=== PATIENT | female | born 1975 | race Caucasian/White ===

== ENCOUNTER → 2016-10-04 | Outpatient (CLI) | payer OTHER ==
[~2016-10-04] MED LIST: ASPI-875 PO; ATOR40TA70 PO; ATOR80TA76 PO; ATR20T PO; CITA10TA PO; CITA40TA19 PO; CLOP75TA PO; HYDR12.56 PO; ISOS30TA3 PO; LISI20TA PO; METO-270 PO; METO50TA2 PO; NTR.4SL SL; OMEP-10 PO; PANT40TA3 PO; PRAS10TA6 PO; PRAV40TA PO; REGADENOSON 0.4 MG/5 ML SYR (LEXISCAN) IV ONE; SERT100T PO; VARE1TAB17 PO
--- OUTSIDE RECORDS SUMMARY | 2016-10-04 11:33 | XMS REPORT | Continuity of Care Document ---
Author Author Formerly [facility] Address Unknown Phone Unavailable Allergies Active Description Code Type Severity Reaction Onset Reported/Identified Relationship to Patient Clinical Status Yes No Known Drug Allergies [id number] Drug Allergy Unknown N/ A 03/13/2013 Medications Problems Date Dx Coded Attending Type Code Diagnosis Diagnosed By 03/20/2008 V23.9 HIGH-RISK CARE UNSPEC 03/20/2008 V72.42 TEST POSITIVE RESULT 03/20/2008 VERONA THOMASON APRN V23.9 HIGH-RISK CARE UNSPEC 03/20/2008 VERONA THOMASON APRN V72.42 TEST POSITIVE RESULT 03/20/2008 V23.9 HIGH-RISK CARE UNSPEC 03/20/2008 V72.42 TEST POSITIVE RESULT 03/20/2008 V23.9 HIGH-RISK CARE UNSPEC 03/20/2008 V72.42 TEST POSITIVE RESULT 03/20/2008 REGGIE LANDEROS DO K V23.9 HIGH-RISK CARE UNSPEC 03/20/2008 GISEL LANDEROS DOA K V72.42 TEST POSITIVE RESULT 03/20/2008 GISEL LANDEROS DOA K V23.9 HIGH-RISK CARE UNSPEC 03/20/2008 GISEL LANDEROS DOA K V72.42 TEST POSITIVE RESULT 03/20/2008 GISEL LANDEROS DOA K V23.9 HIGH-RISK CARE UNSPEC 03/20/2008 GISEL LANDEROS DOA K V72.42 TEST POSITIVE RESULT 03/20/2008 FRANK CUADRA MD V23.9 HIGH-RISK CARE UNSPEC 03/20/2008 FRANK CUADRA MD V72.42 TEST POSITIVE RESULT 03/20/2008 VERONA THOMASON APRN V23.9 HIGH-RISK CARE UNSPEC 03/20/2008 VERONA THOMASON APRN V72.42 TEST POSITIVE RESULT 03/20/2008 REGGIE LANDEROS DO V23.9 HIGH-RISK CARE UNSPEC 03/20/2008 LANDEROS DO, REGGIE K V72.42 TEST POSITIVE RESULT 03/20/2008 LANDEROS DO, REGGIE K V23.9 HIGH-RISK CARE UNSPEC 03/20/2008 LANDEROS DO, REGGIE K V72.42 TEST POSITIVE RESULT 03/20/2008 ILYA ALCALA APRN L V23.9 HIGH-RISK CARE UNSPEC 03/20/2008 FREDRICK SUPERVISOR SAFETY DEPOSITJUANPABLO DoddCY L V72.42 TEST POSITIVE RESULT 03/20/2008 LANDEROS DO, REGGIE K V23.9 HIGH-RISK CARE UNSPEC 03/20/2008 LANDEROS DO, REGGIE K V72.42 TEST POSITIVE RESULT 03/20/2008 LANDEROS DO, REGGIE K V23.9 HIGH-RISK CARE UNSPEC 03/20/2008 LANDEROS DO, REGGIE K V72.42 TEST POSITIVE RESULT 03/20/2008 LANDEROS DO, REGGIE K V23.9 HIGH-RISK CARE UNSPEC 03/20/2008 LANDEROS DO, REGGIE K V72.42 TEST POSITIVE RESULT 03/20/2008 ELVA MC APRN E V23.9 HIGH-RISK CARE UNSPEC 03/20/2008 ARACELI MC APRNE E V72.42 TEST POSITIVE RESULT 04/01/2008 632 , MISSED 04/01/2008 V72.41 TEST NEGATIVE RESULT 04/01/2008 VERONA THOMASON APRN 632 , MISSED 04/01/2008 VERONA THOMASON APRN V72.41 TEST NEGATIVE RESULT 04/01/2008 632 , MISSED 04/01/2008 V72.41 TEST NEGATIVE RESULT 04/01/2008 632 , MISSED 04/01/2008 V72.41 TEST NEGATIVE RESULT 04/01/2008 LANDEROS DO, REGGIE K 632 , MISSED 04/01/2008 LANDEROS DO, REGGIE K V72.41 TEST NEGATIVE RESULT 04/01/2008 LANDEROS DO, REGGIE K 632 , MISSED 04/01/2008 LANDEROS DO, REGGIE K V72.41 TEST NEGATIVE RESULT 04/01/2008 LANDEROS DO, REGGIE K 632 , MISSED 04/01/2008 LANDEROS DO, REGGIE K V72.41 TEST NEGATIVE RESULT 04/01/2008 FRANK CUADRA MD N 632 , MISSED 04/01/2008 FRANK CUADRA MD V72.41 TEST NEGATIVE RESULT 04/01/2008 VERONA THOMASON APRN R 632 , MISSED 04/01/2008 VERONA THOMASON APRN V72.41 TEST NEGATIVE RESULT 04/01/2008 LANDEROS DO, REGGIE K 632 , MISSED 04/01/2008 LANDEROS DO, REGGIE K V72.41 TEST NEGATIVE RESULT 04/01/2008 LANDEROS DO, REGGIE K 632 , MISSED 04/01/2008 LANDEROS DO, REGGIE K V72.41 TEST NEGATIVE RESULT 04/01/2008 FREDRICK SUPERVISOR SAFETY DEPOSIT, ILYA L 632 , MISSED 04/01/2008 FREDRICK SUPERVISOR SAFETY DEPOSIT, ILYA L V72.41 TEST NEGATIVE RESULT 04/01/2008 LANDEROS DO, REGGIE K 632 , MISSED 04/01/2008 LANDEROS DO, REGGIE K V72.41 TEST NEGATIVE RESULT 04/01/2008 LANDEROS DO, REGGIE K 632 , MISSED 04/01/2008 LANDEROS DO, REGGIE K V72.41 TEST NEGATIVE RESULT 04/01/2008 LANDEROS DO, REGGIE K 632 , MISSED 04/01/2008 LANDEROS DO, REGGIE K V72.41 TEST NEGATIVE RESULT 04/01/2008 CANDIDALGISEL PIPER APRNSIE E 632 , MISSED 04/01/2008 CANDIDAGISEL BORJA APRNSIE E V72.41 TEST NEGATIVE RESULT 04/04/2008 V25.40 CONTRACEPTIVE SURVEILLANCE UNSPECIFIED 04/04/2008 V72.31 PIANO MAKER EXAM, ROUTINE 04/04/2008 VERONA THOMASON APRN V25.40 CONTRACEPTIVE SURVEILLANCE UNSPECIFIED 04/04/2008 VERONA THOMASON APRN V72.31 PIANO MAKER EXAM, ROUTINE 04/04/2008 V25.40 CONTRACEPTIVE SURVEILLANCE UNSPECIFIED 04/04/2008 V72.31 PIANO MAKER EXAM, ROUTINE 04/04/2008 V25.40 CONTRACEPTIVE SURVEILLANCE UNSPECIFIED 04/04/2008 V72.31 PIANO MAKER EXAM, ROUTINE 04/04/2008 LANDEROS DO REGGIE K V25.40 CONTRACEPTIVE SURVEILLANCE UNSPECIFIED 04/04/2008 LANDEROS DO REGGIE K V72.31 PIANO MAKER EXAM, ROUTINE 04/04/2008 LANDEROS DO REGGIE K V25.40 CONTRACEPTIVE SURVEILLANCE UNSPECIFIED 04/04/2008 LANDEROS DO REGGIE K V72.31 PIANO MAKER EXAM, ROUTINE 04/04/2008 LANDEROS DO REGGIE K V25.40 CONTRACEPTIVE SURVEILLANCE UNSPECIFIED 04/04/2008 LANDEROS DO REGGIE K V72.31 PIANO MAKER EXAM, ROUTINE 04/04/2008 FRANK CUADRA MD V25.40 CONTRACEPTIVE SURVEILLANCE UNSPECIFIED 04/04/2008 FRANK CUADRA MD V72.31 PIANO MAKER EXAM, ROUTINE 04/04/2008 VERONA THOMASON APRN V25.40 CONTRACEPTIVE SURVEILLANCE UNSPECIFIED 04/04/2008 VERONA THOMASON APRN V72.31 PIANO MAKER EXAM, ROUTINE 04/04/2008 LANDEROS DO REGGIE K V25.40 CONTRACEPTIVE SURVEILLANCE UNSPECIFIED 04/04/2008 LANDEROS DO REGGIE K V72.31 PIANO MAKER EXAM, ROUTINE 04/04/2008 LANDEROS DO REGGIE K V25.40 CONTRACEPTIVE SURVEILLANCE UNSPECIFIED 04/04/2008 LANDEROS DO REGGIE K V72.31 PIANO MAKER EXAM, ROUTINE 04/04/2008 FREDRICK SUPERVISOR SAFETY DEPOSITILYA Dodd L V25.40 CONTRACEPTIVE SURVEILLANCE UNSPECIFIED 04/04/2008 FREDRICK SUPERVISOR SAFETY DEPOSITILYA L V72.31 PIANO MAKER EXAM, ROUTINE 04/04/2008 LANDEROS DO REGGIE K V25.40 CONTRACEPTIVE SURVEILLANCE UNSPECIFIED 04/04/2008 LANDEROS DO REGGIE K V72.31 PIANO MAKER EXAM, ROUTINE 04/04/2008 LANDEROS DO REGGIE K V25.40 CONTRACEPTIVE SURVEILLANCE UNSPECIFIED 04/04/2008 LANDEROS DO REGGIE K V72.31 PIANO MAKER EXAM, ROUTINE 04/04/2008 LANDEROS DO REGGIE K V25.40 CONTRACEPTIVE SURVEILLANCE UNSPECIFIED 04/04/2008 LANDEROS DO REGGIE K V72.31 PIANO MAKER EXAM, ROUTINE 04/04/2008 ELVA MC APRN E V25.40 CONTRACEPTIVE SURVEILLANCE UNSPECIFIED 04/04/2008 CANDIDALELVA PIPER APRN E V72.31 PIANO MAKER EXAM, ROUTINE 06/26/2008 112.1 CANDIDIASIS VAGINAL 06/26/2008 616.10 VAGINITIS 06/26/2008 VERONA THOMASON APRN 112.1 CANDIDIASIS VAGINAL 06/26/2008 VERONA THOMASON APRN 616.10 VAGINITIS 06/26/2008 112.1 CANDIDIASIS VAGINAL 06/26/2008 616.10 VAGINITIS 06/26/2008 112.1 CANDIDIASIS VAGINAL 06/26/2008 616.10 VAGINITIS 06/26/2008 LANDEROS DO, REGGIE K 112.1 CANDIDIASIS VAGINAL 06/26/2008 LANDEROS DO, REGGIE K 616.10 VAGINITIS 06/26/2008 LANDEROS DO, REGGIE K 112.1 CANDIDIASIS VAGINAL 06/26/2008 LANDEROS DO, REGGIE K 616.10 VAGINITIS 06/26/2008 LANDEROS DO, REGGIE K 112.1 CANDIDIASIS VAGINAL 06/26/2008 LANDEROS DO, REGGIE K 616.10 VAGINITIS 06/26/2008 KHALIF KHALIL, FRANK N 112.1 CANDIDIASIS VAGINAL 06/26/2008 KHALIF KHALIL, FRANK Dodd 616.10 VAGINITIS 06/26/2008 VERONA THOMASON APRN 112.1 CANDIDIASIS VAGINAL 06/26/2008 VERONA THOMASON APRN 616.10 VAGINITIS 06/26/2008 LANDEROS DO, REGGIE K 112.1 CANDIDIASIS VAGINAL 06/26/2008 LANDEROS DO, REGGIE K 616.10 VAGINITIS 06/26/2008 LANDEROS DO, REGGIE K 112.1 CANDIDIASIS VAGINAL 06/26/2008 LANDEROS DO, REGGIE K 616.10 VAGINITIS 06/26/2008 FREDRICK REAL, ILYA L 112.1 CANDIDIASIS VAGINAL 06/26/2008 FREDRICK ADDIE ILYA L 616.10 VAGINITIS 06/26/2008 LANDEROS DO, REGGIE K 112.1 CANDIDIASIS VAGINAL 06/26/2008 LANDEROS DO, REGGIE K 616.10 VAGINITIS 06/26/2008 LANDEROS DO, REGGIE K 112.1 CANDIDIASIS VAGINAL 06/26/2008 LANDEROS DO, REGGIE K 616.10 VAGINITIS 06/26/2008 LANDEROS DO, REGGIE K 112.1 CANDIDIASIS VAGINAL 06/26/2008 LANDEROS DO, REGGIE K 616.10 VAGINITIS 06/26/2008 ELVA MC APRN E 112.1 CANDIDIASIS VAGINAL 06/26/2008 ELVA MC APRN E 616.10 VAGINITIS 09/09/2008 382.00 OTITIS MEDIA ACUTE WITHOUT SPONTANEOUS RUPTURE EARDRUM 09/09/2008 388.70 earache 09/09/2008 THOMASON SUPERVISOR SAFETY DEPOSIT, VERONA R 382.00 OTITIS MEDIA ACUTE WITHOUT SPONTANEOUS RUPTURE EARDRUM 09/09/2008 VERONA THOMASON APRN 388.70 earache 09/09/2008 382.00 OTITIS MEDIA ACUTE WITHOUT SPONTANEOUS RUPTURE EARDRUM 09/09/2008 388.70 earache 09/09/2008 382.00 OTITIS MEDIA ACUTE WITHOUT SPONTANEOUS RUPTURE EARDRUM 09/09/2008 388.70 earache 09/09/2008 LANDEROS DO, REGGIE K 382.00 OTITIS MEDIA ACUTE WITHOUT SPONTANEOUS RUPTURE EARDRUM 09/09/2008 LANDEROS DO, REGGIE K 388.70 earache 09/09/2008 LANDEROS DO, REGGIE K 382.00 OTITIS MEDIA ACUTE WITHOUT SPONTANEOUS RUPTURE EARDRUM 09/09/2008 LANDEROS DO, REGGIE K 388.70 earache 09/09/2008 LANDEROS DO, REGGIE K 382.00 OTITIS MEDIA ACUTE WITHOUT SPONTANEOUS RUPTURE EARDRUM 09/09/2008 LANDEROS DO, REGGIE K 388.70 earache 09/09/2008 FRANK CUADRA MD 382.00 OTITIS MEDIA ACUTE WITHOUT SPONTANEOUS RUPTURE EARDRUM 09/09/2008 FRANK CUADRA MD 388.70 earache 09/09/2008 VERONA THOMASON APRN R 382.00 OTITIS MEDIA ACUTE WITHOUT SPONTANEOUS RUPTURE EARDRUM 09/09/2008 VERONA THOMASON APRN 388.70 earache 09/09/2008 LANDEROS DO, REGGIE K 382.00 OTITIS MEDIA ACUTE WITHOUT SPONTANEOUS RUPTURE EARDRUM 09/09/2008 LANDEROS DO, REGGIE K 388.70 earache 09/09/2008 LANDEROS DO, REGGIE K 382.00 OTITIS MEDIA ACUTE WITHOUT SPONTANEOUS RUPTURE EARDRUM 09/09/2008 LANDEROS DO, REGGIE K 388.70 earache 09/09/2008 FREDRICK SUPERVISOR SAFETY DEPOSIT, ILYA L 382.00 OTITIS MEDIA ACUTE WITHOUT SPONTANEOUS RUPTURE EARDRUM 09/09/2008 FREDRICK SUPERVISOR SAFETY DEPOSIT, ILYA L 388.70 earache 09/09/2008 LANDEROS DO, REGGIE K 382.00 OTITIS MEDIA ACUTE WITHOUT SPONTANEOUS RUPTURE EARDRUM 09/09/2008 LANDEROS DO, REGGIE K 388.70 earache 09/09/2008 LANDEROS DO, REGGIE K 382.00 OTITIS MEDIA ACUTE WITHOUT SPONTANEOUS RUPTURE EARDRUM 09/09/2008 LANDEROS DO, REGGIE K 388.70 EARACHE 09/09/2008 LANDEROS DO, RGEGIE K 382.00 OTITIS MEDIA ACUTE WITHOUT SPONTANEOUS RUPTURE EARDRUM 09/09/2008 LANDEROS , REGGIE K 388.70 EARACHE 09/09/2008 [facility] ELVA REAL E 382.00 OTITIS MEDIA ACUTE WITHOUT SPONTANEOUS RUPTURE EARDRUM 09/09/2008 CANDIDAELVA PIPER APRN E 388.70 EARACHE 09/23/2008 780.60 FEVER, UNSPECIFIED 09/23/2008 V74.1 SCREENING EXAMINATION FOR PULMONARY TUBERCULOSIS 09/23/2008 VERONA THOMASON APRN 780.60 FEVER, UNSPECIFIED 09/23/2008 VERONA THOMASON APRN V74.1 SCREENING EXAMINATION FOR PULMONARY TUBERCULOSIS 09/23/2008 780.60 FEVER, UNSPECIFIED 09/23/2008 V74.1 SCREENING EXAMINATION FOR PULMONARY TUBERCULOSIS 09/23/2008 780.60 FEVER, UNSPECIFIED 09/23/2008 V74.1 SCREENING EXAMINATION FOR PULMONARY TUBERCULOSIS 09/23/2008 LANDEROS DO, REGGIE K 780.60 FEVER, UNSPECIFIED 09/23/2008 LANDEROS DO REGGIE K V74.1 SCREENING EXAMINATION FOR PULMONARY TUBERCULOSIS 09/23/2008 LANDEROS DO, REGGIE K 780.60 FEVER, UNSPECIFIED 09/23/2008 LANDEROS DO, REGGIE K V74.1 SCREENING EXAMINATION FOR PULMONARY TUBERCULOSIS 09/23/2008 LANDEROS DO, REGGIE K 780.60 FEVER, UNSPECIFIED 09/23/2008 LANDEROS DO, REGGIE K V74.1 SCREENING EXAMINATION FOR PULMONARY TUBERCULOSIS 09/23/2008 FRANK CUADRA MD 780.60 FEVER, UNSPECIFIED 09/23/2008 FRANK CUADRA MD V74.1 SCREENING EXAMINATION FOR PULMONARY TUBERCULOSIS 09/23/2008 THOMASONVERONA SANCHEZ APRN 780.60 FEVER, UNSPECIFIED 09/23/2008 VERONA THOMASON APRN V74.1 SCREENING EXAMINATION FOR PULMONARY TUBERCULOSIS 09/23/2008 LANDEROS DO, REGGIE K 780.60 FEVER, UNSPECIFIED 09/23/2008 LANDEROS DO, REGGIE K V74.1 SCREENING EXAMINATION FOR PULMONARY TUBERCULOSIS 09/23/2008 LANDEROS DO, REGGIE K 780.60 FEVER, UNSPECIFIED 09/23/2008 LANDEROS DO, REGGIE K V74.1 SCREENING EXAMINATION FOR PULMONARY TUBERCULOSIS 09/23/2008 ILYA ALCALA APRN L 780.60 FEVER, UNSPECIFIED 09/23/2008 ILYA ALCALA APRN L V74.1 SCREENING EXAMINATION FOR PULMONARY TUBERCULOSIS 09/23/2008 LANDEROS DO, REGGIE K 780.60 FEVER, UNSPECIFIED 09/23/2008 LANDEROS DO, REGGIE K V74.1 SCREENING EXAMINATION FOR PULMONARY TUBERCULOSIS 09/23/2008 LANDEROS DO, REGGIE K 780.60 FEVER, UNSPECIFIED 09/23/2008 LANDEROS DO, REGGIE K V74.1 SCREENING EXAMINATION FOR PULMONARY TUBERCULOSIS 09/23/2008 LANDEROS DO, REGGIE K 780.60 FEVER, UNSPECIFIED 09/23/2008 LANDEROS DO, REGGIE K V74.1 SCREENING EXAMINATION FOR PULMONARY TUBERCULOSIS 09/23/2008 CANDIDAELVA PIPER APRN 780.60 FEVER, UNSPECIFIED 09/23/2008 CANDIDAELVA PIPER APRN V74.1 SCREENING EXAMINATION FOR PULMONARY TUBERCULOSIS 10/06/2008 780.79 MALAISE AND FATIGUE 10/06/2008 VERONA THOMASON APRN 780.79 MALAISE AND FATIGUE 10/06/2008 780.79 MALAISE AND FATIGUE 10/06/2008 780.79 MALAISE AND FATIGUE 10/06/2008 LANDEROS DO REGGIE K 780.79 MALAISE AND FATIGUE 10/06/2008 LANDEROS DO, REGGIE K 780.79 MALAISE AND FATIGUE 10/06/2008 LANDEROS DO, REGGIE K 780.79 MALAISE AND FATIGUE 10/06/2008 FRANK CUADRA MD 780.79 MALAISE AND FATIGUE 10/06/2008 VERONA THOMASON APRN 780.79 MALAISE AND FATIGUE 10/06/2008 LANDEROS DO, REGGIE K 780.79 MALAISE AND FATIGUE 10/06/2008 LANDEROS DO REGGIE K 780.79 MALAISE AND FATIGUE 10/06/2008 ILYA ALCALA APRN 780.79 MALAISE AND FATIGUE 10/06/2008 LANDEROS DO, REGGIE K 780.79 MALAISE AND FATIGUE 10/06/2008 LANDEROS DO REGGIE K 780.79 MALAISE AND FATIGUE 10/06/2008 LANDEROS DO, REGGIE K 780.79 MALAISE AND FATIGUE 10/06/2008 ELVA MC APRN 780.79 MALAISE AND FATIGUE 01/26/2009 466.0 BRONCHITIS, ACUTE 01/26/2009 786.2 COUGH 01/26/2009 VERONA THOMASON APRN 466.0 BRONCHITIS, ACUTE 01/26/2009 VERONA THOMASON APRN 786.2 COUGH 01/26/2009 466.0 BRONCHITIS, ACUTE 01/26/2009 786.2 COUGH 01/26/2009 466.0 BRONCHITIS, ACUTE 01/26/2009 786.2 COUGH 01/26/2009 LANDEROS DO, REGGIE K 466.0 BRONCHITIS, ACUTE 01/26/2009 LANDEROS DO, REGGIE K 786.2 COUGH 01/26/2009 LANDEROS DO, REGGIE K 466.0 BRONCHITIS, ACUTE 01/26/2009 LANDEROS DO, REGGIE K 786.2 COUGH 01/26/2009 LANDEROS DO, REGGIE K 466.0 BRONCHITIS, ACUTE 01/26/2009 LANDEROS DO, REGGIE K 786.2 COUGH 01/26/2009 KHALIF KHALIL, FRANK N 466.0 BRONCHITIS, ACUTE 01/26/2009 FRANK CUADRA MD 786.2 COUGH 01/26/2009 VERONA THOMASON APRN 466.0 BRONCHITIS, ACUTE 01/26/2009 VERONA THOMASON APRN 786.2 COUGH 01/26/2009 LANDEROS DO, REGGIE K 466.0 BRONCHITIS, ACUTE 01/26/2009 LANDEROS DO, REGGIE K 786.2 COUGH 01/26/2009 LANDEROS DO, REGGIE K 466.0 BRONCHITIS, ACUTE 01/26/2009 LANDEROS DO, REGGIE K 786.2 COUGH 01/26/2009 FREDRICK SUPERVISOR SAFETY DEPOSIT, ILYA L 466.0 BRONCHITIS, ACUTE 01/26/2009 FREDRICK SUPERVISOR SAFETY DEPOSIT, ILYA L 786.2 COUGH 01/26/2009 LANDEROS DO, REGGIE K 466.0 BRONCHITIS, ACUTE 01/26/2009 LANDEROS DO, REGGIE K 786.2 COUGH 01/26/2009 LANDEROS DO, REGGIE K 466.0 BRONCHITIS, ACUTE 01/26/2009 LANDEROS DO, REGGIE K 786.2 COUGH 01/26/2009 LANDEROS DO, REGGIE K 466.0 BRONCHITIS, ACUTE 01/26/2009 LANDEROS DO, REGGIE K 786.2 COUGH 01/26/2009 GISEL MC APRNSIE E 466.0 BRONCHITIS, ACUTE 01/26/2009 ALEXANDRO REAL ELVA E 786.2 COUGH 08/10/2009 381.81 DYSFUNCTION OF EUSTACHIAN TUBE 08/10/2009 VERONA THOMASON APRN 381.81 DYSFUNCTION OF EUSTACHIAN TUBE 08/10/2009 381.81 DYSFUNCTION OF EUSTACHIAN TUBE 08/10/2009 381.81 DYSFUNCTION OF EUSTACHIAN TUBE 08/10/2009 LANDEROS DO, REGGIE K 381.81 DYSFUNCTION OF EUSTACHIAN TUBE 08/10/2009 LANDEROS DO, REGGIE K 381.81 DYSFUNCTION OF EUSTACHIAN TUBE 08/10/2009 LANDEROS DO, REGGIE K 381.81 DYSFUNCTION OF EUSTACHIAN TUBE 08/10/2009 FRANK CUADRA MD 381.81 DYSFUNCTION OF EUSTACHIAN TUBE 08/10/2009 VERONA THOMASON APRN 381.81 DYSFUNCTION OF EUSTACHIAN TUBE 08/10/2009 LANDEROS DO, REGGIE K 381.81 DYSFUNCTION OF EUSTACHIAN TUBE 08/10/2009 LANDEROS DO, REGGIE K 381.81 DYSFUNCTION OF EUSTACHIAN TUBE 08/10/2009 ILYA ALCALA APRN 381.81 DYSFUNCTION OF EUSTACHIAN TUBE 08/10/2009 LANDEROS DO, REGGIE K 381.81 DYSFUNCTION OF EUSTACHIAN TUBE 08/10/2009 LANDEROS DO, REGGIE K 381.81 DYSFUNCTION OF EUSTACHIAN TUBE 08/10/2009 LANDEROS DO, REGGIE K 381.81 DYSFUNCTION OF EUSTACHIAN TUBE 08/10/2009 ELVA MC APRN 381.81 DYSFUNCTION OF EUSTACHIAN TUBE 09/01/2009 698.9 itching (pruritus) 09/01/2009 VERONA THOMASON APRN 698.9 itching (pruritus) 09/01/2009 698.9 itching (pruritus) 09/01/2009 698.9 itching (pruritus) 09/01/2009 LANDEROS DO, REGGIE K 698.9 itching (pruritus) 09/01/2009 LANDEROS DO, REGGIE K 698.9 itching (pruritus) 09/01/2009 LANDEROS DO, REGGIE K 698.9 itching (pruritus) 09/01/2009 FRANK CUADRA MD 698.9 itching (pruritus) 09/01/2009 VERONA THOMASON APRN 698.9 itching (pruritus) 09/01/2009 LANDEROS DO, REGGIE K 698.9 itching (pruritus) 09/01/2009 LANDEROS DO, REGGIE K 698.9 itching (pruritus) 09/01/2009 ILYA ALCALA APRN 698.9 itching (pruritus) 09/01/2009 LANDEROS DO REGGIE K 698.9 itching (pruritus) 09/01/2009 LANDEROS DO, REGGIE K 698.9 ITCHING (PRURITUS) 09/01/2009 LANDEROS DO, REGIGE K 698.9 ITCHING (PRURITUS) 09/01/2009 ELVA MC APRN 698.9 ITCHING (PRURITUS) 11/03/2009 782.1 ECHO VIRUS RASH 11/03/2009 VERONA THOMASON APRN 782.1 ECHO VIRUS RASH 11/03/2009 782.1 ECHO VIRUS RASH 11/03/2009 782.1 ECHO VIRUS RASH 11/03/2009 LANDEROS DOGISELA K 782.1 ECHO VIRUS RASH 11/03/2009 LANDEROS DO, REGGIE K 782.1 ECHO VIRUS RASH 11/03/2009 LANDEROS DO, REGGIE K 782.1 ECHO VIRUS RASH 11/03/2009 KHALIF KHALIL, FRANK Dodd 782.1 ECHO VIRUS RASH 11/03/2009 VERONA THOMASON APRN 782.1 ECHO VIRUS RASH 11/03/2009 LANDEROS DO, REGGIE K 782.1 ECHO VIRUS RASH 11/03/2009 LANDEROS DO, REGGIE K 782.1 ECHO VIRUS RASH 11/03/2009 ILYA ALCALA APRN 782.1 ECHO VIRUS RASH 11/03/2009 LANDEROS DO, REGGIE K 782.1 ECHO VIRUS RASH 11/03/2009 LANDEROS DO REGGIE K 782.1 ECHO VIRUS RASH 11/03/2009 LANDEROS DO REGGIE K 782.1 ECHO VIRUS RASH 11/03/2009 ELVA MC APRN 782.1 ECHO VIRUS RASH 05/17/2010 625.8 OTHER SPECIFIED SYMPTOMS ASSOCIATED WITH FEMALE GENITAL ORGANS 05/17/2010 VERONA THOMASON APRN 625.8 OTHER SPECIFIED SYMPTOMS ASSOCIATED WITH FEMALE GENITAL ORGANS 05/17/2010 625.8 OTHER SPECIFIED SYMPTOMS ASSOCIATED WITH FEMALE GENITAL ORGANS 05/17/2010 625.8 OTHER SPECIFIED SYMPTOMS ASSOCIATED WITH FEMALE GENITAL ORGANS 05/17/2010 REGGIE LANDEROS DO K 625.8 OTHER SPECIFIED SYMPTOMS ASSOCIATED WITH FEMALE GENITAL ORGANS 05/17/2010 REGGIE LANDEROS DO K 625.8 OTHER SPECIFIED SYMPTOMS ASSOCIATED WITH FEMALE GENITAL ORGANS 05/17/2010 LANDEROS DO, REGGIE K 625.8 OTHER SPECIFIED SYMPTOMS ASSOCIATED WITH FEMALE GENITAL ORGANS 05/17/2010 FRANK CUADRA MD 625.8 OTHER SPECIFIED SYMPTOMS ASSOCIATED WITH FEMALE GENITAL ORGANS 05/17/2010 VERONA THOMASON APRN 625.8 OTHER SPECIFIED SYMPTOMS ASSOCIATED WITH FEMALE GENITAL ORGANS 05/17/2010 LANDEROS DO, REGGIE K 625.8 OTHER SPECIFIED SYMPTOMS ASSOCIATED WITH FEMALE GENITAL ORGANS 05/17/2010 LANDEROS DO, REGGIE K 625.8 OTHER SPECIFIED SYMPTOMS ASSOCIATED WITH FEMALE GENITAL ORGANS 05/17/2010 ILYA ALCALA APRN 625.8 OTHER SPECIFIED SYMPTOMS ASSOCIATED WITH FEMALE GENITAL ORGANS 05/17/2010 LANDERSO DO, REGGIE K 625.8 OTHER SPECIFIED SYMPTOMS ASSOCIATED WITH FEMALE GENITAL ORGANS 05/17/2010 LANDEROS DO, REGGIE K 625.8 OTHER SPECIFIED SYMPTOMS ASSOCIATED WITH FEMALE GENITAL ORGANS 05/17/2010 LANDEROS DO, REGGIE K 625.8 OTHER SPECIFIED SYMPTOMS ASSOCIATED WITH FEMALE GENITAL ORGANS 05/17/2010 ELVA MC APRN 625.8 OTHER SPECIFIED SYMPTOMS ASSOCIATED WITH FEMALE GENITAL ORGANS 11/29/2010 786.07 WHEEZING 11/29/2010 VERONA THOMASON APRN 786.07 WHEEZING 11/29/2010 786.07 WHEEZING 11/29/2010 786.07 WHEEZING 11/29/2010 LANDEROS DO, REGGIE K 786.07 WHEEZING 11/29/2010 LANDEROS DO, REGGIE K 786.07 WHEEZING 11/29/2010 LANDEROS DO, REGGIE K 786.07 WHEEZING 11/29/2010 FRANK CUADRA MD 786.07 WHEEZING 11/29/2010 VERONA THOMASON APRN 786.07 WHEEZING 11/29/2010 LANDEROS DO, REGGIE K 786.07 WHEEZING 11/29/2010 LANDEROS DO, REGGIE K 786.07 WHEEZING 11/29/2010 ILYA ALCALA APRN 786.07 WHEEZING 11/29/2010 LANDEROS DO, REGGIE K 786.07 WHEEZING 11/29/2010 LANDEROS DO, REGGIE K 786.07 WHEEZING 11/29/2010 LANDEROS DO, REGGIE K 786.07 WHEEZING 11/29/2010 ELVA MC APRN 786.07 WHEEZING 10/28/2011 728.71 PLANTAR FASCIAL FIBROMATOSIS 10/28/2011 729.5 foot pain (soft tissue) 10/28/2011 VERONA THOMASON APRN 728.71 PLANTAR FASCIAL FIBROMATOSIS 10/28/2011 VERONA THOMASON APRN 729.5 foot pain (soft tissue) 10/28/2011 728.71 PLANTAR FASCIAL FIBROMATOSIS 10/28/2011 729.5 foot pain (soft tissue) 10/28/2011 728.71 PLANTAR FASCIAL FIBROMATOSIS 10/28/2011 729.5 foot pain (soft tissue) 10/28/2011 LANDEROS GISEL HUTSONA K 728.71 PLANTAR FASCIAL FIBROMATOSIS 10/28/2011 LANDEROS DO REGGIE K 729.5 foot pain (soft tissue) 10/28/2011 LANDEROS DO REGGIE K 728.71 PLANTAR FASCIAL FIBROMATOSIS 10/28/2011 LANDEROS DO REGGIE K 729.5 foot pain (soft tissue) 10/28/2011 LANDEROS DO REGGIE K 728.71 PLANTAR FASCIAL FIBROMATOSIS 10/28/2011 LANDEROS DO REGGIE K 729.5 foot pain (soft tissue) 10/28/2011 FRANK CUADRA MD 728.71 PLANTAR FASCIAL FIBROMATOSIS 10/28/2011 FRANK CUADRA MD 729.5 foot pain (soft tissue) 10/28/2011 VERONA THOMASON APRN 728.71 PLANTAR FASCIAL FIBROMATOSIS 10/28/2011 VERONA THOMASON APRN 729.5 foot pain (soft tissue) 10/28/2011 GISEL LANDEROS DOA K 728.71 PLANTAR FASCIAL FIBROMATOSIS 10/28/2011 GISEL LANDEROS DOA K 729.5 foot pain (soft tissue) 10/28/2011 GISEL LANDEROS DOA K 728.71 PLANTAR FASCIAL FIBROMATOSIS 10/28/2011 LANDEROS DO REGGIE K 729.5 foot pain (soft tissue) 10/28/2011 ILYA ALCALA APRN 728.71 PLANTAR FASCIAL FIBROMATOSIS 10/28/2011 ILYA ALCALA APRN 729.5 foot pain (soft tissue) 10/28/2011 LANDEROS DO REGGIE K 728.71 PLANTAR FASCIAL FIBROMATOSIS 10/28/2011 LANDEROS DO REGGIE K 729.5 foot pain (soft tissue) 10/28/2011 LANDEROS DO REGGIE K 728.71 PLANTAR FASCIAL FIBROMATOSIS 10/28/2011 LANDEROS DO, REGGIE K 729.5 FOOT PAIN (SOFT TISSUE) 10/28/2011 LANDEROS DO, REGGIE K 728.71 PLANTAR FASCIAL FIBROMATOSIS 10/28/2011 LANDEROS DO, REGGIE K 729.5 FOOT PAIN (SOFT TISSUE) 10/28/2011 ELVA MC APRN E 728.71 PLANTAR FASCIAL FIBROMATOSIS 10/28/2011 ELVA MC APRN E 729.5 FOOT PAIN (SOFT TISSUE) 12/13/2011 787.91 diarrhea 12/13/2011 796.2 Blood Pressure Isolated Elevated 12/13/2011 VERONA THOMASON APRN R 787.91 diarrhea 12/13/2011 VERONA THOMASON APRN 796.2 Blood Pressure Isolated Elevated 12/13/2011 787.91 diarrhea 12/13/2011 796.2 Blood Pressure Isolated Elevated 12/13/2011 787.91 diarrhea 12/13/2011 796.2 Blood Pressure Isolated Elevated 12/13/2011 LANDEROS DO, REGGIE K 787.91 diarrhea 12/13/2011 LANDEROS DO, REGGIE K 796.2 Blood Pressure Isolated Elevated 12/13/2011 LANDEROS DO, REGGIE K 787.91 diarrhea 12/13/2011 LANDEROS DO, REGGIE K 796.2 Blood Pressure Isolated Elevated 12/13/2011 LANDEROS DO, REGGIE K 787.91 diarrhea 12/13/2011 LANDEROS DO, REGGIE K 796.2 Blood Pressure Isolated Elevated 12/13/2011 FRANK CUADRA MD N 787.91 diarrhea 12/13/2011 FRANK CUADRA MD N 796.2 Blood Pressure Isolated Elevated 12/13/2011 VERONA THOMASON APRN R 787.91 diarrhea 12/13/2011 VERONA THOMASON APRN R 796.2 Blood Pressure Isolated Elevated 12/13/2011 LANDEROS DO, REGGIE K 787.91 diarrhea 12/13/2011 LANDEROS DO, REGGIE K 796.2 Blood Pressure Isolated Elevated 12/13/2011 LANDEROS DO, REGGIE K 787.91 diarrhea 12/13/2011 LANDEROS DO, REGGIE K 796.2 Blood Pressure Isolated Elevated 12/13/2011 ILYA ALCALA APRN 787.91 diarrhea 12/13/2011 ILYA ALCALA APRN 796.2 Blood Pressure Isolated Elevated 12/13/2011 LANDEROS DO, REGGIE K 787.91 diarrhea 12/13/2011 LANDEROS DO, REGGIE K 796.2 Blood Pressure Isolated Elevated 12/13/2011 LANDEROS DO, REGGIE K 787.91 DIARRHEA 12/13/2011 LANDEROS DO, REGGIE K 796.2 BLOOD PRESSURE ISOLATED ELEVATED 12/13/2011 LANDEROS DO, REGGIE K 787.91 DIARRHEA 12/13/2011 LANDEROS DO, REGGIE K 796.2 BLOOD PRESSURE ISOLATED ELEVATED 12/13/2011 ELVA MC APRN 787.91 DIARRHEA 12/13/2011 ELVA MC APRN 796.2 BLOOD PRESSURE ISOLATED ELEVATED 01/13/2012 729.4 PLANTAR FASCIITIS 01/13/2012 VERONA THOMASON APRN 729.4 PLANTAR FASCIITIS 01/13/2012 729.4 PLANTAR FASCIITIS 01/13/2012 729.4 PLANTAR FASCIITIS 01/13/2012 LANDEROS DO, REGGIE K 729.4 PLANTAR FASCIITIS 01/13/2012 LANDEROS DO, REGGIE K 729.4 PLANTAR FASCIITIS 01/13/2012 LANDEROS DO, REGGIE K 729.4 PLANTAR FASCIITIS 01/13/2012 KHALIF KHALIL, FRANK Dodd 729.4 PLANTAR FASCIITIS 01/13/2012 VERONA THOMASON APRN 729.4 PLANTAR FASCIITIS 01/13/2012 LANDEROS DO, REGGIE K 729.4 PLANTAR FASCIITIS 01/13/2012 LANDEROS DO, REGGIE K 729.4 PLANTAR FASCIITIS 01/13/2012 ILYA ALCALA APRN 729.4 PLANTAR FASCIITIS 01/13/2012 LANDEROS DO, REGGIE K 729.4 PLANTAR FASCIITIS 01/13/2012 LANDEROS DO, REGGIE K 729.4 PLANTAR FASCIITIS 01/13/2012 LANDEROS DO, REGGIE K 729.4 PLANTAR FASCIITIS 01/13/2012 ELVA MC APRN 729.4 PLANTAR FASCIITIS 02/02/2012 625.6 STRESS INCONTINENCE FEMALE 02/02/2012 V76.10 BREAST CANCER SCREENING 02/02/2012 VERONA THOMASON APRN 625.6 STRESS INCONTINENCE FEMALE 02/02/2012 VERONA THOMASON APRN V76.10 BREAST CANCER SCREENING 02/02/2012 625.6 STRESS INCONTINENCE FEMALE 02/02/2012 V76.10 BREAST CANCER SCREENING 02/02/2012 625.6 STRESS INCONTINENCE FEMALE 02/02/2012 V76.10 BREAST CANCER SCREENING 02/02/2012 LANDEROS DO, REGGIE K 625.6 STRESS INCONTINENCE FEMALE 02/02/2012 LANDEROS DO, REGGIE K V76.10 BREAST CANCER SCREENING 02/02/2012 LANDEROS DO, REGGIE K 625.6 STRESS INCONTINENCE FEMALE 02/02/2012 LANDEROS DO, REGGIE K V76.10 BREAST CANCER SCREENING 02/02/2012 LANDEROS DO, REGGIE K 625.6 STRESS INCONTINENCE FEMALE 02/02/2012 LANDEROS DO, REGGIE K V76.10 BREAST CANCER SCREENING 02/02/2012 FRANK CUADRA MD 625.6 STRESS INCONTINENCE FEMALE 02/02/2012 FRANK CUADRA MD V76.10 BREAST CANCER SCREENING 02/02/2012 VERONA THOMASON APRN 625.6 STRESS INCONTINENCE FEMALE 02/02/2012 VERONA THOMASON APRN V76.10 BREAST CANCER SCREENING 02/02/2012 LANDEROS DO, REGGIE K 625.6 STRESS INCONTINENCE FEMALE 02/02/2012 LANDEROS DO, REGGIE K V76.10 BREAST CANCER SCREENING 02/02/2012 LANDEROS DO, REGGIE K 625.6 STRESS INCONTINENCE FEMALE 02/02/2012 LANDEROS DO, REGGIE K V76.10 BREAST CANCER SCREENING 02/02/2012 ILYA ALCALA APRN 625.6 STRESS INCONTINENCE FEMALE 02/02/2012 ILYA ALCALA APRN V76.10 BREAST CANCER SCREENING 02/02/2012 LANDEROS DO, REGGIE K 625.6 STRESS INCONTINENCE FEMALE 02/02/2012 LANDEROS DO, REGGIE K V76.10 BREAST CANCER SCREENING 02/02/2012 LANDEROS DO, REGGIE K 625.6 STRESS INCONTINENCE FEMALE 02/02/2012 LANDEROS DO, REGGIE K V76.10 BREAST CANCER SCREENING 02/02/2012 LANDEROS DO, REGGIE K 625.6 STRESS INCONTINENCE FEMALE 02/02/2012 LANDEROS DO, REGGIE K V76.10 BREAST CANCER SCREENING 02/02/2012 ELVA MC APRN 625.6 STRESS INCONTINENCE FEMALE 02/02/2012 ELVA MC APRN V76.10 BREAST CANCER SCREENING 04/30/2012 465.9 UPPER RESPIRATORY INFECTION 04/30/2012 VERONA THOMASON APRN 465.9 UPPER RESPIRATORY INFECTION 04/30/2012 465.9 UPPER RESPIRATORY INFECTION 04/30/2012 465.9 UPPER RESPIRATORY INFECTION 04/30/2012 LANDEROS DO, REGGIE K 465.9 UPPER RESPIRATORY INFECTION 04/30/2012 LANDEROS DO, REGGIE K 465.9 UPPER RESPIRATORY INFECTION 04/30/2012 LANDEROS DO, REGGIE K 465.9 UPPER RESPIRATORY INFECTION 04/30/2012 FRANK CUADRA MD 465.9 UPPER RESPIRATORY INFECTION 04/30/2012 VERONA THOMASON APRN 465.9 UPPER RESPIRATORY INFECTION 04/30/2012 LANDEROS DO, REGGIE K 465.9 UPPER RESPIRATORY INFECTION 04/30/2012 LANDEROS DO, REGGIE K 465.9 UPPER RESPIRATORY INFECTION 04/30/2012 ILYA ALCALA APRN 465.9 UPPER RESPIRATORY INFECTION 04/30/2012 LANDEROS DO, REGGIE K 465.9 UPPER RESPIRATORY INFECTION 04/30/2012 LANDEROS DO, REGGIE K 465.9 UPPER RESPIRATORY INFECTION 04/30/2012 LANDEROS DO, REGGIE K 465.9 UPPER RESPIRATORY INFECTION 04/30/2012 ELVA MC APRN 465.9 UPPER RESPIRATORY INFECTION 05/29/2012 V05.3 HEP B (ADULT) DX 05/29/2012 VERONA THOMASON APRN V05.3 HEP B (ADULT) DX 05/29/2012 V05.3 HEP B (ADULT) DX 05/29/2012 V05.3 HEP B (ADULT) DX 05/29/2012 LANDEROS DO, REGGIE K V05.3 HEP B (ADULT) DX 05/29/2012 LANDEROS DO, REGGIE K V05.3 HEP B (ADULT) DX 05/29/2012 LANDEROS DO, REGGIE K V05.3 HEP B (ADULT) DX 05/29/2012 FRANK CUADRA MD V05.3 HEP B (ADULT) DX 05/29/2012 VERONA THOMASON APRN V05.3 HEP B (ADULT) DX 05/29/2012 LANDEROS DO, REGGIE K V05.3 HEP B (ADULT) DX 05/29/2012 LANDEROS DO, REGGIE K V05.3 HEP B (ADULT) DX 05/29/2012 ILYA ALCALA APRN V05.3 HEP B (ADULT) DX 05/29/2012 LANDEROS DO, REGGIE K V05.3 HEP B (ADULT) DX 05/29/2012 LANDEROS DO, REGGIE K V05.3 HEP B (ADULT) DX 05/29/2012 LANDEROS DO, REGGIE K V05.3 HEP B (ADULT) DX 05/29/2012 ELVA MC APRN V05.3 HEP B (ADULT) DX 02/06/2013 414.9 CHRONIC ISCHEMIC HEART DISEASE UNSPECIFIED 02/06/2013 V67.9 UNSPECIFIED FOLLOW-UP EXAMINATION 02/06/2013 414.9 CHRONIC ISCHEMIC HEART DISEASE UNSPECIFIED 02/06/2013 V67.9 UNSPECIFIED FOLLOW-UP EXAMINATION 02/06/2013 LANDEROS DO, REGGIE K 414.9 CHRONIC ISCHEMIC HEART DISEASE UNSPECIFIED 02/06/2013 LANDEROS DO, REGGIE K V67.9 UNSPECIFIED FOLLOW-UP EXAMINATION 02/06/2013 LANDEROS DO, REGGIE K 414.9 CHRONIC ISCHEMIC HEART DISEASE UNSPECIFIED 02/06/2013 LANDEROS DO, REGGIE K V67.9 UNSPECIFIED FOLLOW-UP EXAMINATION 02/06/2013 LANDEROS DO, REGGIE K 414.9 CHRONIC ISCHEMIC HEART DISEASE UNSPECIFIED 02/06/2013 LANDEROS DO, REGGIE K V67.9 UNSPECIFIED FOLLOW-UP EXAMINATION 02/06/2013 FRANK CUADRA MD 414.9 CHRONIC ISCHEMIC HEART DISEASE UNSPECIFIED 02/06/2013 FRANK CUADRA MD V67.9 UNSPECIFIED FOLLOW-UP EXAMINATION 02/06/2013 VERONA THOMASON APRN 414.9 CHRONIC ISCHEMIC HEART DISEASE UNSPECIFIED 02/06/2013 VERONA THOMASON APRN V67.9 UNSPECIFIED FOLLOW-UP EXAMINATION 02/06/2013 LANDEROS DO, REGGIE K 414.9 CHRONIC ISCHEMIC HEART DISEASE UNSPECIFIED 02/06/2013 LANDEROS DO, REGGIE K V67.9 UNSPECIFIED FOLLOW-UP EXAMINATION 02/06/2013 LANDEROS DO, REGGIE K 414.9 CHRONIC ISCHEMIC HEART DISEASE UNSPECIFIED 02/06/2013 LANDEROS DO, REGGIE K V67.9 UNSPECIFIED FOLLOW-UP EXAMINATION 02/06/2013 ILYA ALCALA APRN 414.9 CHRONIC ISCHEMIC HEART DISEASE UNSPECIFIED 02/06/2013 ILYA ALCALA APRN V67.9 UNSPECIFIED FOLLOW-UP EXAMINATION 02/06/2013 LANDEROS DO, REGGIE K 414.9 CHRONIC ISCHEMIC HEART DISEASE UNSPECIFIED 02/06/2013 LANDEROS DO, REGGIE K V67.9 UNSPECIFIED FOLLOW-UP EXAMINATION 02/06/2013 LANDEROS DO, REGGIE K 414.9 CHRONIC ISCHEMIC HEART DISEASE UNSPECIFIED 02/06/2013 LANDEROS DO, REGGIE K V67.9 UNSPECIFIED FOLLOW-UP EXAMINATION 02/06/2013 LANDEROS DO, REGGIE K 414.9 CHRONIC ISCHEMIC HEART DISEASE UNSPECIFIED 02/06/2013 LANEDROS DO, REGGIE K V67.9 UNSPECIFIED FOLLOW-UP EXAMINATION 02/06/2013 GISEL MC APRNSIE E 414.9 CHRONIC ISCHEMIC HEART DISEASE UNSPECIFIED 02/06/2013 ALEXANDRO REAL, ELVA E V67.9 UNSPECIFIED FOLLOW-UP EXAMINATION 03/13/2013 414.00 CAD 03/13/2013 425.4 CARDIOMYOPHATHY 03/13/2013 786.50 CHEST PAIN 03/13/2013 414.00 CAD 03/13/2013 425.4 CARDIOMYOPHATHY 03/13/2013 786.50 CHEST PAIN 03/13/2013 LANDEROS DO, REGGIE K 414.00 CAD 03/13/2013 LANDEROS DO, REGGIE K 425.4 CARDIOMYOPHATHY 03/13/2013 LANDEROS DO, REGGIE K 786.50 CHEST PAIN 03/13/2013 LANDEROS DO, REGGIE K 414.00 CAD 03/13/2013 LANDEROS DO, REGGIE K 425.4 CARDIOMYOPHATHY 03/13/2013 LANDEROS DO, REGGIE K 786.50 CHEST PAIN 03/13/2013 LANDEROS DO, REGGIE K 414.00 CAD 03/13/2013 LANDEROS DO, REGGIE K 425.4 CARDIOMYOPHATHY 03/13/2013 LANDEROS DO, REGGIE K 786.50 CHEST PAIN 03/13/2013 FRANK CUADRA MD 414.00 CAD 03/13/2013 FRANK CUADRA MD 425.4 CARDIOMYOPHATHY 03/13/2013 FRANK CUADRA MD 786.50 CHEST PAIN 03/13/2013 VERONA THOMASON APRN 414.00 CAD 03/13/2013 VERONA THOMASON APRN 425.4 CARDIOMYOPHATHY 03/13/2013 PADDY REAL, VERONA Hawkins 786.50 CHEST PAIN 03/13/2013 LANDEROS DO, REGGIE K 414.00 CAD 03/13/2013 LANDEROS DO, REGGIE K 425.4 CARDIOMYOPHATHY 03/13/2013 LANDEROS DO, REGGIE K 786.50 CHEST PAIN 03/13/2013 LANDEROS DO, REGGIE K 414.00 CAD 03/13/2013 LANDEROS DO, REGGIE K 425.4 CARDIOMYOPHATHY 03/13/2013 LANDEROS DO, REGGIE K 786.50 CHEST PAIN 03/13/2013 FREDRICK SUPERVISOR SAFETY DEPOSIT, ILYA L 414.00 CAD 03/13/2013 FREDRICK SUPERVISOR SAFETY DEPOSIT, ILYA L 425.4 CARDIOMYOPHATHY 03/13/2013 FREDRICK SUPERVISOR SAFETY DEPOSIT, ILYA L 786.50 CHEST PAIN 03/13/2013 LANDEROS DO, REGGIE K 414.00 CAD 03/13/2013 LANDEROS DO, REGGIE K 425.4 CARDIOMYOPHATHY 03/13/2013 LANDEROS DO, REGGIE K 786.50 CHEST PAIN 03/13/2013 LANDEROS DO, REGGIE K 414.00 CAD 03/13/2013 LANDEROS DO, REGGIE K 425.4 CARDIOMYOPHATHY 03/13/2013 LANDEROS DO, REGGIE K 786.50 CHEST PAIN 03/13/2013 LANDEROS DO, REGGIE K 414.00 CAD 03/13/2013 LANDEROS DO, REGGIE K 425.4 CARDIOMYOPHATHY 03/13/2013 LANDEROS DO, REGGIE K 786.50 CHEST PAIN 03/13/2013 ALEXANDRO SUPERVISOR SAFETY DEPOSITGISEL DoddSIE E 414.00 CAD 03/13/2013 ALEXANDRO REAL ELVA E 425.4 CARDIOMYOPHATHY 03/13/2013 HELLVERONIQUE REAL ELVA E 786.50 CHEST PAIN 03/14/2013 JOSUE KHALIL, TORREY Servin Ot 272.4 HYPERLIPIDEMIA NEC/NOS 03/14/2013 JOSUE KHALIL, TORREY Servin Ot 305.1 TOBACCO USE DISORDER 03/14/2013 TORREY SALAS MD Ot 311 DEPRESSIVE DISORDER NEC 03/14/2013 TORREY SALAS MD Ot 411.1 INTERMED CORONARY SYND 03/14/2013 TORREY SALAS MD Ot 412 OLD MYOCARDIAL INFARCT 03/14/2013 TORREY SALAS MD Ot 414.01 CORONARY ATHEROSCLEROSIS OF [place] CORON 03/14/2013 TORREY SALAS MD Ot 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 03/14/2013 TORREY SALAS MD Ot 414.8 CHR ISCHEMIC HRT DIS NEC 03/14/2013 TORREY SALAS MD Ot 530.81 ESOPHAGEAL REFLUX 03/14/2013 TORREY SALAS MD Ot V17.49 FAMILY HISTORY OF OTHER CARDIOVASCULAR D 03/14/2013 TORREY SALAS MD Ot V45.82 PERCUTANEOUS TRANSLUM CORON ANGIOPLASTY 03/14/2013 TORREY SALAS MD Ot V58.63 LONG-TERM(CURRENT)USE OF ANTIPLATELET/ AN 03/14/2013 TORREY SALAS MD Ot V58.66 LONG-TERM (CURRENT) USE OF ASPIRIN 03/14/2013 TORREY SALAS MD Ot V58.69 OTH MED,LT,CURRENT USE 03/21/2013 305.1 NONDEPENDENT TOBACCO USE DISORDER 03/21/2013 V58.69 LONG-TERM (CURRENT) USE OF OTHER MEDICATIONS 03/21/2013 305.1 NONDEPENDENT TOBACCO USE DISORDER 03/21/2013 V58.69 LONG-TERM (CURRENT) USE OF OTHER MEDICATIONS 03/21/2013 REGGIE LANDEROS DO 305.1 NONDEPENDENT TOBACCO USE DISORDER 03/21/2013 REGGIE LANDEROS DO V58.69 LONG-TERM (CURRENT) USE OF OTHER MEDICATIONS 03/21/2013 REGGIE LANDEROS DO 305.1 NONDEPENDENT TOBACCO USE DISORDER 03/21/2013 REGGIE LANDEROS DO V58.69 LONG-TERM (CURRENT) USE OF OTHER MEDICATIONS 03/21/2013 REGGIE LANDEROS DO 305.1 NONDEPENDENT TOBACCO USE DISORDER 03/21/2013 REGGIE LANDEROS DO V58.69 LONG-TERM (CURRENT) USE OF OTHER MEDICATIONS 03/21/2013 FRANK CUADRA MD 305.1 NONDEPENDENT TOBACCO USE DISORDER 03/21/2013 FRANK CUADRA MD V58.69 LONG-TERM (CURRENT) USE OF OTHER MEDICATIONS 03/21/2013 VERONA THOMASON APRN 305.1 NONDEPENDENT TOBACCO USE DISORDER 03/21/2013 VERONA THOMASON APRN V58.69 LONG-TERM (CURRENT) USE OF OTHER MEDICATIONS 03/21/2013 REGGIE LANDEROS DO 305.1 NONDEPENDENT TOBACCO USE DISORDER 03/21/2013 REGGIE LANDEROS DO K V58.69 LONG-TERM (CURRENT) USE OF OTHER MEDICATIONS 03/21/2013 REGGIE LANDEROS DO 305.1 NONDEPENDENT TOBACCO USE DISORDER 03/21/2013 LANDEROS DO, REGGIE K V58.69 LONG-TERM (CURRENT) USE OF OTHER MEDICATIONS 03/21/2013 FREDRICK SUPERVISOR SAFETY DEPOSIT, ILYA L 305.1 NONDEPENDENT TOBACCO USE DISORDER 03/21/2013 FREDRICK SUPERVISOR SAFETY DEPOSIT, ILYA L V58.69 LONG-TERM (CURRENT) USE OF OTHER MEDICATIONS 03/21/2013 LANDEROS DO, REGGIE K 305.1 NONDEPENDENT TOBACCO USE DISORDER 03/21/2013 LANDEROS DO, REGGIE K V58.69 LONG-TERM (CURRENT) USE OF OTHER MEDICATIONS 03/21/2013 LANDEROS DO, REGGIE K 305.1 NONDEPENDENT TOBACCO USE DISORDER 03/21/2013 LANDEROS DO, REGGIE K V58.69 LONG-TERM (CURRENT) USE OF OTHER MEDICATIONS 03/21/2013 LANDEROS DO, REGGIE K 305.1 NONDEPENDENT TOBACCO USE DISORDER 03/21/2013 LANDEROS DO, REGGIE K V58.69 LONG-TERM (CURRENT) USE OF OTHER MEDICATIONS 03/21/2013 GISEL MC APRNSIE E 305.1 NONDEPENDENT TOBACCO USE DISORDER 03/21/2013 GISEL MC APRNSIE E V58.69 LONG-TERM (CURRENT) USE OF OTHER MEDICATIONS 04/03/2013 272.4 HYPERLIPIDEMIA 04/03/2013 LANDEROS DO, REGGIE K 272.4 HYPERLIPIDEMIA 04/03/2013 LANDEROS DO, REGGIE K 272.4 HYPERLIPIDEMIA 04/03/2013 LANDEROS DO, REGGIE K 272.4 HYPERLIPIDEMIA 04/03/2013 KHALIF KHALIL, FRANK Dodd 272.4 HYPERLIPIDEMIA 04/03/2013 VERONA THOMASON APRN 272.4 HYPERLIPIDEMIA 04/03/2013 LANDEROS DO, REGGIE K 272.4 HYPERLIPIDEMIA 04/03/2013 LANDEROS DO, REGGIE K 272.4 HYPERLIPIDEMIA 04/03/2013 FREDRICK REAL ILYA L 272.4 HYPERLIPIDEMIA 04/03/2013 LANDEROS DO, REGGIE K 272.4 HYPERLIPIDEMIA 04/03/2013 LANDEROS DO, REGGIE K 272.4 HYPERLIPIDEMIA 04/03/2013 LANDEROS DO, REGGIE K 272.4 HYPERLIPIDEMIA 04/03/2013 GISEL MC APRNSIE E 272.4 HYPERLIPIDEMIA 05/03/2013 AUGUSTA KHALIL FACC, MATT VELAZQUEZ CCDS Ot 272.4 HYPERLIPIDEMIA NEC/NOS 05/03/2013 AUGUSTA KHALIL FACC, MATT VELAZQUEZ CCDS Ot 305.1 TOBACCO USE DISORDER 05/03/2013 AUGUSTA KHALIL FACC, MATT FACP CCDS Ot 311 DEPRESSIVE DISORDER NEC 05/03/2013 AUGUSTA KHALIL FACC, MATT FACP CCDS Ot 414.01 CORONARY ATHEROSCLEROSIS OF [place] CORON 05/03/2013 MATT DERAS MD, FACC FACP CCDS Ot 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 05/03/2013 MATT DERAS MD, FACC FACP CCDS Ot 414.8 CHR ISCHEMIC HRT DIS NEC 05/03/2013 AUGUSTA KHALIL FACC ALI FACP CCDS Ot 530.81 ESOPHAGEAL REFLUX 05/03/2013 AUGUSTA KHALIL FACC, MATT FACP CCDS Ot 786.59 CHEST PAIN NEC 05/03/2013 AUGUSTA KHALIL FACC, MATT FACP CCDS Ot V45.82 PERCUTANEOUS TRANSLUM CORON ANGIOPLASTY 05/03/2013 MATT DERAS MD, FACC FACP CCDS Ot V58.63 LONG-TERM(CURRENT)USE OF ANTIPLATELET/AN 05/03/2013 MATT DERAS MD, FACC FACP CCDS Ot V58.66 LONG-TERM (CURRENT) USE OF ASPIRIN 05/03/2013 MATT DERAS MD, [facility] V58.69 OTH MED,LT,CURRENT USE 07/29/2013 CAPO ANGEL MD Ot 272.4 HYPERLIPIDEMIA NEC/NOS 07/29/2013 CAPO ANGEL MD Ot 278.00 OBESITY, NOS 07/29/2013 CAPO ANGEL MD Ot 305.1 TOBACCO USE DISORDER 07/29/2013 CAPO ANGEL MD Ot 401.9 HYPERTENSION NOS 07/29/2013 CAPO ANGEL MD Ot 410.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,SUBENDO INFARCT,IN 07/29/2013 CAPO ANGEL MD Ot 412 OLD MYOCARDIAL INFARCT 07/29/2013 CAPO ANGEL MD Ot 414.01 CORONARY ATHEROSCLEROSIS OF [place] CORON 07/29/2013 CAPO ANGEL MD Ot 414.8 CHR ISCHEMIC HRT DIS NEC 07/29/2013 CAPO ANGEL MD Ot 428.0 CONGESTIVE HEART FAILURE NOS 07/29/2013 CAPO ANGEL MD Ot 530.81 ESOPHAGEAL REFLUX 07/29/2013 CAPO ANGEL MD Ot V45.82 PERCUTANEOUS TRANSLUM CORON ANGIOPLASTY 07/29/2013 CAPO ANGEL MD Ot V58.63 LONG-TERM(CURRENT)USE OF ANTIPLATELET/AN 07/29/2013 JEANNE KHALIL, CAPO Vazquez Ot V58.69 OTH MED,LT,CURRENT USE 07/29/2013 CAPO ANGEL MD Ot V85.37 BODY MASS INDEX 37.0-37.9, ADULT 08/21/2013 LANDEROS DO, REGGIE K 401.9 UNSPECIFIED ESSENTIAL HYPERTENSION 08/21/2013 KHALIF KHALIL, FRANK Dodd 401.9 UNSPECIFIED ESSENTIAL HYPERTENSION 08/21/2013 VERONA THOMASON APRN 401.9 UNSPECIFIED ESSENTIAL HYPERTENSION 08/21/2013 LANDEROS DO, REGGIE K 401.9 UNSPECIFIED ESSENTIAL HYPERTENSION 08/21/2013 LNADEROS DO, REGGIE K 401.9 UNSPECIFIED ESSENTIAL HYPERTENSION 08/21/2013 ILYA ALCALA APRN L 401.9 UNSPECIFIED ESSENTIAL HYPERTENSION 08/21/2013 LANDEROS DO, REGGIE K 401.9 UNSPECIFIED ESSENTIAL HYPERTENSION 08/21/2013 LANDEROS DO, REGGIE K 401.9 UNSPECIFIED ESSENTIAL HYPERTENSION 08/21/2013 LANDEROS DO, REGGIE K 401.9 UNSPECIFIED ESSENTIAL HYPERTENSION 08/21/2013 ELVA MC APRN E 401.9 UNSPECIFIED ESSENTIAL HYPERTENSION 04/08/2014 JUANPABLO ALCALA APRNCY L 461.9 SINUSITIS ACUTE 04/08/2014 LANDEROS DO, REGGIE K 461.9 SINUSITIS ACUTE 04/08/2014 LANDEROS DO, REGGIE K 461.9 SINUSITIS ACUTE 04/08/2014 LANDEROS DO, REGGIE K 461.9 SINUSITIS ACUTE 04/08/2014 ARACELI MC APRNE E 461.9 SINUSITIS ACUTE 08/11/2014 LANDEROS DO, REGGIE K 008.8 INTESTINAL INFECTION DUE TO OTHER ORGANISM NOT ELSEWHERE CLASSIFIED 08/11/2014 LANDEROS DO, REGGIE K 796.2 ELEVATED BLOOD PRESSURE READING WITHOUT DIAGNOSIS OF HYPERTENSION 08/11/2014 ELVA MC APRN E 008.8 INTESTINAL INFECTION DUE TO OTHER ORGANISM NOT ELSEWHERE CLASSIFIED 08/11/2014 ELVA MC APRN E 796.2 ELEVATED BLOOD PRESSURE READING WITHOUT DIAGNOSIS OF HYPERTENSION 06/09/2015 AUGUSTA KHALIL FACDamian, MATT CHAUP CCDS Ot 397.0 06/09/2015 AUGUSTA KHALIL FACDamian, MATT CHAUP CCDS Ot 414.01 06/09/2015 AUGUSTA KHALIL FACDamian, MATT FACP CCDS Ot 414.4 06/09/2015 AUGUSTA KHALIL FACC, ALI FACP CCDS Ot 424.0 06/09/2015 AUGUSTA KHALIL FACC, ALI FACP CCDS Ot 429.3 06/09/2015 AUGUSTA KHALIL FACC, ALI FACP CCDS Ot 786.59 06/09/2015 AUGUSTA KHALIL FACC, ALI FACP CCDS Ot V45.82 06/09/2015 ELVA MC SUPERVISOR SAFETY DEPOSIT Ot 729.5 06/09/2015 ELVA MC SUPERVISOR SAFETY DEPOSIT Ot 729.81 06/09/2015 ELVA MC SUPERVISOR SAFETY DEPOSIT Ot V45.81 06/09/2015 AUGUSTA KHALIL FACC, MATT FACP CCDS Ot E66.9 OBESITY, UNSPECIFIED 06/09/2015 AUGUSTA KHALIL FACC, ALI FACP CCDS Ot E78.5 HYPERLIPIDEMIA, UNSPECIFIED 06/09/2015 AUGUSTA KHALIL FACC, ALI FACP CCDS Ot I25.119 ATHSCL HEART DISEASE OF [place] COR ART W 06/09/2015 AUGUSTA KHALIL FACC, MATT FACP CCDS Ot K21.9 GASTRO-ESOPHAGEAL REFLUX DISEASE WITHOUT 06/09/2015 AUGUSTA KHALIL FACC, ALI FACP CCDS Ot R07.89 OTHER CHEST PAIN 06/09/2015 AUGUSTA KHALIL FACC, ALI FACP CCDS Ot Z68.36 BODY MASS INDEX (BMI) 36.0-36.9 , ADULT 06/09/2015 AUGUSTA KHALIL FACC, ALI FACP CCDS Ot Z79.899 OTHER GEAR CHANGER (CURRENT) DRUG THERAPY 06/09/2015 AUGUSTA KHALIL FACC, ALI FACP CCDS Ot Z87.891 PERSONAL HISTORY OF NICOTINE DEPENDENCE 06/09/2015 AUGUSTA KHALIL FACC, ALI FACP CCDS Ot Z95.1 PRESENCE OF AORTOCORONARY BYPASS GRAFT 06/09/2015 AUGUSTA KHALIL FACC, ALI FACP CCDS Ot Z98.61 CORONARY ANGIOPLASTY STATUS 07/01/2015 DEBBIE SANDOVAL SPECIAL ED ASSISTANT Ot E78.5 07/01/2015 DEBBIE SANDOVAL SPECIAL ED ASSISTANT Ot I25.10 07/01/2015 DEBBIE SANDOVAL SPECIAL ED ASSISTANT Ot I42.9 07/01/2015 DEBBIE SANDOVAL SPECIAL ED ASSISTANT Ot R10.30 09/30/2015 DEBBIE SANDOVAL SPECIAL ED ASSISTANT Ot E78.5 09/30/2015 BAIDEBBIE GONZALEZ SPECIAL ED ASSISTANT Ot I25.10 09/30/2015 BAIDEBBIE GONZALEZ SPECIAL ED ASSISTANT Ot I42.9 09/30/2015 BAIDEBBIE GONZALEZ SPECIAL ED ASSISTANT Ot R10.30 10/09/2015 DEBBIE SANDOVAL SPECIAL ED ASSISTANT Ot E78.5 10/09/2015 DEBBIE SANDOVAL SPECIAL ED ASSISTANT Ot I25.10 10/09/2015 BAIDEBBIE GONZALEZ SPECIAL ED ASSISTANT Ot I42.9 10/09/2015 BAIDEBBIE GONZALEZ SPECIAL ED ASSISTANT Ot R10.30 09/29/2016 AUGUSTA KHALIL FACC, ALI FACP CCDS Ot 397.0 TRICUSPID VALVE DISEASE 09/29/2016 AUGUSTA KHALIL FACC, ALI FACP CCDS Ot 414.01 CORONARY ATHEROSCLEROSIS OF [place] CORON 09/29/2016 AUGUSTA KHALIL FACC, ALI FACP CCDS Ot 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 09/29/2016 AUGUSTA KHALIL FACC, ALI FACP CCDS Ot 424.0 MITRAL VALVE DISORDER 09/29/2016 AUGUSTA KHALIL FACC, ALI FACP CCDS Ot 429.3 CARDIOMEGALY 09/29/2016 AUGUSTA KHALIL FACC, ALI FACP CCDS Ot 786.59 CHEST PAIN NEC 09/29/2016 AUGUSTA KHALIL FACC, ALI FACP CCDS Ot V45.82 PERCUTANEOUS TRANSLUM CORON ANGIOPLASTY 09/29/2016 ELVA MC SUPERVISOR SAFETY DEPOSIT Ot 729.5 PAIN IN LIMB 09/29/2016 ELVA MC SUPERVISOR SAFETY DEPOSIT Ot 729.81 SWELLING OF LIMB 09/29/2016 ELVA MC SUPERVISOR SAFETY DEPOSIT Ot V45.81 AORTOCORONARY BYPASS 09/29/2016 DEBBIE SANDOVAL SPECIAL ED ASSISTANT Ot E78.5 HYPERLIPIDEMIA, UNSPECIFIED 09/29/2016 DEBBIE SANDOVAL SPECIAL ED ASSISTANT Ot I25.10 ATHSCL HEART DISEASE OF [place] CORONARY 09/29/2016 DEBBIE SANDOVAL SPECIAL ED ASSISTANT Ot I42.9 CARDIOMYOPATHY, UNSPECIFIED 09/29/2016 DEBBIE SANDOVAL SPECIAL ED ASSISTANT Ot R10.30 LOWER ABDOMINAL PAIN, UNSPECIFIED Procedures Code Description [place] [address] TB TEST INTRADERMAL 08/31/2012 53936 HEART CATH 2012 38234 EKG, TRACING (IN-HOUSE) 03/24/2013 77217 ROUTINE VENIPUNCTURE 04/18/2013 34004 CMP 04/18/2013 10873 LIPID PANEL 04/18 75079 T4 FREE 2012 57612 TSH 04/18/2013 46054 CBC 04/18/2013 65256 NUCLEAR STRESS TESTING 05/09/2013 27306 ECHO 2D 2012 03590 ROUTINE VENIPUNCTURE 06/10/2013 75744 CMP 06/10/2013 10363 LIPID PANEL 06/10 97543 VENOUS DOPPLER UNILATERAL/LIMITED 08/21/2013 67597 ROUTINE VENIPUNCTURE 09/09/2013 58246 CMP 09/09/2013 58884 LIPID PANEL 09/09 40050 MAGNESIUM 2013 42530 TSH 09/09/2013 83668 CBC W/MANUAL DIF (order) 09/09/2013 15589 ROUTINE VENIPUNCTURE 11/13/2013 51215 HEMOGLOBIN (IN-HOUSE) 11/13/2013 15286 CMP 11/13/2013 66595 LIPID PANEL 11/13 96794 ROUTINE VENIPUNCTURE 02/26/2014 [id number] GFR CALC (RESULT ONLY) 02/26/2014 25076 CMP 02/26/2014 89180 LIPID PANEL 02/26 59655 ROUTINE VENIPUNCTURE 07/04/2014 62889 TSH 07/04/2014 9676456 GFR CALC (RESULT ONLY) 07/04/2014 60275 CMP 07/04/2014 21800 LIPID PANEL 07/04 06464 ROUTINE VENIPUNCTURE 08/11/2014 06028 EKG, TRACING (IN-HOUSE) 08/11/2014 58889 TROPONIN, QUANT 08/11/2014 03669 ROUTINE VENIPUNCTURE 10/20/2014 [id number] GFR CALC (RESULT ONLY) 10/20/2014 02072 CMP 10/20/2014 72546 LIPID PANEL 10/20 Results Encounters ACCT No. Visit Date/Time Discharge Status Pt. Type Provider Facility Loc./Unit Complaint [id number] 10/20/2014 08:13:00 10/20/2014 23: 59:59 CLS Outpatient ELVA MC APRN [id number] 08/11/2014 10:34:00 08/11/2014 23: 59:59 CLS Outpatient REGGIE LANDEROS DO [id number] 08/01/2014 08:20:00 08/01/2014 23: 59:59 CLS Outpatient TIGRE DOREGGIE [id number] 07/04/2014 08:48:00 07/04/2014 23: 59:59 CLS Outpatient TIGRE DOREGGIE [id number] 04/08/2014 09:28:00 04/08/2014 23: 59:59 CLS Outpatient ILYA ALCALA APRN [id number] 02/26/2014 09:56:00 02/26/2014 23: 59:59 CLS Outpatient TIGRE DOREGGIE Lavell [id number] 11/13/2013 08:11:00 11/13/2013 23: 59:59 CLS Outpatient TIGRE DOREGGIE Lavell [id number] 09/09/2013 08:28:00 09/09/2013 23: 59:59 CLS Outpatient VERONA THOMASON APRN [id number] 08/26/2013 13:39:00 08/26/2013 23: 59:59 CLS Outpatient FRANK CUADRA MD [id number] 08/21/2013 08:09:00 08/21/2013 23: 59:59 CLS Outpatient TIGRE DOREGGIE [id number] 06/10/2013 08:08:00 06/10/2013 23: 59:59 CLS Outpatient TIGRE DOREGGIE Lavell [id number] 04/18/2013 08:06:00 04/18/2013 23: 59:59 CLS Outpatient TIGRE DOREGGIE Lavell [id number] 08/31/2012 15:35:00 08/31/2012 23: 59:59 CLS Outpatient [id number] 05/29/2012 15:02:00 05/29/2012 23:59 :59 CLS Outpatient VERONA THOMASON APRN [id number] 04/17/2013 11:32:00 Document Registration [id number] 03/21/2013 11:29:00 Document Registration
[2016-10-04] MEDS: CATHETER FLUSH 10 ML SYR IV PRN ×3 (12:01→13:15)
[2016-10-04 13:12] VITALS: BP 191/92
--- NOTE | 2016-10-05 10:12 | STRESS TEST ---
PROCEDURE PHYSICIAN: MATT DEL TORO DATE OF PROCEDURE: 10/04/2016 RESTING AND POST REGADENOSON TECHNETIUM 99M TETROFOSMIN SPECT CT IMAGING: ORDERING PHYSICIAN: Sabrina Javed APRN OTHER PHYSICIAN: Ana Correa APRN OTHER PHYSICIAN: Dr. Del Toro. CLINICAL DIAGNOSES: 1. Chest pain. 2. Coronary artery disease. Baseline images were carried out after injection of 10.78 mCi of technetium 99m tetrofosmin. This was followed by 0.4 mg of regadenoson and 29.2 mCi of technetium 99m tetrofosmin for stress imaging. The electrocardiogram showed sinus rhythm at baseline. Isolated premature ventricular contractions were seen during the study. The electrocardiogram did not change significantly with regadenoson infusion. The patient did not report any significant symptoms and tolerated the procedure well. Review of images at rest and following stress shows a predominantly transient septal perfusion defect. Gated images show septal hypokinesis. Left ventricular ejection fraction is calculated to be 36%. Left ventricular end-diastolic volume is 124 mL. TID is absent (1.16). CONCLUSIONS: 1. This study is indicative of a moderate amount of septal ischemia. 2. Septal hypokinesis. 3. Impaired left ventricular ejection fraction that is calculated to be 36%. 4. Moderate cardiomegaly. Job ID: [id number] Dictated Date: 10/04/2016 16:20:13 Video Tape Transferrer Date: 10/05/2016 10:04:24 / viridiana
== END ==
LOC: CARD 11:26
PROVIDERS: ATTEND Nurse Practitioner Family
DX: I25.10 Atherosclerotic heart disease of native coronary artery without angina pectoris (principal); E78.4 Other hyperlipidemia; R06.09 Other forms of dyspnea; R07.89 Other chest pain
CPT/HCPCS: 78452; 93017

== ENCOUNTER 2016-10-11 07:12 | Day surgery (SDC) | payer OTHER ==
[~2016-10-11] VITALS: Ht 172.7 cm; Wt 114.3 kg
[2016-10-11] VITALS (10 sets, daily range): BP systolic 140–212; BP diastolic 72–95
[~2016-10-11 07:12] MED LIST changes: -ATOR80TA76 PO; -ISOS30TA3 PO; -METO-270 PO; -PANT40TA3 PO; -REGADENOSON 0.4 MG/5 ML SYR (LEXISCAN) IV ONE
[2016-10-11] MEDS ORDERED: HEParin (CATH LAB) 2,000 ML IV ONE (07:15)
[2016-10-11] MEDS ORDERED: NS IV 1000 ML 1,000 ML ONE (07:15)
[2016-10-11] MEDS ORDERED: LIDOCAINE 1% INJ 20 ML (XYLOCAINE) VIAL ONE (07:15)
[2016-10-11] MEDS ORDERED: NS IV 1000 ML 1,000 ML IV SCH ×2 (07:18→09:23)
--- OUTSIDE RECORDS SUMMARY | 2016-10-11 07:18 | XMS REPORT | Continuity of Care Document ---
Author Author Formerly [facility] Address Unknown Phone Unavailable Allergies Active Description Code Type Severity Reaction Onset Reported/Identified Relationship to Patient Clinical Status Yes No Known Drug Allergies [id number] Drug Allergy Unknown N/ A 03/13/2013 Medications [...] L V23.9 HIGH-RISK CARE UNSPEC 03/20/2008 FREDRICK RETAIL EXPERIENCE SPECIALISTJUANPABLO DoddCY L V72.42 TEST POSITIVE RESULT 03/20/2008 [...] K V72.41 TEST NEGATIVE RESULT 04/01/2008 FREDRICK RETAIL EXPERIENCE SPECIALIST, ILYA L 632 , MISSED 04/01/2008 FREDRICK RETAIL EXPERIENCE SPECIALIST, ILYA L V72.41 TEST NEGATIVE RESULT 04/01/2008 [...] 04/04/2008 V25.40 CONTRACEPTIVE SURVEILLANCE UNSPECIFIED 04/04/2008 V72.31 RISK COMPLIANCE ANALYST EXAM, ROUTINE 04/04/2008 VERONA THOMASON APRN V25.40 CONTRACEPTIVE SURVEILLANCE UNSPECIFIED 04/04/2008 VERONA THOMASON APRN V72.31 RISK COMPLIANCE ANALYST EXAM, ROUTINE 04/04/2008 V25.40 CONTRACEPTIVE SURVEILLANCE UNSPECIFIED 04/04/2008 V72.31 RISK COMPLIANCE ANALYST EXAM, ROUTINE 04/04/2008 V25.40 CONTRACEPTIVE SURVEILLANCE UNSPECIFIED 04/04/2008 V72.31 RISK COMPLIANCE ANALYST EXAM, ROUTINE 04/04/2008 LANDEROS DO REGGIE K V25.40 CONTRACEPTIVE SURVEILLANCE UNSPECIFIED 04/04/2008 LANDEROS DO REGGIE K V72.31 RISK COMPLIANCE ANALYST EXAM, ROUTINE 04/04/2008 LANDEROS DO REGGIE K V25.40 CONTRACEPTIVE SURVEILLANCE UNSPECIFIED 04/04/2008 LANDEROS DO REGGIE K V72.31 RISK COMPLIANCE ANALYST EXAM, ROUTINE 04/04/2008 LANDEROS DO REGGIE K V25.40 CONTRACEPTIVE SURVEILLANCE UNSPECIFIED 04/04/2008 LANDEROS DO REGGIE K V72.31 RISK COMPLIANCE ANALYST EXAM, ROUTINE 04/04/2008 FRANK CUADRA MD V25.40 CONTRACEPTIVE SURVEILLANCE UNSPECIFIED 04/04/2008 FRANK CUADRA MD V72.31 RISK COMPLIANCE ANALYST EXAM, ROUTINE 04/04/2008 VERONA THOMASON APRN V25.40 CONTRACEPTIVE SURVEILLANCE UNSPECIFIED 04/04/2008 VERONA THOMASON APRN V72.31 RISK COMPLIANCE ANALYST EXAM, ROUTINE 04/04/2008 LANDEROS DO REGGIE K V25.40 CONTRACEPTIVE SURVEILLANCE UNSPECIFIED 04/04/2008 LANDEROS DO REGGIE K V72.31 RISK COMPLIANCE ANALYST EXAM, ROUTINE 04/04/2008 LANDEROS DO REGGIE K V25.40 CONTRACEPTIVE SURVEILLANCE UNSPECIFIED 04/04/2008 LANDEROS DO REGGIE K V72.31 RISK COMPLIANCE ANALYST EXAM, ROUTINE 04/04/2008 FREDRICK RETAIL EXPERIENCE SPECIALISTILYA Dodd L V25.40 CONTRACEPTIVE SURVEILLANCE UNSPECIFIED 04/04/2008 FREDRICK RETAIL EXPERIENCE SPECIALISTILYA L V72.31 RISK COMPLIANCE ANALYST EXAM, ROUTINE 04/04/2008 LANDEROS DO REGGIE K V25.40 CONTRACEPTIVE SURVEILLANCE UNSPECIFIED 04/04/2008 LANDEROS DO REGGIE K V72.31 RISK COMPLIANCE ANALYST EXAM, ROUTINE 04/04/2008 LANDEROS DO REGGIE K V25.40 CONTRACEPTIVE SURVEILLANCE UNSPECIFIED 04/04/2008 LANDEROS DO REGGIE K V72.31 RISK COMPLIANCE ANALYST EXAM, ROUTINE 04/04/2008 LANDEROS DO REGGIE K V25.40 CONTRACEPTIVE SURVEILLANCE UNSPECIFIED 04/04/2008 LANDEROS DO REGGIE K V72.31 RISK COMPLIANCE ANALYST EXAM, ROUTINE 04/04/2008 ELVA MC APRN E V25.40 CONTRACEPTIVE SURVEILLANCE UNSPECIFIED 04/04/2008 CANDIDALELVA PIPER APRN E V72.31 RISK COMPLIANCE ANALYST EXAM, ROUTINE 06/26/2008 112.1 CANDIDIASIS VAGINAL 06/26/2008 [...] RUPTURE EARDRUM 09/09/2008 388.70 earache 09/09/2008 THOMASON RETAIL EXPERIENCE SPECIALIST, VERONA R 382.00 OTITIS MEDIA ACUTE WITHOUT [...] DO, REGGIE K 388.70 earache 09/09/2008 FREDRICK RETAIL EXPERIENCE SPECIALIST, ILYA L 382.00 OTITIS MEDIA ACUTE WITHOUT SPONTANEOUS RUPTURE EARDRUM 09/09/2008 FREDRICK RETAIL EXPERIENCE SPECIALIST, ILYA L 388.70 earache 09/09/2008 LANDEROS DO, REGGIE K 382.00 OTITIS MEDIA ACUTE WITHOUT SPONTANEOUS RUPTURE EARDRUM 09/09/2008 LANDEROS DO, REGGIE K 388.70 earache 09/09/2008 LANDEROS DO, REGGIE K 382.00 OTITIS MEDIA ACUTE WITHOUT SPONTANEOUS RUPTURE EARDRUM 09/09/2008 LANDEROS DO, REGGIE K 388.70 EARACHE 09/09/2008 LANDEROS DO, REGGIE K 382.00 OTITIS MEDIA ACUTE WITHOUT SPONTANEOUS RUPTURE EARDRUM 09/09/2008 LANDEROS , REGGIE K 388.70 EARACHE 09/09/2008 [facility] ELVA REAL E 382.00 OTITIS MEDIA ACUTE WITHOUT SPONTANEOUS RUPTURE EARDRUM 09/09/2008 CANDIDAELVA PIPER APRN E 388.70 EARACHE 09/23/2008 780.60 FEVER, UNSPECIFIED 09/23/2008 V74.1 SCREENING EXAMINATION FOR PULMONARY TUBERCULOSIS 09/23/2008 VERONA THOMASON APRN 780.60 FEVER, UNSPECIFIED 09/23/2008 EVRONA THOMASON APRN V74.1 SCREENING EXAMINATION FOR PULMONARY [...] DO, REGGIE K 786.2 COUGH 01/26/2009 FREDRICK RETAIL EXPERIENCE SPECIALIST, ILYA L 466.0 BRONCHITIS, ACUTE 01/26/2009 FREDRICK RETAIL EXPERIENCE SPECIALIST, ILYA L 786.2 COUGH 01/26/2009 LANDEROS DO, [...] K 698.9 ITCHING (PRURITUS) 09/01/2009 LANDEROS DO, REGGIE K 698.9 ITCHING (PRURITUS) 09/01/2009 ELVA MC [...] APRN 728.71 PLANTAR FASCIAL FIBROMATOSIS 10/28/2011 VERONA THOMAOSN APRN 729.5 foot pain (soft tissue) 10/28/2011 [...] REGGIE K 414.00 CAD 03/13/2013 LANDEROS DO, REGGEI K 425.4 CARDIOMYOPHATHY 03/13/2013 LANDEROS DO, REGGIE K 786.50 CHEST PAIN 03/13/2013 LANDEROS DO, REGGIE K 414.00 CAD 03/13/2013 LANDEROS DO, REGGIE K 425.4 CARDIOMYOPHATHY 03/13/2013 LANDEROS DO, REGGIE K 786.50 CHEST PAIN 03/13/2013 LANDEROS DO, REGGIE K 414.00 CAD 03/13/2013 LANDEROS DO, RGEGIE K 425.4 CARDIOMYOPHATHY 03/13/2013 LANDEROS DO, REGGIE [...] LANDEROS DO, REGGIE K 414.00 CAD 03/13/2013 ALNDEROS DO, REGGIE K 425.4 CARDIOMYOPHATHY 03/13/2013 LANDEROS DO, REGGIE K 786.50 CHEST PAIN 03/13/2013 FREDRICK RETAIL EXPERIENCE SPECIALIST, ILYA L 414.00 CAD 03/13/2013 FREDRICK RETAIL EXPERIENCE SPECIALIST, ILYA L 425.4 CARDIOMYOPHATHY 03/13/2013 FREDRICK RETAIL EXPERIENCE SPECIALIST, ILYA L 786.50 CHEST PAIN 03/13/2013 LANDEROS [...] REGGIE K 786.50 CHEST PAIN 03/13/2013 ALEXANDRO RETAIL EXPERIENCE SPECIALISTGISEL DoddSIE E 414.00 CAD 03/13/2013 ALEXANDRO REAL [...] SALAS MD Ot 414.01 CORONARY ATHEROSCLEROSIS OF [place] CORON 03/14/2013 TORREY SALAS MD Ot 414.2 [...] (CURRENT) USE OF OTHER MEDICATIONS 03/21/2013 FREDRICK RETAIL EXPERIENCE SPECIALIST, ILYA L 305.1 NONDEPENDENT TOBACCO USE DISORDER 03/21/2013 FREDRICK RETAIL EXPERIENCE SPECIALIST, ILYA L V58.69 LONG-TERM (CURRENT) USE OF [...] FACP CCDS Ot 414.01 CORONARY ATHEROSCLEROSIS OF [place] CORON 05/03/2013 MATT DERAS MD, FACC FACP CCDS Ot 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 05/03/2013 MATT DERAS MD, FACC FACP CCDS Ot 414.8 CHR ISCHEMIC HRT DIS NEC 05/03/2013 AUGUSTA KHALIL FACC ALI FACP CCDS Ot 530.81 ESOPHAGEAL REFLUX 05/03/2013 AUGUSTA KHALIL FACC, MATT FACP CCDS Ot 786.59 CHEST PAIN NEC 05/03/2013 UAGUSTA KHALIL FACC, MATT FACP CCDS Ot V45.82 PERCUTANEOUS TRANSLUM CORON ANGIOPLASTY 05/03/2013 MATT DERAS MD, FACC FACP CCDS Ot V58.63 LONG-TERM(CURRENT)USE OF ANTIPLATELET/AN 05/03/2013 MATT DERAS MD, FACC FACP CCDS Ot V58.66 LONG-TERM (CURRENT) USE OF ASPIRIN 05/03/2013 MATT DERAS MD, FACC [facility] CCDS Ot V58.69 OTH MED,LT,CURRENT USE [...] ANGEL MD Ot 414.01 CORONARY ATHEROSCLEROSIS OF [place] CORON 07/29/2013 CAPO ANGEL MD Ot 414.8 [...] FACP CCDS Ot V45.82 06/09/2015 ELVA MC RETAIL EXPERIENCE SPECIALIST Ot 729.5 06/09/2015 ELVA MC RETAIL EXPERIENCE SPECIALIST Ot 729.81 06/09/2015 ELVA MC RETAIL EXPERIENCE SPECIALIST Ot V45.81 06/09/2015 AUGUSTA KHALIL FACC, MATT FACP CCDS Ot E66.9 OBESITY, UNSPECIFIED 06/09/2015 AUGUSTA KHALIL FACC, ALI FACP CCDS Ot E78.5 HYPERLIPIDEMIA, UNSPECIFIED 06/09/2015 AUGUSTA KHALIL FACC, ALI FACP CCDS Ot I25.119 ATHSCL HEART DISEASE OF [place] COR ART W 06/09/2015 AUGUSTA KHALIL FACC, MATT FACP CCDS Ot K21.9 GASTRO-ESOPHAGEAL REFLUX DISEASE WITHOUT 06/09/2015 AUGUSTA KHALIL FACC, ALI FACP CCDS Ot R07.89 OTHER CHEST PAIN 06/09/2015 AUGUSTA KHALIL FACC, ALI FACP CCDS Ot Z68.36 BODY MASS INDEX (BMI) 36.0-36.9 , ADULT 06/09/2015 AUGUSTA KHALIL FACC, ALI FACP CCDS Ot Z79.899 OTHER EDUCATION CONSULTANT (CURRENT) DRUG THERAPY 06/09/2015 AUGUSTA KHALIL FACC, ALI FACP CCDS Ot Z87.891 PERSONAL HISTORY OF NICOTINE DEPENDENCE 06/09/2015 AUGUSTA KHALIL FACC, ALI FACP CCDS Ot Z95.1 PRESENCE OF AORTOCORONARY BYPASS GRAFT 06/09/2015 AUGUSTA KHALIL FACC, ALI FACP CCDS Ot Z98.61 CORONARY ANGIOPLASTY STATUS 07/01/2015 DEBBIE SANDOVAL AUTOMOTIVE COLLISION ESTIMATOR Ot E78.5 07/01/2015 DEBBIE SANDOVAL AUTOMOTIVE COLLISION ESTIMATOR Ot I25.10 07/01/2015 DEBBIE SANDOVAL AUTOMOTIVE COLLISION ESTIMATOR Ot I42.9 07/01/2015 DEBBIE SANDOVAL AUTOMOTIVE COLLISION ESTIMATOR Ot R10.30 09/30/2015 DEBBIE SANDOVAL AUTOMOTIVE COLLISION ESTIMATOR Ot E78.5 09/30/2015 BAILISA, DEBBIE L AUTOMOTIVE COLLISION ESTIMATOR Ot I25.10 09/30/2015 BAIDEBBIE GONZALEZ L AUTOMOTIVE COLLISION ESTIMATOR Ot I42.9 09/30/2015 BAIDEBBIE GONZALEZ L AUTOMOTIVE COLLISION ESTIMATOR Ot R10.30 10/09/2015 BAIDEBBIE GONZALEZ L AUTOMOTIVE COLLISION ESTIMATOR Ot E78.5 10/09/2015 BAIDEBBIE GONZALEZ L AUTOMOTIVE COLLISION ESTIMATOR Ot I25.10 10/09/2015 BAIDEBBIE GONZALEZ L AUTOMOTIVE COLLISION ESTIMATOR Ot I42.9 10/09/2015 BAIDEBBIE GONZALEZ L AUTOMOTIVE COLLISION ESTIMATOR Ot R10.30 09/29/2016 AUGUSTA KHALIL FACC, ALI FACP CCDS Ot 397.0 TRICUSPID VALVE DISEASE 09/29/2016 AUGUSTA KHALIL FACC, ALI FACP CCDS Ot 414.01 CORONARY ATHEROSCLEROSIS OF [place] CORON 09/29/2016 AUGUSTA KHALIL FACC, ALI FACP [...] PERCUTANEOUS TRANSLUM CORON ANGIOPLASTY 09/29/2016 ELVA MC RETAIL EXPERIENCE SPECIALIST Ot 729.5 PAIN IN LIMB 09/29/2016 ELVA MC RETAIL EXPERIENCE SPECIALIST Ot 729.81 SWELLING OF LIMB 09/29/2016 ELVA MC RETAIL EXPERIENCE SPECIALIST Ot V45.81 AORTOCORONARY BYPASS 09/29/2016 DEBBIE SANDOVAL AUTOMOTIVE COLLISION ESTIMATOR Ot E78.5 HYPERLIPIDEMIA, UNSPECIFIED 09/29/2016 DEBBIE SANDOVAL L AUTOMOTIVE COLLISION ESTIMATOR Ot I25.10 ATHSCL HEART DISEASE OF [place] CORONARY 09/29/2016 DEBBIE SANDOVAL L AUTOMOTIVE COLLISION ESTIMATOR Ot I42.9 CARDIOMYOPATHY, UNSPECIFIED 09/29/2016 DEBBIE SANDOVAL L AUTOMOTIVE COLLISION ESTIMATOR Ot R10.30 LOWER ABDOMINAL PAIN, UNSPECIFIED 10/04/2016 AUGUSTA KHALIL FACC, ALI FACP CCDS Ot 397.0 TRICUSPID VALVE DISEASE 10/04/2016 AUGUSTA KHALIL FACC, MATT FACP CCDS Ot 414.01 CORONARY ATHEROSCLEROSIS OF [place] CORON 10/04/2016 AUGUSTA KHALIL FACC, ALI FACP CCDS Ot 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 10/04/2016 AUGUSTA KHALIL FACC, ALI FACP CCDS Ot 424.0 MITRAL VALVE DISORDER 10/04/2016 AUGUSTA KHALIL FACC, ALI FACP CCDS Ot 429.3 CARDIOMEGALY 10/04/2016 AUGUSTA KHALIL FACC, ALI FACP CCDS Ot 786.59 CHEST PAIN NEC 10/04/2016 AUGUSTA KHALIL FACC, ALI FACP CCDS Ot V45.82 PERCUTANEOUS TRANSLUM CORON ANGIOPLASTY 10/04/2016 ELVA MC RETAIL EXPERIENCE SPECIALIST Ot 729.5 PAIN IN LIMB 10/04/2016 ELVA MC RETAIL EXPERIENCE SPECIALIST Ot 729.81 SWELLING OF LIMB 10/04/2016 ELVA MC RETAIL EXPERIENCE SPECIALIST Ot V45.81 AORTOCORONARY BYPASS 10/04/2016 DEBBIE SANDOVAL AUTOMOTIVE COLLISION ESTIMATOR Ot E78.5 HYPERLIPIDEMIA, UNSPECIFIED 10/04/2016 DEBBIE SANDOVAL AUTOMOTIVE COLLISION ESTIMATOR Ot I25.10 ATHSCL HEART DISEASE OF [place] CORONARY 10/04/2016 DEBBIE SANDOVAL AUTOMOTIVE COLLISION ESTIMATOR Ot I42.9 CARDIOMYOPATHY, UNSPECIFIED 10/04/2016 DEBBIE SANDOVAL AUTOMOTIVE COLLISION ESTIMATOR Ot R10.30 LOWER ABDOMINAL PAIN, UNSPECIFIED 10/04/2016 AUGUSTA KHALIL FACC, MATT FACP CCDS Ot 397.0 TRICUSPID VALVE DISEASE 10/04/2016 AUGUSTA KHALIL FACC, MATT FACP CCDS Ot 414.01 CORONARY ATHEROSCLEROSIS OF [place] CORON 10/04/2016 AUGUSTA KHALIL FACC, ALI FACP CCDS Ot 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 10/04/2016 AUGUSTA KHALIL FACC, ALI FACP CCDS Ot 424.0 MITRAL VALVE DISORDER 10/04/2016 AUGUSTA KHALIL FACC, ALI FACP CCDS Ot 429.3 CARDIOMEGALY 10/04/2016 AUGUSTA KHALIL FACC, ALI FACP CCDS Ot 786.59 CHEST PAIN NEC 10/04/2016 AUGUSTA KHALIL FACC, ALI FACP CCDS Ot V45.82 PERCUTANEOUS TRANSLUM CORON ANGIOPLASTY 10/04/2016 ELVA MC RETAIL EXPERIENCE SPECIALIST Ot 729.5 PAIN IN LIMB 10/04/2016 ELVA MC RETAIL EXPERIENCE SPECIALIST Ot 729.81 SWELLING OF LIMB 10/04/2016 ELVA MC RETAIL EXPERIENCE SPECIALIST Ot V45.81 AORTOCORONARY BYPASS 10/04/2016 LORRIELISA, DEBBIE L AUTOMOTIVE COLLISION ESTIMATOR Ot E78.5 HYPERLIPIDEMIA, UNSPECIFIED 10/04/2016 BAIMA, DEBBIE L AUTOMOTIVE COLLISION ESTIMATOR Ot I25.10 ATHSCL HEART DISEASE OF [place] CORONARY 10/04/2016 BAIMA DEBBIE L AUTOMOTIVE COLLISION ESTIMATOR Ot I42.9 CARDIOMYOPATHY, UNSPECIFIED 10/04/2016 BAIMA, DEBBIE L AUTOMOTIVE COLLISION ESTIMATOR Ot R10.30 LOWER ABDOMINAL PAIN, UNSPECIFIED 10/11/2016 AUGUSTA KHALIL FACC, ALI FACP CCDS Ot 397.0 TRICUSPID VALVE DISEASE 10/11/2016 AUGUSTA KHALIL FACC, ALI FACP CCDS Ot 414.01 CORONARY ATHEROSCLEROSIS OF [place] CORON 10/11/2016 AUGUSTA KHALIL FACC, ALI FACP CCDS Ot 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 10/11/2016 AUGUSTA CHAUC, ALI FACP CCDS Ot 424.0 MITRAL VALVE DISORDER 10/11/2016 AUGUSTA KHALIL FACC, ALI FACP CCDS Ot 429.3 CARDIOMEGALY 10/11/2016 AUGUSTA KHALIL FACC, ALI FACP CCDS Ot 786.59 CHEST PAIN NEC 10/11/2016 AUGUSTA KHALIL FACC, ALI FACP CCDS Ot V45.82 PERCUTANEOUS TRANSLUM CORON ANGIOPLASTY 10/11/2016 ELVA MC RETAIL EXPERIENCE SPECIALIST Ot 729.5 PAIN IN LIMB 10/11/2016 ELVA MC RETAIL EXPERIENCE SPECIALIST Ot 729.81 SWELLING OF LIMB 10/11/2016 ELVA MC RETAIL EXPERIENCE SPECIALIST Ot V45.81 AORTOCORONARY BYPASS 10/11/2016 DEBBIE SANDOVAL L AUTOMOTIVE COLLISION ESTIMATOR Ot E78.5 HYPERLIPIDEMIA, UNSPECIFIED 10/11/2016 LORRIEMA DEBBIE L AUTOMOTIVE COLLISION ESTIMATOR Ot I25.10 ATHSCL HEART DISEASE OF [place] CORONARY 10/11/2016 LORRIELISA DEBBIE L AUTOMOTIVE COLLISION ESTIMATOR Ot I42.9 CARDIOMYOPATHY, UNSPECIFIED 10/11/2016 BAIMA, DEBBIE L AUTOMOTIVE COLLISION ESTIMATOR Ot R10.30 LOWER ABDOMINAL PAIN, UNSPECIFIED 10/11/2016 BAIMA, DEBBIE L AUTOMOTIVE COLLISION ESTIMATOR Ot E78.4 OTHER HYPERLIPIDEMIA 10/11/2016 DEBBIE SANDOVAL KAYCE Ot I25.10 ATHSCL HEART DISEASE OF [place] CORONARY 10/11/2016 DEBBIE SANDOVAL KAYCE Ot R06.09 OTHER FORMS OF DYSPNEA 10/11/2016 DEBBIE SANDOVALP Ot R07.89 OTHER CHEST PAIN Procedures Code Description [place] [address] TB TEST INTRADERMAL 08/31/2012 41846 HEART CATH 2012 27734 EKG, TRACING (IN-HOUSE) 03/24/2013 95233 ROUTINE VENIPUNCTURE 04/18/2013 68272 CMP 04/18/2013 17801 LIPID PANEL 04/18 24741 T4 FREE 2012 41953 TSH 04/18/2013 47102 CBC 04/18/2013 61542 NUCLEAR STRESS TESTING 05/09/2013 68415 ECHO 2D 2012 10471 ROUTINE VENIPUNCTURE 06/10/2013 85841 CMP 06/10/2013 32903 LIPID PANEL 06/10 41441 VENOUS DOPPLER UNILATERAL/LIMITED 08/21/2013 71073 ROUTINE VENIPUNCTURE 09/09/2013 07510 CMP 09/09/2013 08660 LIPID PANEL 09/09 28151 MAGNESIUM 2013 70300 TSH 09/09/2013 59875 CBC W/MANUAL DIF (order) 09/09/2013 29999 ROUTINE VENIPUNCTURE 11/13/2013 45722 HEMOGLOBIN (IN-HOUSE) 11/13/2013 20276 CMP 11/13/2013 20647 LIPID PANEL 11/13 10159 ROUTINE VENIPUNCTURE 02/26/2014 4730730 GFR CALC (RESULT ONLY) 02/26/2014 83538 CMP 02/26/2014 31409 LIPID PANEL 02/26 90981 ROUTINE VENIPUNCTURE 07/04/2014 16657 TSH 07/04/2014 8556775 GFR CALC (RESULT ONLY) 07/04/2014 09918 CMP 07/04/2014 53163 LIPID PANEL 07/04 00699 ROUTINE VENIPUNCTURE 08/11/2014 70855 EKG, TRACING (IN-HOUSE) 08/11/2014 48454 TROPONIN, QUANT 08/11/2014 40605 ROUTINE VENIPUNCTURE 10/20/2014 [id number] GFR CALC (RESULT ONLY) 10/20/2014 15992 CMP 10/20/2014 97265 LIPID PANEL 10/20 Results Encounters ACCT No. Visit Date/Time Discharge Status Pt. Type Provider Facility Loc./Unit Complaint [id number] 10/20/2014 08:13:00 10/20/2014 23: 59:59 CLS Outpatient ELVA MC APRN [id number] 08/11/2014 10:34:00 08/11/2014 23: 59:59 CLS Outpatient TIGRE HUTSONREGGIE [id number] 08/01/2014 08:20:00 08/01/2014 23: 59:59 CLS Outpatient TIGRE HUTSONREGGIE [id number] 07/04/2014 08:48:00 07/04/2014 23: 59:59 CLS Outpatient TIGRE HUTSONREGGIE [id number] 04/08/2014 09:28:00 04/08/2014 23: 59:59 CLS Outpatient FREDRICK ADDIEILYA Natanael [id number] 02/26/2014 09:56:00 02/26/2014 23: 59:59 CLS Outpatient TIGRE REGGIE HUTSON [id number] 11/13/2013 08:11:00 11/13/2013 23: 59:59 CLS Outpatient TIGRE DO REGGIE K [id number] 09/09/2013 08:28:00 09/09/2013 23: 59:59 CLS Outpatient VERONA THOMASON APRN [id number] 08/26/2013 13:39:00 08/26/2013 23: 59:59 CLS Outpatient FRANK CUADRA MD [id number] 08/21/2013 08:09:00 08/21/2013 23: 59:59 CLS Outpatient REGGIE LANDEROS DO [id number] 06/10/2013 08:08:00 06/10/2013 23: 59:59 CLS Outpatient LANDEROS DOREGGIE [id number] 04/18/2013 08:06:00 04/18/2013 23: 59:59 CLS Outpatient REGGIE LANDEROS DO [id number] 08/31/2012 15:35:00 08/31/2012 23: 59:59 CLS Outpatient [id number] 05/29/2012 15:02:00 05/29/2012 23:59 :59 CLS Outpatient VERONA THOMASON APRN [id number] 04/17/2013 11:32:00 Document Registration [id number] 03/21/2013 11:29:00 Document Registration
--- OUTSIDE RECORDS SUMMARY | 2016-10-11 07:21 | XMS REPORT | Continuity of Care Document ---
Author Author [facility] Address Unknown Phone Unavailable Allergies Active Description Code Type Severity Reaction Onset Reported/Identified Relationship to Patient Clinical Status Yes No Known Drug Allergies [id number] Drug Allergy Unknown N/ A 03/13/2013 Medications [...] L V23.9 HIGH-RISK CARE UNSPEC 03/20/2008 FREDRICK STATOR PLATE WASHERJUANPABLO DoddCY L V72.42 TEST POSITIVE RESULT 03/20/2008 [...] K V72.41 TEST NEGATIVE RESULT 04/01/2008 FREDRICK STATOR PLATE WASHER, ILYA L 632 , MISSED 04/01/2008 FREDRICK STATOR PLATE WASHER, ILYA L V72.41 TEST NEGATIVE RESULT 04/01/2008 [...] 04/04/2008 V25.40 CONTRACEPTIVE SURVEILLANCE UNSPECIFIED 04/04/2008 V72.31 BENDING ROLL OPERATOR EXAM, ROUTINE 04/04/2008 VERONA THOMASON APRN V25.40 CONTRACEPTIVE SURVEILLANCE UNSPECIFIED 04/04/2008 VERONA THOMASON APRN V72.31 BENDING ROLL OPERATOR EXAM, ROUTINE 04/04/2008 V25.40 CONTRACEPTIVE SURVEILLANCE UNSPECIFIED 04/04/2008 V72.31 BENDING ROLL OPERATOR EXAM, ROUTINE 04/04/2008 V25.40 CONTRACEPTIVE SURVEILLANCE UNSPECIFIED 04/04/2008 V72.31 BENDING ROLL OPERATOR EXAM, ROUTINE 04/04/2008 LANDEROS DO REGGIE K V25.40 CONTRACEPTIVE SURVEILLANCE UNSPECIFIED 04/04/2008 LANDEROS DO REGGIE K V72.31 BENDING ROLL OPERATOR EXAM, ROUTINE 04/04/2008 LANDEROS DO REGGIE K V25.40 CONTRACEPTIVE SURVEILLANCE UNSPECIFIED 04/04/2008 LANDEROS DO REGGIE K V72.31 BENDING ROLL OPERATOR EXAM, ROUTINE 04/04/2008 LANDEROS DO REGGIE K V25.40 CONTRACEPTIVE SURVEILLANCE UNSPECIFIED 04/04/2008 LANDEROS DO REGGIE K V72.31 BENDING ROLL OPERATOR EXAM, ROUTINE 04/04/2008 FRANK CUADRA MD V25.40 CONTRACEPTIVE SURVEILLANCE UNSPECIFIED 04/04/2008 FRANK CUADRA MD V72.31 BENDING ROLL OPERATOR EXAM, ROUTINE 04/04/2008 VERONA THOMASON APRN V25.40 CONTRACEPTIVE SURVEILLANCE UNSPECIFIED 04/04/2008 VERONA THOMASON APRN V72.31 BENDING ROLL OPERATOR EXAM, ROUTINE 04/04/2008 LANDEROS DO REGGIE K V25.40 CONTRACEPTIVE SURVEILLANCE UNSPECIFIED 04/04/2008 LANDEROS DO REGGIE K V72.31 BENDING ROLL OPERATOR EXAM, ROUTINE 04/04/2008 LANDEROS DO REGGIE K V25.40 CONTRACEPTIVE SURVEILLANCE UNSPECIFIED 04/04/2008 LANDEROS DO REGGIE K V72.31 BENDING ROLL OPERATOR EXAM, ROUTINE 04/04/2008 FREDRICK STATOR PLATE WASHERILYA Dodd L V25.40 CONTRACEPTIVE SURVEILLANCE UNSPECIFIED 04/04/2008 FREDRICK STATOR PLATE WASHERILYA L V72.31 BENDING ROLL OPERATOR EXAM, ROUTINE 04/04/2008 LANDEROS DO REGGIE K V25.40 CONTRACEPTIVE SURVEILLANCE UNSPECIFIED 04/04/2008 LANDEROS DO REGGIE K V72.31 BENDING ROLL OPERATOR EXAM, ROUTINE 04/04/2008 LANDEROS DO REGGIE K V25.40 CONTRACEPTIVE SURVEILLANCE UNSPECIFIED 04/04/2008 LANDEROS DO REGGIE K V72.31 BENDING ROLL OPERATOR EXAM, ROUTINE 04/04/2008 LANDEROS DO REGGIE K V25.40 CONTRACEPTIVE SURVEILLANCE UNSPECIFIED 04/04/2008 LANDEROS DO REGGIE K V72.31 BENDING ROLL OPERATOR EXAM, ROUTINE 04/04/2008 ELVA MC APRN E V25.40 CONTRACEPTIVE SURVEILLANCE UNSPECIFIED 04/04/2008 CANDIDALELVA PIPER APRN E V72.31 BENDING ROLL OPERATOR EXAM, ROUTINE 06/26/2008 112.1 CANDIDIASIS VAGINAL 06/26/2008 [...] RUPTURE EARDRUM 09/09/2008 388.70 earache 09/09/2008 THOMASON STATOR PLATE WASHER, VERONA R 382.00 OTITIS MEDIA ACUTE WITHOUT [...] DO, REGGIE K 388.70 earache 09/09/2008 FREDRICK STATOR PLATE WASHER, ILYA L 382.00 OTITIS MEDIA ACUTE WITHOUT SPONTANEOUS RUPTURE EARDRUM 09/09/2008 FREDRICK STATOR PLATE WASHER, ILYA L 388.70 earache 09/09/2008 LANDEROS DO, [...] LANDEROS , REGGIE K 388.70 EARACHE 09/09/2008 [facility] ELVA REAL E 382.00 OTITIS MEDIA ACUTE [...] REGGIE K 780.79 MALAISE AND FATIGUE 10/06/2008 ILAY ALCALA APRN 780.79 MALAISE AND FATIGUE 10/06/2008 [...] DO, REGGIE K 786.2 COUGH 01/26/2009 FREDRICK STATOR PLATE WASHER, ILYA L 466.0 BRONCHITIS, ACUTE 01/26/2009 FREDRICK STATOR PLATE WASHER, ILYA L 786.2 COUGH 01/26/2009 LANDEROS DO, [...] REGGIE K 698.9 ITCHING (PRURITUS) 09/01/2009 ELVA CM APRN 698.9 ITCHING (PRURITUS) 11/03/2009 782.1 ECHO [...] THOMASON APRN 728.71 PLANTAR FASCIAL FIBROMATOSIS 10/28/2011 VEORNA THOMASON APRN 729.5 foot pain (soft tissue) [...] REGGIE K 786.50 CHEST PAIN 03/13/2013 FREDRICK STATOR PLATE WASHER, ILYA L 414.00 CAD 03/13/2013 FREDRICK STATOR PLATE WASHER, ILYA L 425.4 CARDIOMYOPHATHY 03/13/2013 FREDRICK STATOR PLATE WASHER, ILYA L 786.50 CHEST PAIN 03/13/2013 LANDEROS [...] DO, REGGIE K 786.50 CHEST PAIN 03/13/2013 ALEAXNDRO STATOR PLATE WASHERGISEL DoddSIE E 414.00 CAD 03/13/2013 ALEXANDRO REAL [...] SALAS MD Ot 414.01 CORONARY ATHEROSCLEROSIS OF [place] CORON 03/14/2013 TORREY SALAS MD Ot 414.2 [...] (CURRENT) USE OF OTHER MEDICATIONS 03/21/2013 FREDRICK STATOR PLATE WASHER, ILYA L 305.1 NONDEPENDENT TOBACCO USE DISORDER 03/21/2013 FREDRICK STATOR PLATE WASHER, ILYA L V58.69 LONG-TERM (CURRENT) USE OF OTHER MEDICATIONS 03/21/2013 LANDEROS DO, REGGIE K 305.1 NONDEPENDENT TOBACCO USE DISORDER 03/21/2013 LANDEROS DO, REGGIE K V58.69 LONG-TERM (CURRENT) USE OF OTHER MEDICATIONS 03/21/2013 LANDEROS DO, REGGIE K 305.1 NONDEPENDENT TOBACCO USE DISORDER 03/21/2013 LANDEROS DO, REGGEI K V58.69 LONG-TERM (CURRENT) USE OF OTHER [...] FACP CCDS Ot 414.01 CORONARY ATHEROSCLEROSIS OF [place] CORON 05/03/2013 MATT DERAS MD, FACC FACP [...] OF ASPIRIN 05/03/2013 M[facility] DERAS MD, FACC [facility] Ot V58.69 OTH MED,LT,CURRENT USE 07/29/2013 [...] ANGEL MD Ot 414.01 CORONARY ATHEROSCLEROSIS OF [place] CORON 07/29/2013 CAPO ANGEL MD Ot 414.8 [...] FACP CCDS Ot V45.82 06/09/2015 ELVA MC STATOR PLATE WASHER Ot 729.5 06/09/2015 ELVA MC STATOR PLATE WASHER Ot 729.81 06/09/2015 ELVA MC STATOR PLATE WASHER Ot V45.81 06/09/2015 AUGUSTA KHALIL FACC, MATT FACP CCDS Ot E66.9 OBESITY, UNSPECIFIED 06/09/2015 AUGUSTA KHALIL FACC, ALI FACP CCDS Ot E78.5 HYPERLIPIDEMIA, UNSPECIFIED 06/09/2015 AUGUSTA KHALIL FACC, ALI FACP CCDS Ot I25.119 ATHSCL HEART DISEASE OF [place] COR ART W 06/09/2015 AUGUSTA KHALIL FACC, MATT FACP CCDS Ot K21.9 GASTRO-ESOPHAGEAL REFLUX DISEASE WITHOUT 06/09/2015 AUGUSTA KHALIL FACC, ALI FACP CCDS Ot R07.89 OTHER CHEST PAIN 06/09/2015 AUGUSTA KHALIL FACC, ALI FACP CCDS Ot Z68.36 BODY MASS INDEX (BMI) 36.0-36.9 , ADULT 06/09/2015 AUGUSTA KHALIL FACC, ALI FACP CCDS Ot Z79.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 THERAPY 06/09/2015 AUGUSTA KHALIL FACC, ALI FACP CCDS Ot Z87.891 PERSONAL HISTORY OF NICOTINE DEPENDENCE 06/09/2015 AUGUSTA KHALIL FACC, ALI FACP CCDS Ot Z95.1 PRESENCE OF AORTOCORONARY BYPASS GRAFT 06/09/2015 AUGUSTA KHALIL FACC, ALI FACP CCDS Ot Z98.61 CORONARY ANGIOPLASTY STATUS 07/01/2015 DEBBIE SANDOVAL LIGHT ADJUSTER Ot E78.5 07/01/2015 DEBBIE SANDOAVL LIGHT ADJUSTER Ot I25.10 07/01/2015 DEBBIE SANDOVAL LIGHT ADJUSTER Ot I42.9 07/01/2015 DEBBIE SANDOVAL LIGHT ADJUSTER Ot R10.30 09/30/2015 DEBBIE SANDOVAL LIGHT ADJUSTER Ot E78.5 09/30/2015 BAILISA, DEBBIE L LIGHT ADJUSTER Ot I25.10 09/30/2015 BAIDEBBIE GONZALEZ L LIGHT ADJUSTER Ot I42.9 09/30/2015 BAIDEBBIE GONZALEZ L LIGHT ADJUSTER Ot R10.30 10/09/2015 BAIDEBBIE GONZALEZ L LIGHT ADJUSTER Ot E78.5 10/09/2015 BAIDEBBIE GONZALEZ L LIGHT ADJUSTER Ot I25.10 10/09/2015 BAIDEBBIE GONZALEZ L LIGHT ADJUSTER Ot I42.9 10/09/2015 BAIDEBBIE GONZALEZ L LIGHT ADJUSTER Ot R10.30 09/29/2016 AUGUSTA KHALIL FACC, ALI FACP CCDS Ot 397.0 TRICUSPID VALVE DISEASE 09/29/2016 AUGUSTA KHALIL FACC, ALI FACP CCDS Ot 414.01 CORONARY ATHEROSCLEROSIS OF [place] CORON 09/29/2016 AUGUSTA KHALIL FACC, ALI FACP [...] PERCUTANEOUS TRANSLUM CORON ANGIOPLASTY 09/29/2016 ELVA MC STATOR PLATE WASHER Ot 729.5 PAIN IN LIMB 09/29/2016 ELVA MC STATOR PLATE WASHER Ot 729.81 SWELLING OF LIMB 09/29/2016 ELVA MC STATOR PLATE WASHER Ot V45.81 AORTOCORONARY BYPASS 09/29/2016 DEBBIE SANDOVAL LIGHT ADJUSTER Ot E78.5 HYPERLIPIDEMIA, UNSPECIFIED 09/29/2016 DEBBIE SANDOVAL L LIGHT ADJUSTER Ot I25.10 ATHSCL HEART DISEASE OF [place] CORONARY 09/29/2016 DEBBIE SANDOVAL L LIGHT ADJUSTER Ot I42.9 CARDIOMYOPATHY, UNSPECIFIED 09/29/2016 DEBBIE SANDOVAL L LIGHT ADJUSTER Ot R10.30 LOWER ABDOMINAL PAIN, UNSPECIFIED 10/04/2016 AUGUSTA KHALIL FACC, ALI FACP CCDS Ot 397.0 TRICUSPID VALVE DISEASE 10/04/2016 AUGUSTA KHALIL FACC, MATT FACP CCDS Ot 414.01 CORONARY ATHEROSCLEROSIS OF [place] CORON 10/04/2016 AUGUSTA KHALIL FACC, ALI FACP [...] PERCUTANEOUS TRANSLUM CORON ANGIOPLASTY 10/04/2016 ELVA MC STATOR PLATE WASHER Ot 729.5 PAIN IN LIMB 10/04/2016 ELVA MC STATOR PLATE WASHER Ot 729.81 SWELLING OF LIMB 10/04/2016 ELVA MC STATOR PLATE WASHER Ot V45.81 AORTOCORONARY BYPASS 10/04/2016 DEBBIE SANDOVAL LIGHT ADJUSTER Ot E78.5 HYPERLIPIDEMIA, UNSPECIFIED 10/04/2016 DEBBIE SANDOVAL LIGHT ADJUSTER Ot I25.10 ATHSCL HEART DISEASE OF [place] CORONARY 10/04/2016 DEBBIE SANDOVAL LIGHT ADJUSTER Ot I42.9 CARDIOMYOPATHY, UNSPECIFIED 10/04/2016 DEBBIE SANDOVAL LIGHT ADJUSTER Ot R10.30 LOWER ABDOMINAL PAIN, UNSPECIFIED 10/04/2016 AUGUSTA KHALIL FACC, MATT FACP CCDS Ot 397.0 TRICUSPID VALVE DISEASE 10/04/2016 AUGUSTA KHALIL FACC, MATT FACP CCDS Ot 414.01 CORONARY ATHEROSCLEROSIS OF [place] CORON 10/04/2016 AUGUSTA KHALIL FACC, ALI FACP [...] PERCUTANEOUS TRANSLUM CORON ANGIOPLASTY 10/04/2016 ELVA MC STATOR PLATE WASHER Ot 729.5 PAIN IN LIMB 10/04/2016 ELVA MC STATOR PLATE WASHER Ot 729.81 SWELLING OF LIMB 10/04/2016 ELVA MC STATOR PLATE WASHER Ot V45.81 AORTOCORONARY BYPASS 10/04/2016 LORRIELISA, DEBBIE L LIGHT ADJUSTER Ot E78.5 HYPERLIPIDEMIA, UNSPECIFIED 10/04/2016 BAIMA, DEBBIE L LIGHT ADJUSTER Ot I25.10 ATHSCL HEART DISEASE OF [place] CORONARY 10/04/2016 BAIMA DEBBIE L LIGHT ADJUSTER Ot I42.9 CARDIOMYOPATHY, UNSPECIFIED 10/04/2016 BAIMA, DEBBIE L LIGHT ADJUSTER Ot R10.30 LOWER ABDOMINAL PAIN, UNSPECIFIED 10/11/2016 AUGUSTA KHALIL FACC, ALI FACP CCDS Ot 397.0 TRICUSPID VALVE DISEASE 10/11/2016 AUGUSTA KHALIL FACC, ALI FACP CCDS Ot 414.01 CORONARY ATHEROSCLEROSIS OF [place] CORON 10/11/2016 AUGUSTA KHALIL FACC, ALI FACP [...] PERCUTANEOUS TRANSLUM CORON ANGIOPLASTY 10/11/2016 ELVA MC STATOR PLATE WASHER Ot 729.5 PAIN IN LIMB 10/11/2016 ELVA MC STATOR PLATE WASHER Ot 729.81 SWELLING OF LIMB 10/11/2016 ELVA MC STATOR PLATE WASHER Ot V45.81 AORTOCORONARY BYPASS 10/11/2016 DEBBIE SANDOVAL L LIGHT ADJUSTER Ot E78.5 HYPERLIPIDEMIA, UNSPECIFIED 10/11/2016 LORRIEMA DEBBIE L LIGHT ADJUSTER Ot I25.10 ATHSCL HEART DISEASE OF [place] CORONARY 10/11/2016 LORRIELISA DEBBIE L LIGHT ADJUSTER Ot I42.9 CARDIOMYOPATHY, UNSPECIFIED 10/11/2016 BAIMA, DEBBIE L LIGHT ADJUSTER Ot R10.30 LOWER ABDOMINAL PAIN, UNSPECIFIED 10/11/2016 BAIMA, DEBBIE L LIGHT ADJUSTER Ot E78.4 OTHER HYPERLIPIDEMIA 10/11/2016 DEBBIE SANDOVAL KAYCE Ot I25.10 ATHSCL HEART DISEASE OF [place] CORONARY 10/11/2016 DEBBIE SANDOVAL KAYCE Ot R06.09 OTHER FORMS OF DYSPNEA 10/11/2016 DEBBIE SANDOVALP Ot R07.89 OTHER CHEST PAIN Procedures Code [place] [address] TB TEST INTRADERMAL 08/31/2012 24995 HEART CATH 2012 45411 EKG, TRACING (IN-HOUSE) 03/24/2013 98549 ROUTINE VENIPUNCTURE 04/18/2013 82771 CMP 04/18/2013 74531 LIPID PANEL 04/18 23387 T4 FREE 2012 42745 TSH 04/18/2013 10669 CBC 04/18/2013 00342 NUCLEAR STRESS TESTING 05/09/2013 32256 ECHO 2D 2012 97678 ROUTINE VENIPUNCTURE 06/10/2013 09267 CMP 06/10/2013 12294 LIPID PANEL 06/10 94520 VENOUS DOPPLER UNILATERAL/LIMITED 08/21/2013 40335 ROUTINE VENIPUNCTURE 09/09/2013 95032 CMP 09/09/2013 59710 LIPID PANEL 09/09 10927 MAGNESIUM 2013 45807 TSH 09/09/2013 63179 CBC W/MANUAL DIF (order) 09/09/2013 33269 ROUTINE VENIPUNCTURE 11/13/2013 90021 HEMOGLOBIN (IN-HOUSE) 11/13/2013 88185 CMP 11/13/2013 46456 LIPID PANEL 11/13 64230 ROUTINE VENIPUNCTURE 02/26/2014 5999254 GFR CALC (RESULT ONLY) 02/26/2014 25956 CMP 02/26/2014 68355 LIPID PANEL 02/26 60579 ROUTINE VENIPUNCTURE 07/04/2014 53955 TSH 07/04/2014 4107874 GFR CALC (RESULT ONLY) 07/04/2014 23859 CMP 07/04/2014 98174 LIPID PANEL 07/04 12645 ROUTINE VENIPUNCTURE 08/11/2014 36603 EKG, TRACING (IN-HOUSE) 08/11/2014 35901 TROPONIN, QUANT 08/11/2014 09982 ROUTINE VENIPUNCTURE 10/20/2014 2281625 GFR CALC (RESULT ONLY) 10/20/2014 32954 CMP 10/20/2014 71919 LIPID PANEL 10/20 Results Encounters ACCT No. Visit Date/Time Discharge Status Pt. Type Provider Facility Loc./Unit Complaint [id number] 10/20/2014 08:13:00 10/20/2014 23: 59:59 CLS Outpatient ELVA MC APRN [id number] 08/11/2014 10:34:00 08/11/2014 23: 59:59 CLS Outpatient TIGRE HUTSONREGGIE [id number] 08/01/2014 08:20:00 08/01/2014 23: 59:59 CLS Outpatient TIGRE HUTSONREGGIE [id number] 07/04/2014 08:48:00 07/04/2014 23: 59:59 CLS Outpatient TIGRE HUTSONREGGIE [id number] 04/08/2014 09:28:00 04/08/2014 23: 59:59 CLS Outpatient FREDRICK ADDIEILYA Natanael [id number] 02/26/2014 09:56:00 02/26/2014 23: 59:59 CLS Outpatient TIGRE REGGIE HUTSON [id number] 11/13/2013 08:11:00 11/13/2013 23: 59:59 CLS Outpatient TIGRE DO REGGIE K [id number] 09/09/2013 08:28:00 09/09/2013 23: 59:59 CLS Outpatient VERONA THOMASON APRN [id number] 08/26/2013 13:39:00 08/26/2013 23: 59:59 CLS Outpatient FRANK CUADRA MD [id number] 08/21/2013 08:09:00 08/21/2013 23: 59:59 CLS Outpatient REGGIE LANDEROS DO [id number] 06/10/2013 08:08:00 06/10/2013 23: 59:59 CLS Outpatient LANDEROS DOREGGIE [id number] 04/18/2013 08:06:00 04/18/2013 23: 59:59 CLS Outpatient REGGIE LANDEROS DO [id number] 08/31/2012 15:35:00 08/31/2012 23: 59:59 CLS Outpatient [id number] 05/29/2012 15:02:00 05/29/2012 23:59 :59 CLS Outpatient VERONA THOMASON APRN [id number] 04/17/2013 11:32:00 Document Registration [id number] 03/21/2013 11:29:00 Document Registration
[2016-10-11 07:49] LABS: MEAN PLATELET VOLUME 10.7 FL (7.4-10.4); RED BLOOD COUNT 4.72 10^6/uL (4.35-5.85); RED CELL DISTRIBUTION WIDTH 14.5 % (10.0-14.5); WHITE BLOOD COUNT 8.9 10^3/uL (4.3-11.0)
[2016-10-11 07:58] LABS: PROTHROMBIN TIME PATIENT 13.3 SEC (12.2-14.7)
[2016-10-11 08:11] LABS: ALANINE AMINOTRANSFERASE 16 U/L (0-55); ANION GAP 10 MMOL/L (5-14); ASPARTATE AMINO TRANSFERASE 14 U/L (5-34); BILIRUBIN,TOTAL 0.4 MG/DL (0.1-1.0); BLOOD UREA NITROGEN 14 MG/DL (7-18); BUN/CREATININE RATIO 18; CALCIUM 8.9 MG/DL (8.5-10.1); CARBON DIOXIDE 22 MMOL/L (21-32); CHLORIDE 107 MMOL/L (98-107); CHOLESTEROL 210 MG/DL (< 200); CREATININE SERUM 0.78 MG/DL (0.60-1.30); DIRECT LDL 152 MG/DL (1-129); GFR ESTIMATED > 60; GLUCOSE 105 MG/DL (70-105); POTASSIUM 4.2 MMOL/L (3.6-5.0); SODIUM 139 MMOL/L (135-145); TOTAL PROTEIN 7.4 G/DL (6.4-8.2); TRIGLYCERIDES 185 MG/DL (<150); VLDL CHOLESTEROL 37 MG/DL (5-40)
[2016-10-11] MEDS ORDERED: MIDAZOLAM 5 MG/5 ML (VERSED) VIAL ONE (08:29)
[2016-10-11] MEDS ORDERED: fentaNYL INJECTION 100 MCG/2 ML AMP ONE (08:29)
[2016-10-11] MEDS ORDERED: diphenhydrAMINE 50 MG/ML INJ (BENADRYL) ONE (08:30)
[2016-10-11] MEDS ORDERED: METO-270 PO (08:33)
[2016-10-11] MEDS ORDERED: ATOR80TA76 PO (08:33)
[2016-10-11] MEDS ORDERED: ISOS30TA3 PO (08:33)
[2016-10-11] MEDS ORDERED: PANT40TA3 PO (08:33)
--- NOTE | 2016-10-11 09:26 | Discharge Inst-Post CATH ---
Discharge Inst-CATH Post Cardiac Cath D/C Inst Follow Up/Plan Follow up with Dr Del Toro in one to two weeks CARDIAC CATH DISCHARGE INSTRUCTIONS *Hold Metformin for 48 hours post heart cath. ACTIVITY * Go Home directly and rest. * Limit activity of the leg (or wrist if it was used) for 7 days including aerobics, swimming, jogging, bicycling, etc. * Restrict stair-climbing for 7 days if possible, if not, climb up with your non -cath leg, then bring together on the same step. * Avoid lifting, pushing, pulling or excessive movement of the affected extremity for 7 days. * Customary sexual activity may be resumed after 2 days-use caution not to use a position that strains or causes pain to the affected extremity. * No driving for 24 hours. * NO SMOKING. * Avoid straining for bowel movements for 7 days. * Gentle walking on level ground is allowed. * Returning to work will depend on the type of procedure and the results. Your doctor will discuss this with you. CALL YOUR DOCTOR FOR ANY OF THE FOLLOWING: *If bleeding from the puncture site occurs- Apply gentle pressure to site with clean cloth and call your doctor or EMS. * If a knot or lump forms under the skin, increases in size, or causes pain. * If bruising appears to be worsening or moving further down your leg instead of disappearing. * Temperature above 101 F. CARE OF YOUR GROIN INCISION; * Bruising or purple discoloration of the skin near the puncture site is common. * You may shower only, no bathtub bathing for 5 days. Be careful to avoid slipping as your leg may feel stiff. * If a closure device was used on your femoral artery, please see the attached guide regarding care of the device and your leg. * REMOVE the dressing from your groin the next day after your procedure in the shower. CARE OF YOUR WRIST INCISION; * Bruising or purple discoloration of the skin near the puncture site is common. * You may shower. * DO NOT submerge wrist. * Remove dressing in 24 hours. MATT DEL TORO MD [facility] CCDS Oct 11, 2016 09:26
--- NOTE | 2016-10-11 09:27 | Discharge Inst-Cardiology ---
Discharge Inst-Cardiac Discharge Medications Continued Medications: Aspirin ([place] Aspirin) 81 Mg Tablet.dr 81 MG PO DAILY TAB Atorvastatin Calcium (Atorvastatin Calcium) 80 Mg Tablet 80 MG PO HS TAB Clopidogrel Bisulfate (Plavix 75 Mg) 75 Mg Tablet 75 MG PO DAILY TAB Isosorbide Mononitrate (Isosorbide Mononitrate ER) 30 Mg Tab.er.24h 30 MG PO DAILY TAB Metoprolol Succinate (Metoprolol Succinate) 25 Mg Tab.er.24h 25 MG PO BID TAB Nitroglycerin (Nitrostat) 0.4 Mg Subl 0.4 MG SL UD PRN CHEST PAIN TAB Pantoprazole Sodium (Pantoprazole Sodium) 40 Mg Tablet.dr 40 MG PO DAILY TAB Sertraline HCl (Zoloft) 100 Mg Tablet 100 MG PO DAILY TAB Orders-Post D/C & Referrals Pneu Vac Indicated: Yes MATT DERAS MD FACP FACC CCDS Oct 11, 2016 09:27
--- NOTE | 2016-10-11 09:28 | Cardiac Procedure Note-CS/ASA ---
Pre-Procedure Note Pre-Op Procedure Note H&P Reviewed The H&P was reviewed, patient examined and no changes noted. Date H&P Reviewed: Oct 11, 2016 Time H&P Reviewed: 08:50 Conscious Sedation Pre-Proced Time Reviewed: 08:50 ASA Class: 3 Airway Mallampati Classification: ([place] appropriate class) I. II. III, IV Lungs Heart ASA score ASA 1: a normal healthy patient ASA 2: a patient with a mild systemic disease (mid diabetes, controlled hypertension, obesity ASA 3: a patient with a severe systemic disease that limits activity (angina , COPD, prior Myocardial infarction) ASA 4: a patient with an incapacitating disease that is a constant threat to life (CHF, renal failure) ASA 5: a moribund patient not expected to survive 24 hrs. (ruptured aneurysm) ASA 6: a declared brain patient whose organs are being harvested. For emergent operations, add the letter E after the classification Grade 3 Sedation Plan: Analgesia, Amnesia, Plan communicated to team members, Discussed options with patient/fam, Discussed risks with patient/fam Note The patient is an appropriate candidate to undergo the planned procedure, sedation, and anesthesia. The patient immediately re-assessed prior to indication. MATT DERAS MD FACP FAC CCDS Oct 11, 2016 09:27
[2016-10-11] MEDS ORDERED: PATIENT MAY USE OWN MEDS, ALL PO SCH (09:30)
--- NOTE | 2016-10-11 15:22 | CARDIAC CATHETERIZATION ---
PROCEDURE PHYSICIAN: MATT DERAS DATE OF PROCEDURE: 10/11/2016 Kellie Ireland is a 41-year-old lady who is known to have coronary artery disease and has had coronary artery bypass surgery and subsequent balloon angioplasty of marginal an obtuse marginal branch. She has been experiencing chest discomfort and a myocardial study was indicative of anterolateral ischemia. Cardiac catheterization was carried out after having obtained informed consent. PROCEDURE: She was brought to the cardiac catheterization laboratory in a fasting state. The right groin was prepared and draped in usual sterile fashion. 1% Lidocaine was used for local anesthesia. Modified Seldinger technique was used to advance a 5-Macanese sheath in the right femoral artery. Angiography of the right femoral artery was carried through the sheath. A 5-Macanese JL4 catheter was used for left coronary angiography. A 5-Macanese JR4 catheter used for angiography of the right coronary artery off the saphenous vein graft and of the left internal mammary artery graft. We used a 5-Macanese pigtail catheter to carry out left heart catheterization, left ventricular angiography. The pigtail catheter was pulled back to the aortic root and the aortic root angiography was performed. The catheter was removed. [facility] She tolerated the procedure well. HEMODYNAMICS: Left ventricular end diastolic pressure following coronary angiography and following left ventricular angiography was 21 mmHg. There was no significant pressure gradient on pullback across the aortic valve. Ascending aortic pressure was 181/89 with a mean 125 mmHg. LEFT VENTRICULAR ANGIOGRAPHY: Left ventricular angiography was carried out in the right anterior oblique projection. Global left ventricular systolic function was well preserved. Left ventricular ejection fraction is approximately 55%. There does not appear to be distinct regional wall motion abnormality. There does not appear to be significant mitral regurgitation. CORONARY ANGIOGRAPHY: The left main coronary artery does not exhibit significant obstructive disease. Left anterior descending artery appears occluded after a diagonal branch. The first diagonal branch does have a patent stent in its midportion. The left circumflex artery has 50% proximal stenosis. The right coronary artery is occluded at its ostium. SAPHENOUS VEIN GRAFT ANGIOGRAPHY: Aortocoronary saphenous vein graft to a subbranch of the first obtuse marginal branch of the left circumflex artery is widely patent and does not exhibit significant disease. There is good distal runoff. An aortocoronary saphenous vein graft to the distal right coronary artery is widely patent and does not exhibit significant disease. The distal right coronary artery, however, has diffuse disease and is generally of a very small caliber. LEFT INTERNAL MAMMARY ANGIOGRAPHY: Left internal mammary artery graft to the distal left anterior descending artery is widely patent and does not exhibit significant disease. AORTIC ROOT ANGIOGRAPHY: Aortic root angiography did not indicate any significant thoracic aortic aneurysm or dissection, to the extent visualized. Neck arteries, to the extent visualized, do not exhibit significant disease. There is no significant aortic regurgitation. CONCLUSION: 1. Coronary artery disease as detailed above. This primarily consists of mid vessel occlusion of the left anterior descending and ostial occlusion of a right coronary and moderate proximal disease of the left circumflex. 2. Widely patent aortocoronary graft to the first obtuse marginal and to the distal right coronary. The distal right coronary artery is of a very small caliber and appears to have moderate to severe diffuse disease. 3. Widely patent left internal mammary artery graft to distal left anterior descending artery. 4. Patent stent within the first diagonal branch of the left anterior descending artery. 5. Patent site of balloon angioplasty in an obtuse marginal branch of the left circumflex artery, distal to the graft (carried out in 2015) without evidence of any significant restenosis. 6. Elevated left ventricular end-diastolic pressure. 7. Well preserved global left ventricular systolic function with an ejection fraction of approximately 55%. 8. No significant mitral regurgitation. DISCUSSION AND RECOMMENDATIONS: Based on the results of this study, it appears appropriate to continue a conservative approach. Risk factor modification has been reviewed with her. Current regimen is being continued. Close outpatient follow-up is advised to further titration of medications. Job ID: [id number] Dictated Date: 10/11/2016 09:38:52 Maintenance Specialist Date: 10/11/2016 15:09:19 / erin BAKER
== END 2016-10-11 13:15 | disposition home or self-care (01) ==
LOC: CATH 07:12 → SURG 10:00 → CATH 13:15
PROVIDERS: ATTEND Internal Medicine Cardiovascular Disease
DX: R07.89 Other chest pain (principal); I25.10 Atherosclerotic heart disease of native coronary artery without angina pectoris; I25.82 Chronic total occlusion of coronary artery; E66.9 Obesity, unspecified; E78.5 Hyperlipidemia, unspecified; K21.9 Gastro-esophageal reflux disease without esophagitis; Z68.38 Body mass index [BMI] 38.0-38.9, adult; Z87.891 Personal history of nicotine dependence; Z79.899 Other long term (current) drug therapy; Z95.5 Presence of coronary angioplasty implant and graft; Z95.1 Presence of aortocoronary bypass graft
CPT/HCPCS: 36415; 80053; 80061; 85027; 85610; 85730; 87081; 93005; 93459; 93567

== ENCOUNTER → 2017-08-09 | Outpatient (CLI) | payer SELFPAY ==
[~2017-08-09] MED LIST changes: +ATOR80TA76 PO; +ISOS30TA3 PO; +METO-387 PO; +METO50TA15 PO; -METO50TA2 PO; +PANT40TA3 PO
--- NOTE | 2017-08-09 11:07 | Diagnostic Imaging Report ---
INDICATION: Microscopic hematuria. COMPARISON: None FINDINGS: Right kidney measures 12.9 cm in length and the left kidney measures 11.3 cm in length. No renal mass or obstructive change is seen. No discrete stones are demonstrated. There is no perinephric fluid. Bladder is not well valuated as it is not distended. IMPRESSION: Unremarkable bilateral renal sonogram. Bladder is not well seen. Dictated by: Dictated on workstation # [id number]
== END ==
LOC: RAD 10:24
PROVIDERS: ATTEND Nurse Practitioner Family
DX: R31.29 Other microscopic hematuria (principal)
CPT/HCPCS: 76770

== ENCOUNTER → 2017-08-14 | Outpatient (CLI) | payer SELFPAY ==
--- NOTE | 2017-08-14 11:37 | Diagnostic Imaging Report ---
PROCEDURE: CT abdomen and pelvis without contrast. TECHNIQUE: Multiple contiguous axial images were obtained through the abdomen and pelvis without the use of intravenous contrast. INDICATION: Left flank pain and microscopic hematuria. COMPARISON: Comparison made with prior examination from 06/19/2015. FINDINGS: There is cardiomegaly. The lung bases are clear. The liver is normal in size without focal lesions. The gallbladder is surgically absent. There is no biliary ductal dilatation. Spleen is normal. The pancreas and adrenal glands are unremarkable. Both kidneys are normal in appearance. There is no evidence of obstructive uropathy. The bladder is unremarkable. There is minimal atherosclerotic calcification of the aorta which is nonaneurysmal. The bowel gas pattern is nonspecific. The appendix is normal. There is no free air. There is no ascites. There are no focal inflammatory changes. There are cysts in the adnexa bilaterally. There is no other pelvic mass, adenopathy, or free fluid. There are mild degenerative changes in the spine. IMPRESSION: No evidence of nephrolithiasis or obstructive uropathy. Bilateral adnexal cysts. These could be better evaluated with pelvic ultrasound if clinically warranted. Otherwise, unremarkable noncontrast CT abdomen and pelvis in a patient who is status post cholecystectomy. Dictated by: Dictated on workstation # [id number]
== END ==
LOC: RAD 10:57
PROVIDERS: ATTEND Nurse Practitioner Family
DX: R31.29 Other microscopic hematuria (principal); M54.9 Dorsalgia, unspecified
CPT/HCPCS: 74176

== ENCOUNTER → 2017-08-23 | Outpatient (CLI) | payer SELFPAY ==
[~2017-08-23] MED LIST changes: -SERT100T PO; +SERT20OR PO
--- NOTE | 2017-08-23 15:29 | Diagnostic Imaging Report ---
INDICATION: Bilateral adnexal cysts noted on CT study. The patient also complains of left pelvic pain. TECHNIQUE: Transabdominal and transvaginal pelvic sonography was performed. COMPARISON: CT study from 08/14/2017. FINDINGS: The uterus measures 7.9 x 4.5 x 4.4 cm. The endometrium is 9 mm in thickness. No uterine mass is identified. The right ovary measures 4.1 cm x 3.1 cm x 2.7 cm. There is a 3.1 cm simple cyst involving the right ovary. There is blood flow to the right ovary. The left ovary was not visualized and was obscured by bowel loops in the left adnexa. No free fluid is seen. IMPRESSION: There is a 3 cm simple cyst on the right ovary. No other significant abnormality is detected. Dictated by: Dictated on workstation # [id number]
== END ==
LOC: RAD 14:44
PROVIDERS: ATTEND Nurse Practitioner Family
DX: N83.201 Unspecified ovarian cyst, right side (principal)
CPT/HCPCS: 76830; 76856

== ENCOUNTER → 2018-05-28 | Outpatient (CLI) | payer SELFPAY ==
[~2018-05-28] MED LIST changes: +SERT100T PO; -SERT20OR PO
== END ==
LOC: CARD 11:56
PROVIDERS: ATTEND Internal Medicine Cardiovascular Disease
DX: R00.2 Palpitations (principal); R06.02 Shortness of breath; R42 Dizziness and giddiness; I25.10 Atherosclerotic heart disease of native coronary artery without angina pectoris; E78.5 Hyperlipidemia, unspecified; E66.9 Obesity, unspecified; Z68.38 Body mass index [BMI] 38.0-38.9, adult
CPT/HCPCS: 93225; 93226

== ENCOUNTER 2018-06-08 20:11 | Observation (INO) | payer OTHER ==
[~2018-06-08] VITALS: Ht 175.3 cm; Wt 115.7 kg
--- OUTSIDE RECORDS SUMMARY | 2018-06-08 20:17 | XMS REPORT ---
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 Active 193861572150964 Problem Other hyperlipidemia E78.4 Active 00358853 Problem History of coronary artery stent placement Z95.5 Active 558336334 Problem GERD without esophagitis K21.9 Active 527861679 Problem Adnexal cyst N94.9 Active 88418522835046 Problem Acute pain of left shoulder M25.512 Active 16805399 Problem Gastroesophageal reflux disease without esophagitis K21.9 Active 242605067 Problem History of coronary artery bypass graft x 3 Z95.1 Active 607628089 Problem Menorrhagia with irregular cycle N92.1 Active 177382381 Problem Hyperlipidemia, unspecified E78.5 Active 04097196 ALLERGIES No Information ENCOUNTERS Encounter Location Date Diagnosis [place] [id number] [place] [address] [id number] May, [place] [id number] [place] [address] [id number] May, Essential hypertension I10 [place] [id number] [place] [address] [id number] Jan, [place] [id number] [place] [address] [id number] December, Blood in stool K92.1 ; Dizziness R42 ; 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 ; Hyperlipidemia, unspecified E78.5 ; Essential hypertension I10 ; Irritability and anger R45.4 ; Gastroesophageal reflux disease without esophagitis K21.9 and Cough R05 [place] [id number] [place] [address] [id number] Oct, [address] [id number] Aug, Simple ovarian cyst N83.209 and Adnexal cyst N94.[address] [id number] Aug, Adnexal cyst N94.[address] [id number] Aug, Microscopic hematuria R31.29 and CVA tenderness M54.[address] [id number] Aug, Microscopic hematuria R31.29 and CVA tenderness M54.[address] [id number] Jul, Pain in left shoulder M25.[address] [id number] Jun, Pain in left shoulder M25.512 and Other chronic pain G89.[address] [id number] Jun, [facility] [id number] [place] [address] [id number] 3224 14 Jun, 2017 Acute pain of left shoulder M25.512 ; Essential hypertension I10 ; 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 ; GERD without esophagitis K21.9 and Irritability and anger R45.4 [place] [id number] [place] [address] [id number] May, Essential hypertension I10 ; 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 ; GERD without esophagitis K21.9 ; Irritability and anger R45.4 ; Acute pain of left shoulder M25.512 and Menorrhagia with irregular cycle N92.1 [place] [id number] [place] [address] [id number] 18 Oct, 2017 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 [facility] [id number] [place] [address] [id number] 12 Jan, 2017 [facility] [address] [address] Jan, Acute mid back pain M54.9 [place] [id number] [place] [address] [id number] Jan, Acute mid back pain M54.9 and Muscle spasm M62.[address] [id number] December, Essential hypertension I10 ; 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 ; Other hyperlipidemia E78.4 ; GERD without esophagitis K21.9 ; Irritability and anger R45.4 and History of coronary artery bypass graft x [address] [id number] Nov, [address] [id number] Aug, Hyperlipidemia, unspecified E78.5 [place] [id number] [place] [address] [id number] Aug, 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 and History of bloody stools Z87.19 [place] [id number] [place] [address] [id number] Aug, History of bloody stools Z87.[address] [id number] Aug, History of bloody stools Z87.19 ; Mid back pain M54.9 and Gastroesophageal reflux disease without esophagitis K21.[address] [id number] Jun, Viral gastroenteritis A08.4 ; Bilious vomiting with nausea R11.14 and Elevated glucose R73.09 [facility] [id number] [place] [address]- [address]99 Jun, Dental caries K02.9 [facility] [id number] [id number] May, Irritability and anger R45.4 [facility] [address] [id number] May, Essential hypertension I10 ; Screening for thyroid disorder Z13.29 ; GERD without esophagitis K21.9 ; Elevated fasting glucose R73.01 ; Irritability and anger R45.4 ; Encounter for immunization Z23 ; History of coronary artery stent placement Z95.5 ; History of coronary artery bypass graft x 3 Z95.1 and Mixed hyperlipidemia E78.2 [facility] [id number] [place] [address] [id number] May, [address] [id number] [id number] Apr, Tooth pain K08.8 ; Gastroesophageal reflux disease without esophagitis K21.9 ; 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 and Coronary artery disease involving hopi heart without angina pectoris, unspecified vessel or lesion type I25.10 [facility] [address] [id number] Apr, Dental caries K02.9 [place] [id number] [place] [address] [id number] Apr, 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 ; Other hyperlipidemia E78.4 and Arteriosclerosis of both carotid arteries I65.23 [facility] [address] [id number] 0566 Feb, Dental examination Z01.[address] [place] [address] [id number] December, 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 and Essential (primary) hypertension I10 [facility] [address] [id number] 3554 December, Dental examination Z01.[address] [place] [address] [id number] 29 Apr, 2016 Pain in tooth K08.8 [facility] [id number], [place] [id number] Oct, [facility] [id number] [place] [address] [id number] Oct, [facility] [id number] [place] [address] [id number] Oct, Carpal tunnel syndrome, right upper limb G56.01 and Carpal tunnel syndrome , left upper limb G56.02 [facility] [id number] [place] [address] [id number] Sep, [facility] [id number] [place] [address] [id number] Sep, [facility] [id number] [place] [address] [id number] Jul, [address] [id number][place] [id number] Jun, [place] [id number] [place] [address] [id number] Jun, [facility] [id number] [place] [address] [id number] Jun, Retroperitoneal bleed R58 [place] [id number] [place] [address] [id number] Apr, Other and unspecified hyperlipidemia 272.4 ; Coronary atherosclerosis of unspecified type of vessel, hopi or graft 414.00 and Unspecified chronic ischemic 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 [place] [address] [id number] Apr, Depression [address] [id number] [place] [address] [id number] Mar, [place] [id number] [place] [address] [id number] Mar, Routine gynecological examination V72.31 and Pap test, as part of routine gynecological examination V76.2 [facility] [id number] [place] [address] [id number] Mar, [place] [id number] [place] [address] [id number] Mar, [facility] [address] [id number][place] [id number] Mar, Follow up V67.9 [facility] [address] [id number] [address] Mar, Wrist pain, right 719.43 [facility] [id number][place] [id number] Feb, [facility] [id number] [place] [address] [id number] Feb, Wrist pain, right 719.43 [facility] [id number] [place] [address] [id number] Feb, Depression 311 and Coronary atherosclerosis of unspecified type of vessel , hopi or graft 414.00 [facility] [id number], [place] [id number] December, [facility] [address]00565100[place], [place] [address] Nov, [facility] [address]00565100[place], [place] [address] Nov, [facility] [address]00565100[place], [place] [address] Oct, [facility] [id number][place] [id number] Oct, [facility] [address]00565100[place], [place] [address] Aug, [facility] [id number], [place] [id number] Aug, [facility] [address]00565100[place], [place] [address] Aug, [facility] [address]00565100[place], [place] [address] Jul, [facility] [address] [id number], [place] [id number] Jul, [facility] [address]00565100[place], [place] [address] Jun, [facility] [address] [id number] [place] [id number] Jun, [facility] [address] [id number] [place] [id number] Jun, [facility] [place] [facility] [address] [id number] [place] [address]- [address] Jun, [facility] [address] [id number] [place] [id number] Apr, [facility] [place] [facility] [address] [id number] [place] [address]- 79[address] Apr, [facility] [address] [id number] [place] [id number] Feb, [facility] [place] [facility] [address] [facility] [id number], [place] [address] Feb, [facility] [address] [id number] [place] [id number] Feb, [facility] [address] [id number] [place] [id number] Feb, [facility] [place] [facility] [address] [facility] [id number] [place] [address]- 8726 Feb, [facility] [place] [facility] [address] [facility] [id number], [place] [address] Feb, [facility] [address] [id number] [place] [id number] Nov, [facility] [place] [facility] [address] [facility] [id number], [place] [address]- 84[address] Nov, [facility] [place] [facility] [address] [facility] [id number] [place] [address] Nov, [facility] [address] [facility] [id number] [place] [id number] Nov, [facility] [place] [facility] [address] [facility] [id number] [place] [address]- 3543 Sep, [facility] [place] [facility] [address] [facility] [id number], [place] [address]- 2810 Sep, [facility] [place] [facility] [address] [facility] [id number], [place] [address]- 7699 Sep, [facility] [place] [facility] [address] [facility] [id number], [place] [address]- 10[address] Sep, [facility] [address] [facility] [id number][place] [id number] Sep, [facility] [address] [facility] [id number][place] [id number] Aug, [facility] [place] [facility] [address] [facility] [id number], [place] [address]- [address] Aug, [facility] [address] [facility] [id number], [place] [id number] Aug, [facility] [place] [facility] [address]00565100[place], [place] [address]- [address] Aug, [facility] [place] [facility] [address]00565100[place], [place] [address] 7[address] Aug, [facility] [address] [id number], [place] [id number] Aug, [facility] [place] [facility] [address]00565100[place], [place] [address]- 8[address] Jun, [facility] [address] [id number], [place] [id number] Jun, [facility] [address] [facility] [id number], [place] [id number] Jun, [facility] [place] [facility] [address] [facility] [id number], [place] [address]- 94[address] Jun, [facility] [place] [facility] [address] [facility] [id number], [place] [address]- 0[address] Jun, [facility] [address] [facility] [id number], [place] [id number] Jun, [facility] [place] [facility] [address] [facility] [id number], [place] 0512[place]- [address] Jun, [facility] [place] [facility] [address] [id number], [place] [address]- 6[address] Jun, [facility] [address] [id number] [place] [id number] Jun, [facility] [place] [facility] [address] [facility] [id number], [place] [address]- [address] May, [facility] [place] [facility] [address] [facility] [id number], [place] [address]- 6[address] May, [facility] [address] [id number] [place] [id number] Apr, [facility] [address] [id number] [place] [id number] Apr, [facility] [address] [id number] [place] [id number] Apr, [facility] [place] [facility] [address] [facility] [id number], [place] [address]- 120[address] Mar, [facility] [address] [id number], [place] [id number] Mar, [facility] [place] [facility] [address] [facility] [id number], [place] [address]- [address] Mar, [facility] [address] [id number], [place] [id number] Feb, [facility] [address] [id number], [place] [id number] Aug, [facility] [address] [id number], [place] [id number] Jun, [facility] [place] [facility] [address] [id number], [place] [address]- 4[address] Jun, [facility] [address] [id number], [place] [id number] May, [facility] [place] [facility] [address] [facility] [id number], [place] [address]- 1457 May, [facility] [address] [id number], [place] [id number] Apr, [facility] [address] [id number], [place] [id number] Jan, [facility] [address]00565100[place], [place] [address]- [address] Jan, [facility] [address] [id number], [place] [id number] December, [facility] [address] [id number], [place] [id number] December, [facility] [id number], [place] [id number] December, [facility] [id number], [place] [id number] December, [facility] [id number], [place] [id number] Oct, [place] [id number] [place] [address]- 2546 May, [place] [id number] [place] [address]- 2546 May, [place] [address]65100[place], [place] [address]- 25[address] Apr, IMMUNIZATIONS No Known Immunizations SOCIAL HISTORY Never Assessed REASON FOR VISIT Repository Medication PLAN OF CARE VITAL SIGNS MEDICATIONS Medication Instructions Dosage Frequency Start Date End Date Duration Status Protonix 20 mg orally daily TAKE ONE -1 TABLET BY MOUTH ONCE DAILY. 24h 0 days Active Crestor 20 MG Orally daily 2 tablets 24h 0 days Active Plavix 75 MG orally daily TAKE ONE -1 TABLET BY MOUTH DAILY... 24h 0 days Active Sertraline HCl 100 mg orally Once a day 1.5 tablets 24h 0 days Active Metoprolol Tartrate 50 MG Orally Twice a day half tab 12h 0 days Active RESULTS No Results PROCEDURES No Known procedures INSTRUCTIONS MEDICATIONS ADMINISTERED No Known Medications MEDICAL (GENERAL) HISTORY Type Description Date Medical History hypertension Medical History acid reflux Medical History hyperlipidemia Medical History depression Medical History obesity Medical History heart disease Medical History heart attack 2012 Medical History blood thinners Surgical History cholecystectomy 2005 Surgical History cardiac stent x 1 01/2013 Surgical History cardiac stent x 2 06/2013 Surgical History triple coronary artery bypass graft 07/2013 Surgical History angioplasty within previous stent x 1, no new placements-- 06/2015 Surgical History heart cath 10/2016 Hospitalization History surgeries, childbirth
--- OUTSIDE RECORDS SUMMARY | 2018-06-08 20:17 | XMS REPORT ---
Author Author LORENA MCCORMICK Organization [facility] Address [address] [place] [address] Care Team Providers Care Rn Vascular Name Role Phone LORENA MCCORMICK Unavailable PROBLEMS Type Condition ICD9-CM Code IIJ18-NA Code Onset Dates Condition Status SNOMED Code Problem Essential hypertension I10 Active 65949679 Problem Mixed hyperlipidemia E78.2 Active 835946388 Problem Irritability and anger R45.4 Active 975561264 Problem Atherosclerotic heart disease of [place] coronary artery without angina pectoris I25.10 Active 405817164926040 Problem Other hyperlipidemia E78.4 Active 14413780 Problem History of coronary artery stent placement Z95.5 Active 334280724 Problem GERD without esophagitis K21.9 Active 614794644 Problem Adnexal cyst N94.9 Active 69283300094842 Problem Acute pain of left shoulder M25.512 Active 60722506 Problem Gastroesophageal reflux disease without esophagitis K21.9 Active 892248093 Problem History of coronary artery bypass graft x 3 Z95.1 Active 336226322 Problem Menorrhagia with irregular cycle N92.1 Active 241427539 Problem Hyperlipidemia, unspecified E78.5 Active 26238451 ALLERGIES No Information ENCOUNTERS Encounter Location Date Diagnosis [id number] [id number] Jan, [id number] [id number] December, Blood in stool K92.1 ; Dizziness R42 ; Atherosclerotic heart disease of [place] coronary artery without angina pectoris I25.10 ; Hyperlipidemia, unspecified E78.5 ; Essential hypertension I10 ; Irritability and anger R45.4 ; Gastroesophageal reflux disease without esophagitis K21.9 and Cough R05 [id number] [id number] Oct, [id number] [place] [address] [id number] Aug, Simple ovarian cyst N83.209 and Adnexal cyst N94.[address] [id number] Aug, Adnexal cyst N94.[address] [id number] Aug, Microscopic hematuria R31.29 and CVA tenderness M54.[address] [id number] Aug, Microscopic hematuria R31.29 and CVA tenderness M54.[address] [id number] Jul, Pain in left shoulder M25.[address] [id number] Jun, Pain in left shoulder M25.512 and Other chronic pain G89.[address] [id number] Jun, [facility] [address] [id number] [address] Jun, Acute pain of left shoulder M25.512 ; Essential hypertension I10 ; Atherosclerotic heart disease of [place] coronary artery without angina pectoris I25.10 ; GERD without esophagitis K21.9 and Irritability and anger R45.[address] [id number] May, Essential hypertension I10 ; Atherosclerotic heart disease of [place] coronary artery without angina pectoris I25.10 ; GERD without esophagitis K21.9 ; Irritability and anger R45.4 ; Acute pain of left shoulder M25.512 and Menorrhagia with irregular cycle N92.[address] [id number] May, Atherosclerotic heart disease of [place] coronary artery without angina pectoris I25.10 [id number] [place] [id number] Jan, [facility] [id number] [place] [address]846- [address] Jan, Acute mid back pain M54.[address] [id number] Jan, Acute mid back pain M54.9 and Muscle spasm M62.[address] [id number] December, Essential hypertension I10 ; Atherosclerotic heart disease of [place] coronary artery without angina pectoris I25.10 ; Other hyperlipidemia E78.4 ; GERD without esophagitis K21.9 ; Irritability and anger R45.4 and History of coronary artery bypass graft x [address] [id number] Nov, [address] [id number] Aug, Hyperlipidemia, unspecified E78.[address] [id number] Aug, Atherosclerotic heart disease of [place] coronary artery without angina pectoris I25.10 and History of bloody stools Z87.[address] [id number] Aug, 2016 History of bloody stools Z87.[address] [id number] Aug, History of bloody stools Z87.19 ; Mid back pain M54.9 and Gastroesophageal reflux disease without esophagitis K21.9 [id number] [place] [address] [id number] Jun, Viral gastroenteritis A08.4 ; Bilious vomiting with nausea R11.14 and Elevated glucose R73.09 [facility] [id number] [place] [address]69- 6[address] Jun, Dental caries K02.[address] [id number] May, Irritability and anger R45.4 [place] [id number] [place] [id number] May, Essential hypertension I10 ; Screening for thyroid disorder Z13.29 ; GERD without esophagitis K21.9 ; Elevated fasting glucose R73.01 ; Irritability and anger R45.4 ; Encounter for immunization Z23 ; History of coronary artery stent placement Z95.5 ; History of coronary artery bypass graft x 3 Z95.1 and Mixed hyperlipidemia E78.2 [facility] [address] [id number] May, [place] [address] [facility] [id number] [id number] Apr, Tooth pain K08.8 ; Gastroesophageal reflux disease without esophagitis K21.9 ; 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 [id number] [place] [address]- 4776 Feb, Dental examination Z01.20 [id number] [place] [address] [id number] December, Atherosclerotic heart disease of [place] coronary artery without angina pectoris I25.10 and Essential (primary) hypertension I10 [facility] [address] [address] December, Dental examination Z01.[address] [id number] Nov, Pain in tooth K08.[address] [id number] Oct, [address] [id number] Oct, [facility] [address] [id number] [id number] Oct, Carpal tunnel syndrome, right upper limb G56.01 and Carpal tunnel syndrome , left upper limb G56.02 [facility] [id number] [id number] Sep, [facility] [id number] [place] [address] [id number] Sep, [facility] [id number] [place] [address] [id number] Jul, [address] [id number] Jun, [facility] [id number] [place] [address] [id number] Jun, [place] [id number] [place] [address] [id number] Jun, Retroperitoneal bleed R58 [facility] [id number] [place] [address] [id number] Apr, Other and unspecified hyperlipidemia 272.4 ; Coronary atherosclerosis of unspecified type of vessel, [place] or graft 414.00 and Unspecified chronic ischemic 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 [facility] [id number][place] [id number] Apr, Depression [address] [address] Mar, [place] [id number] [place] [address] [id number] Mar, Routine gynecological examination V72.31 and Pap test, as part of routine gynecological examination V76.[address] [place] [address] [id number] Mar, [place] [id number] [place] [address] [id number] Mar, [facility] [id number][place] [id number] Mar, Follow up V67.9 [facility] [address], [place] [address] Mar, Wrist pain, right 719.43 [facility] [id number] [place] [address] [id number] Feb, [facility] [id number] [place] [address] [id number] Feb, Wrist pain, right 719.43 [facility] [id number] [place] [address] [id number] Feb, Depression 311 and Coronary atherosclerosis of unspecified type of vessel , [place] or graft 414.00 [facility] [id number] [place] [address] [id number] December, [facility] [id number] [place] [address] 17232- 2546 Nov, [facility] [id number] [place] [address] 96943- 2546 Nov, [facility] [id number] [place] [address] 03383- 2546 Oct, [facility] [id number] [place] [address] [id number] Oct, [facility] [id number] [place] [address] 52496- 2546 Aug, [facility] [id number] [place] [id number] Aug, [facility] [id number] [place] [address] 85087- 2546 Aug, [facility] [address] [place] [address] 25940- 2546 Jul, [facility] [id number] [place] [address] [id number] Jul, [facility] [id number] [place] [address] 87340- 2546 Jun, [facility] [id number] [place] [address] [id number] Jun, [facility] [place] [address] [id number] [place] [id number] Jun, [facility] [place] [facility] [address] [id number], [place] [address] Jun, [facility] [place] [address] [id number] [place] [id number] Apr, [facility] [place] [facility] [address] [id number], [place] [address]- [address] Apr, [facility] [place] [address] [id number] [place] [id number] Feb, [facility] [place] [facility] [address] [id number], [place] [address]- 39[address] Feb, [facility] [place] [address] [id number] [place] [id number] Feb, [facility] [place] [address] [id number] [place] [id number] Feb, [facility] [place] [facility] [address] [facility] [id number], [place] [address]- [address] Feb, [facility] [place] [facility] [address] [facility] [id number], [place] [address]- [address] Feb, [facility] [place] [address] [facility] [id number] [place] [id number] Nov, [facility] [place] [facility] [address] [facility] [id number], [place] [address]- 2537 Nov, [facility] [place] [facility] [address] [facility] [id number], [place] [address]- 6420 Nov, [facility] [place] [address] [facility] [id number][place] [id number] Nov, [facility] [place] [facility] [address] [facility] [id number] [place] [address]- 8[address] Sep, [facility] [place] [facility] [address] [facility] [id number], [place] [address]- 3624 Sep, [facility] [place] [facility] [address] [facility] [id number], [place] [address]- 0162 Sep, [facility] [place] [facility] [address] [id number] [place] [address]- [address] Sep, [facility] [place] [address] [id number] [place] [id number] Sep, [facility] [place] [address] [id number] [place] [id number] Aug, [facility] [place] [facility] [address] [facility] [id number] [place] [address]- 6638 Aug, [facility] [place] [address] [id number] [place] [id number] Aug, [facility] [place] [facility] [address] [facility] [id number] [place] [address]- 5878 Aug, [facility] [place] [facility] [address] [facility] [id number], [place] [address]- 0448 Aug, [facility] [place] [address] [facility] [id number][place] [id number] Aug, [facility] [place] [facility] [address] [facility] [id number], [place] [address]- 5410 Jun, [facility] [place] [address] [id number] [id number] Jun, [facility] [place] [address] [facility] [id number][place] 884369310 Jun, [facility] [place] [facility] [address] [facility] [id number], [place] [address]- 8375 Jun, [facility] [place] [facility] [address] [facility] [id number], [place] [address]- 7075 Jun, [facility] [place] [address] [facility] [id number][place] [id number] Jun, [facility] [place] [facility] [address] [facility] [id number], [place] [address]- 3174 Jun, [facility] [place] [facility] [address] [facility] [id number], [place] [address]- 2351 Jun, [facility] [place] [address] [id number][place] [id number] Jun, [facility] [place] [facility] [address] [facility] [id number], [place] [address]- 9998 May, [facility] [place] [facility] [address] [facility] [id number][place] [address]- 8849 May, [facility] [place] [address] [id number] [place] [id number] Apr, [facility] [place] [address] [id number] [place] 812176064 Apr, [facility] [place] [address] [id number] [place] [id number] Apr, [facility] [place] [facility] [address] [facility] [id number], [place] [address]- 7846 Mar, [facility] [place] [address] [id number] [place] [id number] Mar, [facility] [place] [facility] [address] [facility] [id number], [place] [address]- [address] Mar, [facility] [place] [address] [id number] [place] [id number] Feb, [facility] [place] [address] [id number] [place] [id number] Aug, [facility] [place] [address] [id number], [place] 558196875 Jun, [facility] [place] [facility] [address] [facility] [id number], [place] [address]- [address]26 Jun, [facility] [place] [address] [id number][place] [id number] May, [facility] [place] [facility] [address] [facility] [id number], [place] [address]- [address]14 May, [facility] [place] [address] [id number], [place] 58587[address] Apr, [facility] [place] [address] [id number], [place] [id number] Jan, [facility] [place] [facility] [address] [facility] [id number], [place] [address]- 3904 Jan, [facility] [address] [facility] [id number], [place] [id number] December, [facility] [address] [id number], [place] [id number] December, [facility] [address] [id number], [place] [id number] December, [facility] [address] [id number], [place] [address]29[address] December, [facility] [address] [address] Oct, [facility] [id number] [place] [address]406- 2546 May, [facility] [address]65100[place], [place] [address]46 May, [facility] [address]00565100[place], [place] [address]- 2546 Apr, IMMUNIZATIONS No Known Immunizations SOCIAL HISTORY Never Assessed REASON FOR VISIT Requesting samples PLAN OF CARE VITAL SIGNS MEDICATIONS Medication Instructions Dosage Frequency Start Date End Date Duration Status Sertraline HCl 100 mg orally Once a day 1.5 tablets 24h 0 days Active RESULTS No Results PROCEDURES No Known procedures INSTRUCTIONS MEDICATIONS ADMINISTERED No Known Medications MEDICAL (GENERAL) HISTORY Type Description Date Medical History hypertension Medical History acid reflux Medical History hyperlipidemia Medical History depression Medical History obesity Medical History heart disease Medical History heart attack 2012 Medical History blood thinners Surgical History cholecystectomy 2004 Surgical History cardiac stent x 1 01/2013 Surgical History cardiac stent x 2 06/2013 Surgical History triple coronary artery bypass graft 07/2013 Surgical History angioplasty within previous stent x 1, no new placements-- 06/2015 Surgical History heart cath 10/2016 Hospitalization History surgeries, childbirth
--- OUTSIDE RECORDS SUMMARY | 2018-06-08 20:18 | XMS REPORT ---
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 Active 152874890032086 Problem Other hyperlipidemia E78.4 Active 65135535 Problem History of coronary artery stent placement Z95.5 Active 523300399 Problem GERD without esophagitis K21.9 Active 293633269 Problem Adnexal cyst N94.9 Active 40878974932527 Problem Acute pain of left shoulder M25.512 Active 36319003 Problem Gastroesophageal reflux disease without esophagitis K21.9 Active 247537497 Problem History of coronary artery bypass graft x 3 Z95.1 Active 373652041 Problem Menorrhagia with irregular cycle N92.1 Active 464034486 Problem Hyperlipidemia, unspecified E78.5 Active 79510632 ALLERGIES No Information ENCOUNTERS Encounter Location Date Diagnosis [id number] [id number] Jan, [id number] [id number] December, Blood in stool K92.1 ; Dizziness R42 ; 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 ; Hyperlipidemia, unspecified E78.5 ; Essential hypertension I10 ; Irritability and anger R45.4 ; Gastroesophageal reflux disease without esophagitis K21.9 and Cough R05 [id number] [id number] Oct, [id number] [place] [address] [id number] Aug, Simple ovarian cyst N83.209 and Adnexal cyst N94.[address] [id number] Aug, Adnexal cyst N94.[address] [id number] Aug, Microscopic hematuria R31.29 and CVA tenderness M54.[address] [id number] Aug, Microscopic hematuria R31.29 and CVA tenderness M54.[address] [id number] Jul, Pain in left shoulder M25.[address] [id number] Jun, Pain in left shoulder M25.512 and Other chronic pain G89.[address] [id number] Jun, [facility] [address] [id number] [address] Jun, Acute pain of left shoulder M25.512 ; Essential hypertension I10 ; 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 ; GERD without esophagitis K21.9 and Irritability and anger R45.[address] [id number] May, Essential hypertension I10 ; 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 ; GERD without esophagitis K21.9 ; Irritability and anger R45.4 ; Acute pain of left shoulder M25.512 and Menorrhagia with irregular cycle N92.[address] [id number] May, 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 [id number] Jan, [facility] [id number] [place] [address]- 6[address] 06 Jan, 2017 Acute mid back pain M54.[address] [id number] Jan, 2017 Acute mid back pain M54.9 and Muscle spasm M62.[address] [id number] December, Essential hypertension I10 ; 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 ; Other hyperlipidemia E78.4 ; GERD without esophagitis K21.9 ; Irritability and anger R45.4 and History of coronary artery bypass graft x [address] [id number] Nov, [address] [id number] Aug, Hyperlipidemia, unspecified E78.[address] [id number] Aug, 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 and History of bloody stools Z87.[address] [id number] 09 Aug, 2016 History of bloody stools Z87.[address] [id number] Aug, History of bloody stools Z87.19 ; Mid back pain M54.9 and Gastroesophageal reflux disease without esophagitis K21.[address] [id number] Jun, Viral gastroenteritis A08.4 ; Bilious vomiting with nausea R11.14 and Elevated glucose R73.09 [facility] [id number] [place] [address]44- 6704 Jun, Dental caries K02.[address] [id number] May, Irritability and anger R45.4 [address] [address] May, Essential hypertension I10 ; Screening for thyroid disorder Z13.29 ; GERD without esophagitis K21.9 ; Elevated fasting glucose R73.01 ; Irritability and anger R45.4 ; Encounter for immunization Z23 ; History of coronary artery stent placement Z95.5 ; History of coronary artery bypass graft x 3 Z95.1 and Mixed hyperlipidemia E78.2 [facility] [id number] [place] [address] [id number] May, [address] [id number] [place] [id number] Apr, Tooth pain K08.8 ; Gastroesophageal reflux disease without esophagitis K21.9 ; 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 and Coronary artery disease involving tolowa dee-ni' heart without angina pectoris, unspecified vessel or lesion type I25.10 [facility] [address] [address]- [address] Apr, Dental caries K02.9 [facility] [address] [id number] Apr, 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 ; Other hyperlipidemia E78.4 and Arteriosclerosis of both carotid arteries I65.23 [facility] [id number] [place] [address]76- 4695 Feb, Dental examination Z01.20 [facility] [id number] [place] [address] [id number] December, 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 and Essential (primary) hypertension I10 [facility] [address] [address]- [address] December, Dental examination Z01.20 [facility] [id number] [place] [address] [id number] Nov, Pain in tooth K08.8 [facility] [id number] [place] [address] [id number] Oct, [facility] [address] [id number] Oct, [facility] [address] [id number] [id number] Oct, Carpal tunnel syndrome, right upper limb G56.01 and Carpal tunnel syndrome , left upper limb G56.02 [facility] [id number], [place] [id number] Sep, [facility] [id number], [place] [id number] Sep, [facility] [id number], [place] [id number] Jul, [address] [id number] [place] [id number] Jun, [facility] [id number] [place] [address] [id number] Jun, [facility] [id number] [place] [address] [id number] Jun, Retroperitoneal bleed R58 [facility] [id number] [place] [address] [id number] Apr, Other and unspecified hyperlipidemia 272.4 ; Coronary atherosclerosis of unspecified type of vessel, tolowa dee-ni' or graft 414.00 and Unspecified chronic ischemic 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 [facility] [id number], [place] [id number] Apr, Depression 311 [facility] [address] [id number] Mar, [id number] [place] [address] [id number] Mar, Routine gynecological examination V72.31 and Pap test, as part of routine gynecological examination V76.2 [facility] [id number] [place] [address] [id number] Mar, [facility] [id number], [place] [id number] Mar, [facility] [address] [id number], [place] [id number] Mar, Follow up V67.9 [facility] [address] [id number] [address] Mar, Wrist pain, right 719.43 [facility] [id number], [place] [id number] Feb, [facility] [id number] [place] [address] [id number] Feb, Wrist pain, right 719.43 [facility] [id number] [place] [address] [id number] Feb, Depression 311 and Coronary atherosclerosis of unspecified type of vessel , tolowa dee-ni' or graft 414.00 [facility] [id number] [place] [address] [id number] December, [facility] [id number] [place] [address] 47178- 2546 Nov, [facility] [id number] [place] [address] 74466- 2546 Nov, [facility] [id number] [place] [address] 99643- 2546 Oct, [facility] [id number], [place] [id number] Oct, [facility] [id number] [place] [address] 76271- 2546 Aug, [facility] [id number], [place] [id number] Aug, [facility] [id number] [place] [address] 95840- 2546 Aug, [facility] [address] [place] [address] 78920- 2546 Jul, [facility] [id number], [place] [id number] Jul, [facility] [id number] [place] [address] 78750- 2546 Jun, [facility] [address] [id number], [place] [address] Jun, [facility] [address] [id number] [place] [id number] Jun, [facility] [place] [facility] [address] [id number] [place] [address]- [address] Jun, [facility] [address] [id number] [place] [id number] Apr, [facility] [place] [facility] [address] [facility] [id number] [place] [address]- 2546 Apr, [facility] [address] [id number] [place] [id number] Feb, [facility] [place] [facility] [address] [facility] [id number] [place] [address]- 9636 Feb, [facility] [address] [id number] [place] [id number] Feb, [facility] [address] [id number] [place] [id number] Feb, [facility] [place] [facility] [address] [facility] [id number], [place] [address]- 0603 Feb, [facility] [place] [facility] [address] [facility] [id number] [place] [address]- 2899 Feb, [facility] [address] [facility] [id number] [place] [id number] Nov, [facility] [place] [facility] [address] [facility] [id number] [place] [address]- 4716 Nov, [facility] [place] [facility] [address] [facility] [id number], [place] [address]- 7896 Nov, [facility] [address] [facility] [id number] [place] [id number] Nov, [facility] [place] [facility] [address] [facility] [id number] [place] [address]- 4156 Sep, [facility] [place] [facility] [address] [facility] [id number] [place] [address]- 6746 Sep, [facility] [place] [facility] [address] [facility] [id number], [place] [address]- 7702 Sep, [facility] [place] [facility] [address] [facility] [id number], [place] [address]- 6114 Sep, [facility] [address] [id number] [place] 2114[address] Sep, [facility] [address] [id number], [place] 197829903 Aug, [facility] [place] [facility] [address] [facility] [id number], [place] [address]- 6023 Aug, [facility] [address] [id number], [place] [id number] Aug, [facility] [place] [facility] [address] [facility] [id number], [place] [address]- 8553 Aug, [facility] [place] [facility] [address] [facility] [id number], [place] [address]- 5220 Aug, [facility] [address] [id number], [place] [address]7932 Aug, [facility] [place] [facility] [address] [facility] [id number], [place] [address]- 1262 Jun, [facility] [address] [facility] [id number], [place] 733902335 Jun, [facility] [address] [facility] [id number], [place] [id number] Jun, [facility] [place] [facility] [address] [facility] [id number], [place] [address]- 5594 Jun, [facility] [place] [facility] [address] [facility] [id number], [place] [address]- 9832 Jun, [facility] [address] [facility] [id number], [place] [id number] Jun, [facility] [place] [facility] [address] [facility] [id number], [place] [address]- 9717 Jun, [facility] [place] [facility] [address] [facility] [id number], [place] [address]- 9318 Jun, [facility] [address] [facility] [id number], [place] 193590359 Jun, [facility] [place] [facility] [address] [facility] [id number], [place] [address]- 7466 May, [facility] [place] [facility] [address] [facility] [id number], [place] [address]- 3636 May, [facility] [address] [id number] [place] [id number] Apr, [facility] [address] [id number] [place] 110191299 Apr, [facility] [address] [id number] [place] 832107933 Apr, [facility] [place] [facility] [address] [id number], [place] [address]- 0176 Mar, [facility] [address] [id number] [place] [id number] Mar, [facility] [place] [facility] [address] [facility] [id number], [place] [address]- 2546 Mar, [facility] [address] [id number] [place] 750444352 Feb, [facility] [address] [id number] [place] 676323059 Aug, [facility] [address] [id number], [place] 520069559 Jun, [facility] [place] [facility] [address] [facility] [id number][place] [address]- 6316 Jun, [facility] [address] [id number], [place] 513111850 May, [facility] [place] [facility] [address] [id number], [place] [address]- 3446 May, [facility] [address] [id number], [place] [id number] Apr, [facility] [address] [id number], [place] 554869476 Jan, [facility] [place] [facility] [address] [facility] [id number], [place] [address]- 8463 Jan, [facility] [address] [facility] [id number], [place] [id number] December, [facility] [address] [id number], [place] 149250188 December, [facility] [address] [id number], [place] 461615237 December, [facility] [address] [id number], [place] [address] December, [facility] [address], [place] [address] Oct, [facility] [id number] [place] [address] 46754- 2546 May, [facility] [address]00565100[place], [place] [address]- 2546 May, [facility] [address]00565100[place], [place] [address]- 5686 Apr, IMMUNIZATIONS No Known Immunizations SOCIAL HISTORY Never Assessed REASON FOR VISIT Refill request PLAN OF CARE VITAL SIGNS MEDICATIONS Unknown Medications RESULTS No Results PROCEDURES No Known procedures [...]
--- OUTSIDE RECORDS SUMMARY | 2018-06-08 20:18 | XMS REPORT ---
Author Author LORENA MCCORMICK Organization [facility] Address [address] [place] [address] Care Team Providers Care Wet Suit Gluer Name Role Phone LORENA MCCORMICK Unavailable PROBLEMS Type Condition ICD9-CM Code NAX73-JK Code Onset Dates Condition Status SNOMED Code Problem Essential hypertension I10 Active 35356526 Problem Mixed hyperlipidemia E78.2 Active 433275899 Problem Irritability and anger R45.4 Active 477916419 Problem Atherosclerotic heart disease of [place] coronary artery without angina pectoris I25.10 Active 554507229855405 Problem Other hyperlipidemia E78.4 Active 54744639 Problem History of coronary artery stent placement Z95.5 Active 754086171 Problem GERD without esophagitis K21.9 Active 028265668 Problem Adnexal cyst N94.9 Active 90641384470493 Problem Acute pain of left shoulder M25.512 Active 96691756 Problem Gastroesophageal reflux disease without esophagitis K21.9 Active 360281142 Problem History of coronary artery bypass graft x 3 Z95.1 Active 547488274 Problem Menorrhagia with irregular cycle N92.1 Active 772525787 Problem Hyperlipidemia, unspecified E78.5 Active 74901526 ALLERGIES No Known Allergies ENCOUNTERS Encounter Location Date Diagnosis [address] [id number][place] [id number] Jan, [address] [id number][place] [id number] December, Blood in stool K92.1 ; Dizziness R42 ; Atherosclerotic heart disease of [place] coronary artery without angina pectoris I25.10 ; Hyperlipidemia, unspecified E78.5 ; Essential hypertension I10 ; Irritability and anger R45.4 ; Gastroesophageal reflux disease without esophagitis K21.9 and Cough R05 [address] [id number][place] [id number] Oct, [place] [id number] [place] [address] [id number] Aug, Simple ovarian cyst N83.209 and Adnexal cyst N94.[address] [id number] Aug, Adnexal cyst N94.[address] [id number] Aug, Microscopic hematuria R31.29 and CVA tenderness M54.[address] [id number] Aug, Microscopic hematuria R31.29 and CVA tenderness M54.[address] [id number] Jul, Pain in left shoulder M25.[address] [id number] Jun, Pain in left shoulder M25.512 and Other chronic pain G89.[address] [id number] Jun, [facility] [address] [place] [address] [id number]- 8490 Jun, Acute pain of left shoulder M25.512 ; Essential hypertension I10 ; Atherosclerotic heart disease of [place] coronary artery without angina pectoris I25.10 ; GERD without esophagitis K21.9 and Irritability and anger R45.[address] [id number] May, Essential hypertension I10 ; Atherosclerotic heart disease of [place] coronary artery without angina pectoris I25.10 ; GERD without esophagitis K21.9 ; Irritability and anger R45.4 ; Acute pain of left shoulder M25.512 and Menorrhagia with irregular cycle N92.[address] [id number] May, Atherosclerotic heart disease of [place] coronary artery without angina pectoris I25.10 [place] [id number] [place] [address] [id number] Jan, [facility] [id number] [place] [address] [id number] 8790 Jan, Acute mid back pain M54.[address] [id number] Jan, 2017 Acute mid back pain M54.9 and Muscle spasm M62.[address] [id number] December, Essential hypertension I10 ; Atherosclerotic heart disease of [place] coronary artery without angina pectoris I25.10 ; Other hyperlipidemia E78.4 ; GERD without esophagitis K21.9 ; Irritability and anger R45.4 and History of coronary artery bypass graft x [address] [id number] Nov, [address] [id number] Aug, Hyperlipidemia, unspecified E78.[address] [id number] Aug, Atherosclerotic heart disease of [place] coronary artery without angina pectoris I25.10 and History of bloody stools Z87.19 [place] [id number] [place] [address] [id number] 09 Aug, 2016 History of bloody stools Z87.19 [place] [id number] [place] [address] [id number] Aug, History of bloody stools Z87.19 ; Mid back pain M54.9 and Gastroesophageal reflux disease without esophagitis K21.9 [place] [id number] [place] [address] [id number] Jun, Viral gastroenteritis A08.4 ; Bilious vomiting with nausea R11.14 and Elevated glucose R73.09 [facility] [id number] [place] [address]69- 9809 Jun, Dental caries K02.9 [place] [id number] [place] [address] [id number] May, Irritability and anger R45.[address] [place] [address] [place] [address] [id number] May, Essential hypertension I10 ; Screening for thyroid disorder Z13.29 ; GERD without esophagitis K21.9 ; Elevated fasting glucose R73.01 ; Irritability and anger R45.4 ; Encounter for immunization Z23 ; History of coronary artery stent placement Z95.5 ; History of coronary artery bypass graft x 3 Z95.1 and Mixed hyperlipidemia E78.2 [facility] [address] [id number] May, [place] [address] [facility] [id number] [id number] Apr, Tooth pain K08.8 ; Gastroesophageal reflux disease without esophagitis K21.9 ; 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 and Coronary artery disease involving [place] heart without angina pectoris, unspecified vessel or lesion type I25.10 [place] [address] 298049- 4586 Apr, Dental caries K02.[address] [id number] Apr, Atherosclerotic heart disease of [place] coronary artery without angina pectoris I25.10 ; Other hyperlipidemia E78.4 and Arteriosclerosis of both carotid arteries I65.23 [facility] [address] [address] Feb, Dental examination Z01.20 [place] [id number] [place] [address] [id number] December, Atherosclerotic heart disease of [place] coronary artery without angina pectoris I25.10 and Essential (primary) hypertension I10 [facility] [address] [address] December, Dental examination Z01.[address] [id number] Nov, Pain in tooth K08.[address] [id number] Oct, [address] [place] [id number] Oct, [facility] [id number], [place] [id number] Oct, Carpal tunnel syndrome, right upper limb G56.01 and Carpal tunnel syndrome , left upper limb G56.02 [facility] [id number], [place] [id number] Sep, [facility] [address] [place] [id number] [place] [address] [id number] Sep, [facility] [id number] [place] [address] [id number] Jul, [address] [place] [address] [id number] Jun, [place] [id number] [place] [address] [id number] Jun, [place] [id number] [place] [address] [id number] Jun, Retroperitoneal bleed R58 [place] [address] [place] [id number] [place] [address] [id number] Apr, Other and unspecified hyperlipidemia 272.4 ; Coronary atherosclerosis of unspecified type of vessel, [place] or graft 414.00 and Unspecified chronic ischemic 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 [place] [id number] [place] [address] [id number] Apr, Depression [address] [place] [address] [id number] Mar, [place] [address] [place] [id number] [place] [address] [id number] Mar, Routine gynecological examination V72.31 and Pap test, as part of routine gynecological examination V76.2 [address] [place] [address] [id number] Mar, [address] [place] [address] [id number] Mar, [address] [place] [address] [id number] Mar, Follow up V67.9 [facility] [address] [address] [id number] [address] Mar, Wrist pain, right 719.43 [facility] [id number] [place] [address] [id number] Feb, [facility] [address] [place] [id number] [place] [address] [id number] Feb, Wrist pain, right 719.43 [facility] [address] [place] [id number] [place] [address] [id number] Feb, Depression 311 and Coronary atherosclerosis of unspecified type of vessel , [place] or graft 414.00 [facility] [id number] [place] [address] [id number] December, [facility] [id number] [place] [address] 50723- 2546 Nov, [facility] [id number] [place] [address] 18292- 2546 Nov, [facility] [id number] [place] [address] 54392- 2546 Oct, [facility] [id number], [place] [id number] Oct, [facility] [id number] [place] [address] 81172- 2546 Aug, [facility] [id number], [place] [id number] Aug, [facility] [id number] [place] [address] 18021- 2546 Aug, [facility] [address] [place] [address] 83596- 2546 Jul, [facility] [id number] [place] [address] [id number] Jul, [facility] [address] [address] [id number] [place] [address] 14753- 2546 Jun, [facility] [id number], [place] [id number] Jun, [facility] [address] [id number] [place] [id number] Jun, [facility] [place] [facility] [address] [facility] [id number], [place] [address]- [address]46 Jun, [facility] [address] [id number] [place] [id number] Apr, [facility] [place] [facility] [address] [facility] [id number], [place] [address]- 2546 Apr, [facility] [address] [id number] [place] [id number] Feb, [facility] [place] [facility] [address] [facility] [id number], [place] [address]- 6876 Feb, [facility] [address] [id number] [place] [id number] Feb, [facility] [address] [facility] [id number] [place] [id number] Feb, [facility] [place] [facility] [address] [place] [address] [id number], [place] [address]- [address] Feb, [facility] [place] [facility] [address] [facility] [id number], [place] [address]- 2342 Feb, [facility] [address] [facility] [id number] [place] [id number] Nov, [facility] [place] [facility] [address]00565100[place], [place] [address]- 5921 Nov, [facility] [place] [facility] [address] [facility] [id number], [place] [address]- 0868 Nov, [facility] [address] [facility] [id number][place] [id number] Nov, [facility] [place] [facility] [address] [facility] [id number], [place] [address]- 9057 Sep, [facility] [place] [facility] [address] [facility] [id number][place] 963794- 1876 Sep, [facility] [place] [facility] [address] [facility] [id number], [place] [address]- 2848 Sep, [facility] [place] [facility] [address] [facility] [id number] [place] [address]- 9778 Sep, [facility] [address] [id number] [place] [id number] Sep, [facility] [address] [id number] [place] [id number] Aug, [facility] [place] [facility] [address] [facility] [id number] [place] [address]- 8960 Aug, [facility] [address] [id number] [place] [id number] Aug, [facility] [place] [facility] [address] [facility] [id number] [place] [address]- 8517 Aug, [facility] [place] [facility] [address] [facility] [id number], [place] [address]- 1054 Aug, [facility] [address] [facility] [id number], [place] [id number] Aug, [facility] [place] [facility] [address] [facility] [id number], [place] [address]- 1404 Jun, [facility] [address] [id number] [place] [id number] Jun, [facility] [address] [facility] [id number], [place] [id number] Jun, [facility] [place] [facility] [address] [facility] [id number], [place] [address]- 7479 Jun, [facility] [place] [facility] [address] [facility] [id number], [place] [address]- 7674 Jun, [facility] [address] [id number], [place] [id number] Jun, [facility] [place] [facility] [address] [facility] [id number], [place] [address]- 2846 Jun, [facility] [place] [facility] [address] [facility] [id number][place] [address]- 1220 Jun, [facility] [address] [facility] [id number], [place] [id number] Jun, [facility] [place] [facility] [address] [facility] [id number], [place] [address]- 7598 May, [facility] [place] [facility] [address] [facility] [id number], [place] [address]- 0245 May, [facility] [address] [id number] [place] [id number] Apr, [facility] [address] [id number] [place] [id number] Apr, [facility] [address] [id number] [place] [id number] Apr, [facility] [place] [facility] [address] [facility] [id number], [place] [address]- 2486 Mar, [facility] [address] [id number] [place] [id number] Mar, [facility] [place] [facility] [address] [facility] [id number], [place] [address]- 9322 Mar, [facility] [address] [id number] [place] [id number] Feb, [facility] [address] [id number] [place] [id number] Aug, [facility] [address] [id number] [place] [id number] Jun, [facility] [place] [facility] [address] [facility] [id number], [place] [address]- 2100 Jun, [facility] [address] [id number], [place] [id number] May, [facility] [place] [facility] [address] [facility] [id number], [place] [address]- 7683 May, [facility] [address] [id number], [place] [id number] Apr, [facility] [address] [id number], [place] [id number] Jan, [facility] [facility] [address] [facility] [id number], [place] [address]- 6638 Jan, [facility] [address] [facility] [id number], [place] [id number] December, [facility] [address] [place] [address] [id number], [place] [id number] December, [facility] [address] [place] [address] [id number], [place] [id number] December, [facility] [address] [place] [address] [id number], [place] [id number] December, [facility] [id number], [place] [id number] Oct, [place] [address] [id number] [place] [address] 99795- 2546 May, [facility] [address]00565100[place], [place] [address]- 2546 May, [place] [address]65100[place], [place] [address]- 2546 Apr, IMMUNIZATIONS No Known Immunizations SOCIAL HISTORY Never Assessed REASON FOR VISIT dizzness/blood in stool, ringing in ears, states she doesn't feel good Malcom RN PLAN OF CARE Activity Details Follow Up pending labs and referral Reason:blood in stool VITAL SIGNS Height 69 in 2017-12-15 Weight 259.2 lbs 2017-12-15 Temperature 97.7 degrees Fahrenheit 2017-12-15 Heart Rate 68 bpm 2017-12-15 Respiratory Rate 18 2017-12-15 BMI 38.27 kg/m2 2017-12-15 Blood pressure systolic 140 mmHg 2017-12-15 Blood pressure diastolic 70 mmHg 2017-12-15 MEDICATIONS Medication Instructions Dosage Frequency Start Date End Date Duration Status Protonix 20 MG orally daily TAKE ONE (1) TABLET BY MOUTH ONCE DAILY. 24h 0 Active Plavix 75 MG orally daily TAKE ONE (1) TABLET BY MOUTH DAILY... 24h 0 Active Nitrostat 0.4 mg 1 time per day PRN Aug, Active Crestor 40 MG orally daily TAKE ONE (1) TABLET BY MOUTH DAILY... 24h 0 Active Sertraline HCl 100 MG orally daily TAKE (1.5) TABLETS BY MOUTH ONCE DAILY. 24h 0 Active Metoprolol Tartrate 25 MG Orally Twice a day 1 tablet 12h 0 Active Aspirin 81 mg 1 Tablet 1 time per day Feb, Active RESULTS No Results PROCEDURES Procedure Date Ordered Result Body Site MANUAL CELL COUNT, EACH December 15, 2017 COMPREHEN METABOLIC PANEL December 15, 2017 LIPID PANEL December 15, 2017 ASSAY THYROID STIM HORMONE December 15, 2017 VENIPUNCT, ROUTINE* December 15, 2017 ASSAY OF MAGNESIUM December 15, 2017 INSTRUCTIONS MEDICATIONS ADMINISTERED No Known Medications MEDICAL [...]
--- OUTSIDE RECORDS SUMMARY | 2018-06-08 20:18 | XMS REPORT ---
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 Active 495886692330072 Problem Other hyperlipidemia E78.4 Active 07383384 Problem History of coronary artery stent placement Z95.5 Active 302855985 Problem GERD without esophagitis K21.9 Active 730877560 Problem Adnexal cyst N94.9 Active 60732149963281 Problem Acute pain of left shoulder M25.512 Active 67844897 Problem Gastroesophageal reflux disease without esophagitis K21.9 Active 724127605 Problem History of coronary artery bypass graft x 3 Z95.1 Active 145470587 Problem Menorrhagia with irregular cycle N92.1 Active 337460914 Problem Hyperlipidemia, unspecified E78.5 Active 22499539 ALLERGIES No Information ENCOUNTERS Encounter Location Date Diagnosis [facility] [address] [id number] [id number] December, [place] [address] [id number] [address] December, Blood in stool K92.1 ; Dizziness R42 ; 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 ; Hyperlipidemia, unspecified E78.5 ; Essential hypertension I10 ; Irritability and anger R45.4 and Gastroesophageal reflux disease without esophagitis K21.9 [address] [id number] [address] Oct, [id number] [place] [address] [id number] Aug, Simple ovarian cyst N83.209 and Adnexal cyst N94.[address] [id number] Aug, Adnexal cyst N94.9 [place] [id number] [place] [address] [id number] Aug, Microscopic hematuria R31.29 and CVA tenderness M54.[address] [id number] Aug, Microscopic hematuria R31.29 and CVA tenderness M54.[address] [id number] Jul, Pain in left shoulder M25.[address] [id number] Jun, Pain in left shoulder M25.512 and Other chronic pain G89.[address] [id number] Jun, [facility] [address] [id number]- [address] 14 Jun, 2017 Acute pain of left shoulder M25.512 ; Essential hypertension I10 ; 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 ; GERD without esophagitis K21.9 and Irritability and anger R45.4 [place] [id number] [place] [address] [id number] May, Essential hypertension I10 ; 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 ; GERD without esophagitis K21.9 ; Irritability and anger R45.4 ; Acute pain of left shoulder M25.512 and Menorrhagia with irregular cycle N92.[address] [id number] May, 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 [place] [id number] [place] [address] [id number] Jan, [facility] [id number] [place] [address] 06 Jan, 2017 Acute mid back pain M54.[address] [id number] Jan, Acute mid back pain M54.9 and Muscle spasm M62.[address] [id number] December, Essential hypertension I10 ; 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 ; Other hyperlipidemia E78.4 ; GERD without esophagitis K21.9 ; Irritability and anger R45.4 and History of coronary artery bypass graft x [address] [id number] Nov, [address] [id number] Aug, Hyperlipidemia, unspecified E78.[address] [id number] Aug, 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 and History of bloody stools Z87.[address] [id number] Aug, 2016 History of bloody stools Z87.[address] [id number] Aug, History of bloody stools Z87.19 ; Mid back pain M54.9 and Gastroesophageal reflux disease without esophagitis K21.[address] [id number] Jun, Viral gastroenteritis A08.4 ; Bilious vomiting with nausea R11.14 and Elevated glucose R73.09 [facility] [address] [address] Jun, Dental caries K02.[address] [id number] May, Irritability and anger R45.[address] [id number] May, Essential hypertension I10 ; Screening for thyroid disorder Z13.29 ; GERD without esophagitis K21.9 ; Elevated fasting glucose R73.01 ; Irritability and anger R45.4 ; Encounter for immunization Z23 ; History of coronary artery stent placement Z95.5 ; History of coronary artery bypass graft x 3 Z95.1 and Mixed hyperlipidemia E78.2 [facility] [address] [id number] [id number] May, [facility] [address] [id number] [address] Apr, Tooth pain K08.8 ; Gastroesophageal reflux disease without esophagitis K21.9 ; 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 and Coronary artery disease involving sycuan heart without angina pectoris, unspecified vessel or lesion type I25.10 [facility] [address] [address]356[address] Apr, Dental caries K02.9 [facility] [id number] [place] [address] [id number] Apr, 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 ; Other hyperlipidemia E78.4 and Arteriosclerosis of both carotid arteries I65.23 [facility] [id number] [place] [address] [id number]- 3986 Feb, Dental examination Z01.20 [facility] [id number] [place] [address] [id number] December, 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 and Essential (primary) hypertension I10 [facility] [address] [id number]- [address] December, Dental examination Z01.20 [facility] [id number] [place] [address] [id number] Nov, Pain in tooth K08.8 [facility] [id number] [place] [address] [id number] Oct, [facility] [address] [id number] Oct, [facility] [id number] [address] Oct, Carpal tunnel syndrome, right upper limb G56.01 and Carpal tunnel syndrome , left upper limb G56.02 [facility] [id number], [place] [id number] Sep, [facility] [id number][place] [address] Sep, [facility] [id number] [place] [address] [id number] Jul, [place] [address] [facility] [id number] [address] Jun, [facility] [id number] [place] [address] [id number] Jun, [facility] [id number] [place] [address] [id number] Jun, Retroperitoneal bleed R58 [facility] [id number] [place] [address] [id number] Apr, Other and unspecified hyperlipidemia 272.4 ; Coronary atherosclerosis of unspecified type of vessel, sycuan or graft 414.00 and Unspecified chronic ischemic 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 [facility] [id number] [place] [address] [id number] Apr, Depression [id number] [place] [address] [id number] Mar, [place] [id number] [place] [address] [id number] Mar, Routine gynecological examination V72.31 and Pap test, as part of routine gynecological examination V76.2 [facility] [id number] [place] [address] [id number] Mar, [place] [id number] [place] [address] [id number] Mar, [facility] [address] [id number][place] [id number] Mar, Follow up V67.9 [facility] [address] [place] [address]46 Mar, Wrist pain, right 719.43 [facility] [id number][place] [id number] Feb, [facility] [id number] [place] [address] [id number] Feb, Wrist pain, right 719.43 [facility] [id number] [place] [address] [id number] Feb, Depression 311 and Coronary atherosclerosis of unspecified type of vessel , sycuan or graft 414.00 [facility] [id number], [place] [id number] December, [facility] [id number] [place] [address] Nov, [facility] [id number] [place] [address]- 2546 Nov, [facility] [id number] [place] [address]- 2546 Oct, [facility] [id number], [place] [id number] Oct, [facility] [id number] [place] [address] 13166- 2546 Aug, [facility] [id number], [place] [id number] Aug, [facility] [id number] [place] [address]60- 2546 Aug, [facility] [id number] [place] [address] 8[address]36- 2546 Jul, [facility] [id number], [place] [id number] Jul, [facility] [id number] [place] [address] 6[address]- 2546 Jun, [facility] [id number], [place] [id number] Jun, [facility] [address] [id number] [id number] Jun, [facility] [place] [facility] [address] [id number] [place] [address] Jun, [facility] [address] [id number] [place] [id number] Apr, [facility] [place] [facility] [address] [facility] [id number] [place] [address]- [address] Apr, [facility] [address] [id number] [place] [id number] Feb, [facility] [place] [facility] [address] [facility] [id number] [place] [address]- [address] Feb, [facility] [address] [id number] [place] [id number] Feb, [facility] [address] [id number] [place] [id number] Feb, [facility] [place] [facility] [address] [facility] [id number] [place] [address]- 69[address] Feb, [facility] [place] [facility] [address] [facility] [id number] [place] [address]- 0[address] Feb, [facility] [address] [facility] [id number] [place] [id number] Nov, [facility] [place] [facility] [address] [id number] [address] Nov, [facility] [place] [facility] [address] [facility] [id number][place] [address]- 8[address] Nov, [facility] [address] [facility] [id number] [place] [address] Nov, [facility] [place] [facility] [address] [facility] [id number] [address]- 7[address] Sep, [facility] [place] [facility] [address] [facility] [id number] [address]- 7[address] Sep, [facility] [place] [facility] [address] [id number] [address] Sep, [facility] [place] [facility] [address] [facility] [id number] [place] [address]- 2994 Sep, [facility] [address] [id number] [place] [id number] Sep, [facility] [address] [facility] [id number] [place] [id number] Aug, [facility] [place] [facility] [address] [facility] [id number][place] [address] Aug, [facility] [address] [id number] [place] [address] Aug, [facility] [place] [facility] [address] [facility] [id number][place] [address]- [address] Aug, [facility] [place] [facility] [address] [id number] [address]93 Aug, [facility] [address] [id number] [place] [id number] Aug, [facility] [place] [facility] [address] [facility] [id number][place] [address]- 7690 Jun, [facility] [address] [id number], [place] [id number] Jun, [facility] [address] [facility] [id number], [place] [address] Jun, [facility] [place] [facility] [address] [facility] [id number] [address]- [address]99 Jun, [facility] [place] [facility] [address] [facility] [id number][place] [address]- 7988 Jun, [facility] [address] [facility] [id number], [place] [address] Jun, [facility] [place] [facility] [address] [facility] [id number][place] [address]- 6264 Jun, [facility] [place] [facility] [address] [facility] [id number][place] [address]- 6030 Jun, [facility] [address] [facility] [id number], [place] [address] Jun, [facility] [place] [facility] [address] [id number] [place] [address]- 5738 May, [facility] [place] [facility] [address] [facility] [id number][place] [address]- 4806 May, [facility] [address] [id number] [place] [address] Apr, [facility] [address] [id number] [place] [address]496[address] Apr, [facility] [address] [id number] [place] [address] Apr, [facility] [place] [facility] [address] [facility] [id number] [place] [address]- 6526 Mar, [facility] [address] [id number] [place] [address] Mar, [facility] [place] [facility] [address] [facility] [id number] [address]- 2546 Mar, [facility] [address] [id number] [place] [address] Feb, [facility] [address] [id number] [place] [address] Aug, [facility] [address] [id number] [place] [id number] Jun, [facility] [place] [facility] [address] [facility] [id number], [place] [address]- 8980 Jun, [facility] [address] [id number], [place] [address] May, [facility] [place] [facility] [address] [facility] [id number][place] [address]- 2042 May, [facility] [address] [id number] [place] [address] Apr, [facility] [address] [id number] [place] [address] Jan, [facility] [place] [facility] [address] [facility] [id number][place] [address]- [address] Jan, [facility] [address] [facility] [id number] [place] [address] December, [facility] [address] [id number], [place] [address] December, [facility] [address] [id number], [place] [address] December, [facility] [address] [id number], [place] [address] December, [facility] [address] [id number], [place] [address]646 Oct, [facility] [address] [id number] [address]- 2546 May, [facility] [address]00565100[place] [address]- [address] May, [facility] [address]00565100[place] [address]- [address] Apr, IMMUNIZATIONS No Known Immunizations SOCIAL HISTORY Never Assessed REASON FOR VISIT Lab (walk-in) [facility] DIAL PLAN OF CARE VITAL SIGNS MEDICATIONS Unknown Medications RESULTS No Results PROCEDURES Procedure Date Ordered Result Body Site COMPREHEN METABOLIC PANEL May 24, 2017 LIPID PANEL May 24, 2017 VENIPUNCT, ROUTINE* May 24, 2017 INSTRUCTIONS MEDICATIONS ADMINISTERED No Known Medications [...]
--- OUTSIDE RECORDS SUMMARY | 2018-06-08 20:19 | XMS REPORT ---
Author Author ELVA MC [employer] Address Unknown Phone Unavailable Care Team Providers Care Business Writer Name Role Phone ELVA MC CP Unavailable Allergies, Adverse Reactions, Alerts Substance Reaction Event Type N.K.D.A. Info Not Available Non Drug Allergy Problems Problem Type Condition Code Onset Dates Condition Status Assessment Retroperitoneal bleed R58 Active Problem Other primary cardiomyopathies 425.4 Active Problem Coronary atherosclerosis of unspecified type of vessel, [place] or graft 414.00 Active Problem Unspecified chronic ischemic 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 Active Problem Other and unspecified hyperlipidemia 272.4 Active Problem Unspecified breast screening V76.10 Active Problem Encounter for long-term (current) use of other medications V58.69 Active Problem Unspecified essential hypertension 401.9 Active Medications Medication Code System Code Instructions Start Date End Date Status Dosage Lipitor [facility] [address]-90 40 MG Orally Once a day Aug 01, 2014 1 tablet Hydrocodone-Acetaminophen [facility] [address]-24 5-325 MG Orally every 6 hrs PRN Jun 18, 2015 1 tablet as needed Prilosec OTC [facility] 37568-28324 20 MG Orally Once a day 1 tablet Metoprolol Tartrate [facility] [address]-61 25 MG Orally Twice a day Aug 01, 2014 1 tablet Zoloft [facility] [address]-90 100 MG Orally Once a day February 11, 2015 1 tablet Nitrostat [facility] [address]-52 0.4 mg Aug 21, 2013 1 time per day PRN Aspirin [facility] [address]-64 81 mg February 06, 2013 1 Tablet 1 time per day Plavix [facility] [address]-66 75 MG Orally Once a day Aug 01, 2014 take 1 tablet Keflex [facility] [address]-50 500 MG Orally Twice a day Jun 18, 2015 Jun 28, 2015 1 capsule Procedures Procedure Coding System Code Date Office Visit, Est Pt., Level 3 CPT-4 62219 Jun 18, 2015 Vital Signs Date/Time: Jun 18, 2015 Temperature 98.6 F Weight 239.8 lbs Height 69 in BMI 35.41 Index Blood Pressure Diastolic 82 mmHg Blood Pressure Systolic 114 mmHg Cardiac Monitoring Heart Rate 72 bpm Results No Known Results Summary Purpose [employer] Submission
--- OUTSIDE RECORDS SUMMARY | 2018-06-08 20:19 | XMS REPORT ---
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 Active 626468534417127 Problem Other hyperlipidemia E78.4 Active 14535717 Problem History of coronary artery stent placement Z95.5 Active 453272404 Problem GERD without esophagitis K21.9 Active 871257786 Problem Adnexal cyst N94.9 Active 46845169285340 Problem Acute pain of left shoulder M25.512 Active 81488808 Problem Gastroesophageal reflux disease without esophagitis K21.9 Active 063219604 Problem History of coronary artery bypass graft x 3 Z95.1 Active 261372213 Problem Menorrhagia with irregular cycle N92.1 Active 822322013 Problem Hyperlipidemia, unspecified E78.5 Active 55954232 ALLERGIES No Information ENCOUNTERS Encounter Location Date Diagnosis [facility] [id number] [id number] December, Blood in stool K92.1 ; Dizziness R42 ; 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 ; Hyperlipidemia, unspecified E78.5 ; Essential hypertension I10 ; Irritability and anger R45.4 ; Gastroesophageal reflux disease without esophagitis K21.9 and Cough R05 [facility] [address] [id number] [id number] Oct, [id number] [place] [address] [id number] Aug, Simple ovarian cyst N83.209 and Adnexal cyst N94.9 [id number] [place] [address] [id number] Aug, Adnexal cyst N94.9 [id number] [place] [address] [id number] Aug, Microscopic hematuria R31.29 and CVA tenderness M54.[address] [id number] Aug, Microscopic hematuria R31.29 and CVA tenderness M54.9 [id number] [place] [address] [id number] Jul, Pain in left shoulder M25.[address] [id number] Jun, Pain in left shoulder M25.512 and Other chronic pain G89.[address] [id number] Jun, 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 ; Other hyperlipidemia E78.4 ; GERD without esophagitis K21.9 ; Irritability and anger R45.4 and History of coronary artery bypass graft x 3 Z95.1 [id number] [place] [address] [id number] Nov, [address] [id number] Aug, Hyperlipidemia, unspecified E78.[address] [id number] Aug, 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 [id number] [place] [address] Jun, Dental caries K02.9 [id number] [place] [address] [id number] May, Irritability and anger R45.4 [id number] [place] [address] [id number] May, Essential hypertension I10 ; Screening for thyroid disorder Z13.29 ; GERD without esophagitis K21.9 ; Elevated fasting glucose R73.01 ; Irritability and anger R45.4 ; Encounter for immunization Z23 ; History of coronary artery stent placement Z95.5 ; History of coronary artery bypass graft x 3 Z95.1 and Mixed hyperlipidemia E78.2 [facility] [address] [id number] [id number] May, [address] [place] [address] [id number] Apr, Tooth pain K08.8 ; Gastroesophageal reflux disease without esophagitis K21.9 ; 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 [address] [address] December, Dental examination Z01.20 [facility] [id number] [place] [address] [id number] Nov, Pain in tooth K08.8 [facility] [id number] [place] [address] [id number] Oct, [facility] [address] [id number] Oct, [facility] [address] [id number] Oct, Carpal tunnel syndrome, right upper limb G56.01 and Carpal tunnel syndrome , left upper limb G56.02 [facility] [id number] [place] [address] [id number] Sep, [facility] [id number] [place] [address] [id number] Sep, [facility] [id number] [place] [address] [id number] Jul, [place] [facility] [id number] [id number] Jun, [facility] [id number] [place] [address] [id number] Jun, [facility] [id number] [place] [address] [id number] Jun, Retroperitoneal bleed R58 [id number] [place] [address] [id number] Apr, Other and unspecified hyperlipidemia 272.4 ; Coronary atherosclerosis of unspecified type of vessel, cherokee or graft 414.00 and Unspecified chronic ischemic 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 [facility] [id number] [place] [address] [id number] Apr, Depression 311 [facility] [id number] [place] [address] [id number] Mar, [place] [id number] [place] [address] [id number] Mar, Routine gynecological examination V72.31 and Pap test, as part of routine gynecological examination V76.2 [facility] [id number] [place] [address] [id number] Mar, [place] [address] [id number] [place] [address] [id number] Mar, [facility] [id number] [place] [address] [id number] Mar, Follow up V67.9 [facility] [address] [address] Mar, Wrist pain, right 719.43 [facility] [address] [id number] [id number] Feb, [facility] [id number] [place] [address] [id number] Feb, Wrist pain, right 719.43 [facility] [address] [id number], [place] [id number] Feb, Depression 311 and Coronary atherosclerosis of unspecified type of vessel , cherokee or graft 414.00 [facility] [id number], [place] [id number] December, [facility] [id number] [place] [address]- [address] Nov, [facility] [place] [facility] [id number] [place] [address] 559[address]- 2546 Nov, [facility] [id number] [place] [address] 74[address]- [address] Oct, [facility] [id number], [place] [id number] Oct, [facility] [place] [facility] [address] [place] [address] 71[address]- [address] Aug, [facility] [id number] [place] [address] [id number] Aug, [facility] [place] [facility] [id number] [place] [address]- [address] Aug, [facility] [place] [facility] [address]00565100[place], [place] [address] Jul, [facility] [address] [id number], [place] [id number] Jul, [facility] [place] [facility] [id number] [place] [address] 9[address]- 2546 Jun, [facility] [address] [id number], [place] [id number] Jun, [facility] [address] [id number], [place] [id number] Jun, [facility] [place] [facility] [address] [facility] [id number] [place] [address]- [address] Jun, [facility] [address] [id number] [place] [id number] Apr, [facility] [place] [facility] [address] [facility] [id number] [place] [address]- 1556 Apr, [facility] [address] [facility] [id number] [place] [phone] Feb, [facility] [place] [facility] [address] [facility] [id number] [place] [address]- 1785 Feb, [facility] [address] [id number] [place] [id number] Feb, [facility] [address] [facility] [id number] [place] [phone] Feb, [facility] [place] [facility] [address] [id number] [place] [address]- [address] Feb, [facility] [place] [facility] [address] [facility] [id number][place] [address]- 6[address] Feb, [facility] [address] [facility] [id number] [place] [id number] Nov, [facility] [place] [facility] [address] [facility] [id number], [place] [address]- 46[address] Nov, [facility] [place] [facility] [address] [facility] [id number], [place] [address]- [address] Nov, [facility] [address] [facility] [id number], [place] [id number] Nov, [facility] [place] [facility] [address] [facility] [id number], [place] [address]- 07[address] Sep, [facility] [place] [facility] [address] [facility] [id number] [place] [address]- 9093 Sep, [facility] [place] [facility] [address] [facility] [id number], [place] [address]- 22[address] Sep, [facility] [place] [facility] [address] [facility] [id number], [place] [address]- 92[address] Sep, [facility] [address] [id number] [place] [id number] Sep, [facility] [address] [id number] [place] [id number] Aug, [facility] [place] [facility] [address] [id number], [place] [address]- [address] Aug, [facility] [address] [id number] [place] [id number] Aug, [facility] [place] [facility] [address] [id number], [place] [address]- 6[address] Aug, [facility] [place] [facility] [address] [facility] [id number] [place] [address]- 7062 Aug, [facility] [address] [facility] [id number] [place] [id number] Aug, [facility] [place] [facility] [address] [id number], [place] [address]- 5[address] Jun, [facility] [address] [id number], [place] [id number] Jun, [facility] [address] [id number] [place] [id number] Jun, [facility] [place] [facility] [address] [id number], [place] [address]- [address] Jun, [facility] [place] [facility] [address] [facility] [id number], [place] [address]- 44[address] Jun, [facility] [address] [facility] [id number], [place] [id number] Jun, [facility] [place] [facility] [address] [facility] [id number], [place] [address]- 9300 Jun, [facility] [place] [facility] [address] [facility] [id number], [place] [address]- 3827 Jun, [facility] [address] [facility] [id number], [place] [id number] Jun, [facility] [place] [facility] [address] [facility] [id number], [place] [address]- 69[address] May, [facility] [address] [facility] [id number], [place] [address]- 8[address] May, [facility] [address] [id number] [place] [id number] Apr, [facility] [address] [id number] [place] [id number] Apr, [facility] [address] [id number] [place] [id number] Apr, [facility] [place] [facility] [address] [facility] [id number], [place] [address]- 0382 Mar, [facility] [address] [facility] [id number] [place] [id number] Mar, [facility] [place] [facility] [address]00565100[place], [place] [address]- 7[address] Mar, [facility] [address] [id number] [place] [id number] Feb, [facility] [address] [id number] [place] [id number] Aug, [facility] [address] [facility] [id number] [place] [id number] Jun, [facility] [address]00565100[place], [place] [address]- [address] Jun, [facility] [id number], [place] [id number] May, [facility] [place] [facility] [address] [facility] [id number], [place] [address]- 7990 May, [facility] [address] [facility] [id number] [place] [id number] Apr, [facility] [address] [facility] [id number], [place] [id number] Jan, [facility] [place] [facility] [address] [facility] [id number], [place] [address]- 8046 Jan, [facility] [address] [facility] [id number], [place] [id number] December, [facility] [address] [facility] [id number] [place] [id number] December, [facility] [address] [facility] [id number], [place] [address] December, [facility] [address] [id number] [place] [id number] December, [facility] [address] [id number], [place] [id number] Oct, [facility] [address]00565100[place], [place] [address] May, [facility] [address]00565100[place], [place] [address] May, [facility] [address]00565100[place], [place] [address] 254 Apr, IMMUNIZATIONS No Known Immunizations SOCIAL HISTORY Never Assessed REASON FOR VISIT CT PLAN OF CARE VITAL SIGNS MEDICATIONS No Known Medications RESULTS Name Result Date Reference Range CT Scan : Abd & Pelvis w/o contrast (STONE PROTOCOL) 2017-08-14 PROCEDURES No Known procedures INSTRUCTIONS MEDICATIONS ADMINISTERED [...]
--- OUTSIDE RECORDS SUMMARY | 2018-06-08 20:19 | XMS REPORT ---
Author Author LORENA MCCORMICK Organization [facility] Address [address] [place] [address] Care Team Providers Care Measurement Superintendent Name Role Phone LORENA MCCORMICK Unavailable PROBLEMS Type Condition ICD9-CM Code PSF27-PS Code Onset Dates Condition Status SNOMED Code Problem Essential hypertension I10 Active 04019307 Problem Mixed hyperlipidemia E78.2 Active 032580085 Problem Irritability and anger R45.4 Active 135547614 Problem Atherosclerotic heart disease of [place] coronary artery without angina pectoris I25.10 Active 252807833867309 Problem Other hyperlipidemia E78.4 Active 67441140 Problem History of coronary artery stent placement Z95.5 Active 445756419 Problem GERD without esophagitis K21.9 Active 022965018 Problem Adnexal cyst N94.9 Active 54888236301375 Problem Acute pain of left shoulder M25.512 Active 67035047 Problem Gastroesophageal reflux disease without esophagitis K21.9 Active 185506991 Problem History of coronary artery bypass graft x 3 Z95.1 Active 370421362 Problem Menorrhagia with irregular cycle N92.1 Active 120519634 Problem Hyperlipidemia, unspecified E78.5 Active 11804728 ALLERGIES No Known Allergies ENCOUNTERS Encounter Location Date Diagnosis [facility] [address] [facility] [id number] [id number] December, [place] [address] [id number] [id number] December, Blood in stool K92.1 ; Dizziness R42 ; Atherosclerotic heart disease of [place] coronary artery without angina pectoris I25.10 ; Hyperlipidemia, unspecified E78.5 ; Essential hypertension I10 ; Irritability and anger R45.4 and Gastroesophageal reflux disease without esophagitis K21.[address] [id number] [id number] Oct, [place] [id number] [place] [address] [id number] Aug, Simple ovarian cyst N83.209 and Adnexal cyst N94.[address] [id number] Aug, Adnexal cyst N94.9 [place] [id number] [place] [address] [id number] Aug, Microscopic hematuria R31.29 and CVA tenderness M54.[address] [id number] Aug, Microscopic hematuria R31.29 and CVA tenderness M54.[address] [id number] Jul, Pain in left shoulder M25.[address] [id number] Jun, Pain in left shoulder M25.512 and Other chronic pain G89.[address] [id number] Jun, [facility] [address] [id number] [address] 14 Jun, 2017 Acute pain of left shoulder M25.512 ; Essential hypertension I10 ; Atherosclerotic heart disease of [place] coronary artery without angina pectoris I25.10 ; GERD without esophagitis K21.9 and Irritability and anger R45.4 [place] [id number] [place] [address] [id number] May, Essential hypertension I10 ; Atherosclerotic heart disease of [place] coronary artery without angina pectoris I25.10 ; GERD without esophagitis K21.9 ; Irritability and anger R45.4 ; Acute pain of left shoulder M25.512 and Menorrhagia with irregular cycle N92.[address] [id number] May, Atherosclerotic heart disease of [place] coronary artery without angina pectoris I25.10 [place] [id number] [place] [address] [id number] Jan, [facility] [address] [place] [address] [id number]- [address]897 Jan, Acute mid back pain M54.[address] [id number] Jan, Acute mid back pain M54.9 and Muscle spasm M62.[address] [id number] December, Essential hypertension I10 ; Atherosclerotic heart disease of [place] coronary artery without angina pectoris I25.10 ; Other hyperlipidemia E78.4 ; GERD without esophagitis K21.9 ; Irritability and anger R45.4 and History of coronary artery bypass graft x [address] [id number] Nov, [address] [id number] Aug, Hyperlipidemia, unspecified E78.[address] [id number] Aug, Atherosclerotic heart disease of [place] coronary artery without angina pectoris I25.10 and History of bloody stools Z87.[address] [id number] Aug, 2016 History of bloody stools Z87.[address] [id number] Aug, History of bloody stools Z87.19 ; Mid back pain M54.9 and Gastroesophageal reflux disease without esophagitis K21.[address] [id number] Jun, Viral gastroenteritis A08.4 ; Bilious vomiting with nausea R11.14 and Elevated glucose R73.09 [facility] [address] [address] Jun, Dental caries K02.[address] [id number] May, Irritability and anger R45.[address] [id number] May, Essential hypertension I10 ; Screening for thyroid disorder Z13.29 ; GERD without esophagitis K21.9 ; Elevated fasting glucose R73.01 ; Irritability and anger R45.4 ; Encounter for immunization Z23 ; History of coronary artery stent placement Z95.5 ; History of coronary artery bypass graft x 3 Z95.1 and Mixed hyperlipidemia E78.2 [facility] [id number] [place] [address] [id number] May, [place] [address] [facility] [address] [id number][place] [id number] Apr, Tooth pain K08.8 ; Gastroesophageal reflux disease without esophagitis K21.9 ; 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 and Coronary artery disease involving [place] heart without angina pectoris, unspecified vessel or lesion type I25.10 [facility] [address] 518569- 9468 Apr, Dental caries K02.9 [facility] [id number] [place] [address] [id number] Apr, Atherosclerotic heart disease of [place] coronary artery without angina pectoris I25.10 ; Other hyperlipidemia E78.4 and Arteriosclerosis of both carotid arteries I65.23 [facility] [address] [address] Feb, Dental examination Z01.20 [facility] [id number] [place] [address] [id number] December, Atherosclerotic heart disease of [place] coronary artery without angina pectoris I25.10 and Essential (primary) hypertension I10 [facility] [address] [id number] [id number] December, Dental examination Z01.20 [facility] [id number] [place] [address] [id number] Nov, Pain in tooth K08.8 [facility] [id number] [place] [address] [id number] Oct, [facility] [address] [id number] Oct, [facility] [id number], [place] [id number] Oct, Carpal tunnel syndrome, right upper limb G56.01 and Carpal tunnel syndrome , left upper limb G56.02 [facility] [id number], [place] [id number] Sep, [facility] [id number], [place] [id number] Sep, [facility] [id number] [place] [address] [id number] Jul, [address] [id number][place] [id number] Jun, [facility] [id number] [place] [address] [id number] Jun, [facility] [id number] [place] [address] [id number] Jun, Retroperitoneal bleed R58 [facility] [id number] [place] [address] [id number] Apr, Other and unspecified hyperlipidemia 272.4 ; Coronary atherosclerosis of unspecified type of vessel, [place] or graft 414.00 and Unspecified chronic ischemic 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 [facility] [id number] [place] [address] [id number] Apr, Depression 311 [facility] [id number] [place] [address] [id number] Mar, [place] [id number] [place] [address] [id number] Mar, Routine gynecological examination V72.31 and Pap test, as part of routine gynecological examination V76.2 [facility] [id number] [place] [address] [id number] Mar, [place] [id number] [place] [address] [id number] Mar, [facility] [address] [id number] [id number] Mar, Follow up V67.9 [facility] [id number] [place] [address]- [address] Mar, Wrist pain, right 719.43 [facility] [id number], [place] [id number] Feb, [facility] [id number] [place] [address] [id number] Feb, Wrist pain, right 719.43 [facility] [id number] [place] [address] [id number] Feb, Depression 311 and Coronary atherosclerosis of unspecified type of vessel , [place] or graft 414.00 [facility] [id number] [place] [address] [phone] December, [facility] [address] [address]- [address] Nov, [facility] [id number] [place] [address] 09533- 2546 Nov, [facility] [id number] [place] [address] 26436- 2546 Oct, [facility] [id number] [place] [address] [id number] Oct, [facility] [id number] [place] [address] 46783- 2546 Aug, [facility] [id number], [place] [phone] Aug, [facility] [id number] [place] [address] 93516- 2546 Aug, [facility] [id number] [place] [address] 10437- 2546 Jul, [facility] [id number], [place] [id number] Jul, [facility] [id number] [place] [address] 73050- 2546 Jun, [facility] [id number], [place] [id number] Jun, [facility] [address] [id number] [place] [id number] Jun, [facility] [place] [facility] [address] [id number] [place] [address]- [address] Jun, [facility] [address] [id number] [place] [id number] Apr, [facility] [place] [facility] [address] [facility] [id number] [place] [address]- 25[address] Apr, [facility] [address] [id number] [place] [id number] Feb, [facility] [place] [facility] [address] [facility] [id number] [place] [address]- 8[address] Feb, [facility] [address] [id number] [place] [phone] Feb, [facility] [address] [id number] [place] [phone] Feb, [facility] [place] [facility] [address] [facility] [id number], [place] [address]- [address] Feb, [facility] [place] [facility] [address] [facility] [id number] [place] [address]- 8124 Feb, [facility] [address] [facility] [id number] [place] [id number] Nov, [facility] [place] [facility] [address] [id number], [place] [address] Nov, [facility] [place] [facility] [address] [facility] [id number], [place] [address]- 269[address] Nov, [facility] [address] [facility] [id number] [place] [id number] Nov, [facility] [place] [facility] [address] [facility] [id number], [place] [address]- [address] Sep, [facility] [place] [facility] [address] [facility] [id number], [place] [address]- 8469 Sep, [facility] [place] [facility] [address] [id number], [place] [address]- 7[address] Sep, [facility] [place] [facility] [address] [facility] [id number] [place] [address]- 2169 Sep, [facility] [address] [id number] [place] [id number] Sep, [facility] [address] [id number] [place] [id number] Aug, [facility] [place] [facility] [address] [facility] [id number] [place] [address]- 49[address] Aug, [facility] [address] [id number] [place] [id number] Aug, [facility] [place] [facility] [address] [facility] [id number] [place] [address]- 0636 Aug, [facility] [place] [facility] [address] [id number] [place] [address]- 23[address] Aug, [facility] [address] [id number] [place] [id number] Aug, [facility] [place] [facility] [address] [facility] [id number], [place] [address]- 0080 Jun, [facility] [address] [id number] [place] [id number] Jun, [facility] [address] [facility] [id number], [place] [phone] Jun, [facility] [place] [facility] [address]00565100[place], [place] [address] Jun, [facility] [place] [facility] [address] [facility] [id number], [place] [address]- 2[address] Jun, [facility] [address] [facility] [id number] [place] [id number] Jun, [facility] [place] [facility] [address] [facility] [id number], [place] [address]- [address] Jun, [facility] [place] [facility] [address] [facility] [id number], [place] [address]- 97[address] Jun, [facility] [address] [facility] [id number] [place] [address] [id number] Jun, [facility] [place] [facility] [address] [id number] [place] [address]- 9894 May, [facility] [place] [facility] [address] [facility] [id number], [place] [address]- 0[address] May, [facility] [address] [id number] [place] [id number] Apr, [facility] [address] [id number] [place] [id number] Apr, [facility] [address] [id number] [place] [id number] Apr, [facility] [place] [facility] [address] [id number] [place] [address]- 5566 Mar, [facility] [address] [id number] [place] [id number] Mar, [facility] [place] [facility] [address] [facility] [id number], [place] [address]- 2546 Mar, [facility] [address] [id number] [place] [id number] Feb, [facility] [address] [id number] [place] [id number] Aug, [facility] [address] [id number] [place] [id number] Jun, [facility] [place] [facility] [address] [facility] [id number], [place] [address]- 5927 Jun, [facility] [address] [id number], [place] [address] May, [facility] [place] [facility] [address] [id number], [place] [address]- 2207 May, [facility] [address] [id number] [place] [id number] Apr, [facility] [address] [id number] [place] [id number] Jan, [facility] [place] [facility] [address] [facility] [id number], [place] [address]- [address] Jan, [facility] [address] [facility] [id number], [place] [id number] December, [facility] [address] [facility] [id number], [place] [id number] December, [facility] [address] [facility] [id number], [place] [id number] December, [facility] [address] [id number], [place] [id number] December, [facility] [address] [id number], [place] [address] Oct, [facility] [address]00565100[place], [place] [address]- [address] May, [facility] [address]00565100[place], [place] [address]- 2546 May, [facility] [address]00565100[place], [place] [address]- 2546 Apr, IMMUNIZATIONS No Known Immunizations SOCIAL HISTORY Never Assessed REASON FOR VISIT HTN/shoulder pain [facility] DIAL PLAN OF CARE Activity Details Follow Up 1 Week, prn Reason:shoulder pain after xray done VITAL SIGNS Height 69 in 2017-05-24 Weight 267.2 lbs 2017-05-24 Temperature 97.0 degrees Fahrenheit 2017-05-24 Heart Rate 60 bpm 2017-05-24 Respiratory Rate 18 2017-05-24 BMI 39.45 kg/m2 2017-05-24 Blood pressure systolic 140 mmHg 2017-05-24 Blood pressure diastolic 78 mmHg 2017-05-24 MEDICATIONS Medication Instructions Dosage Frequency Start Date End Date Duration Status Aspirin 81 mg 1 Tablet 1 time per day Feb, Active Nitrostat 0.4 mg 1 time per day PRN Aug, Active Protonix 20 mg Orally Once a day 1 tablets 24h Apr, Active Ibuprofen 800 MG Orally Three times a day 1 tablet with food or milk as needed 8h May, Active Crestor 40 mg Orally Once a day 1 tablet 24h Active Metoprolol Tartrate 25 MG Orally Twice a day 1 tablet 12h Active Plavix 75 MG Orally Once a day 1 tablet 24h Active RESULTS No Results PROCEDURES Procedure Date Ordered Result Body Site MICROALBUMIN, SEMIQUANT May 24, 2017 MICROALBUMIN, QUANTITATIVE May 24, 2017 ASSAY OF URINE CREATININE May 24, 2017 INSTRUCTIONS MEDICATIONS ADMINISTERED No [...]
--- OUTSIDE RECORDS SUMMARY | 2018-06-08 20:19 | XMS REPORT ---
Author Author ELVA MC [employer] Address Unknown Phone Unavailable Care Team Providers Care Office Systems Technology Instructor Name Role Phone ELVA MC Unavailable Allergies No Known Allergies Problems Problem Type Condition ICD-9 Code Onset Dates Condition Status Assessment Unspecified chronic ischemic 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 Active Assessment Other and unspecified hyperlipidemia 272.4 Active Assessment Coronary atherosclerosis of unspecified type of vessel, [place] or graft 414.00 Active Problem Other primary cardiomyopathies 425.4 Active Problem Coronary atherosclerosis of unspecified type of vessel, [place] or graft 414.00 Active Problem Unspecified chronic ischemic 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 Active Problem Other and unspecified hyperlipidemia 272.4 Active Problem Unspecified breast screening V76.10 Active Problem Encounter for long-term (current) use of other medications V58.69 Active Problem Unspecified essential hypertension 401.9 Active Medications No Known Medications Procedures Procedure Coding System Code Date LIPID PANEL CPT-4 11294 Apr 30, 2015 VENIPUNCT, ROUTINE* CPT-4 96260 Apr 30, 2015 COMPREHEN METABOLIC PANEL CPT-4 73703 Apr 30, 2015 Results Name Result Date Reference Range Unit Abnormality Flag ROUTINE VENIPUNCTURE Summary Purpose eClinical[employer] Submission
--- OUTSIDE RECORDS SUMMARY | 2018-06-08 20:19 | XMS REPORT ---
Author Author [facility] Address [address] [place] [address] Care Team Providers Care Router Operator Name Role Phone BEV BENEDICT Unavailable PROBLEMS Type Condition ICD9-CM Code WCP30-WP Code Onset Dates Condition Status SNOMED Code Problem Unspecified breast screening V76.10 Active 090282232 Problem Unspecified essential hypertension 401.9 Active 67789022 Problem Other and unspecified hyperlipidemia 272.4 Active 32551868 Assessment Coronary artery disease involving [place] heart without angina pectoris, unspecified vessel or lesion type I25.10 Apr, Active 11458233 Assessment 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 Apr, Active 93503861 Assessment Gastroesophageal reflux disease without esophagitis K21.9 Apr, Active 385025395 Assessment Tooth pain K08.8 Apr, Active 63997489 Problem Other hyperlipidemia E78.4 Active 81542109 Problem Atherosclerotic heart disease of [place] coronary artery without angina pectoris I25.10 Active 351586578657917 Problem Coronary atherosclerosis of unspecified type of vessel, [place] or graft 414.00 Active 21550379 Problem Encounter for long-term (current) use of other medications V58.69 Active 396072599 Problem Unspecified chronic ischemic 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 Active 865341727 Problem Other primary cardiomyopathies 425.4 Active 25317140 ALLERGIES Substance Reaction Event Type Date Status N.K.D.A. Unknown Non Drug Allergy Apr, Unknown SOCIAL HISTORY No smoking Hx information available PLAN OF CARE VITAL SIGNS Height 69 in 2016-04-30 Weight 252.7 lbs 2016-04-30 Heart Rate 68 bpm 2016-04-30 Respiratory Rate 16 2016-04-30 BMI 37.31 kg/m2 2016-04-30 Blood pressure systolic 122 mmHg 2016-04-30 Blood pressure diastolic 74 mmHg 2016-04-30 MEDICATIONS Medication Instructions Dosage Frequency Start Date End Date Duration Status Hydrocodone-Acetaminophen 5-325 MG Orally every 8 hrs 1 tablet as needed 8h Apr, Apr, 05 days Active Imdur Active Protonix 20 mg Orally Once a day 1 tablets 24h Apr, Active Clindamycin HCl 300 MG Orally 2 times a day 1 capsule 12h Apr, May, 10 days Active Plavix 75 MG Orally Once a day take 1 tablet 24h Active Metoprolol Tartrate 25 MG Orally Twice a day 1 tablet 12h Active Aspirin 81 mg 1 Tablet 1 time per day Feb, Active Atorvastatin Calcium Active Lipitor 40 MG Orally Once a day 1 tablet 24h Jul, Active Nitrostat 0.4 mg 1 time per day PRN Aug, Active Zoloft 100 MG Orally Once a day 1 tablet 24h Active [place] 5-325 MG Orally every 6 hrs 1 tablet as needed 6h 4 days Active RESULTS No Results PROCEDURES Procedure Date Ordered Related Diagnosis Body Site Office Visit, Est Pt., Level 3 Apr 30, 2016 IMMUNIZATIONS No Known Immunizations
--- OUTSIDE RECORDS SUMMARY | 2018-06-08 20:19 | XMS REPORT ---
Author Author LORENA MCCORMICK [facility] Address [address] [place] [address] Care Team Providers Care Oxygen Equipment Preparer Name Role Phone LORENA MCCORMICK Unavailable PROBLEMS Type Condition ICD9-CM Code [id number] Code Onset Dates Condition Status SNOMED Code Problem Other hyperlipidemia E78.4 Active 92251527 Problem History of coronary artery stent placement Z95.5 Active 655785320 Problem Mixed hyperlipidemia E78.2 Active 417566764 Problem Hyperlipidemia, unspecified E78.5 Active 66097358 Problem Gastroesophageal reflux disease without esophagitis K21.9 Active 584702803 Problem Essential hypertension I10 Active 74367552 Problem GERD without esophagitis K21.9 Active 410027905 Problem History of coronary artery bypass graft x 3 Z95.1 Active 007230412 Problem Irritability and anger R45.4 Active 190006533 Problem Unspecified breast screening V76.10 Active 218365741 Problem Encounter for long-term (current) use of other medications V58.69 Active 396716447 Problem Coronary atherosclerosis of unspecified type of vessel, [place] or graft 414.00 Active 005854673 Problem Unspecified essential hypertension 401.9 Active 86788978 Problem Other primary cardiomyopathies 425.4 Active 01458398 Problem Other and unspecified hyperlipidemia 272.4 Active 82293741 Problem Unspecified chronic ischemic 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 Active 438399266 Problem Atherosclerotic heart disease of [place] coronary artery without angina pectoris I25.10 Active 542468941056716 ALLERGIES Unknown Allergies SOCIAL HISTORY No smoking Hx information available PLAN OF CARE VITAL SIGNS MEDICATIONS Unknown Medications RESULTS Name Result Date Reference Range LIPID PANEL 2016-08-16 Cholesterol, Total 208 100-199 Triglycerides 175 0-149 HDL Cholesterol 40 >39 VLDL Cholesterol Musa 35 5-40 LDL Cholesterol Calc 133 0-99 Comment: CMP 2016-08-16 Glucose, Serum 99 65-99 BUN 14 6-20 Creatinine, Serum 0.69 0.57-1.00 eGFR If NonAfricn Am 110 >59 eGFR If Africn Am 127 >59 BUN/Creatinine Ratio 20 8-20 Sodium, Serum 141 134-144 Potassium, Serum 4.3 3.5-5.2 Chloride, Serum 103 96-106 Carbon Dioxide, Total 22 18-29 Calcium, Serum 9.2 8.7-10.2 Protein, Total, Serum 7.2 6.0-8.5 Albumin, Serum 4.2 3.5-5.5 Globulin, Total 3.0 1.5-4.5 A/G Ratio 1.4 1.1-2.5 Bilirubin, Total 0.3 0.0-1.2 Alkaline Phosphatase, S 97 39-117 AST (SGOT) 15 0-40 ALT (SGPT) 13 0-32 PROCEDURES Procedure Date Ordered Related Diagnosis Body Site COMPREHEN METABOLIC PANEL Aug 16, 2016 LIPID PANEL Aug 16, 2016 VENIPUNCT, ROUTINE* Aug 16, 2016 IMMUNIZATIONS No Known Immunizations
--- OUTSIDE RECORDS SUMMARY | 2018-06-08 20:19 | XMS REPORT ---
Author Author NICOLE FRAGA [facility] Address Unknown Care Team Providers Care Protein Scientist Name Role Phone NIGELNICOLE VELASCO Unavailable PROBLEMS Type Condition ICD9-CM Code IIR30-DQ Code Onset Dates Condition Status SNOMED Code Problem Unspecified chronic ischemic 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 Active 341217737 Problem Other hyperlipidemia E78.4 Active 24804512 Problem Atherosclerotic heart disease of [place] coronary artery without angina pectoris I25.10 Active 378755157570206 Problem GERD without esophagitis K21.9 Active 167023886 Problem Essential hypertension I10 Active 42599442 Problem History of coronary artery bypass graft x 3 Z95.1 Active 869872202 Problem Mixed hyperlipidemia E78.2 Active 345820325 Problem History of coronary artery stent placement Z95.5 Active 701102792 Problem Irritability and anger R45.4 Active 980337442 Assessment Dental caries K02.9 Jun, Active 84627673 Problem Unspecified essential hypertension 401.9 Active 14555448 Problem Encounter for long-term (current) use of other medications V58.69 Active 593155739 Problem Unspecified breast screening V76.10 Active 074962712 Problem Coronary atherosclerosis of unspecified type of vessel, [place] or graft 414.00 Active 57030066 Problem Other and unspecified hyperlipidemia 272.4 Active 36352228 Problem Other primary cardiomyopathies 425.4 Active 99872795 ALLERGIES Substance Reaction Event Type Date Status N.K.D.A. Unknown Non Drug Allergy Jun, Unknown SOCIAL HISTORY No smoking Hx information available PLAN OF CARE VITAL SIGNS Height 69 in 2016-06-07 Blood pressure systolic 146 mmHg 2016-06-07 Blood pressure diastolic 91 mmHg 2016-06-07 MEDICATIONS Medication Instructions Dosage Frequency Start Date End Date Duration Status Metoprolol Tartrate 25 MG Orally Twice a day 1 tablet 12h Active Lipitor 40 MG Orally Once a day 1 tablet 24h Jul, Active Nitrostat 0.4 mg 1 time per day PRN Aug, Active Zoloft 100 MG Orally Once a day 1.5 tablets 24h Active Aspirin 81 mg 1 Tablet 1 time per day Feb, Active Imdur Active Protonix 20 mg Orally Once a day 1 tablets 24h Apr, Active Atorvastatin Calcium 80 MG Orally Once a day 1 tablet 24h Active Plavix 75 MG Orally Once a day take 1 tablet 24h Active RESULTS No Results PROCEDURES Procedure Date Ordered Related Diagnosis Body Site EXTRAC ERUPTED TOOTH/EXPOSED ROOT Jun 07, 2016 IMMUNIZATIONS No Known Immunizations
--- OUTSIDE RECORDS SUMMARY | 2018-06-08 20:20 | XMS REPORT ---
Author Author LORENA MCCORMICK [facility] Address [address] [place] [address] Care Team Providers Care Tire Trimmer Hand Name Role Phone LORENA MCCORMICK Unavailable PROBLEMS Type Condition ICD9-CM Code LJN53-FJ Code Onset Dates Condition Status SNOMED Code Problem Other hyperlipidemia E78.4 Active 59678072 Problem History of coronary artery stent placement Z95.5 Active 724537215 Problem Mixed hyperlipidemia E78.2 Active 802117641 Problem Hyperlipidemia, unspecified E78.5 Active 31118033 Problem Gastroesophageal reflux disease without esophagitis K21.9 Active 406294429 Problem Essential hypertension I10 Active 08604681 Problem GERD without esophagitis K21.9 Active 377622152 Problem History of coronary artery bypass graft x 3 Z95.1 Active 943793011 Problem Irritability and anger R45.4 Active 678802405 Problem Unspecified breast screening V76.10 Active 217592415 Problem Encounter for long-term (current) use of other medications V58.69 Active 866034250 Problem Coronary atherosclerosis of unspecified type of vessel, [place] or graft 414.00 Active 186294058 Problem Unspecified essential hypertension 401.9 Active 96947033 Problem Other primary cardiomyopathies 425.4 Active 77058354 Problem Other and unspecified hyperlipidemia 272.4 Active 75144006 Problem Unspecified chronic ischemic 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 Active 572280232 Problem Atherosclerotic heart disease of [place] coronary artery without angina pectoris I25.10 Active [id number] ALLERGIES Unknown Allergies SOCIAL HISTORY No smoking Hx information available PLAN OF CARE VITAL SIGNS MEDICATIONS Unknown Medications RESULTS Name Result Date Reference Range HEMOCCULT (IN HOUSE) 2016-08-12 RESULTS negative Control positive Lot # [id number] Exp date 01/25/19 HEMOCCULT (IN HOUSE)-Additional 2016-08-12 RESULTS negative Control positive Lot # [id number] Exp Date 01/25/19 PROCEDURES Procedure Date Ordered Related Diagnosis Body Site TEST FOR BLOOD, FECES Aug 15, 2016 IMMUNIZATIONS No Known Immunizations
--- OUTSIDE RECORDS SUMMARY | 2018-06-08 20:20 | XMS REPORT ---
Author Author LORENA MCCORMICK [facility] Address [address] [place] [address] Care Team Providers Care [employer] Member Name Role Phone LORENA MCCORMICK Unavailable PROBLEMS Type Condition ICD9-CM Code DXU26-NI Code Onset Dates Condition Status SNOMED Code Problem Other hyperlipidemia E78.4 Active 73207606 Problem History of coronary artery stent placement Z95.5 Active 218597849 Problem Mixed hyperlipidemia E78.2 Active 583432977 Problem Hyperlipidemia, unspecified E78.5 Active 35336596 Problem Gastroesophageal reflux disease without esophagitis K21.9 Active 821957788 Problem Essential hypertension I10 Active 41147182 Problem GERD without esophagitis K21.9 Active 798440888 Problem History of coronary artery bypass graft x 3 Z95.1 Active 860514370 Problem Irritability and anger R45.4 Active 883548146 Problem Unspecified breast screening V76.10 Active 350908471 Problem Encounter for long-term (current) use of other medications V58.69 Active 752690497 Problem Coronary atherosclerosis of unspecified type of vessel, [place] or graft 414.00 Active 565234998 Problem Unspecified essential hypertension 401.9 Active 26933780 Problem Other primary cardiomyopathies 425.4 Active 84590424 Problem Other and unspecified hyperlipidemia 272.4 Active 02972808 Problem Unspecified chronic ischemic 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 Active 707707858 Problem Atherosclerotic heart disease of [place] coronary artery without angina pectoris I25.10 Active 443047054575065 ALLERGIES No Known Allergies SOCIAL HISTORY Never Assessed PLAN OF CARE Activity Details Follow Up pending labs Reason: VITAL SIGNS Height 69 in 2016-08-12 Weight 250.4 lbs 2016-08-12 Temperature 97.5 degrees Fahrenheit 2016-08-12 Heart Rate 78 bpm 2016-08-12 Respiratory Rate 16 2016-08-12 BMI 36.97 kg/m2 2016-08-12 Blood pressure systolic 180 mmHg 2016-08-12 Blood pressure diastolic 92 mmHg 2016-08-12 MEDICATIONS Medication Instructions Dosage Frequency Start Date End Date Duration Status Aspirin 81 mg 1 Tablet 1 time per day Feb, Active Imdur Active Nitrostat 0.4 mg 1 time per day PRN Aug, Active Metoprolol Tartrate 25 MG TAKE ONE (1) TABLET BY MOUTH TWICE DAILY... Active Tramadol HCl 50 mg Orally every 6 hrs as needed for pain 1 tablet as needed Aug, Aug, 0 days Active Protonix 20 mg Orally Once a day 1 tablets 24h Apr, 0 Active Zoloft 100 MG Orally Once a day 1.5 tablets 24h Active Ondansetron HCl 8 MG Orally every 8 hours, PRN 1 tablet Jun, Active Lipitor 40 MG Orally Once a day 1 tablet 24h Jul, Active Plavix 75 MG Orally Once a day take 1 tablet 24h Active Atorvastatin Calcium 80 MG Orally Once a day 1 tablet 24h Active RESULTS Name Result Date Reference Range CBC 2016-08-12 WBC 8.6 3.4-10.8 RBC 4.81 3.77-5.28 Hemoglobin 12.7 11.1-15.9 Hematocrit 38.4 34.0-46.6 MCV 80 79-97 MCH 26.4 26.6-33.0 MCHC 33.1 31.5-35.7 RDW 14.7 12.3-15.4 Platelets 187 150-379 Neutrophils 59 Lymphs 32 Monocytes 6 Eos 3 Basos 0 Immature Cells Neutrophils (Absolute) 5.1 1.4-7.0 Lymphs (Absolute) 2.8 0.7-3.1 Monocytes(Absolute) 0.5 0.1-0.9 Eos (Absolute) 0.2 0.0-0.4 Baso (Absolute) 0.0 0.0-0.2 Immature Granulocytes 0 Immature Grans (Abs) 0.0 0.0-0.1 NRBC Hematology Comments: PROCEDURES Procedure Date Ordered Result Body Site COMPLETE CBC W/AUTO DIFF WBC Aug 12, 2016 VENIPUNCT, ROUTINE* Aug 12, 2016 IMMUNIZATIONS No Known Immunizations MEDICAL (GENERAL) HISTORY Type Description Date Medical [...]
--- OUTSIDE RECORDS SUMMARY | 2018-06-08 20:20 | XMS REPORT ---
Author Author ELVA MC [facility] e[employer] Address Unknown Phone Unavailable Care Team Providers Care Freight Car Repairer Name Role Phone ELVA MC Unavailable Allergies No Known Allergies Problems Problem Type Condition Code Onset Dates Condition Status Problem Other primary cardiomyopathies 425.4 Active Problem Coronary atherosclerosis of unspecified type of vessel, [place] or graft 414.00 Active Problem Unspecified chronic ischemic 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 Active Problem Other and unspecified hyperlipidemia 272.4 Active Problem Unspecified breast screening V76.10 Active Problem Encounter for long-term (current) use of other medications V58.69 Active Problem Unspecified essential hypertension 401.9 Active Medications Medication Code System Code Instructions Start Date End Date Status Dosage Metoprolol Tartrate [facility] [address]-38 25 MG Orally Twice a day Aug 01, 2014 1 tablet Results No Known Results Summary Purpose eClinicalWorks Submission
--- OUTSIDE RECORDS SUMMARY | 2018-06-08 20:20 | XMS REPORT ---
Author Author LORENA MCCORMICK Organization [facility] Address [address] [place] [address] Care Team Providers Care Flue Lining Dipper Name Role Phone LORENA MCCORMICK Unavailable PROBLEMS Type Condition ICD9-CM Code OKZ26-TZ Code Onset Dates Condition Status SNOMED Code Problem Essential hypertension I10 Active 40524078 Problem Mixed hyperlipidemia E78.2 Active 036209905 Problem Irritability and anger R45.4 Active 774483670 Problem Atherosclerotic heart disease of [place] coronary artery without angina pectoris I25.10 Active 495483939071380 Problem Other hyperlipidemia E78.4 Active 55600679 Problem History of coronary artery stent placement Z95.5 Active 794523991 Problem GERD without esophagitis K21.9 Active 560816066 Problem Adnexal cyst N94.9 Active 51328871167860 Problem Acute pain of left shoulder M25.512 Active 26179266 Problem Gastroesophageal reflux disease without esophagitis K21.9 Active 153589593 Problem History of coronary artery bypass graft x 3 Z95.1 Active 603383234 Problem Menorrhagia with irregular cycle N92.1 Active 517159321 Problem Hyperlipidemia, unspecified E78.5 Active 16775787 ALLERGIES No Known Allergies ENCOUNTERS Encounter Location Date Diagnosis [facility] [id number] [id number] December, Blood in stool K92.1 ; Dizziness R42 ; Atherosclerotic heart disease of [place] coronary artery without angina pectoris I25.10 ; Hyperlipidemia, unspecified E78.5 ; Essential hypertension I10 ; Irritability and anger R45.4 ; Gastroesophageal reflux disease without esophagitis K21.9 and Cough R05 [facility] [address] [id number] [id number] Oct, [address] [id number] [id number] Aug, Simple ovarian cyst N83.209 and Adnexal cyst N94.9 [id number] [place] [address] [id number] Aug, Adnexal cyst N94.9 [id number] [place] [address] [id number] Aug, Microscopic hematuria R31.29 and CVA tenderness M54.[address] [id number] Aug, Microscopic hematuria R31.29 and CVA tenderness M54.[address] [id number] Jul, Pain in left shoulder M25.[address] [id number] Jun, Pain in left shoulder M25.512 and Other chronic pain G89.[address] [id number] Jun, [facility] [address] [id number] [address] Jun, Acute pain of left shoulder M25.512 ; Essential hypertension I10 ; Atherosclerotic heart disease of [place] coronary artery without angina pectoris I25.10 ; GERD without esophagitis K21.9 and Irritability and anger R45.4 [id number] [place] [address] [id number] May, Essential hypertension I10 ; Atherosclerotic heart disease of [place] coronary artery without angina pectoris I25.10 ; GERD without esophagitis K21.9 ; Irritability and anger R45.4 ; Acute pain of left shoulder M25.512 and Menorrhagia with irregular cycle N92.1 [id number] [place] [address] [id number] May, Atherosclerotic heart disease of [place] coronary artery without angina pectoris I25.10 [id number] [place] [address] [id number] Jan, [facility] [address] [id number] [address] Jan, Acute mid back pain M54.9 [facility] [id number] [place] [address] [id number] Jan, Acute mid back pain M54.9 and Muscle spasm M62.838 [id number] [place] [address] [id number] December, Essential hypertension I10 ; Atherosclerotic heart disease of [place] coronary artery without angina pectoris I25.10 ; Other hyperlipidemia E78.4 ; GERD without esophagitis K21.9 ; Irritability and anger R45.4 and History of coronary artery bypass graft x 3 Z95.1 [id number] [place] [id number] Nov, [address] [id number] Aug, Hyperlipidemia, unspecified E78.[address] [id number] Aug, Atherosclerotic heart disease of [place] coronary artery without angina pectoris I25.10 and History of bloody stools Z87.19 [facility] [id number] [place] [address] [id number] Aug, History of bloody stools Z87.19 [id number] [place] [address] [id number] Aug, History of bloody stools Z87.19 ; Mid back pain M54.9 and Gastroesophageal reflux disease without esophagitis K21.9 [id number] [place] [address] [id number] Jun, Viral gastroenteritis A08.4 ; Bilious vomiting with nausea R11.14 and Elevated glucose R73.09 [facility] [id number] [place] [address] Jun, Dental caries K02.9 [id number] [place] [address] [id number] May, Irritability and anger R45.[address] [id number] May, Essential hypertension I10 ; Screening for thyroid disorder Z13.29 ; GERD without esophagitis K21.9 ; Elevated fasting glucose R73.01 ; Irritability and anger R45.4 ; Encounter for immunization Z23 ; History of coronary artery stent placement Z95.5 ; History of coronary artery bypass graft x 3 Z95.1 and Mixed hyperlipidemia E78.2 [facility] [address] [id number] [id number] May, [id number] [place] [address] [phone] Apr, Tooth pain K08.8 ; Gastroesophageal reflux disease without esophagitis K21.9 ; 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 and Coronary artery disease involving [place] heart without angina pectoris, unspecified vessel or lesion type I25.10 [facility] [address] [address] Apr, Dental caries K02.[address] [id number] Apr, Atherosclerotic heart disease of [place] coronary artery without angina pectoris I25.10 ; Other hyperlipidemia E78.4 and Arteriosclerosis of both carotid arteries I65.23 [facility] [address] [address] Feb, Dental examination Z01.20 [id number] [place] [address] [id number] December, Atherosclerotic heart disease of [place] coronary artery without angina pectoris I25.10 and Essential (primary) hypertension I10 [facility] [address] [address] December, Dental examination Z01.20 [facility] [id number] [place] [address] [id number] Nov, Pain in tooth K08.8 [facility] [address] [id number] Oct, [facility] [address] [id number] Oct, [facility] [address] [id number] Oct, Carpal tunnel syndrome, right upper limb G56.01 and Carpal tunnel syndrome , left upper limb G56.02 [facility] [id number] [place] [address] [id number] Sep, [facility] [id number] [place] [address] [id number] Sep, [facility] [id number] [place] [address] [id number] Jul, [facility] [address] [address] [facility] [address] [id number] [phone] Jun, [address] [id number] [place] [address] [id number] Jun, [facility] [id number] [place] [address] [phone] Jun, Retroperitoneal bleed R58 [id number] [place] [address] [id number] Apr, Other and unspecified hyperlipidemia 272.4 ; Coronary atherosclerosis of unspecified type of vessel, [place] or graft 414.00 and Unspecified chronic ischemic 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 [address] [address] [id number] [place] [address] [id number] Apr, Depression [id number] [place] [address] [id number] Mar, [place] [address] [id number] [place] [address] [id number] Mar, Routine gynecological examination V72.31 and Pap test, as part of routine gynecological examination V76.2 [facility] [id number] [place] [address] [id number] Mar, [place] [id number] [place] [address] [id number] Mar, [place] [address] [id number] [place] [address] [id number] Mar, Follow up V67.9 [facility] [address] [address] Mar, Wrist pain, right 719.43 [facility] [address] [id number] [id number] Feb, [facility] [id number] [place] [address] [id number] Feb, Wrist pain, right 719.43 [facility] [address] [id number] [phone] Feb, Depression 311 and Coronary atherosclerosis of unspecified type of vessel , [place] or graft 414.00 [facility] [id number], [place] [id number] December, [facility] [id number] [place] [address] Nov, [facility] [place] [facility] [id number] [place] [address] 03985- 2546 Nov, [facility] [id number] [place] [address] 7[address]66- 2546 Oct, [facility] [id number], [place] [id number] Oct, [facility] [id number] [place] [address] 90208- 2546 Aug, [facility] [id number], [place] [id number] Aug, [facility] [place] [facility] [id number] [place] [address] 63293- 2546 Aug, [facility] [place] [facility] [address] [place] [address] 67226- 2546 Jul, [facility] [id number], [place] [id number] Jul, [facility] [place] [facility] [id number] [place] [address] 91054- 2546 Jun, [facility] [id number], [place] [id number] Jun, [facility] [address] [id number] [phone] Jun, [facility] [place] [facility] [address] [facility] [id number] [place] [address]- [address] Jun, [facility] [address] [id number] [place] [id number] Apr, [facility] [place] [facility] [address] [facility] [id number] [place] [address]- 2546 Apr, [facility] [address] [facility] [id number] [place] [id number] Feb, [facility] [place] [facility] [address] [facility] [id number] [place] [address]- [address] Feb, [facility] [address] [id number] [place] [id number] Feb, [facility] [address] [facility] [id number] [place] [id number] Feb, [facility] [place] [facility] [address] [facility] [id number] [place] [address]- 6[address] Feb, [facility] [place] [facility] [address] [facility] [id number], [place] [address]- [address] Feb, [facility] [address] [facility] [id number] [place] [id number] Nov, [facility] [place] [facility] [address] [facility] [id number], [place] [address]- 3916 Nov, [facility] [place] [facility] [address] [facility] [id number], [place] [address]- 2606 Nov, [facility] [address] [facility] [id number][place] [id number] Nov, [facility] [place] [facility] [address] [facility] [id number] [place] [address]- [address]10 Sep, [facility] [place] [facility] [address] [facility] [id number] [place] [address]- 4697 Sep, [facility] [place] [facility] [address] [facility] [id number], [place] [address]- 40[address] Sep, [facility] [place] [facility] [address] [facility] [id number], [place] [address]- 1616 Sep, [facility] [address] [id number] [place] [id number] Sep, [facility] [address] [id number] [place] [id number] Aug, [facility] [place] [facility] [address] [id number], [place] [address]- 69[address] Aug, [facility] [address] [id number] [place] [id number] Aug, [facility] [place] [facility] [address] [id number], [place] [address]- 9767 Aug, [facility] [place] [facility] [address] [facility] [id number] [place] [address] Aug, [facility] [address] [facility] [id number] [place] [id number] Aug, [facility] [place] [facility] [address]00565100[place], [place] [address]- 2487 Jun, [facility] [address] [id number], [place] [id number] Jun, [facility] [address] [id number] [place] [id number] Jun, [facility] [place] [facility] [address] [id number], [place] [address]- 96[address] Jun, [facility] [place] [facility] [address] [facility] [id number], [place] [address]- 9425 Jun, [facility] [address] [facility] [id number], [place] [id number] Jun, [facility] [place] [facility] [address] [facility] [id number], [place] [address]- [address] Jun, [facility] [place] [facility] [address] [facility] [id number], [place] 15555260- [address] Jun, [facility] [address] [facility] [id number], [place] [id number] Jun, [facility] [place] [facility] [address] [facility] [id number], [place] [address]- 47[address] May, [facility] [address] [facility] [id number], [place] [address]- 3[address] May, [facility] [address] [id number] [place] [id number] Apr, [facility] [address] [id number] [place] [id number] Apr, [facility] [address] [id number] [place] [id number] Apr, [facility] [address] [facility] [id number], [place] [address]- 6[address] Mar, [facility] [address] [id number] [place] [id number] Mar, [facility] [address]00565100[place], [place] [address]- [address] Mar, [facility] [address] [id number], [place] [id number] Feb, [facility] [address] [id number], [place] [id number] Aug, [facility] [address] [id number] [place] [id number] Jun, [facility] [address]65100[place], [place] [address]- 7467 Jun, [facility] [address] [id number], [place] [id number] May, [facility] [place] [facility] [address] [facility] [id number], [place] [address]- 5988 May, [facility] [address] [id number], [place] [id number] Apr, [facility] [address] [id number], [place] [id number] Jan, [facility] [place] [facility] [address] [facility] [id number], [place] [address]- 3[address] Jan, [facility] [address] [id number], [place] [id number] December, [facility] [address] [facility] [id number] [place] [id number] December, [facility] [address] [facility] [id number] [place] [id number] December, [facility] [address] [facility] [id number] [place] [id number] December, [facility] [address] [facility] [id number], [place] [id number] Oct, [facility] [address]00565100[place], [place] [address]- 2546 May, [facility] [address]00565100[place], [place] [address] 2546 May, [facility] [address]00565100[place], [place] [address] 2546 Apr, IMMUNIZATIONS No Known Immunizations SOCIAL HISTORY Never Assessed REASON FOR VISIT UTI symptoms, pt states only symptom is back pain Malcom RN PLAN OF CARE Activity Details Follow Up pending US and prn if not improving Reason: VITAL SIGNS Height 69 in 2017-08-08 Weight 261.8 lbs 2017-08-08 Temperature 97.9 degrees Fahrenheit 2017-08-08 Heart Rate 78 bpm 2017-08-08 Respiratory Rate 18 2017-08-08 BMI 38.66 kg/m2 2017-08-08 Blood pressure systolic 138 mmHg 2017-08-08 Blood pressure diastolic 78 mmHg 2017-08-08 MEDICATIONS Medication Instructions Dosage Frequency Start Date End Date Duration Status Protonix 20 mg Orally Once a day 1 tablets 24h Apr, Active Metoprolol Tartrate 25 MG Orally Twice a day 1 tablet 12h Active Nitrostat 0.4 mg 1 time per day PRN Aug, Active Plavix 75 MG Orally Once a day 1 tablet 24h 0 Active Hydrocodone-Acetaminophen 7.5-325 MG Orally every 6 hrs 1 tablet as needed 6h Jul, Aug, 14 days Active Aspirin 81 mg 1 Tablet 1 time per day Feb, Active Crestor 40 MG TAKE ONE (1) TABLET BY MOUTH DAILY... Active Ibuprofen 800 MG Orally Three times a day 1 tablet with food or milk as needed 8h May, Active Zoloft 100 MG Orally Once a day 1.5 tablets 24h 0 Active RESULTS No Results PROCEDURES Procedure Date Ordered Result Body Site URINALYSIS, AUTO, W/O SCOPE Aug 08, 2017 BASIC METABOLIC PANEL Aug 08, 2017 URINALYSIS, AUTO W/SCOPE Aug 08, 2017 VENIPUNCT, ROUTINE* Aug 08, 2017 INSTRUCTIONS MEDICATIONS ADMINISTERED No Known Medications [...]
--- OUTSIDE RECORDS SUMMARY | 2018-06-08 20:20 | XMS REPORT ---
Author ELVA Delgado [employer] Address Unknown Phone Unavailable Care Team Providers Care Button Riveter Name Role Phone ELVA MC Unavailable Allergies, Adverse Reactions, Alerts Substance Reaction Event Type N.K.D.A. Info Not Available Non Drug Allergy Problems Problem Type Condition ICD-9 Code Onset Dates Condition Status Assessment Routine gynecological examination V72.31 Active Assessment Pap test, as part of routine gynecological examination V76.2 Active Problem Other primary cardiomyopathies 425.4 Active Problem Coronary atherosclerosis of unspecified type of vessel, [place] or graft 414.00 Active Problem Unspecified chronic ischemic 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 Active Problem Other and unspecified hyperlipidemia 272.4 Active Problem Unspecified breast screening V76.10 Active Problem Encounter for long-term (current) use of other medications V58.69 Active Problem Unspecified essential hypertension 401.9 Active Medications Medication Code System Code Instructions Start Date End Date Status Dosage Lipitor [facility] [address]-24 40 MG Orally Once a day Aug 01, [address] [facility] [address]-66 81 mg February 06, 2013 1 Tablet 1 time per day Metoprolol Tartrate [facility] [address]-42 25 mg Aug 01, 2014 Take 0.5 Tablet by Oral route 2 times per day Z[address]ft [facility] [address]-02 100 MG Orally Once a day February 11, [address] [facility] [address]-99 75 MG Orally Once a day Aug 01, 2014 take [address] [facility] [address]-42790 20 MG Orally Once a day 1 tablet Procedures Procedure Coding System Code Date CULTURE, BACTERIA, OTHER CPT-4 05365 Mar 26, 2015 SPECIMEN HANDLING CPT-4 46920 Mar 26, 2015 No Charge CPT-4 15110 Mar 26, 2015 Preventive Care Est Pt. Age 18-39 CPT-4 34861 Mar 26, 2015 TRICHOMONAS VAGIN, DIR PROBE CPT-4 14784 Mar 26, 2015 Vital Signs Date/Time: Mar 26, 2015 Cardiac Monitoring Heart Rate 70 bpm Weight 258 lbs Height 69 in BMI 38.10 Index Blood Pressure Diastolic 78 mmHg Blood Pressure Systolic 120 mmHg Results Name Result Date Reference Range Unit Abnormality Flag TRICHOMONAS (IN HOUSE) Summary Purpose [employer] Submission
--- OUTSIDE RECORDS SUMMARY | 2018-06-08 20:20 | XMS REPORT ---
Author Author NICOLE Torres [facility] Address Unknown Care Team Providers Care Business Support Professional Name Role Phone NICOLE Torres Unavailable PROBLEMS Type Condition ICD9-CM Code KOH72-YB Code Onset Dates Condition Status SNOMED Code Problem Other hyperlipidemia E78.4 Active 67059306 Problem History of coronary artery stent placement Z95.5 Active 110390829 Problem Mixed hyperlipidemia E78.2 Active 497982746 Problem Hyperlipidemia, unspecified E78.5 Active 22672092 Problem Gastroesophageal reflux disease without esophagitis K21.9 Active 845513847 Problem Essential hypertension I10 Active 71373380 Problem GERD without esophagitis K21.9 Active 261193827 Problem History of coronary artery bypass graft x 3 Z95.1 Active 725819334 Problem Irritability and anger R45.4 Active 759815688 Problem Unspecified breast screening V76.10 Active 420259747 Problem Encounter for long-term (current) use of other medications V58.69 Active 918987974 Problem Coronary atherosclerosis of unspecified type of vessel, [place] or graft 414.00 Active 606087769 Problem Unspecified essential hypertension 401.9 Active 89840278 Problem Other primary cardiomyopathies 425.4 Active 90762111 Problem Other and unspecified hyperlipidemia 272.4 Active 67528873 Problem Unspecified chronic ischemic 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 Active 150142378 Problem Atherosclerotic heart disease of [place] coronary artery without angina pectoris I25.10 Active [id number] ALLERGIES No Information SOCIAL HISTORY Never Assessed PLAN OF CARE VITAL SIGNS MEDICATIONS Unknown Medications RESULTS No Results PROCEDURES No Known procedures IMMUNIZATIONS No Known Immunizations MEDICAL (GENERAL) HISTORY [...]
--- OUTSIDE RECORDS SUMMARY | 2018-06-08 20:20 | XMS REPORT ---
Author Author LORENA MCCORMICK Organization [facility] Address [address] [place] [address] Care Team Providers Care Gwot Ia/Ilo Intelligence Support Name Role Phone LORENA MCCORMICK Unavailable PROBLEMS Type Condition ICD9-CM Code UCT72-LV Code Onset Dates Condition Status SNOMED Code Problem Essential hypertension I10 Active 05990904 Problem Mixed hyperlipidemia E78.2 Active 867366325 Problem Irritability and anger R45.4 Active 054994041 Problem Atherosclerotic heart disease of [place] coronary artery without angina pectoris I25.10 Active 709200111678457 Problem Other hyperlipidemia E78.4 Active 39900990 Problem History of coronary artery stent placement Z95.5 Active 197833009 Problem GERD without esophagitis K21.9 Active 880506868 Problem Adnexal cyst N94.9 Active 92141578021809 Problem Acute pain of left shoulder M25.512 Active 98841809 Problem Gastroesophageal reflux disease without esophagitis K21.9 Active 302195185 Problem History of coronary artery bypass graft x 3 Z95.1 Active 129979465 Problem Menorrhagia with irregular cycle N92.1 Active 229318969 Problem Hyperlipidemia, unspecified E78.5 Active 00479813 ALLERGIES No Known Allergies ENCOUNTERS Encounter Location Date Diagnosis [facility] [id number] [id number] December, Blood in stool K92.1 ; Dizziness R42 ; Atherosclerotic heart disease of [place]vik coronary artery without angina pectoris I25.10 ; Hyperlipidemia, unspecified E78.5 ; Essential hypertension I10 ; Irritability and anger R45.4 ; Gastroesophageal reflux disease without esophagitis K21.9 and Cough R05 [facility] [address] [id number] [id number] Oct, [id number] [id number] Aug, Simple ovarian cyst N83.209 and Adnexal cyst N94.[id number] [place] [address] [id number] Aug, Adnexal cyst N94.9 [id number] [place] [address] [id number] Aug, Microscopic hematuria R31.29 and CVA tenderness M54.[address] [id number] Aug, Microscopic hematuria R31.29 and CVA tenderness M54.[address] [id number] Jul, Pain in left shoulder M25.[address] [id number] Jun, Pain in left shoulder M25.512 and Other chronic pain G89.[address] [id number] Jun, [facility] [place] [address] [id number] [address] Jun, Acute pain of left shoulder M25.512 ; Essential hypertension I10 ; Atherosclerotic heart disease of [place] coronary artery without angina pectoris I25.10 ; GERD without esophagitis K21.9 and Irritability and anger R45.[id number] [place] [address] [id number] May, Essential hypertension I10 ; Atherosclerotic heart disease of [place] coronary artery without angina pectoris I25.10 ; GERD without esophagitis K21.9 ; Irritability and anger R45.4 ; Acute pain of left shoulder M25.512 and Menorrhagia with irregular cycle N92.1 [id number] [place] [address] [id number] May, Atherosclerotic heart disease of an[place] coronary artery without angina pectoris I25.10 [id number] [place] [address] [id number] Jan, [facility] [place] [address] [id number] [address] Jan, Acute mid back pain M54.9 [facility] [id number] [place] [address] [id number] Jan, Acute mid back pain M54.9 and Muscle spasm M62.838 [id number] [place] [address] [id number] December, Essential hypertension I10 ; Atherosclerotic heart disease of [place] coronary artery without angina pectoris I25.10 ; Other hyperlipidemia E78.4 ; GERD without esophagitis K21.9 ; Irritability and anger R45.4 and History of coronary artery bypass graft x 3 Z95.1 [id number] [place] [address] [id number] Nov, [address] [id number] Aug, Hyperlipidemia, unspecified E78.[address] [id number] Aug, Atherosclerotic heart disease of [place] coronary artery without angina pectoris I25.10 and History of bloody stools Z87.19 [facility] [id number] [place] [address] [id number] Aug, History of bloody stools Z87.19 [id number] [place] [address] [id number] Aug, History of bloody stools Z87.19 ; Mid back pain M54.9 and Gastroesophageal reflux disease without esophagitis K21.9 [id number] [place] [address] [id number] Jun, Viral gastroenteritis A08.4 ; Bilious vomiting with nausea R11.14 and Elevated glucose R73.09 [facility], [place] [id number] [place] [address] Jun, Dental caries K02.9 [id number] [place] [address] [id number] May, Irritability and anger R45.[address] [id number] May, Essential hypertension I10 ; Screening for thyroid disorder Z13.29 ; GERD without esophagitis K21.9 ; Elevated fasting glucose R73.01 ; Irritability and anger R45.4 ; Encounter for immunization Z23 ; History of coronary artery stent placement Z95.5 ; History of coronary artery bypass graft x 3 Z95.1 and Mixed hyperlipidemia E78.2 [facility] [address] [id number] [id number] May, [id number] [place] [id number] Apr, Tooth pain K08.8 ; Gastroesophageal reflux disease without esophagitis K21.9 ; 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 and Coronary artery disease involving anvik heart without angina pectoris, unspecified vessel or lesion type I25.10 [facility], [place] [address] [address] Apr, Dental caries K02.[address] [id number] Apr, Atherosclerotic heart disease of anvik coronary artery without angina pectoris I25.10 ; Other hyperlipidemia E78.4 and Arteriosclerosis of both carotid arteries I65.23 [facility], [place] [address] [address] Feb, Dental examination Z01.20 [id number] [place] [address] [id number] December, Atherosclerotic heart disease of anvik coronary artery without angina pectoris I25.10 and Essential (primary) hypertension I10 [facility] [place] [address] [address] December, Dental examination Z01.20 [facility] [id number] [place] [address] [id number] Nov, Pain in tooth K08.8 [facility] [address] [id number] Oct, [facility] [address] [id number] Oct, [facility] [address] [id number] Oct, Carpal tunnel syndrome, right upper limb G56.01 and Carpal tunnel syndrome , left upper limb G56.02 [facility] [id number] [place] [address] [id number] Sep, [facility] [id number] [place] [address] [id number] Sep, [facility] [id number] [place] [address] [id number] Jul, [facility] [place] [address] [id number] [facility] [address] [id number] [phone] Jun, [address] [id number] [place] [address] [id number] Jun, [facility] [id number] [place] [address] [id number] Jun, Retroperitoneal bleed R58 [address] [id number] [place] [address] [id number] Apr, Other and unspecified hyperlipidemia 272.4 ; Coronary atherosclerosis of unspecified type of vessel, anvik or graft 414.00 and Unspecified chronic ischemic 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 [id number] [place] [address] [id number] Apr, Depression [id number] [place] [address] [id number] Mar, [id number] [place] [address] [id number] Mar, Routine gynecological examination V72.31 and Pap test, as part of routine gynecological examination V76.2 [facility] [id number] [place] [address] [id number] Mar, [id number] [place] [address] [id number] Mar, [id number] [place] [address] [id number] Mar, Follow up V67.9 [facility], [place] [address] [address] Mar, Wrist pain, right 719.43 [facility] [address] [id number] [phone] Feb, [facility] [id number] [place] [address] [id number] Feb, Wrist pain, right 719.43 [facility] [address] [id number] [address] Feb, Depression 311 and Coronary atherosclerosis of unspecified type of vessel , anvik or graft 414.00 [facility] [id number], [place] [id number] December, [facility] [id number] [place] [address]47- [address] Nov, [facility] [place] [facility] [id number] [place] [address] 90545- 2546 Nov, [facility] [id number] [place] [address] 09440- 2546 Oct, [facility] [id number], [place] [id number] Oct, [facility] [id number] [place] [address] 52142- 2546 Aug, [facility] [id number], [place] [id number] Aug, [facility] [place] [facility] [id number] [place] [address] 69022- 2546 Aug, [facility] [place] [facility] [address] [place] [address] 08743- 2546 Jul, [facility] [id number], [place] [id number] Jul, [facility] [place] [facility] [id number] [place] [address] 01996- 2546 Jun, [facility] [id number], [place] [id number] Jun, [facility] [address] [id number] [id number] Jun, [facility] [place] [facility] [address] [id number] [place] [address] Jun, [facility] [address] [id number] [place] [id number] Apr, [facility] [place] [facility] [address] [id number] [place] [address]- [address] Apr, [facility] [address] [facility] [id number] [place] [id number] Feb, [facility] [place] [facility] [address] [id number] [place] [address]- [address] Feb, [facility] [address] [id number] [place] [id number] Feb, [facility] [address] [facility] [id number] [place] [id number] Feb, [facility] [place] [facility] [address] [id number] [place] [address]- 8166 Feb, [facility] [place] [facility] [address] [id number], [place] [address] 6[address] Feb, [facility] [address] [facility] [id number] [place] [id number] Nov, [facility] [place] [facility] [address] [id number], [place] [address] 284[address] Nov, [facility] [place] [facility] [address] [id number], [place] [address]- 7836 Nov, [facility] [address] [facility] [id number][place] [id number] Nov, [facility] [place] [facility] [address] [id number] [place] [address]- 24[address] Sep, [facility] [place] [facility] [address] [id number] [place] [address]- [address] Sep, [facility] [place] [facility] [address] [id number], [place] [address]- 1462 Sep, [facility] [place] [facility] [address] [id number][place] [address]- [address] Sep, [facility] [address] [id number] [place] [id number] Sep, [facility] [address] [id number] [place] [id number] Aug, [facility] [place] [facility] [address] [id number], [place] [address]- 4[address] Aug, [facility] [address] [id number] [place] [id number] Aug, [facility] [place] [facility] [address] [id number], [place] [address]- 74[address] Aug, [facility] [place] [facility] [address] [id number] [place] [address] Aug, [facility] [address] [facility] [id number] [place] [id number] Aug, [facility] [place] [facility] [address]00565100[place], [place] [address]- [address] Jun, [facility] [address] [id number], [place] [id number] Jun, [facility] [address] [id number] [place] [id number] Jun, [facility] [place] [facility] [address] [id number], [place] [address]- 9[address] Jun, [facility] [place] [facility] [address] [id number], [place] [address]- 5298 Jun, [facility] [address] [facility] [id number][place] [id number] Jun, [facility] [place] [facility] [address] [id number], [place] [address]- [address] Jun, [facility] [place] [facility] [address] [id number], [place] [address]- 2436 Jun, [facility] [address] [facility] [id number], [place] [address] Jun, [facility] [place] [facility] [address] [id number], [place] [address]- [address]16 May, [facility] [address] [id number], [place] [address]- [address] May, [facility] [address] [id number] [place] [address] Apr, [facility] [address] [id number] [place] [id number] Apr, [facility] [address] [id number] [place] [address] Apr, [facility] [address] [id number], [place] [address]- 8[address] Mar, [facility] [address] [id number] [place] [id number] Mar, [facility] [address]65100[place], [place] [address]- [address] Mar, [facility] [address] [id number], [place] [address] Feb, [facility] [address] [id number], [place] [address] Aug, [facility] [address] [id number] [place] [address] Jun, [facility] [address]65100[place], [place] [address]- [address] Jun, [facility] [address] [id number], [place] [address] May, [facility] [place] [facility] [address] [id number], [place] [address]- 8294 May, [facility] [address] [id number], [place] [address] Apr, [facility] [address] [id number], [place] [address]34697[address] Jan, [facility] [place] [facility] [address] [id number], [place] [address]- 6[address] Jan, [facility] [address] [id number], [place] [id number] December, [facility] [address] [facility] [id number] [place] [address] December, [facility] [address] [facility] [id number] [place] [address] December, [facility] [address] [facility] [id number] [place] [id number] December, [facility] [address] [facility] [id number], [place] [address] Oct, [facility] [place] [address]65100[place], [place] [address]- [address] May, [facility] [place] [address] [id number], [place] [address]- 2546 May, [facility] [place] [address]00565100[place], [place] [address]- 25[address] Apr, IMMUNIZATIONS No Known Immunizations SOCIAL HISTORY Never Assessed REASON FOR VISIT Shoulder Pain continues [facility] D[facility] PLAN OF CARE Activity Details Follow Up pending referral to [facility] and prn Reason: VITAL SIGNS Height 69 in 2017-07-04 Weight 267.4 lbs 2017-07-04 Temperature 97.8 degrees Fahrenheit 2017-07-04 Heart Rate 62 bpm 2017-07-04 Respiratory Rate 18 2017-07-04 BMI 39.48 kg/m2 2017-07-04 Blood pressure systolic 142 mmHg 2017-07-04 Blood pressure diastolic 74 mmHg 2017-07-04 MEDICATIONS Medication Instructions Dosage Frequency Start Date End Date Duration Status Nitrostat 0.4 mg 1 time per day PRN Aug, Active Metoprolol Tartrate 25 MG Orally Twice a day 1 tablet 12h Active Ibuprofen 800 MG Orally Three times a day 1 tablet with food or milk as needed 8h May, Active Protonix 20 mg Orally Once a day 1 tablets 24h 24 Apr, 2016 Active Plavix 75 MG Orally Once a day 1 tablet 24h 0 Active Crestor 40 MG TAKE ONE (1) TABLET BY MOUTH DAILY... Active Zoloft 100 MG Orally Once a day 1.5 tablets 24h 0 Active Aspirin 81 mg 1 Tablet 1 time per day Feb, Active RESULTS No Results PROCEDURES Procedure Date Ordered Result Body Site DRAIN/INJECT, JOINT/BURSA Jul 04, 2017 INSTRUCTIONS MEDICATIONS ADMINISTERED No Known Medications [...]
--- OUTSIDE RECORDS SUMMARY | 2018-06-08 20:21 | XMS REPORT ---
Author Author ELVA MC [facility] [place] eClinical[employer] Address Unknown Phone Unavailable Care Team Providers Care Wire Weaving Loom Setter Name Role Phone ELVA MC Unavailable Allergies No Known Allergies Problems Problem Type Condition ICD-9 Code Onset Dates Condition Status Problem Other primary cardiomyopathies 425.4 Active Problem Coronary atherosclerosis of unspecified type of vessel, [place] or graft 414.00 Active Problem Unspecified chronic ischemic 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 Active Problem Other and unspecified hyperlipidemia 272.4 Active Problem Unspecified breast screening V76.10 Active Problem Encounter for long-term (current) use of other medications V58.69 Active Problem Unspecified essential hypertension 401.9 Active Medications Medication Code System Code Instructions Start Date End Date Status Dosage Metoprolol Tartrate [facility] [address]-40 25 MG Orally Twice a day Aug 01, 2014 1/2 tablet Results No Known Results Summary Purpose eClinicalWorks Submission
--- OUTSIDE RECORDS SUMMARY | 2018-06-08 20:21 | XMS REPORT ---
Author Author LORENA JONAS [facility] eClinical[employer] Address Unknown Phone Unavailable Care Team Providers Care Dna Sequencing Associate Name Role Phone LORENA JONAS Unavailable Allergies, Adverse Reactions, Alerts Substance Reaction Event Type N.K.D.A. Info Not Available Non Drug Allergy Problems Problem Type Condition Code Onset Dates Condition Status Problem Other primary cardiomyopathies 425.4 Active Problem Atherosclerotic heart disease of [place] coronary artery without angina pectoris I25.10 Active Problem Unspecified chronic ischemic 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 Active Problem Essential hypertension I10 Active Assessment Encounter for immunization Z23 Active Problem History of coronary artery stent placement Z95.5 Active Assessment History of coronary artery stent placement Z95.5 Active Assessment History of coronary artery bypass graft x 3 Z95.1 Active Problem GERD without esophagitis K21.9 Active Problem Mixed hyperlipidemia E78.2 Active Problem Other hyperlipidemia E78.4 Active Problem Irritability and anger R45.4 Active Problem History of coronary artery bypass graft x 3 Z95.1 Active Assessment GERD without esophagitis K21.9 Active Assessment Screening for thyroid disorder Z13.29 Active Assessment Irritability and anger R45.4 Active Assessment Elevated fasting glucose R73.01 Active Problem Other and unspecified hyperlipidemia 272.4 Active Problem Unspecified essential hypertension 401.9 Active Assessment Essential hypertension I10 Active Problem Encounter for long-term (current) use of other medications V58.69 Active Assessment Mixed hyperlipidemia E78.2 Active Problem Unspecified breast screening V76.10 Active Problem Coronary atherosclerosis of unspecified type of vessel, [place] or graft 414.00 Active Medications Medication Code System Code Instructions Start Date End Date Status Dosage Nitrostat [facility] [address]-11 0.4 mg Aug 21, 2013 1 time per day PRN Metoprolol Tartrate [facility] 87007445550 25 MG Orally Twice a day 1 tablet Zoloft [facility] [address]-40 100 MG Orally Once a day 1.5 tablets Imdur ND 0 not defined Atorvastatin Calcium [facility] [address]-07 80 MG Orally Once a day 1 tablet Aspirin [facility] [address]-02 81 mg February 06, 2013 1 Tablet 1 time per day Lipitor [facility] [address]-55 40 MG Orally Once a day Aug 01, 2014 1 tablet Plavix [facility] 41431295863 75 MG Orally Once a day take 1 tablet Protonix [facility] [address]-16 20 mg Orally Once a day Apr 30, 2016 1 tablets Procedures Procedure Coding System Code Date GLYCATED HEMOGLOBIN TEST CPT-4 68259 May 31, 2016 FLUARIX QUAD P-FREE 3 AND UP .50 2015 CPT-4 86907 May 31, 2016 ASSAY THYROID STIM HORMONE CPT-4 53172 May 31, 2016 VENIPUNCT, ROUTINE* CPT-4 18343 May 31, 2016 SINGLE IMMUNIZATION ADMIN CPT-4 21302 May 31, 2016 Office Visit, Est Pt., Level 5 CPT-4 23455 May 31, 2016 Vital Signs Date/Time: May 31, 2016 Cardiac Monitoring Heart Rate 72 bpm Weight 254.8 lbs Height 69 in BMI 37.62 Index Blood Pressure Diastolic 70 mmHg Blood Pressure Systolic 118 mmHg Results Name Result Date Reference Range Unit Abnormality Flag ROUTINE VENIPUNCTURE Immunizations Vaccine Administration Date FLUZONE QUAD 3 AND UP 0.50 2015May 31, 2016 Summary Purpose eClinicalWorks Submission
--- OUTSIDE RECORDS SUMMARY | 2018-06-08 20:21 | XMS REPORT ---
Author Author LORENA MCCORMICK [facility] Address [address] [place] [address] Care Team Providers Care Construction Contractor Name Role Phone LORENA MCCORMICK Unavailable PROBLEMS Type Condition ICD9-CM Code [id number] Code Onset Dates Condition Status SNOMED Code Problem GERD without esophagitis K21.9 Active 480561102 Problem Irritability and anger R45.4 Active 625508684 Problem Essential hypertension I10 Active 22984216 Problem Atherosclerotic heart disease of [place] coronary artery without angina pectoris I25.10 Active 573333015230664 Problem Other hyperlipidemia E78.4 Active 55043901 Problem History of coronary artery stent placement Z95.5 Active 615263254 Problem Acute pain of left shoulder M25.512 Active 58831222 Problem Menorrhagia with irregular cycle N92.1 Active 836729668 Problem History of coronary artery bypass graft x 3 Z95.1 Active 720050464 Problem Mixed hyperlipidemia E78.2 Active 389790065 Problem Hyperlipidemia, unspecified E78.5 Active 34812309 Problem Gastroesophageal reflux disease without esophagitis K21.9 Active 962194219 ALLERGIES No Known Allergies SOCIAL HISTORY Never Assessed PLAN OF CARE Activity Details Follow Up 4 Weeks Reason:Back pain VITAL SIGNS Height 69 in 2017-01-09 Weight 263.2 lbs 2017-01-09 Temperature 98.5 degrees Fahrenheit 2017-01-09 Heart Rate 68 bpm 2017-01-09 Respiratory Rate 20 2017-01-09 Oximetry 98 % 2017-01-09 BMI 38.86 kg/m2 2017-01-09 Blood pressure systolic 116 mmHg 2017-01-09 Blood pressure diastolic 86 mmHg 2017-01-09 MEDICATIONS Medication Instructions Dosage Frequency Start Date End Date Duration Status Imdur 30 MG Orally Once a day 1 tablet 24h 0 Active Hydrocodone-Acetaminophen 5-325 MG Orally every 6 hrs 1 tablet as needed 6h Jan, Jan, 14 days Active Metoprolol Tartrate 25 MG Orally Twice a day 1 tablet 12h 0 days Active Ondansetron HCl 8 MG Orally every 8 hours, PRN 1 tablet Jun, Active Aspirin 81 mg 1 Tablet 1 time per day Feb, Active Crestor 40 mg Orally Once a day 1 tablet 24h December, 0 days Active Ibuprofen 800 MG Orally Three times a day 1 tablet with food or milk 8h Jan, Feb, 30 day(s) Active Protonix 20 mg Orally Once a day 1 tablets 24h Apr, 0 Active Plavix 75 MG Orally Once a day 1 tablet 24h 0 days Active Baclofen 10 mg Orally Three times a day as needed for muscel spasms 1 tablet with food or milk Jan, Feb, 30 days Active Nitrostat 0.4 mg 1 time per day PRN Aug, Active Zoloft 100 MG Orally Once a day 1.5 tablets 24h 0 Active RESULTS No Results PROCEDURES Procedure Date Ordered Result Body Site MEASURE BLOOD OXYGEN LEVEL January 09, 2017 IMMUNIZATIONS No Known Immunizations MEDICAL (GENERAL) HISTORY [...]
--- OUTSIDE RECORDS SUMMARY | 2018-06-08 20:21 | XMS REPORT ---
Author Author LORENA JONAS Organization [employer] Address Unknown Phone Unavailable Care Team Providers Care Director Of Perioperative Services Name Role Phone LORENA JONAS CP Unavailable Allergies No Known Allergies Problems Problem Type Condition Code Onset Dates Condition Status Problem Other primary cardiomyopathies 425.4 Active Problem Atherosclerotic heart disease of [place] coronary artery without angina pectoris I25.10 Active Problem Unspecified chronic ischemic 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 Active Problem Essential hypertension I10 Active Problem History of coronary artery stent placement Z95.5 Active Problem GERD without esophagitis K21.9 Active Problem Mixed hyperlipidemia E78.2 Active Problem Other hyperlipidemia E78.4 Active Problem Irritability and anger R45.4 Active Problem History of coronary artery bypass graft x 3 Z95.1 Active Problem Other and unspecified hyperlipidemia 272.4 Active Problem Unspecified essential hypertension 401.9 Active Assessment Irritability and anger R45.4 Active Problem Encounter for long-term (current) use of other medications V58.69 Active Problem Unspecified breast screening V76.10 Active Problem Coronary atherosclerosis of unspecified type of vessel, [place] or graft 414.00 Active Medications Medication Code System Code Instructions Start Date End Date Status Dosage Zoloft [facility] [address]-11 100 MG Orally Once a day 1.5 tablets Results No Known Results Summary Purpose [employer] Submission
--- OUTSIDE RECORDS SUMMARY | 2018-06-08 20:21 | XMS REPORT ---
Author Author LORENA MCCORMICK [facility] Address [address] [place] [address] Care Team Providers Care Antenna Engineer Name Role Phone LORENA MCCORMICK Unavailable PROBLEMS Type Condition ICD9-CM Code [id number] Code Onset Dates Condition Status SNOMED Code Problem Other hyperlipidemia E78.4 Active 81332649 Problem History of coronary artery stent placement Z95.5 Active 519803717 Problem Mixed hyperlipidemia E78.2 Active 279390132 Problem Hyperlipidemia, unspecified E78.5 Active 52234750 Problem Gastroesophageal reflux disease without esophagitis K21.9 Active 620849111 Problem Essential hypertension I10 Active 57670740 Problem GERD without esophagitis K21.9 Active 709334783 Problem History of coronary artery bypass graft x 3 Z95.1 Active 782281164 Problem Irritability and anger R45.4 Active 013671547 Problem Unspecified breast screening V76.10 Active 168190347 Problem Encounter for long-term (current) use of other medications V58.69 Active 423485271 Problem Coronary atherosclerosis of unspecified type of vessel, [place] or graft 414.00 Active 078118268 Problem Unspecified essential hypertension 401.9 Active 63729989 Problem Other primary cardiomyopathies 425.4 Active 29728010 Problem Other and unspecified hyperlipidemia 272.4 Active 43416746 Problem Unspecified chronic ischemic 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 Unknown Non Drug Allergy Jun, Unknown SOCIAL HISTORY No smoking Hx information available PLAN OF CARE Activity Details Follow Up 2 - 3 Days Reason:if s/s do not improve VITAL SIGNS Height 69 in 2016-06-28 Weight 246.1 lbs 2016-06-28 Temperature 98.6 degrees Fahrenheit 2016-06-28 Heart Rate 80 bpm 2016-06-28 Respiratory Rate 16 2016-06-28 BMI 36.34 kg/m2 2016-06-28 Blood pressure systolic 148 mmHg 2016-06-28 Blood pressure diastolic 88 mmHg 2016-06-28 MEDICATIONS Medication Instructions Dosage Frequency Start Date End Date Duration Status Aspirin 81 mg 1 Tablet 1 time per day Feb, Active Imdur Active Nitrostat 0.4 mg 1 time per day PRN 15 Aug, 2013 Active Atorvastatin Calcium 80 MG Orally Once a day 1 tablet 24h Active Lipitor 40 MG Orally Once a day 1 tablet 24h Jul, Active Metoprolol Tartrate 25 MG TAKE ONE (1) TABLET BY MOUTH TWICE DAILY... Active Protonix 20 mg Orally Once a day 1 tablets 24h Apr, Active Ondansetron HCl 8 MG Orally every 8 hours, PRN 1 tablet Jun, Active Plavix 75 MG Orally Once a day take 1 tablet 24h Active Zoloft 100 MG Orally Once a day 1.5 tablets 24h Active RESULTS Name Result Date Reference Range A1C (IN HOUSE) 2016-06-29 A1C IN HOUSE 5.6 4.3 - 5.6 % Previous A1c Lot [id number] Exp date 03/2018 PROCEDURES Procedure Date Ordered Related Diagnosis Body Site GLYCATED HEMOGLOBIN TEST Jun 28, 2016 Office Visit, Est Pt., Level 3 Jun 28, 2016 IMMUNIZATIONS No Known Immunizations
--- OUTSIDE RECORDS SUMMARY | 2018-06-08 20:21 | XMS REPORT ---
Author Author ELVA MC [facility] [employer] Address Unknown Phone Unavailable Care Team Providers Care A Auxiliary Name Role Phone ELVA MC CP Unavailable Allergies, Adverse Reactions, Alerts Substance Reaction Event Type N.K.D.A. Info Not Available Non Drug Allergy Problems Problem Type Condition Code Onset Dates Condition Status Assessment Pain in tooth K08.8 Active Problem Other primary cardiomyopathies 425.4 Active Problem Coronary atherosclerosis of unspecified type of vessel, [place] or graft 414.00 Active Problem Unspecified chronic ischemic 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 Active Problem Other and unspecified hyperlipidemia 272.4 Active Problem Unspecified breast screening V76.10 Active Problem Encounter for long-term (current) use of other medications V58.69 Active Problem Unspecified essential hypertension 401.9 Active Medications Medication Code System Code Instructions Start Date End Date Status Dosage Zoloft [facility] [address]-97 100 MG Orally Once a day February 11, 2015 1 tablet Lipitor [facility] [address]-42 40 MG Orally Once a day Aug 01, 2014 1 tablet Metoprolol Tartrate [facility] [address]-93 25 MG Orally Twice a day Aug 01, 2014 1 tablet Prilosec OTC [facility] [address]23 20 MG Orally Once a day 1 tablet Amoxicillin [facility] [address]-63 500 MG Orally every 12 hrs December 04, 2015 December 11, 2015 1 tablet Plavix [facility] [address]-82 75 MG Orally Once a day Aug 01, 2014 take 1 tablet Procedures Procedure Coding System Code Date Office Visit, Est Pt., Level 3 CPT-4 16802 December 04, 2015 Vital Signs Date/Time: December 04, 2015 Temperature 97.9 F Weight 252.0 lbs Height 69 in BMI 37.21 Index Blood Pressure Diastolic 62 mmHg Blood Pressure Systolic 122 mmHg Cardiac Monitoring Heart Rate 70 bpm Results No Known Results Summary Purpose [employer] Submission
--- OUTSIDE RECORDS SUMMARY | 2018-06-08 20:21 | XMS REPORT ---
Author Author LORENA MCCORMICK Organization [facility] Address [address] [place] [address] Care Team Providers Care Reactor Kettle Operator Name Role Phone LORENA MCCORMICK Unavailable PROBLEMS Type Condition ICD9-CM Code GGA35-LJ Code Onset Dates Condition Status SNOMED Code Problem Essential hypertension I10 Active 72959443 Problem Mixed hyperlipidemia E78.2 Active 104839084 Problem Irritability and anger R45.4 Active 231193154 Problem Atherosclerotic heart disease of [place] coronary artery without angina pectoris I25.10 Active 592797774989135 Problem Other hyperlipidemia E78.4 Active 53811255 Problem History of coronary artery stent placement Z95.5 Active 554072036 Problem GERD without esophagitis K21.9 Active 129639154 Problem Adnexal cyst N94.9 Active 41385523151835 Problem Acute pain of left shoulder M25.512 Active 92618394 Problem Gastroesophageal reflux disease without esophagitis K21.9 Active 738306197 Problem History of coronary artery bypass graft x 3 Z95.1 Active 746613542 Problem Menorrhagia with irregular cycle N92.1 Active 160518627 Problem Hyperlipidemia, unspecified E78.5 Active 78921836 ALLERGIES No Known Allergies ENCOUNTERS Encounter Location Date Diagnosis [facility] [id number] [id number] December, Blood in stool K92.1 ; Dizziness R42 ; Atherosclerotic heart disease of [place] coronary artery without angina pectoris I25.10 ; Hyperlipidemia, unspecified E78.5 ; Essential hypertension I10 ; Irritability and anger R45.4 ; Gastroesophageal reflux disease without esophagitis K21.9 and Cough R05 [facility] [address] [id number] [id number] Oct, [address] [id number] [id number] Aug, Simple ovarian cyst N83.209 and Adnexal cyst N94.9 [id number] [place] [address] [id number] Aug, Adnexal cyst N94.9 [id number] [place] [address] [id number] Aug, Microscopic hematuria R31.29 and CVA tenderness M54.[address] [id number] Aug, Microscopic hematuria R31.29 and CVA tenderness M54.[address] [id number] Jul, Pain in left shoulder M25.[address] [id number] Jun, Pain in left shoulder M25.512 and Other chronic pain G89.[address] [id number] Jun, [facility] [address] [id number] [address] Jun, Acute pain of left shoulder M25.512 ; Essential hypertension I10 ; Atherosclerotic heart disease of [place] coronary artery without angina pectoris I25.10 ; GERD without esophagitis K21.9 and Irritability and anger R45.4 [address] [id number] [place] [address] [id number] May, Essential hypertension I10 ; Atherosclerotic heart disease of [place] coronary artery without angina pectoris I25.10 ; GERD without esophagitis K21.9 ; Irritability and anger R45.4 ; Acute pain of left shoulder M25.512 and Menorrhagia with irregular cycle N92.1 [address] [id number] [place] [address] [id number] May, Atherosclerotic heart disease of [place] coronary artery without angina pectoris I25.10 [address] [id number] [place] [address] [id number] Jan, [facility] [address] [id number] 98[address] Jan, Acute mid back pain M54.9 [facility] [id number] [place] [address] [id number] Jan, Acute mid back pain M54.9 and Muscle spasm M62.838 [id number] [place] [address] [id number] December, Essential hypertension I10 ; Atherosclerotic heart disease of [place] coronary artery without angina pectoris I25.10 ; Other hyperlipidemia E78.4 ; GERD without esophagitis K21.9 ; Irritability and anger R45.4 and History of coronary artery bypass graft x 3 Z95.1 [address] [id number] [place] [id number] Nov, [address] [id number] Aug, Hyperlipidemia, unspecified E78.[address] [id number] Aug, Atherosclerotic heart disease of [place] coronary artery without angina pectoris I25.10 and History of bloody stools Z87.19 [facility] [id number] [place] [address] [id number] Aug, History of bloody stools Z87.19 [id number] [place] [address] [id number] Aug, History of bloody stools Z87.19 ; Mid back pain M54.9 and Gastroesophageal reflux disease without esophagitis K21.9 [address] [id number] [place] [address] [id number] Jun, Viral gastroenteritis A08.4 ; Bilious vomiting with nausea R11.14 and Elevated glucose R73.09 [facility] [id number] [place] [address] Jun, Dental caries K02.9 [address] [id number] [place] [address] [id number] May, Irritability and anger R45.[address] [id number] May, Essential hypertension I10 ; Screening for thyroid disorder Z13.29 ; GERD without esophagitis K21.9 ; Elevated fasting glucose R73.01 ; Irritability and anger R45.4 ; Encounter for immunization Z23 ; History of coronary artery stent placement Z95.5 ; History of coronary artery bypass graft x 3 Z95.1 and Mixed hyperlipidemia E78.2 [facility] [address] [id number] [id number] May, [id number] [place] [address] [id number] Apr, Tooth pain K08.8 ; Gastroesophageal reflux disease without esophagitis K21.9 ; 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 and Coronary artery disease involving [place] heart without angina pectoris, unspecified vessel or lesion type I25.10 [facility] [address] [address] Apr, Dental caries K02.[address] [id number] Apr, Atherosclerotic heart disease of [place] coronary artery without angina pectoris I25.10 ; Other hyperlipidemia E78.4 and Arteriosclerosis of both carotid arteries I65.23 [facility] [address] [address] Feb, Dental examination Z01.20 [address] [id number] [place] [address] [id number] December, Atherosclerotic heart disease of [place] coronary artery without angina pectoris I25.10 and Essential (primary) hypertension I10 [facility] [address] [address] December, Dental examination Z01.20 [facility] [id number] [place] [address] [id number] Nov, Pain in tooth K08.8 [facility] [address] [id number] Oct, [facility] [address] [id number] Oct, [facility] [address] [id number] Oct, Carpal tunnel syndrome, right upper limb G56.01 and Carpal tunnel syndrome , left upper limb G56.02 [facility] [id number] [place] [address] [id number] Sep, [facility] [id number] [place] [address] [id number] Sep, [facility] [id number] [place] [address] [id number] Jul, [facility] [address] [address] [facility] [id number] [id number] Jun, [id number] [place] [address] [id number] Jun, [facility] [id number] [place] [address] [id number] Jun, Retroperitoneal bleed R58 [address] [id number] [place] [address] [id number] Apr, Other and unspecified hyperlipidemia 272.4 ; Coronary atherosclerosis of unspecified type of vessel, [place] or graft 414.00 and Unspecified chronic ischemic 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 [id number] [place] [address] [id number] Apr, Depression [id number] [place] [address] [id number] Mar, [place] [id number] [place] [address] [id number] Mar, Routine gynecological examination V72.31 and Pap test, as part of routine gynecological examination V76.2 [facility] [id number] [place] [address] [id number] Mar, [place] [place] [id number] [place] [address] [id number] Mar, [address] [place] [id number] [place] [address] [id number] Mar, Follow up V67.9 [facility] [address]005[address] [address] Mar, Wrist pain, right 719.43 [facility] [address] [id number] [id number] Feb, [facility] [id number] [place] [address] [id number] Feb, Wrist pain, right 719.43 [facility] [address] [id number][place] [id number] Feb, Depression 311 and Coronary atherosclerosis of unspecified type of vessel , [place] or graft 414.00 [facility] [id number], [place] [id number] December, [facility] [id number] [place] [address]- [address] Nov, [facility] [place] [facility] [id number] [place] [address]- 2546 Nov, [facility] [id number] [place] [address] 52793- 2546 Oct, [facility] [id number], [place] [id number] Oct, [facility] [id number] [place] [address] 98394- 2546 Aug, [facility] [id number], [place] [id number] Aug, [facility] [place] [facility] [id number] [place] [address] 56165- 2546 Aug, [facility] [place] [facility] [address] [place] [address] 85107- 2546 Jul, [facility] [id number], [place] [id number] Jul, [facility] [place] [facility] [id number] [place] [address] 83323- 2546 Jun, [facility] [id number], [place] [id number] Jun, [facility] [address] [id number], [place] [phone] Jun, [facility] [place] [facility] [address] [facility] [id number] [place] [address] Jun, [facility] [address] [id number] [place] [id number] Apr, [facility] [place] [facility] [address] [facility] [id number] [place] [address]- [address] Apr, [facility] [address] [facility] [id number] [place] [id number] Feb, [facility] [place] [facility] [address] [facility] [id number] [place] [address]- 3[address] Feb, [facility] [address] [id number] [place] [id number] Feb, [facility] [address] [facility] [id number] [place] [id number] Feb, [facility] [place] [facility] [address] [facility] [id number] [place] [address]- 0996 Feb, [facility] [place] [facility] [address] [facility] [id number], [place] [address] Feb, [facility] [address] [facility] [id number] [place] [id number] Nov, [facility] [place] [facility] [address] [facility] [id number], [place] [address]- 9[address] Nov, [facility] [place] [facility] [address] [facility] [id number] [address]- 8[address] Nov, [facility] [address] [facility] [id number][place] [id number] Nov, [facility] [place] [facility] [address] [facility] [id number] [place] [address]- 0782 Sep, [facility] [place] [facility] [address] [facility] [id number] [place] [address]- 6222 Sep, [facility] [place] [facility] [address] [facility] [id number], [place] [address]- 3727 Sep, [facility] [place] [facility] [address] [facility] [id number], [place] [address]- 275[address] Sep, [facility] [address] [id number] [place] [id number] Sep, [facility] [address] [id number] [place] [id number] Aug, [facility] [place] [facility] [address] [id number] [address]- 3[address] Aug, [facility] [address] [id number] [place] [id number] Aug, [facility] [place] [facility] [address] [id number], [place] [address]- [address] Aug, [facility] [place] [facility] [address] [facility] [id number] [place] 4[address] Aug, [facility] [address] [facility] [id number] [place] [id number] Aug, [facility] [place] [facility] [address]00565100[place], [place] [address] Jun, [facility] [address] [id number], [place] [id number] Jun, [facility] [address] [id number] [place] [id number] Jun, [facility] [place] [facility] [address] [id number], [place] [address] Jun, [facility] [place] [facility] [address] [facility] [id number] [address]- 1335 Jun, [facility] [address] [facility] [id number], [place] [id number] Jun, [facility] [place] [facility] [address] [facility] [id number], [place] [address]- 45[address] Jun, [facility] [place] [facility] [address] [facility] [id number], [place] 849524[address]- 9440 Jun, [facility] [address] [facility] [id number][place] [id number] Jun, [facility] [place] [facility] [address] [facility] [id number], [place] [address]- 2044 May, [facility] [address] [facility] [id number][place] [address]- [address] May, [facility] [address] [id number] [place] [id number] Apr, [facility] [address] [id number] [place] [id number] Apr, [facility] [address] [id number] [place] [id number] Apr, [facility] [address] [facility] [id number], [place] [address]- [address] Mar, [facility] [address] [id number] [place] [id number] Mar, [facility] [address]65100[place], [place] [address] Mar, [facility] [address] [id number], [place] [id number] Feb, [facility] [address] [id number], [place] [id number] Aug, [facility] [address] [id number] [place] [id number] Jun, [facility] [address]00565100[place], [place] [address]- 8[address] Jun, [facility] [address] [id number], [place] [id number] May, [facility] [place] [facility] [address] [facility] [id number], [place] [address]- 1783 May, [facility] [address] [id number], [place] [id number] Apr, [facility] [address] [id number], [place] [id number] Jan, [facility] [place] [facility] [address] [facility] [id number], [place] [address]- 8543 Jan, [facility] [address] [id number], [place] [id number] December, [facility] [address] [facility] [id number] [place] [id number] December, [facility] [address] [facility] [id number] [place] [id number] December, [facility] [address] [facility] [id number] [place] [id number] December, [facility] [address] [facility] [id number], [place] [id number] Oct, [facility] [address]00565100[place], [place] [address]- [address] May, [facility] [address]00565100[place], [place] [address] 2546 May, [facility] [address]00565100[place], [place] [address] 2546 Apr, IMMUNIZATIONS No Known Immunizations SOCIAL HISTORY Never Assessed REASON FOR VISIT CHM- left shoulder pain Elaina GONZALEZ PLAN OF CARE Activity Details Follow Up prn after seen by ortho on 08/10 Reason:shoulder pain VITAL SIGNS Height 69 in 2017-07-26 Weight 268 lbs 2017-07-26 Temperature 98.1 degrees Fahrenheit 2017-07-26 Heart Rate 70 bpm 2017-07-26 Respiratory Rate 16 2017-07-26 BMI 39.57 kg/m2 2017-07-26 Blood pressure systolic 138 mmHg 2017-07-26 Blood pressure diastolic 70 mmHg 2017-07-26 MEDICATIONS Medication Instructions Dosage Frequency Start Date End Date Duration Status Protonix 20 mg Orally Once a day 1 tablets 24h Apr, Active Aspirin 81 mg 1 Tablet 1 time per day Feb, Active Crestor 40 MG TAKE ONE (1) TABLET BY MOUTH DAILY... Active Plavix 75 MG Orally Once a day 1 tablet 24h 0 Active Nitrostat 0.4 mg 1 time per day PRN Aug, Active Zoloft 100 MG Orally Once a day 1.5 tablets 24h 0 Active Hydrocodone-Acetaminophen 7.5-325 MG Orally every 6 hrs 1 tablet as needed 6h Jul, Aug, 14 days Active Metoprolol Tartrate 25 MG Orally Twice a day 1 tablet 12h Active Ibuprofen 800 MG Orally Three times a day as needed 1 tablet with food or milk as needed Jul, Jul, 0 days Active Ibuprofen 800 MG Orally Three times a day 1 tablet with food or milk as needed 8h May, Active RESULTS No Results PROCEDURES No Known [...]
--- OUTSIDE RECORDS SUMMARY | 2018-06-08 20:22 | XMS REPORT ---
Author Author LORENA MCCORMICK Organization [facility] Address [address] [place] [address] Care Team Providers Care Shield Operator Name Role Phone LORENA MCCORMICK Unavailable PROBLEMS Type Condition ICD9-CM Code NIV28-WC Code Onset Dates Condition Status SNOMED Code Problem Essential hypertension I10 Active 04310696 Problem Mixed hyperlipidemia E78.2 Active 677620223 Problem Irritability and anger R45.4 Active 720223169 Problem Atherosclerotic heart disease of [place] coronary artery without angina pectoris I25.10 Active 693486917488386 Problem Other hyperlipidemia E78.4 Active 80359150 Problem History of coronary artery stent placement Z95.5 Active 348270889 Problem GERD without esophagitis K21.9 Active 990335161 Problem Adnexal cyst N94.9 Active 84781718100193 Problem Acute pain of left shoulder M25.512 Active 72143122 Problem Gastroesophageal reflux disease without esophagitis K21.9 Active 387752975 Problem History of coronary artery bypass graft x 3 Z95.1 Active 907452730 Problem Menorrhagia with irregular cycle N92.1 Active 514042041 Problem Hyperlipidemia, unspecified E78.5 Active 36309222 ALLERGIES No Information ENCOUNTERS Encounter Location Date Diagnosis [facility] [id number] [id number] December, Blood in stool K92.1 ; Dizziness R42 ; Atherosclerotic heart disease of [place] coronary artery without angina pectoris I25.10 ; Hyperlipidemia, unspecified E78.5 ; Essential hypertension I10 ; Irritability and anger R45.4 ; Gastroesophageal reflux disease without esophagitis K21.9 and Cough R05 [facility] [address] [id number] [id number] Oct, [id number] [place] [address] [id number] Aug, Simple ovarian cyst N83.209 and Adnexal cyst N94.9 [id number] [place] [address] [id number] Aug, Adnexal cyst N94.9 [id number] [place] [address] [id number] Aug, Microscopic hematuria R31.29 and CVA tenderness M54.[address] [id number] Aug, Microscopic hematuria R31.29 and CVA tenderness M54.9 [id number] [place] [address] [id number] Jul, Pain in left shoulder M25.[address] [id number] Jun, Pain in left shoulder M25.512 and Other chronic pain G89.[address] [id number] Jun, [facility] [address] [address] Jun, Acute pain of left shoulder M25.512 ; Essential hypertension I10 ; Atherosclerotic heart disease of [place] coronary artery without angina pectoris I25.10 ; GERD without esophagitis K21.9 and Irritability and anger R45.4 [id number] [place] [address] [id number] May, Essential hypertension I10 ; Atherosclerotic heart disease of [place] coronary artery without angina pectoris I25.10 ; GERD without esophagitis K21.9 ; Irritability and anger R45.4 ; Acute pain of left shoulder M25.512 and Menorrhagia with irregular cycle N92.1 [address] [id number] [place] [address] [id number] May, Atherosclerotic heart disease of [place] coronary artery without angina pectoris I25.10 [address] [address] [id number] [place] [address] [id number] Jan, [facility] [address] [id number]- [address] Jan, Acute mid back pain M54.9 [facility] [id number] [place] [address] [id number] Jan, Acute mid back pain M54.9 and Muscle spasm M62.838 [address] [place] [address] [id number] December, Essential hypertension I10 ; Atherosclerotic heart disease of [place] coronary artery without angina pectoris I25.10 ; Other hyperlipidemia E78.4 ; GERD without esophagitis K21.9 ; Irritability and anger R45.4 and History of coronary artery bypass graft x 3 Z95.1 [address] [address] [id number] [place] [address] [id number] Nov, [address] [id number] Aug, Hyperlipidemia, unspecified E78.[address] [id number] Aug, Atherosclerotic heart disease of [place] coronary artery without angina pectoris I25.10 and History of bloody stools Z87.19 [facility] [id number] [place] [address] [id number] Aug, History of bloody stools Z87.19 [address] [place] [address] [id number] Aug, History of bloody stools Z87.19 ; Mid back pain M54.9 and Gastroesophageal reflux disease without esophagitis K21.9 [address] [place] [address] [id number] Jun, Viral gastroenteritis A08.4 ; Bilious vomiting with nausea R11.14 and Elevated glucose R73.09 [facility] [id number] [place] [address] Jun, Dental caries K02.9 [id number] [place] [address] [id number] May, Irritability and anger R45.4 [address] [address] [place] [address] [id number] May, Essential hypertension I10 ; Screening for thyroid disorder Z13.29 ; GERD without esophagitis K21.9 ; Elevated fasting glucose R73.01 ; Irritability and anger R45.4 ; Encounter for immunization Z23 ; History of coronary artery stent placement Z95.5 ; History of coronary artery bypass graft x 3 Z95.1 and Mixed hyperlipidemia E78.2 [facility] [address] [id number] [id number] May, [address] [place] [address] [id number] Apr, Tooth pain K08.8 ; Gastroesophageal reflux disease without esophagitis K21.9 ; 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 and Coronary artery disease involving [place] heart without angina pectoris, unspecified vessel or lesion type I25.10 [facility] [address] [address] Apr, Dental caries K02.[address] [id number] Apr, Atherosclerotic heart disease of [place] coronary artery without angina pectoris I25.10 ; Other hyperlipidemia E78.4 and Arteriosclerosis of both carotid arteries I65.23 [facility] [address] [address] Feb, Dental examination Z01.20 [facility] [id number] [place] [address] [id number] December, Atherosclerotic heart disease of [place] coronary artery without angina pectoris I25.10 and Essential (primary) hypertension I10 [facility] [address] [address] December, Dental examination Z01.20 [facility] [id number] [place] [address] [id number] Nov, Pain in tooth K08.8 [facility] [id number] [place] [address] [id number] Oct, [facility] [address] [id number] Oct, [facility] [address] [id number] Oct, Carpal tunnel syndrome, right upper limb G56.01 and Carpal tunnel syndrome , left upper limb G56.02 [facility] [id number] [place] [address] [id number] Sep, [facility] [id number] [place] [address] [id number] Sep, [facility] [id number] [place] [address] [id number] Jul, [place] [facility] [id number] [id number] Jun, [facility] [id number] [place] [address] [id number] Jun, [facility] [id number] [place] [address] [id number] Jun, Retroperitoneal bleed R58 [id number] [place] [address] [id number] Apr, Other and unspecified hyperlipidemia 272.4 ; Coronary atherosclerosis of unspecified type of vessel, [place] or graft 414.00 and Unspecified chronic ischemic 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 [facility] [id number] [place] [address] [id number] Apr, Depression 311 [facility] [id number] [place] [address] [id number] Mar, [place] [id number] [place] [address] [id number] Mar, Routine gynecological examination V72.31 and Pap test, as part of routine gynecological examination V76.2 [facility] [id number] [place] [address] [id number] Mar, [place] [id number] [place] [address] [id number] Mar, [facility] [id number] [place] [address] [id number] Mar, Follow up V67.9 [facility] [address] [address] Mar, Wrist pain, right 719.43 [facility] [address] [id number] [id number] Feb, [facility] [id number] [place] [address] [id number] Feb, Wrist pain, right 719.43 [facility] [address] [id number] [id number] Feb, Depression 311 and Coronary atherosclerosis of unspecified type of vessel , [place] or graft 414.00 [facility] [id number], [place] [id number] December, [facility] [id number] [place] [address] Nov, [facility] [place] [facility] [id number] [place] [address] 47[address]- [address] Nov, [facility] [id number] [place] [address]- [address] Oct, [facility] [id number], [place] [id number] Oct, [facility] [place] [facility] [address] [place] [address] 0[address]- [address] Aug, [facility] [id number] [place] [address] [id number] Aug, [facility] [place] [facility] [id number] [place] [address] 05847- 25[address] Aug, [facility] [place] [facility] [address]00565100[place] [address] Jul, [facility] [address] [id number][place] [id number] Jul, [facility] [place] [facility] [id number] [place] [address] Jun, [facility] [address] [id number], [place] [id number] Jun, [facility] [address] [id number][place] [id number] Jun, [facility] [place] [facility] [address] [id number] [place] [address] Jun, [facility] [address] [id number] [place] [id number] Apr, [facility] [place] [facility] [address] [id number] [place] [address] Apr, [facility] [address] [facility] [id number] [place] [id number] Feb, [facility] [place] [facility] [address] [id number] [place] [address]- 7[address] Feb, [facility] [address] [id number] [place] [id number] Feb, [facility] [address] [facility] [id number] [place] [id number] Feb, [facility] [place] [facility] [address] [id number] [address] Feb, [facility] [place] [facility] [address] [id number] [address] Feb, [facility] [address] [facility] [id number] [place] [id number] Nov, [facility] [place] [facility] [address] [id number], [place] [address] Nov, [facility] [place] [facility] [address] [id number] [address] Nov, [facility] [address] [facility] [id number][place] [id number] Nov, [facility] [place] [facility] [address] [id number] [address] Sep, [facility] [place] [facility] [address] [id number] [place] [address]- 1394 Sep, [facility] [place] [facility] [address] [id number] [address]- 79[address] Sep, [facility] [place] [facility] [address] [id number][place] [address]- [address] Sep, [facility] [address] [id number] [place] [id number] Sep, [facility] [address] [id number] [place] [id number] Aug, [facility] [place] [facility] [address] [id number] [address] Aug, [facility] [address] [id number] [place] [id number] Aug, [facility] [place] [facility] [address] [id number] [address]- 3[address] Aug, [facility] [place] [facility] [address] [id number] [place] [address]- 68[address] Aug, [facility] [address] [facility] [id number] [place] [id number] Aug, [facility] [place] [facility] [address] [id number] [address]- [address] Jun, [facility] [address] [id number][place] [address] Jun, [facility] [address] [id number] [place] [address] Jun, [facility] [place] [facility] [address] [id number] [address]- [address] Jun, [facility] [place] [facility] [address] [id number] [address]- 25[address] Jun, [facility] [address] [facility] [id number][place] [id number] Jun, [facility] [place] [facility] [address] [id number] [address]- [address] Jun, [facility] [place] [facility] [address] [id number][place] [address] Jun, [facility] [address] [facility] [id number][place] [address]85[address] Jun, [facility] [place] [facility] [address] [id number] [address]- [address] May, [facility] [address] [id number] [address] May, [facility] [address] [id number] [place] [address] Apr, [facility] [address] [id number] [place] [id number] Apr, [facility] [address] [id number] [place] [id number] Apr, [facility] [place] [facility] [address] [id number][place] [address]- 1039 Mar, [facility] [address] [facility] [id number] [place] [id number] Mar, [facility] [place] [facility] [address]00565100[place] [address]- [address] Mar, [facility] [address] [id number] [place] [id number] Feb, [facility] [address] [id number] [place] [address] Aug, [facility] [address] [facility] [id number] [place] [address] Jun, [facility] [address]00565100[place] [address] Jun, [facility] [id number], [place] [id number] May, [facility] [place] [facility] [address] [id number][place] [address]- [address] May, [facility] [address] [facility] [id number] [place] [id number] Apr, [facility] [address] [facility] [id number], [place] [address] Jan, [facility] [place] [facility] [address] [id number][place] [address]- [address] Jan, [facility] [address] [facility] [id number][place] [id number] December, [facility] [address] [facility] [id number] [place] [address] December, [facility] [address] [facility] [id number], [place] [address] December, [facility] [address] [id number] [place] [id number] December, [facility] [address] [facility] [id number], [place] [address] Oct, [facility] [address]00565100[place] [address] May, [facility] [address]00565100[place] [address]- [address] May, [facility] [address]00565100[place] [address]- [address] Apr, IMMUNIZATIONS No Known Immunizations SOCIAL HISTORY Never Assessed REASON FOR VISIT US order PLAN OF CARE VITAL SIGNS MEDICATIONS No Known Medications RESULTS Name Result Date Reference Range Ultrasound : Pelvic, COMPLETE (REFLEX CPT-15784) 2017-08-23 PROCEDURES No Known procedures INSTRUCTIONS MEDICATIONS ADMINISTERED [...]
--- OUTSIDE RECORDS SUMMARY | 2018-06-08 20:23 | XMS REPORT ---
Author Author ELVA MC [facility] Address Unknown Phone Unavailable Care Team Providers Care Journey Lineman Name Role Phone ELVA MC Unavailable Allergies No Known Allergies Problems Problem Type Condition Code Onset Dates Condition Status Problem Other primary cardiomyopathies 425.4 Active Problem Coronary atherosclerosis of unspecified type of vessel, [place] or graft 414.00 Active Problem Unspecified chronic ischemic 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 Active Problem Other and unspecified hyperlipidemia 272.4 Active Problem Unspecified breast screening V76.10 Active Problem Encounter for long-term (current) use of other medications V58.69 Active Problem Unspecified essential hypertension 401.9 Active Medications No Known Medications Results No Known Results Summary Purpose eClinicalWorks Submission
--- OUTSIDE RECORDS SUMMARY | 2018-06-08 20:23 | XMS REPORT ---
Author Author LORENA MCCORMICK [facility] Address [address] [place] [address] Care Team Providers Care Reel Repairer Name Role Phone LORENA MCCORMICK Unavailable PROBLEMS Type Condition ICD9-CM Code EUQ38-HI Code Onset Dates Condition Status SNOMED Code Problem Other hyperlipidemia E78.4 Active 09145250 Problem History of coronary artery stent placement Z95.5 Active 109936392 Problem Mixed hyperlipidemia E78.2 Active 069190494 Problem Hyperlipidemia, unspecified E78.5 Active 25292233 Problem Gastroesophageal reflux disease without esophagitis K21.9 Active 105882103 Problem Essential hypertension I10 Active 26468825 Problem GERD without esophagitis K21.9 Active 661763459 Problem History of coronary artery bypass graft x 3 Z95.1 Active 496047916 Problem Irritability and anger R45.4 Active 763395484 Problem Unspecified breast screening V76.10 Active 328499840 Problem Encounter for long-term (current) use of other medications V58.69 Active 711367100 Problem Coronary atherosclerosis of unspecified type of vessel, [place] or graft 414.00 Active 637052635 Problem Unspecified essential hypertension 401.9 Active 43303050 Problem Other primary cardiomyopathies 425.4 Active 85790561 Problem Other and unspecified hyperlipidemia 272.4 Active 08728048 Problem Unspecified chronic ischemic 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 Active 328349729 Problem Atherosclerotic heart disease of [place] coronary artery without angina pectoris I25.10 Active 123901348052451 ALLERGIES Unknown Allergies SOCIAL HISTORY No smoking Hx information available PLAN OF CARE VITAL SIGNS MEDICATIONS Medication Instructions Dosage Frequency Start Date End Date Duration Status Crestor 20 mg Orally Once a day 1 tablet 24h Sep, 0 days Active RESULTS No Results PROCEDURES No Known procedures IMMUNIZATIONS No Known Immunizations
--- OUTSIDE RECORDS SUMMARY | 2018-06-08 20:23 | XMS REPORT ---
Author Author ELVA MC [employer] Address Unknown Phone Unavailable Care Team Providers Care Interactive Project Manager Name Role Phone ELVA MC CP Unavailable Allergies No Known Allergies Problems Problem Type Condition Code Onset Dates Condition Status Problem Unspecified breast screening V76.10 Active Problem Unspecified essential hypertension 401.9 Active Problem Other and unspecified hyperlipidemia 272.4 Active Problem Atherosclerotic heart disease of [place] coronary artery without angina pectoris I25.10 Active Problem Essential (primary) hypertension I10 Active Problem Other hyperlipidemia E78.4 Active Problem Coronary atherosclerosis of unspecified type of vessel, [place] or graft 414.00 Active Problem Encounter for long-term (current) use of other medications V58.69 Active Problem Unspecified chronic ischemic 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 Active Problem Other primary cardiomyopathies 425.4 Active Assessment Arteriosclerosis of both carotid arteries I65.23 Active Assessment Other hyperlipidemia E78.4 Active Assessment Atherosclerotic heart disease of [place] coronary artery without angina pectoris I25.10 Active Medications No Known Medications Procedures Procedure Coding System Code Date LIPID PANEL CPT-4 92944 Apr 07, 2016 VENIPUNCT, ROUTINE* CPT-4 65967 Apr 07, 2016 COMPREHEN METABOLIC PANEL CPT-4 92713 Apr 07, 2016 Results No Known Results Summary Purpose eClinicalWorks Submission
--- OUTSIDE RECORDS SUMMARY | 2018-06-08 20:23 | XMS REPORT ---
Author NICOLE Louis [employer] Address Unknown Phone Unavailable Care Team Providers Care Animal Shelter Supervisor Name Role Phone NICOLE FRAGA CP Unavailable Allergies, Adverse Reactions, Alerts Substance Reaction Event Type N.K.D.A. Info Not Available Non Drug Allergy Problems Problem Type Condition Code Onset Dates Condition Status Assessment Dental examination Z01.20 Active Problem Other and unspecified hyperlipidemia 272.4 Active Problem Unspecified breast screening V76.10 Active Problem Essential (primary) hypertension I10 Active Problem Unspecified chronic ischemic 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 Active Problem Atherosclerotic heart disease of [place] coronary artery without angina pectoris I25.10 Active Problem Encounter for long-term (current) use of other medications V58.69 Active Problem Unspecified essential hypertension 401.9 Active Problem Other primary cardiomyopathies 425.4 Active Problem Coronary atherosclerosis of unspecified type of vessel, [place] or graft 414.00 Active Medications Medication Code System Code Instructions Start Date End Date Status Dosage Dimondale [facility] [address]-20 5-325 MG Orally every 6 hrs 1 tablet as needed Imdur NDC 0 not defined Atorvastatin Calcium [facility] [address]-21 not defined Amoxicillin [facility] [address]-76 500 MG Orally 4 times daily 1 capsule Procedures Procedure Coding System Code Date INTRAORL-PERIAPICAL 1 FILM 68593 CPT-4 D0220 February 22, 2016 BITEWING - SINGLE FILM CPT-4 D0270 February 22, 2016 LTD ORAL EVALUATION - PROBLEM FOCUS CPT-4 D0140 February 22, 2016 Vital Signs Date/Time: February 22, 2016 Blood Pressure Diastolic 81 mmHg Blood Pressure Systolic 147 mmHg Height 69 in Results No Known Results Summary Purpose eClinicalWorks Submission
--- OUTSIDE RECORDS SUMMARY | 2018-06-08 20:23 | XMS REPORT ---
Author Author LORENA MCCORMICK Organization [facility] Address [address] [place] [address] Care Team Providers Care District Superintendent Name Role Phone LORENA MCCORMICK Unavailable PROBLEMS Type Condition ICD9-CM Code QHB19-BK Code Onset Dates Condition Status SNOMED Code Problem GERD without esophagitis K21.9 Active 816955429 Problem Irritability and anger R45.4 Active 740671296 Problem Essential hypertension I10 Active 46264556 Problem Atherosclerotic heart disease of [place] coronary artery without angina pectoris I25.10 Active 606556011320631 Problem Other hyperlipidemia E78.4 Active 84333282 Problem History of coronary artery stent placement Z95.5 Active 018029968 Problem Acute pain of left shoulder M25.512 Active 38369909 Problem Menorrhagia with irregular cycle N92.1 Active 804292247 Problem History of coronary artery bypass graft x 3 Z95.1 Active 226602408 Problem Mixed hyperlipidemia E78.2 Active 926558990 Problem Hyperlipidemia, unspecified E78.5 Active 63136414 Problem Gastroesophageal reflux disease without esophagitis K21.9 Active 488854481 ALLERGIES No Information SOCIAL HISTORY Never Assessed PLAN OF CARE VITAL SIGNS MEDICATIONS No Known Medications RESULTS Name Result Date Reference Range Xray : Spine, Thoracic 2 views (IN HOUSE) 2017-01-10 Xray : Spine, Lumbar 2-3 views (IN HOUSE) 2017-01-10 PROCEDURES Procedure Date Ordered Result Body Site X-RAY EXAM OF THORACIC SPINE January 10, 2017 X-RAY EXAM OF LOWER SPINE January 10, 2017 IMMUNIZATIONS No Known Immunizations MEDICAL (GENERAL) [...]
--- OUTSIDE RECORDS SUMMARY | 2018-06-08 20:23 | XMS REPORT ---
Author Author [facility] eClinicalWorks Address Unknown Phone Unavailable Care Team Providers Care Marriage And Family Counselor Name Role Phone [facility] Unavailable Allergies No Known Allergies Problems Problem Type Condition Code Onset Dates Condition Status Problem Other primary cardiomyopathies 425.4 Active Problem Coronary atherosclerosis of unspecified type of vessel, white earth or graft 414.00 Active Problem Unspecified chronic ischemic 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 Active Problem Other and unspecified hyperlipidemia 272.4 Active Problem Unspecified breast screening V76.10 Active Problem Encounter for long-term (current) use of other medications V58.69 Active Problem Unspecified essential hypertension 401.9 Active Medications Medication Code System Code Instructions Start Date End Date Status Dosage Zoloft [facility] [address]-95 100 MG Orally Once a day February 11, 2015 1 tablet Results No Known Results Summary Purpose eClinicalWorks Submission
--- OUTSIDE RECORDS SUMMARY | 2018-06-08 20:23 | XMS REPORT ---
Author Author [facility] eClinicalWorks Address Unknown Phone Unavailable Care Team Providers Care Boiling Tub Operator Name Role Phone ELVA [facility] Unavailable Allergies No Known Allergies Problems Problem Type Condition ICD-9 Code Onset Dates Condition Status Assessment Depression 311 Active Problem Other primary cardiomyopathies 425.4 Active Problem Coronary atherosclerosis of unspecified type of vessel, campo or graft 414.00 Active Problem Unspecified chronic ischemic 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 Active Problem Other and unspecified hyperlipidemia 272.4 Active Problem Unspecified breast screening V76.10 Active Problem Encounter for long-term (current) use of other medications V58.69 Active Problem Unspecified essential hypertension 401.9 Active Medications Medication Code System Code Instructions Start Date End Date Status Dosage Zoloft [facility] [address]-44 100 MG Orally Once a day February 11, 2015 1 tablet Results No Known Results Summary Purpose eClinicalWorks Submission
[2018-06-08] MEDS ORDERED: NITROGLYCERIN 0.4 MG SL TABS BTL 25'S SL ONE (20:24)
--- OUTSIDE RECORDS SUMMARY | 2018-06-08 20:24 | XMS REPORT | Continuity of Care Document ---
Author Author [facility] Organization [facility] Address Unknown Phone Unavailable Support Name Relationship Address Phone GEOVANI MCFADDEN Next Of Kin [address] [place], [place] [id number] Insurance Providers Payer Name Policy Number Subscriber Name Relationship Self Pay Kellie Duenas 01 Self / Same As Patient Advance Directives Directive Response Recorded Date Advance Directives N 03/13/13 12:54pm Health Care Power of Toy Department Manager N 03/13/13 12:54pm Organ Donor Y 03/13/13 12:54pm Problems No Known Problems or Medical conditions. Allergies, Adverse Reactions, Alerts Allergen Type Severity Reaction Last Updated No Known Drug Allergies 03/13/13 Medications Medication Dose Units Route Sig Qty Days Citalopram Hydrobromide (Celexa) 40 Mg PO HS Aspirin ([place] Aspirin) 81 Mg PO DAILY Omeprazole (Prilosec 20 Mg) 20 Mg PO HS Pravastatin Sodium (Pravachol) 40 Mg PO DAILY Prasugrel Hydrochloride (Effient) 10 Mg PO DAILY Hydrochlorothiazide 12.5 Mg PO DAILY Lisinopril (Prinivil) 20 Mg PO DAILY Response Recorded Date/Time Status not known Unknown Results No Known Relevant Diagnostic Tests, Laboratory Data and/or Discharge Summary.
--- OUTSIDE RECORDS SUMMARY | 2018-06-08 20:24 | XMS REPORT | Continuity of Care Document ---
Author Author [facility] Organization [facility] Address Unknown Phone Unavailable Care Team Providers Care Soap Maker Name Role Phone JEN DAVID KAYCE PP Insurance Providers Payer Name Policy Number Subscriber Name Relationship Self Pay Kellie Duenas Pati 01 Self / Same As Patient Advance Directives Directive Response Recorded Date Advance Directives N 05/03/13 10:31am Health Care Power of Dental Hygiene Administrative Assistant N 05/03/13 10:31am Organ Donor Y 05/03/13 10:31am Problems No Known Problems or Medical conditions. Allergies, Adverse Reactions, Alerts Allergen Type Severity Reaction Last Updated No Known Drug Allergies 03/13/13 Medications Medication Dose Units Route Sig Qty Days Nitroglycerin (Nitrostat) 0.4 Mg SL NEEDED Varenicline Tartrate (Chantix) 1 Mg PO BID Citalopram Hydrobromide (Celexa) 40 Mg PO HS Aspirin ([place] Aspirin) 81 Mg PO DAILY Omeprazole (Prilosec 20 Mg) 20 Mg PO HS Pravastatin Sodium (Pravachol) 40 Mg PO DAILY Prasugrel Hydrochloride (Effient) 10 Mg PO DAILY Hydrochlorothiazide 12.5 Mg PO DAILY Lisinopril (Prinivil) 20 Mg PO DAILY Immunizations Name Given Type influenza, split (incl. purified surface antigen) 05/03/13 A Response Recorded Date/Time Status not known Unknown Results Test Date Result Interp. Ref. Range Activated Partial Thromboplast Time March 13, 2013 12:50pm 34 SEC N 24-35 Alanine Aminotransferase (ALT/SGPT) March 13, 2013 12:50pm 28 U/L L 30-65 Albumin March 13, 2013 12:50pm 3.4 G/ DL N 3.4-5.0 Alkaline Phosphatase March 13, 2013 12:50pm 138 U/L H 50-136 Aspartate Amino Transf (AST/SGOT) March 13, 2013 12:50pm 14 U/L L 15-37 BUN/Creatinine Ratio March 14, 2013 5:39am 15 - Blood Urea Nitrogen March 14, 2013 5:39am 12 MG/DL N 7-18 Calcium Level March 14, 2013 5:39am 8.5 MG/DL N 8.5-10.1 Carbon Dioxide Level March 14, 2013 5:39am 26 MMOL/L N 21-32 Chloride Level March 14, 2013 5:39am 102 MMOL/L N 101-110 Creatinine March 14, 2013 5:39am 0.8 MG /DL N 0.6-1.3 Glucose Level March 14, 2013 5:39am 92 MG/DL N 74-106 Hematocrit March 14, 2013 5:39am 36 % N 35-52 Hemoglobin March 14, 2013 5:39am 11.3 G /DL L 11.5-16.0 Mean Corpuscular Hemoglobin March 14, 2013 5:39am 23 PG L 25-34 Mean Corpuscular Hemoglobin Concent March 14, 2013 5:39am 32 G/DL N 32-36 Mean Corpuscular Volume March 14, 2013 5:39am 74 FL L 80-99 Mean Platelet Volume March 14, 2013 5:39am 10.1 FL N 7.4-10.4 Platelet Count March 14, 2013 5:39am 224 10^3/uL N 130-400 Potassium Level March 14, 2013 5:39am 3.9 MMOL/L N 3.6-5.0 Prothrombin Time March 13, 2013 12:50pm 12.8 SEC N 12.2-14.7 Red Blood Count March 14, 2013 5:39am 4.85 10^6/uL N 4.35-5.85 Red Cell Distribution Width March 14, 2013 5:39am 17.7 % H 10.0-14.5 Sodium Level March 14, 2013 5:39am 136 MMOL/L N 135-145 Total Bilirubin March 13, 2013 12:50pm 0.1 MG/DL N 0.0-1.0 Total Protein March 13, 2013 12:50pm 7.9 G/DL N 6.4-8.2 White Blood Count March 14, 2013 5:39am 5.8 10^3/uL N 4.3-11.0 Estimat Glomerular Filtration Rate March 14, 2013 5:39am > 60 - INR Comment March 13, 2013 12:50pm 1.0 N 0.8-1.4 Procedures Procedure Code Date MRSA Screen 03/13/13
[2018-06-08] MEDS ORDERED: ASPIRIN 81 MG CHEW (CHILDREN'S ASA) ONE (20:25)
--- OUTSIDE RECORDS SUMMARY | 2018-06-08 20:25 | XMS REPORT | Continuity of Care Document ---
Author Author [facility] Address Unknown Phone Unavailable Allergies Active Description Code Type Severity Reaction Onset Reported/Identified Relationship to Patient Clinical Status Yes No Known Drug Allergies [id number] Drug Allergy Unknown N/A 03/13/2013 Medications There is no data. Problems Date Dx Coded Attending Type Code [...] DOA K V23.9 HIGH-RISK CARE UNSPEC 03/20/2008 TIGRE HUTSON REGGIE K V72.42 TEST POSITIVE RESULT 03/20/2008 FRANK CUADRA MD V23.9 HIGH-RISK CARE UNSPEC 03/20/2008 FRANK CUADRA MD V72.42 TEST POSITIVE RESULT 03/20/2008 VERONA THOMASON APRN V23.9 HIGH-RISK CARE UNSPEC 03/20/2008 VERONA THOMASON APRN V72.42 TEST POSITIVE RESULT 03/20/2008 LANDEROS DO, REGGIE K V23.9 HIGH-RISK CARE UNSPEC 03/20/2008 LANDEROS DO, REGGIE K V72.42 TEST POSITIVE RESULT 03/20/2008 LANDEROS DO, REGGIE K V23.9 HIGH-RISK CARE UNSPEC 03/20/2008 LANDEROS DO, REGGIE K V72.42 TEST POSITIVE RESULT 03/20/2008 FREDRICK VACCINE CUSTOMER REPRESENTATIVEJUANPABLOCY L V23.9 HIGH-RISK CARE UNSPEC 03/20/2008 FREDRICK VACCINE CUSTOMER REPRESENTATIVEJUANPABLOCY L V72.42 TEST POSITIVE RESULT 03/20/2008 LANDEROS DO, REGGIE K V23.9 HIGH-RISK CARE UNSPEC 03/20/2008 LANDEROS DO, REGGIE K V72.42 TEST POSITIVE RESULT 03/20/2008 LANDEROS DO, REGGIE K V23.9 HIGH-RISK CARE UNSPEC 03/20/2008 LANDEROS DO, REGGIE K V72.42 TEST POSITIVE RESULT 03/20/2008 LANDEROS DO, REGGIE K V23.9 HIGH-RISK CARE UNSPEC 03/20/2008 LANDEROS DO, REGGIE K V72.42 TEST POSITIVE RESULT 03/20/2008 ELVA MC APRN V23.9 HIGH-RISK CARE UNSPEC 03/20/2008 ELVA MC APRN E V72.42 TEST POSITIVE RESULT 04/01/2008 632 , MISSED 04/01/2008 V72.41 TEST NEGATIVE RESULT 04/01/2008 VERONA THOMASON APRN 632 , MISSED 04/01/2008 VERONA THOMASON APRN V72.41 TEST NEGATIVE RESULT 04/01/2008 632 , MISSED 04/01/2008 V72.41 TEST NEGATIVE RESULT 04/01/2008 632 , MISSED 04/01/2008 V72.41 TEST NEGATIVE RESULT 04/01/2008 LANDEROS DO REGGIE K 632 , MISSED 04/01/2008 LANDEROS DO, REGGIE K V72.41 TEST NEGATIVE RESULT 04/01/2008 LANDEROS DO, REGGIE K 632 , MISSED 04/01/2008 LANDEROS DO, REGGIE K V72.41 TEST NEGATIVE RESULT 04/01/2008 LANDEROS DO REGGIE K 632 , MISSED 04/01/2008 LANDEROS [...] DO, REGGIE K 632 , MISSED 04/01/2008 LANEDROS DO, REGGIE K V72.41 TEST NEGATIVE RESULT 04/01/2008 FREDRICK VACCINE CUSTOMER REPRESENTATIVE, ILYA L 632 , MISSED 04/01/2008 FREDRICK VACCINE CUSTOMER REPRESENTATIVE, ILYA L V72.41 TEST NEGATIVE RESULT 04/01/2008 LANDEROS DO, REGGIE K 632 , MISSED 04/01/2008 LANDEROS DO, REGGIE K V72.41 TEST NEGATIVE RESULT 04/01/2008 LANDEROS DO, REGGIE K 632 , MISSED 04/01/2008 LANDEROS DO, REGGIE K V72.41 TEST NEGATIVE RESULT 04/01/2008 LANDEROS DO, REGGIE K 632 , MISSED 04/01/2008 LANDEROS DO, REGGIE K V72.41 TEST NEGATIVE RESULT 04/01/2008 CANDIDALARACELI PIPER APRNE E 632 , MISSED 04/01/2008 CANDIDALGISEL PIPER APRNSIE E V72.41 TEST NEGATIVE RESULT 04/04/2008 V25.40 CONTRACEPTIVE SURVEILLANCE UNSPECIFIED 04/04/2008 V72.31 [employer] SERVICES DEVELOPER EXAM, ROUTINE 04/04/2008 VERONA THOMASON APRN V25.40 CONTRACEPTIVE SURVEILLANCE UNSPECIFIED 04/04/2008 VERONA THOMASON APRN V72.31 [employer] SERVICES DEVELOPER EXAM, ROUTINE 04/04/2008 V25.40 CONTRACEPTIVE SURVEILLANCE UNSPECIFIED 04/04/2008 V72.31 JAVA WE[employer] SERVICES DEVELOPER EXAM, ROUTINE 04/04/2008 V25.40 CONTRACEPTIVE SURVEILLANCE UNSPECIFIED 04/04/2008 V72.31 JAVA WEB SERVICES DEVELOPER EXAM, ROUTINE 04/04/2008 LANDEROS DO REGGIE K V25.40 CONTRACEPTIVE SURVEILLANCE UNSPECIFIED 04/04/2008 LANDEROS DO, REGGIE K V72.31 JAVA WE[employer] SERVICES DEVELOPER EXAM, ROUTINE 04/04/2008 LANDEROS DO REGGIE K V25.40 CONTRACEPTIVE SURVEILLANCE UNSPECIFIED 04/04/2008 LANDEORS DO, REGGIE K V72.31 JAVA [employer] SERVICES DEVELOPER EXAM, ROUTINE 04/04/2008 LANDEROS DO, REGGIE K V25.40 CONTRACEPTIVE SURVEILLANCE UNSPECIFIED 04/04/2008 LANDEROS DO, REGGIE K V72.31 JAVA WE[employer] SERVICES DEVELOPER EXAM, ROUTINE 04/04/2008 KHALIF KHALIL, FRANK Dodd V25.40 CONTRACEPTIVE SURVEILLANCE UNSPECIFIED 04/04/2008 KHALIF KHALIL, FRANK Dodd V72.31 JAVA [employer] SERVICES DEVELOPER EXAM, ROUTINE 04/04/2008 VERONA THOMASON APRN V25.40 CONTRACEPTIVE SURVEILLANCE UNSPECIFIED 04/04/2008 VERONA THOMASON APRN V72.31 JAVA WE[employer] SERVICES DEVELOPER EXAM, ROUTINE 04/04/2008 LANDEROS DO REGGIE K V25.40 CONTRACEPTIVE SURVEILLANCE UNSPECIFIED 04/04/2008 LANDEROS DO REGGIE K V72.31 JAVA WE[employer] SERVICES DEVELOPER EXAM, ROUTINE 04/04/2008 LANDEROS DO REGGIE K V25.40 CONTRACEPTIVE SURVEILLANCE UNSPECIFIED 04/04/2008 LANDEROS DO REGGIE K V72.31 JAVA [employer] SERVICES DEVELOPER EXAM, ROUTINE 04/04/2008 FREDRICK VACCINE CUSTOMER REPRESENTATIVE ILYA L V25.40 CONTRACEPTIVE SURVEILLANCE UNSPECIFIED 04/04/2008 FREDRICK DAWSONN ILYA L V72.31 J[employer] SERVICES DEVELOPER EXAM, ROUTINE 04/04/2008 LANDEROS DO REGGIE K V25.40 CONTRACEPTIVE SURVEILLANCE UNSPECIFIED 04/04/2008 LANDEROS DO REGGIE K V72.31 JAVA WE[employer] SERVICES DEVELOPER EXAM, ROUTINE 04/04/2008 LANDEROS DO REGGIE K V25.40 CONTRACEPTIVE SURVEILLANCE UNSPECIFIED 04/04/2008 LANDEROS DO REGGIE K V72.31 JAVA WE[employer] SERVICES DEVELOPER EXAM, ROUTINE 04/04/2008 LANDEROS DO REGGIE K V25.40 CONTRACEPTIVE SURVEILLANCE UNSPECIFIED 04/04/2008 LANDEROS DO, REGGIE K V72.31 JAVA WE[employer] SERVICES DEVELOPER EXAM, ROUTINE 04/04/2008 ELVA MC APRN E V25.40 CONTRACEPTIVE SURVEILLANCE UNSPECIFIED 04/04/2008 CANDIDALELVA PIPER APRN E V72.31 [employer] SERVICES DEVELOPER EXAM, ROUTINE 06/26/2008 112.1 CANDIDIASIS VAGINAL 06/26/2008 [...] LANDEROS DO, REGGIE K 616.10 VAGINITIS 06/26/2008 FRANK CUADRA MD N 112.1 CANDIDIASIS VAGINAL 06/26/2008 FRANK CUADRA MD N 616.10 VAGINITIS 06/26/2008 VERONA THOMASON APRN 112.1 CANDIDIASIS VAGINAL 06/26/2008 VERONA THOMASON APRN 616.10 VAGINITIS 06/26/2008 LANDEROS DO, REGGIE K 112.1 CANDIDIASIS VAGINAL 06/26/2008 LANDEROS DO, REGGIE K 616.10 VAGINITIS 06/26/2008 LANDEROS DO, REGGIE K 112.1 CANDIDIASIS VAGINAL 06/26/2008 LANDEROS DO, REGGIE K 616.10 VAGINITIS 06/26/2008 JUANPABLO ALCALA APRNCY L 112.1 CANDIDIASIS VAGINAL 06/26/2008 FREDRICK ADDIE [...] RUPTURE EARDRUM 09/09/2008 388.70 earache 09/09/2008 THOMASON VACCINE CUSTOMER REPRESENTATIVE, VERONA R 382.00 OTITIS MEDIA ACUTE WITHOUT SPONTANEOUS RUPTURE EARDRUM 09/09/2008 VERONA THOMASON APRN R 388.70 earache 09/09/2008 382.00 OTITIS MEDIA ACUTE [...] SPONTANEOUS RUPTURE EARDRUM 09/09/2008 VERONA THOMASON APRN R 388.70 earache 09/09/2008 LANDEROS DO, REGGIE K 382.00 OTITIS MEDIA ACUTE WITHOUT SPONTANEOUS RUPTURE EARDRUM 09/09/2008 LANDEROS DO, REGGIE K 388.70 earache 09/09/2008 LANDEROS DO, REGGIE K 382.00 OTITIS MEDIA ACUTE WITHOUT SPONTANEOUS RUPTURE EARDRUM 09/09/2008 LANDEROS DO, REGGIE K 388.70 earache 09/09/2008 FREDRICK VACCINE CUSTOMER REPRESENTATIVE, ILYA L 382.00 OTITIS MEDIA ACUTE WITHOUT SPONTANEOUS RUPTURE EARDRUM 09/09/2008 FREDRICK VACCINE CUSTOMER REPRESENTATIVE, ILYA L 388.70 earache 09/09/2008 LANDEROS DO, [...] LANDEROS DO, REGGIE K 388.70 EARACHE 09/09/2008 CANDIDAVERONIQUE REAL ELVA E 382.00 OTITIS MEDIA ACUTE WITHOUT SPONTANEOUS RUPTURE EARDRUM 09/09/2008 CANDIDAELVA PIPER APRN E 388.70 EARACHE 09/23/2008 780.60 FEVER, UNSPECIFIED 09/23/2008 V74.1 SCREENING EXAMINATION FOR PULMONARY TUBERCULOSIS 09/23/2008 THOMASONVERONA SANCHEZ APRN 780.60 FEVER, UNSPECIFIED 09/23/2008 THOMASON VERONA REAL V74.1 SCREENING EXAMINATION FOR PULMONARY TUBERCULOSIS 09/23/2008 [...] THOMASONVERONA SANCHEZ APRN 780.60 FEVER, UNSPECIFIED 09/23/2008 THOMASON VERONA REAL V74.1 SCREENING EXAMINATION FOR PULMONARY TUBERCULOSIS 09/23/2008 LANDEROS DO, REGGIE K 780.60 FEVER, UNSPECIFIED 09/23/2008 LANDEROS DO, REGGIE K V74.1 SCREENING EXAMINATION FOR PULMONARY TUBERCULOSIS 09/23/2008 LANDEROS DO, REGGIE K 780.60 FEVER, UNSPECIFIED 09/23/2008 LANDEROS DO, REGGIE K V74.1 SCREENING EXAMINATION FOR PULMONARY TUBERCULOSIS 09/23/2008 FREDRICK VACCINE CUSTOMER REPRESENTATIVEILYA Dodd L 780.60 FEVER, UNSPECIFIED 09/23/2008 FREDRICK ILYA REAL V74.1 SCREENING EXAMINATION FOR PULMONARY TUBERCULOSIS 09/23/2008 [...] V74.1 SCREENING EXAMINATION FOR PULMONARY TUBERCULOSIS 09/23/2008 ELVA MC APRN 780.60 FEVER, UNSPECIFIED 09/23/2008 ELVA MC APRN V74.1 SCREENING EXAMINATION FOR PULMONARY TUBERCULOSIS 10/06/2008 780.79 MALAISE AND FATIGUE 10/06/2008 VREONA THOMASON APRN 780.79 MALAISE AND FATIGUE 10/06/2008 780.79 MALAISE AND FATIGUE 10/06/2008 780.79 MALAISE AND FATIGUE 10/06/2008 LANDEROS DO, [...] REGGIE K 780.79 MALAISE AND FATIGUE 10/06/2008 FREDRICKILYA CORTES APRN 780.79 MALAISE AND FATIGUE 10/06/2008 LANDEROS [...] LANDEROS DO, REGGIE K 786.2 COUGH 01/26/2009 FRANK CUADRA MD N 466.0 BRONCHITIS, ACUTE 01/26/2009 FRANK CUADRA MD 786.2 COUGH 01/26/2009 VERONA THOMASON APRN 466.0 BRONCHITIS, ACUTE 01/26/2009 VERONA THOMASON APRN 786.2 COUGH 01/26/2009 LANDEROS DO, REGGIE K 466.0 BRONCHITIS, ACUTE 01/26/2009 LANDEROS DO, REGGIE K 786.2 COUGH 01/26/2009 LANDEROS DO, REGGIE K 466.0 BRONCHITIS, ACUTE 01/26/2009 LANDEROS DO, REGGIE K 786.2 COUGH 01/26/2009 FREDRICK VACCINE CUSTOMER REPRESENTATIVE, ILYA L 466.0 BRONCHITIS, ACUTE 01/26/2009 FREDRICK VACCINE CUSTOMER REPRESENTATIVE, ILYA L 786.2 COUGH 01/26/2009 LANDEROS DO, REGGIE K 466.0 BRONCHITIS, ACUTE 01/26/2009 LANDEROS DO, REGGIE K 786.2 COUGH 01/26/2009 LANDEROS DO, REGGIE K 466.0 BRONCHITIS, ACUTE 01/26/2009 LANDEROS DO, REGGIE K 786.2 COUGH 01/26/2009 LANDEROS DO, REGGIE K 466.0 BRONCHITIS, ACUTE 01/26/2009 LANDEROS DO, REGGIE K 786.2 COUGH 01/26/2009 HELHUONG REAL, ELVA E 466.0 BRONCHITIS, ACUTE 01/26/2009 HELLWIG ADDIE, ELVA E 786.2 COUGH 08/10/2009 381.81 DYSFUNCTION [...] DYSFUNCTION OF EUSTACHIAN TUBE 09/01/2009 698.9 itching ( pruritus) 09/01/2009 VERONA THOMASON APRN 698.9 itching (pruritus) 09/01/2009 698.9 itching ( pruritus) 09/01/2009 698.9 itching ( pruritus) 09/01/2009 LANDEROS DO, REGGIE K 698.9 itching (pruritus) 09/01/2009 LANDEROS DO, REGGIE K 698.9 itching (pruritus) 09/01/2009 LANDEROS DO, REGGIE K 698.9 itching (pruritus) 09/01/2009 FRANK CUADRA MD 698.9 itching (pruritus) 09/01/2009 VERONA THOMASON APRN 698.9 itching (pruritus) 09/01/2009 LANDEROS DO, REGGIE K 698.9 itching (pruritus) 09/01/2009 LANDEROS DO REGGIE K 698.9 itching (pruritus) 09/01/2009 ILYA ALCALA APRN 698.9 itching (pruritus) 09/01/2009 LANDEROS DOGISELA K 698.9 itching (pruritus) 09/01/2009 LANDEROS DO, REGGIE K 698.9 ITCHING (PRURITUS) 09/01/2009 LANDEROS DO, REGGIE K 698.9 ITCHING (PRURITUS) 09/01/2009 ELVA MC APRN 698.9 ITCHING (PRURITUS) 11/03/2009 782.1 ECHO VIRUS RASH 11/03/2009 VERONA THOMASON APRN 782.1 ECHO VIRUS RASH 11/03/2009 782.1 ECHO VIRUS RASH 11/03/2009 782.1 ECHO VIRUS RASH 11/03/2009 LANDEROS GISEL HUTSONA K 782.1 ECHO VIRUS RASH 11/03/2009 LANDEROS GISEL HUTSONA K 782.1 ECHO VIRUS RASH 11/03/2009 TIGRE HUTSON REGGIE K 782.1 ECHO VIRUS RASH 11/03/2009 KHALIF KHALIL, FRANK Dodd 782.1 ECHO VIRUS RASH 11/03/2009 VERONA THOMASON APRN 782.1 ECHO VIRUS RASH 11/03/2009 LANDEROS DO, REGGIE K 782.1 ECHO VIRUS RASH 11/03/2009 LANDEROS DO, REGGIE K 782.1 ECHO VIRUS RASH 11/03/2009 ILYA ALCALA APRN 782.1 ECHO VIRUS RASH 11/03/2009 LANDEROS DO, REGGIE K 782.1 ECHO VIRUS RASH 11/03/2009 TIGRE HUTSON REGGIE K 782.1 ECHO VIRUS RASH 11/03/2009 [...] WITH FEMALE GENITAL ORGANS 05/17/2010 LANDEROS DO, RGEGIE K 625.8 OTHER SPECIFIED SYMPTOMS ASSOCIATED WITH [...] PLANTAR FASCIAL FIBROMATOSIS 10/28/2011 729.5 foot pain ( soft tissue) 10/28/2011 VERONA THOMASON APRN 728.71 PLANTAR FASCIAL FIBROMATOSIS 10/28/2011 VERONA THOMASON APRN 729.5 foot pain (soft tissue) 10/28/2011 728.71 PLANTAR FASCIAL FIBROMATOSIS 10/28/2011 729.5 foot pain ( soft tissue) 10/28/2011 728.71 PLANTAR FASCIAL FIBROMATOSIS 10/28/2011 729.5 foot pain ( soft tissue) 10/28/2011 LANDEROS DO REGGIE K 728.71 PLANTAR FASCIAL FIBROMATOSIS 10/28/2011 LANDEROS DO, REGGIE K 729.5 foot pain (soft tissue) 10/28/2011 LANDEROS DO, REGGIE K 728.71 PLANTAR FASCIAL FIBROMATOSIS 10/28/2011 LANDEROS DO, REGGIE K 729.5 foot pain (soft tissue) 10/28/2011 LANDEROS DO REGGIE K 728.71 PLANTAR FASCIAL FIBROMATOSIS 10/28/2011 LANDEROS DO REGGIE K 729.5 foot pain (soft tissue) 10/28/2011 FRANK CUADRA MD 728.71 PLANTAR FASCIAL FIBROMATOSIS 10/28/2011 FRANK CUADRA MD 729.5 foot pain (soft tissue) 10/28/2011 VERONA THOAMSON APRN 728.71 PLANTAR FASCIAL FIBROMATOSIS 10/28/2011 VERONA THOMASON APRN 729.5 foot pain (soft tissue) 10/28/2011 LANDEROS DO REGGIE K 728.71 PLANTAR FASCIAL FIBROMATOSIS 10/28/2011 LANDEROS DO REGGIE K 729.5 foot pain (soft tissue) 10/28/2011 LANDEROS DO, REGGIE K 728.71 PLANTAR FASCIAL FIBROMATOSIS 10/28/2011 LANDEROS DO, REGGIE K 729.5 foot pain (soft tissue) [...] Pressure Isolated Elevated 12/13/2011 VERONA THOMASON APRN 787.91 diarrhea 12/13/2011 VERONA THOMASON APRN 796.2 [...] Pressure Isolated Elevated 12/13/2011 FRANK CUADRA MD 787.91 diarrhea 12/13/2011 FRANK CUADRA MD N [...] CUADRA MD 625.6 STRESS INCONTINENCE FEMALE 02/02/2012 FARNK CUADRA MD V76.10 BREAST CANCER SCREENING 02/02/2012 [...] V76.10 BREAST CANCER SCREENING 02/02/2012 LANDEROS DO, REGIGE K 625.6 STRESS INCONTINENCE FEMALE 02/02/2012 LANDEROS DO, REGGIE K V76.10 BREAST CANCER SCREENING 02/02/2012 ELVA MC APRN E 625.6 STRESS INCONTINENCE FEMALE 02/02/2012 ELVA MC [...] V05.3 HEP B (ADULT) DX 05/29/2012 VERONA THOMAOSN APRN V05.3 HEP B (ADULT) DX 05/29/2012 V05.3 HEP B (ADULT) DX 05/29/2012 V05.3 HEP B (ADULT) DX 05/29/2012 LANDEROS DOGISELA K V05.3 HEP B (ADULT) DX 05/29/2012 [...] REGGIE K V67.9 UNSPECIFIED FOLLOW-UP EXAMINATION 02/06/2013 ARACELI MC APRNE E 414.9 CHRONIC ISCHEMIC HEART DISEASE UNSPECIFIED 02/06/2013 ALEXANDRO DAWSONN, ELVA E V67.9 UNSPECIFIED FOLLOW-UP EXAMINATION 03/13/2013 [...] 03/13/2013 VERONA THOMASON APRN 425.4 CARDIOMYOPHATHY 03/13/2013 THOMASON ADDIE, VERONA Hawkins 786.50 CHEST PAIN 03/13/2013 LANDEROS DO, REGGIE K 414.00 CAD 03/13/2013 LANDEROS DO, REGGIE K 425.4 CARDIOMYOPHATHY 03/13/2013 LANDEROS DO, REGGIE K 786.50 CHEST PAIN 03/13/2013 LANDEROS DO, REGGIE K 414.00 CAD 03/13/2013 LANDEROS DO, REGGIE K 425.4 CARDIOMYOPHATHY 03/13/2013 LANDEROS DO, REGGIE K 786.50 CHEST PAIN 03/13/2013 FREDRICK VACCINE CUSTOMER REPRESENTATIVE, ILYA L 414.00 CAD 03/13/2013 FREDRICK VACCINE CUSTOMER REPRESENTATIVE, ILYA L 425.4 CARDIOMYOPHATHY 03/13/2013 FREDRICK VACCINE CUSTOMER REPRESENTATIVE, ILYA L 786.50 CHEST PAIN 03/13/2013 LANDEROS [...] DO, REGGIE K 786.50 CHEST PAIN 03/13/2013 ARACELI MC APRNE E 414.00 CAD 03/13/2013 [facility] E 425.4 CARDIOMYOPHATHY 03/13/2013 [facility] APRNSIE E 786.50 CHEST PAIN 03/14/2013 TORREY SALAS MD Ot 272.4 HYPERLIPIDEMIA NEC/NOS 03/14/2013 TORREY SALAS MD Ot 305.1 TOBACCO USE DISORDER 03/14/2013 TORREY SALAS MD Ot 311 DEPRESSIVE DISORDER NEC 03/14/2013 TORREY ASLAS MD Ot 411.1 INTERMED CORONARY SYND 03/14/2013 TORREY SALAS MD Ot 412 OLD MYOCARDIAL INFARCT 03/14/2013 TORREY SALAS MD Ot 414.01 CORONARY ATHEROSCLEROSIS OF [place] CORON 03/14/2013 TORREY SALAS MD Ot 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 03/14/2013 TORREY SALAS MD Ot 414.8 CHR ISCHEMIC HRT DIS NEC 03/14/2013 TORREY SALAS MD Ot 530.81 ESOPHAGEAL REFLUX 03/14/2013 TORREY SALAS MD Ot V17.49 FAMILY HISTORY OF OTHER CARDIOVASCULAR D 03/14/2013 JOSUE KHALIL, TORREY Servin Ot V45.82 PERCUTANEOUS TRANSLUM CORON ANGIOPLASTY 03/14/2013 TORREY SALAS MD Ot V58.63 LONG-TERM(CURRENT)USE OF ANTIPLATELET/AN 03/14/2013 TORREY SALAS MD Ot V58.66 LONG-TERM (CURRENT) USE OF ASPIRIN 03/14/2013 TORREY SALAS MD Ot V58.69 OTH MED,LT,CURRENT USE 03/21/2013 305.1 NONDEPENDENT TOBACCO USE DISORDER 03/21/2013 V58.69 LONG-TERM ( CURRENT) USE OF OTHER MEDICATIONS 03/21/2013 305.1 NONDEPENDENT TOBACCO USE DISORDER 03/21/2013 V58.69 LONG-TERM ( CURRENT) USE OF OTHER MEDICATIONS 03/21/2013 REGGIE LANDEROS [...] (CURRENT) USE OF OTHER MEDICATIONS 03/21/2013 FREDRICK VACCINE CUSTOMER REPRESENTATIVE, ILYA L 305.1 NONDEPENDENT TOBACCO USE DISORDER 03/21/2013 FREDRICK VACCINE CUSTOMER REPRESENTATIVE ILYA L V58.69 LONG-TERM (CURRENT) USE OF [...] LONG-TERM (CURRENT) USE OF OTHER MEDICATIONS 03/21/2013 ELVA MC APRN E 305.1 NONDEPENDENT TOBACCO USE DISORDER 03/21/2013 ELVA MC APRN E V58.69 LONG-TERM (CURRENT) USE OF OTHER MEDICATIONS 04/03/2013 272.4 HYPERLIPIDEMIA 04/03/2013 LANDEROS DO, REGGIE K 272.4 HYPERLIPIDEMIA 04/03/2013 LANDEROS DO, REGGIE K 272.4 HYPERLIPIDEMIA 04/03/2013 LANDEROS DO, REGGIE K 272.4 HYPERLIPIDEMIA 04/03/2013 KHALIF KHALIL, FRANK Dodd 272.4 HYPERLIPIDEMIA 04/03/2013 VERONA THOMASON APRN 272.4 HYPERLIPIDEMIA 04/03/2013 LANDEROS DO, REGGIE K 272.4 HYPERLIPIDEMIA 04/03/2013 LANDEROS DO, REGGIE K 272.4 HYPERLIPIDEMIA 04/03/2013 ILYA ALCALA APRN L 272.4 HYPERLIPIDEMIA 04/03/2013 LANDEROS DO, REGGIE K 272.4 HYPERLIPIDEMIA 04/03/2013 LANDEROS DO, REGGIE K 272.4 HYPERLIPIDEMIA 04/03/2013 LANDEROS DO, REGGIE K 272.4 HYPERLIPIDEMIA 04/03/2013 ELVA MC APRN E 272.4 HYPERLIPIDEMIA 05/03/2013 [facility] KHALIL [facility], MATT VELAZQUEZ CCDS Ot 272.4 HYPERLIPIDEMIA NEC/NOS 05/03/2013 [place]USTA CHAU, MATT CHAUP CCDS Ot 305.1 TOBACCO USE DISORDER 05/03/2013 AUGUSTA KHALIL FACC, MATT FACP CCDS Ot 311 DEPRESSIVE DISORDER NEC 05/03/2013 AUGUSTA KHALIL FACC, MATT FACP CCDS Ot 414.01 CORONARY ATHEROSCLEROSIS OF [place] CORON 05/03/2013 AUGUSTA KHALIL FACC, MATT FACP CCDS Ot 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 05/03/2013 AUGUSTA KHALIL FACC, MATT FACP CCDS Ot 414.8 CHR ISCHEMIC HRT DIS NEC 05/03/2013 AUGUSTA KHALIL FACC, ALI FACP CCDS Ot 530.81 ESOPHAGEAL REFLUX 05/03/2013 AUGUSTA KHALIL FACC, MATT FACP CCDS Ot 786.59 CHEST PAIN NEC 05/03/2013 AUGUSTA KHALIL FACC, MATT FACP CCDS Ot V45.82 PERCUTANEOUS TRANSLUM CORON ANGIOPLASTY 05/03/2013 MATT DERAS MD, FACC FACP CCDS Ot V58.63 LONG-TERM(CURRENT)USE OF ANTIPLATELET/AN 05/03/2013 MATT DERAS MD, FACC FACP CCDS Ot V58.66 LONG-TERM (CURRENT) USE OF ASPIRIN 05/03/2013 MATT DERAS MD, FACC FACP CCDS Ot V58.69 OTH MED,LT,CURRENT USE 07/29/2013 [...] ANGEL MD Ot 414.01 CORONARY ATHEROSCLEROSIS OF [place] CORON 07/29/2013 CAPO ANGEL MD Ot 414.8 CHR ISCHEMIC HRT DIS NEC 07/29/2013 CAPO ANGEL MD Ot 428.0 CONGESTIVE HEART FAILURE NOS 07/29/2013 CAPO ANGEL MD Ot 530.81 ESOPHAGEAL REFLUX 07/29/2013 CAPO ANGEL MD Ot V45.82 PERCUTANEOUS TRANSLUM CORON ANGIOPLASTY 07/29/2013 CAPO ANGEL MD Ot V58.63 LONG-TERM(CURRENT)USE OF ANTIPLATELET/AN 07/29/2013 JEANNE KHALIL, CAPO Vazquez Ot V58.69 OTH MED,LT,CURRENT USE 07/29/2013 JEANNE KHALIL, CAPO Vazquez Ot V85.37 BODY MASS INDEX 37.0-37.9, ADULT 08/21/2013 LANDEROS DO, REGGIE K 401.9 UNSPECIFIED ESSENTIAL HYPERTENSION 08/21/2013 FRANK CUADRA MD 401.9 UNSPECIFIED ESSENTIAL HYPERTENSION 08/21/2013 VERONA THOMASON APRN 401.9 UNSPECIFIED ESSENTIAL HYPERTENSION 08/21/2013 LANDEROS DO, REGGIE K 401.9 UNSPECIFIED ESSENTIAL HYPERTENSION 08/21/2013 LANDEROS DO, REGGIE K 401.9 UNSPECIFIED ESSENTIAL HYPERTENSION 08/21/2013 FREDRICK REAL ILYA L 401.9 UNSPECIFIED ESSENTIAL HYPERTENSION 08/21/2013 LANDEROS DO, REGGIE K 401.9 UNSPECIFIED ESSENTIAL HYPERTENSION 08/21/2013 LANDEROS DO, REGGIE K 401.9 UNSPECIFIED ESSENTIAL HYPERTENSION 08/21/2013 LANDEROS DO, REGGIE K 401.9 UNSPECIFIED ESSENTIAL HYPERTENSION 08/21/2013 ARACELI MC APRNE E 401.9 UNSPECIFIED ESSENTIAL HYPERTENSION 04/08/2014 FREDRICK REAL ILYA L 461.9 SINUSITIS ACUTE 04/08/2014 LANDEROS DO, [...] TO OTHER ORGANISM NOT ELSEWHERE CLASSIFIED 08/11/2014 ARACELI MC APRNE E 796.2 ELEVATED BLOOD PRESSURE READING WITHOUT DIAGNOSIS OF HYPERTENSION 06/09/2015 AUGUSTA KHALIL FACDamian, MATT VELAZQUEZ CCDS Ot 397.0 06/09/2015 AUGUSTA KHALIL FACDamian, MATT CHAUP CCDS Ot 414.01 06/09/2015 AUGUSTA KHALIL FACC, ALI FACP CCDS Ot 414.4 06/09/2015 AUGUSTA KHALIL FACC, ALI FACP CCDS Ot 424.0 06/09/2015 AUGUSTA KHALIL FACC, ALI FACP CCDS Ot 429.3 06/09/2015 AUGUSTA KHALIL FACC, ALI FACP CCDS Ot 786.59 06/09/2015 AUGUSTA KHALIL FACC, ALI FACP CCDS Ot V45.82 06/09/2015 ELVA MC VACCINE CUSTOMER REPRESENTATIVE Ot 729.5 06/09/2015 ELVA MC VACCINE CUSTOMER REPRESENTATIVE Ot 729.81 06/09/2015 ELVA MC VACCINE CUSTOMER REPRESENTATIVE Ot V45.81 06/09/2015 AUGUSTA KHALIL FACC, MATT FACP CCDS Ot E66.9 OBESITY, UNSPECIFIED 06/09/2015 AUGUSTA KHALIL FACC, ALI FACP CCDS Ot E78.5 HYPERLIPIDEMIA, UNSPECIFIED 06/09/2015 AUGUSTA KHALIL FACC, ALI FACP CCDS Ot I25.119 ATHSCL HEART DISEASE OF [place]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 W 06/09/2015 AUGUSTA KHALIL FACC, MATT FACP CCDS Ot K21.9 GASTRO-ESOPHAGEAL REFLUX DISEASE WITHOUT 06/09/2015 AUGUSTA KHALIL FACC, ALI FACP CCDS Ot R07.89 OTHER CHEST PAIN 06/09/2015 AUGUSTA KHALIL FACC, ALI FACP CCDS Ot Z68.36 BODY MASS INDEX (BMI) 36.0-36.9, ADULT 06/09/2015 AUGUSTA KHALIL FACC, ALI FACP CCDS Ot Z79.899 OTHER CUSTODIAL (CURRENT) DRUG THERAPY 06/09/2015 AUGUSTA KHALIL FACC, ALI FACP CCDS Ot Z87.891 PERSONAL HISTORY OF NICOTINE DEPENDENCE 06/09/2015 AUGUSTA KHALIL FACC, ALI FACP CCDS Ot Z95.1 PRESENCE OF AORTOCORONARY BYPASS GRAFT 06/09/2015 AUGUSTA KHALIL FACC, ALI FACP CCDS Ot Z98.61 CORONARY ANGIOPLASTY STATUS 07/01/2015 DEBBIE SANDOVAL LABORER MARINE TERMINAL Ot E78.5 07/01/2015 DEBBIE SANDOVAL LABORER MARINE TERMINAL Ot I25.10 07/01/2015 DEBBIE SANDOVAL LABORER MARINE TERMINAL Ot I42.9 07/01/2015 DEBBIE SANDOVAL LABORER MARINE TERMINAL Ot R10.30 09/30/2015 BAIDEBBIE GONZALEZ L LABORER MARINE TERMINAL Ot E78.5 09/30/2015 BAIMA, DEBBIE L LABORER MARINE TERMINAL Ot I25.10 09/30/2015 BAIMADEBBIE L LABORER MARINE TERMINAL Ot I42.9 09/30/2015 BAILISA, DEBBIE L LABORER MARINE TERMINAL Ot R10.30 10/09/2015 BAIDEBBIE GONZALEZ L LABORER MARINE TERMINAL Ot E78.5 10/09/2015 BAILISA, DEBBIE L LABORER MARINE TERMINAL Ot I25.10 10/09/2015 BAIDEBBIE GONZALEZ L LABORER MARINE TERMINAL Ot I42.9 10/09/2015 BAIDEBBIE GONZALEZ L LABORER MARINE TERMINAL Ot R10.30 09/29/2016 AUGUSTA KHALIL FACC, ALI FACP CCDS Ot 397.0 TRICUSPID VALVE DISEASE 09/29/2016 AUGUSTA KHALIL FACC, ALI FACP CCDS Ot 414.01 CORONARY ATHEROSCLEROSIS OF [place] CORON 09/29/2016 AUGUSTA KHALIL FACC, ALI FACP [...] PERCUTANEOUS TRANSLUM CORON ANGIOPLASTY 09/29/2016 ELVA MC VACCINE CUSTOMER REPRESENTATIVE Ot 729.5 PAIN IN LIMB 09/29/2016 ELVA MC VACCINE CUSTOMER REPRESENTATIVE Ot 729.81 SWELLING OF LIMB 09/29/2016 ELVA MC VACCINE CUSTOMER REPRESENTATIVE Ot V45.81 AORTOCORONARY BYPASS 09/29/2016 LORRIEDEBBIE GONZALEZ L LABORER MARINE TERMINAL Ot E78.5 HYPERLIPIDEMIA, UNSPECIFIED 09/29/2016 DEBBIE SANDOVAL L LABORER MARINE TERMINAL Ot I25.10 ATHSCL HEART DISEASE OF [place] CORONARY 09/29/2016 LORRIEDEBBIE GONZALEZ L LABORER MARINE TERMINAL Ot I42.9 CARDIOMYOPATHY, UNSPECIFIED 09/29/2016 LORRIEDEBBIE GONZALEZ L LABORER MARINE TERMINAL Ot R10.30 LOWER ABDOMINAL PAIN, UNSPECIFIED 10/04/2016 AUGUSTA KHALIL FACC, ALI FACP CCDS Ot 397.0 TRICUSPID VALVE DISEASE 10/04/2016 AUGUSTA KHALIL FACC, ALI FACP CCDS Ot 414.01 CORONARY ATHEROSCLEROSIS OF [place] CORON 10/04/2016 AUGUSTA KHALIL FACC, ALI FACP CCDS Ot 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 10/04/2016 AUGUSTA KHALIL FACDamian, ALI FACP CCDS Ot 424.0 MITRAL VALVE DISORDER 10/04/2016 AUGUSTA KHALIL FACDamian, ALI FACP CCDS Ot 429.3 CARDIOMEGALY 10/04/2016 AUGUSTA KHALLI FACC, ALI FACP CCDS Ot 786.59 CHEST PAIN NEC 10/04/2016 AUGUSTA KHALIL FACC, ALI FACP CCDS Ot V45.82 PERCUTANEOUS TRANSLUM CORON ANGIOPLASTY 10/04/2016 ELVA MC VACCINE CUSTOMER REPRESENTATIVE Ot 729.5 PAIN IN LIMB 10/04/2016 ELVA MC VACCINE CUSTOMER REPRESENTATIVE Ot 729.81 SWELLING OF LIMB 10/04/2016 ELVA MC VACCINE CUSTOMER REPRESENTATIVE Ot V45.81 AORTOCORONARY BYPASS 10/04/2016 DEBBIE SANDOVAL LABORER MARINE TERMINAL Ot E78.5 HYPERLIPIDEMIA, UNSPECIFIED 10/04/2016 DEBBIE SANDOVAL LABORER MARINE TERMINAL Ot I25.10 ATHSCL HEART DISEASE OF [place] CORONARY 10/04/2016 DEBBIE SANDOVAL LABORER MARINE TERMINAL Ot I42.9 CARDIOMYOPATHY, UNSPECIFIED 10/04/2016 DEBBIE SANDOVAL LABORER MARINE TERMINAL Ot R10.30 LOWER ABDOMINAL PAIN, UNSPECIFIED 10/04/2016 AUGUSTA KHALIL FACC, ALI FACP CCDS Ot 397.0 TRICUSPID VALVE DISEASE 10/04/2016 AUGUSTA KHALIL FACC, ALI FACP CCDS Ot 414.01 CORONARY ATHEROSCLEROSIS OF [place] CORON 10/04/2016 AUGUSTA KHALIL FACC, ALI FACP CCDS Ot 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 10/04/2016 AUGUSTA KHALIL FACC, ALI FACP CCDS Ot 424.0 MITRAL VALVE DISORDER 10/04/2016 AUGUSTA KHALIL FACC, ALI FACP CCDS Ot 429.3 CARDIOMEGALY 10/04/2016 AUGUSTA KHALIL FACC, ALI FACP CCDS Ot 786.59 CHEST PAIN NEC 10/04/2016 AUGUSTA KHALIL FACC, ALI FACP CCDS Ot V45.82 PERCUTANEOUS TRANSLUM CORON ANGIOPLASTY 10/04/2016 HELLWIG, ELVA E VACCINE CUSTOMER REPRESENTATIVE Ot 729.5 PAIN IN LIMB 10/04/2016 ELVA MC VACCINE CUSTOMER REPRESENTATIVE Ot 729.81 SWELLING OF LIMB 10/04/2016 ELVA MC VACCINE CUSTOMER REPRESENTATIVE Ot V45.81 AORTOCORONARY BYPASS 10/04/2016 JAIME, DEBBIE L LABORER MARINE TERMINAL Ot E78.5 HYPERLIPIDEMIA, UNSPECIFIED 10/04/2016 BAIMA, DEBBIE L LABORER MARINE TERMINAL Ot I25.10 ATHSCL HEART DISEASE OF [place] CORONARY 10/04/2016 BAIMA, DEBBIE L LABORER MARINE TERMINAL Ot I42.9 CARDIOMYOPATHY, UNSPECIFIED 10/04/2016 BAIMA, DEBBIE L LABORER MARINE TERMINAL Ot R10.30 LOWER ABDOMINAL PAIN, UNSPECIFIED 10/11/2016 AUGUSTA KHALIL FACC, ALI FACP CCDS Ot 397.0 TRICUSPID VALVE DISEASE 10/11/2016 AUGUSTA KHALIL FACC, ALI FACP CCDS Ot 414.01 CORONARY ATHEROSCLEROSIS OF [place] CORON 10/11/2016 AUGUSTA KHALIL FACC, ALI FACP CCDS Ot 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 10/11/2016 AUGUSTA KHALIL FACC, ALI FACP CCDS Ot 424.0 MITRAL VALVE DISORDER 10/11/2016 AUGUSTA KHALIL FACC, ALI FACP CCDS Ot 429.3 CARDIOMEGALY 10/11/2016 AUGUSTA KHALIL FACC, ALI FACP CCDS Ot 786.59 CHEST PAIN NEC 10/11/2016 AUGUSTA KHALIL FACC, ALI FACP CCDS Ot V45.82 PERCUTANEOUS TRANSLUM CORON ANGIOPLASTY 10/11/2016 ELVA MC VACCINE CUSTOMER REPRESENTATIVE Ot 729.5 PAIN IN LIMB 10/11/2016 ELVA MC VACCINE CUSTOMER REPRESENTATIVE Ot 729.81 SWELLING OF LIMB 10/11/2016 ELVA MC VACCINE CUSTOMER REPRESENTATIVE Ot V45.81 AORTOCORONARY BYPASS 10/11/2016 PHI SANDOVALHER L LABORER MARINE TERMINAL Ot E78.5 HYPERLIPIDEMIA, UNSPECIFIED 10/11/2016 JAIME, DEBBIE L LABORER MARINE TERMINAL Ot I25.10 ATHSCL HEART DISEASE OF [place] CORONARY 10/11/2016 LORRIELISA DEBBIE L LABORER MARINE TERMINAL Ot I42.9 CARDIOMYOPATHY, UNSPECIFIED 10/11/2016 BAIMA, DEBBIE L LABORER MARINE TERMINAL Ot R10.30 LOWER ABDOMINAL PAIN, UNSPECIFIED 10/11/2016 BAIMA, DEBBIE L LABORER MARINE TERMINAL Ot E78.4 OTHER HYPERLIPIDEMIA 10/11/2016 LORRIEDEBBIE GONZALEZ LABORER MARINE TERMINAL Ot I25.10 ATHSCL HEART DISEASE OF [place] CORONARY 10/11/2016 DEBBIE SANDOVAL LABORER MARINE TERMINAL Ot R06.09 OTHER FORMS OF DYSPNEA 10/11/2016 LORRIEDEBBIE GONZALEZ LABORER MARINE TERMINAL Ot R07.89 OTHER CHEST PAIN 10/11/2016 AUGUSTA KHALIL FACC, MATT FACP CCDS Ot E66.9 OBESITY, UNSPECIFIED 10/11/2016 AUGUSTA KHALIL FACC, MATT FACP CCDS Ot E78.5 HYPERLIPIDEMIA, UNSPECIFIED 10/11/2016 AUGUSTA KHALIL FACC, ALI FACP CCDS Ot I25.10 ATHSCL HEART DISEASE OF [place] CORONARY 10/11/2016 MATT DERAS MD, FACC FACP CCDS Ot I25.82 CHRONIC TOTAL OCCLUSION OF CORONARY [place] 10/11/2016 MATT DERAS MD, FACC FACP CCDS Ot K21.9 GASTRO-ESOPHAGEAL REFLUX DISEASE WITHOUT 10/11/2016 AUGUSTA KHALIL FACC ALI FACP CCDS Ot R07.89 OTHER CHEST PAIN 10/11/2016 AUGUSTA KHALIL FACC, ALI FACP CCDS Ot Z68.38 BODY MASS INDEX (BMI) 38.0-38.9, ADULT 10/11/2016 MATT DERAS MD, FACC FACP CCDS Ot Z79.899 OTHER CUSTODIAL (CURRENT) DRUG THERAPY 10/11/2016 AUGUSTA KHALIL FACC ALI FACP CCDS Ot Z87.891 PERSONAL HISTORY OF NICOTINE DEPENDENCE 10/11/2016 AUGUSTA KHALIL FACC ALI FACP CCDS Ot Z95.1 PRESENCE OF AORTOCORONARY BYPASS GRAFT 10/11/2016 AUGUSTA KHALIL FACC ALI FACP CCDS Ot Z95.5 PRESENCE OF CORONARY ANGIOPLASTY IMPLANT 10/28/2016 MATT DERAS MD, FACC FACP CCDS Ot E66.9 OBESITY, UNSPECIFIED 10/28/2016 AUGUSTA KHALIL FACC ALI FACP CCDS Ot E78.5 HYPERLIPIDEMIA, UNSPECIFIED 10/28/2016 AUGUSTA KHALIL FACC, ALI FACP CCDS Ot I25.10 ATHSCL HEART DISEASE OF [place] CORONARY 10/28/2016 AUGUSTA KHALIL FACC ALI FACP CCDS Ot I25.82 CHRONIC TOTAL OCCLUSION OF CORONARY [place] 10/28/2016 AUGUSTA MD FACC, ALI FACP CCDS Ot K21.9 GASTRO-ESOPHAGEAL REFLUX DISEASE WITHOUT 10/28/2016 AUGUSTA KHALIL FACC, ALI FACP CCDS Ot R07.89 OTHER CHEST PAIN 10/28/2016 AUGUSTA KHALIL FACC, ALI FACP CCDS Ot Z68.38 BODY MASS INDEX (BMI) 38.0-38.9, ADULT 10/28/2016 AUGUSTA KHALIL FACC, ALI FACP CCDS Ot Z79.899 OTHER CURRICULUM COUNSELOR (CURRENT) DRUG THERAPY 10/28/2016 AUGUSTA KHALIL FACC, ALI FACP CCDS Ot Z87.891 PERSONAL HISTORY OF NICOTINE DEPENDENCE 10/28/2016 AUGUSTA KHALIL FACC, ALI FACP CCDS Ot Z95.1 PRESENCE OF AORTOCORONARY BYPASS GRAFT 10/28/2016 AUGUSTA KHALIL FACC, ALI FACP CCDS Ot Z95.5 PRESENCE OF CORONARY ANGIOPLASTY IMPLANT 10/30/2016 AUGUSTA KHALIL FACC, ALI FACP CCDS Ot E66.9 OBESITY, UNSPECIFIED 10/30/2016 AUGUSTA KHALIL FACC, ALI FACP CCDS Ot E78.5 HYPERLIPIDEMIA, UNSPECIFIED 10/30/2016 AUGUSTA KHALIL FACC, ALI FACP CCDS Ot I25.10 ATHSCL HEART DISEASE OF [place] CORONARY 10/30/2016 AUGUSTA KHALIL FACC, ALI FACP CCDS Ot I25.82 CHRONIC TOTAL OCCLUSION OF CORONARY [place] 10/30/2016 AUGUSTA KHALIL FACC, ALI FACP CCDS Ot K21.9 GASTRO-ESOPHAGEAL REFLUX DISEASE WITHOUT 10/30/2016 AUGUSTA KHALIL FACC, ALI FACP CCDS Ot R07.89 OTHER CHEST PAIN 10/30/2016 AUGUSTA KHALIL FACC, ALI FACP CCDS Ot Z68.38 BODY MASS INDEX (BMI) 38.0-38.9, ADULT 10/30/2016 AUGUSTA KHALIL FACC, ALI FACP CCDS Ot Z79.899 OTHER CURRICULUM COUNSELOR (CURRENT) DRUG THERAPY 10/30/2016 AUGUSTA KHALIL FACC, ALI FACP CCDS Ot Z87.891 PERSONAL HISTORY OF NICOTINE DEPENDENCE 10/30/2016 AUGUSTA KHALIL FACC, ALI FACP CCDS Ot Z95.1 PRESENCE OF AORTOCORONARY BYPASS GRAFT 10/30/2016 AUGUSTA KHALIL FACC, ALI FACP CCDS Ot Z95.5 PRESENCE OF CORONARY ANGIOPLASTY IMPLANT 11/02/2016 BAIMA, DEBBIE L LABORER MARINE TERMINAL Ot E78.4 OTHER HYPERLIPIDEMIA 11/02/2016 BAIMA, DEBBIE L LABORER MARINE TERMINAL Ot I25.10 ATHSCL HEART DISEASE OF [place] CORONARY 11/02/2016 LORRIEPHI GONZALEZHER L LABORER MARINE TERMINAL Ot R06.09 OTHER FORMS OF DYSPNEA 11/02/2016 LORRIELISA DEBBIE L LABORER MARINE TERMINAL Ot R07.89 OTHER CHEST PAIN 08/14/2017 AUGUSTA KHALIL FACC, ALI FACP CCDS Ot 397.0 TRICUSPID VALVE DISEASE 08/14/2017 AUGUSTA KHALIL FACC, ALI FACP CCDS Ot 414.01 CORONARY ATHEROSCLEROSIS OF [place] CORON 08/14/2017 AUGUSTA KHALIL FACC, ALI FACP CCDS Ot 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 08/14/2017 AUGUSTA KHALIL FACC, ALI FACP CCDS Ot 424.0 MITRAL VALVE DISORDER 08/14/2017 AUGUSTA KHALIL FACC, ALI FACP CCDS Ot 429.3 CARDIOMEGALY 08/14/2017 AUGUSTA KHALIL FACC, ALI FACP CCDS Ot 786.59 CHEST PAIN NEC 08/14/2017 AUGUSTA KHALIL FACC, ALI FACP CCDS Ot V45.82 PERCUTANEOUS TRANSLUM CORON ANGIOPLASTY 08/14/2017 ELVA MC VACCINE CUSTOMER REPRESENTATIVE Ot 729.5 PAIN IN LIMB 08/14/2017 ELVA MC VACCINE CUSTOMER REPRESENTATIVE Ot 729.81 SWELLING OF LIMB 08/14/2017 ELVA MC VACCINE CUSTOMER REPRESENTATIVE Ot V45.81 AORTOCORONARY BYPASS 08/14/2017 JAIMEDEBBIE L LABORER MARINE TERMINAL Ot E78.5 HYPERLIPIDEMIA, UNSPECIFIED 08/14/2017 LORRIELISA DEBBIE L LABORER MARINE TERMINAL Ot I25.10 ATHSCL HEART DISEASE OF [place] CORONARY 08/14/2017 LORRIEDEBBIE GONZALEZ L LABORER MARINE TERMINAL Ot I42.9 CARDIOMYOPATHY, UNSPECIFIED 08/14/2017 LORRIELISA, DEBBIE L LABORER MARINE TERMINAL Ot R10.30 LOWER ABDOMINAL PAIN, UNSPECIFIED 08/14/2017 LORRIEPHI GONZALEZHER L LABORER MARINE TERMINAL Ot E78.4 OTHER HYPERLIPIDEMIA 08/14/2017 LORRIELISA, DEBBIE L LABORER MARINE TERMINAL Ot I25.10 ATHSCL HEART DISEASE OF [place] CORONARY 08/14/2017 LORRIEPHI GONZALEZHER L LABORER MARINE TERMINAL Ot R06.09 OTHER FORMS OF DYSPNEA 08/14/2017 LORRIELISA DEBBIE L LABORER MARINE TERMINAL Ot R07.89 OTHER CHEST PAIN 08/14/2017 DEGRAFFENREID-CHRISTY, LORENA L Ot R31.29 OTHER MICROSCOPIC HEMATURIA 08/15/2017 DEGRAFFENREID-CHRISTY, LORENA L Ot R31.29 OTHER MICROSCOPIC HEMATURIA 09/18/2017 DEGRAFFENREID-CHRISTY, LORENA L Ot N83.201 UNSPECIFIED OVARIAN CYST, RIGHT SIDE 09/18/2017 DEGRAFFENREID-CHRISTY, LORENA L Ot M54.9 DORSALGIA, UNSPECIFIED 09/18/2017 DEGRAFFENREID-CHRISTY, LORENA L Ot R31.29 OTHER MICROSCOPIC HEMATURIA 09/18/2017 DEGRAFFENREID-CHRISTY, LORENA L Ot R31.29 OTHER MICROSCOPIC HEMATURIA 06/01/2018 DEGRAFFENREID-CHRISTY, LORENA L Ot N83.201 UNSPECIFIED OVARIAN CYST, RIGHT SIDE 06/01/2018 DEGRAFFENREID-CHRISTY, LORENA L Ot M54.9 DORSALGIA, UNSPECIFIED 06/01/2018 DEGRAFFENREID-CHRISTY, LORENA L Ot R31.29 OTHER MICROSCOPIC HEMATURIA Procedures Code [place] [address] TB TEST INTRADERMAL 08/31/2012 69632 HEART CATH 03/21/2013 18986 EKG, TRACING (IN-HOUSE) 03/24/2013 37852 ROUTINE VENIPUNCTURE 04/18/2013 00378 CMP 04/18/2013 01461 LIPID PANEL 04/18/2013 43921 T4 FREE 04/18/2013 27224 TSH 04/18/2013 79092 CBC 04/18/2013 33485 NUCLEAR STRESS TESTING 05/09/2013 88172 ECHO 2D 05/09/2013 55416 ROUTINE VENIPUNCTURE 06/10/2013 48086 CMP 06/10/2013 41488 LIPID PANEL 06/10/2013 95063 VENOUS DOPPLER UNILATERAL/ LIMITED 08/21/2013 91505 ROUTINE VENIPUNCTURE 09/09/2013 44376 CMP 09/09/2013 50893 LIPID PANEL 09/09/2013 19317 MAGNESIUM 09/09/2013 08758 TSH 09/09/2013 40931 CBC W/MANUAL DIF (order) 09/09/2013 76113 ROUTINE VENIPUNCTURE 11/13/2013 60394 HEMOGLOBIN (IN-HOUSE) 11/13/2013 82301 CMP 11/13/2013 19534 LIPID PANEL 11/13/2013 36392 ROUTINE VENIPUNCTURE 02/26/2014 0939616 GFR CALC (RESULT ONLY) 02/26/2014 28383 CMP 02/26/2014 65390 LIPID PANEL 02/26/2014 10481 ROUTINE VENIPUNCTURE 07/04/2014 25446 TSH 07/04/2014 2884670 GFR CALC (RESULT ONLY) 07/04/2014 79941 CMP 07/04/2014 48399 LIPID PANEL 07/04/2014 12473 ROUTINE VENIPUNCTURE 08/11/2014 61891 EKG, TRACING (IN-HOUSE) 08/11/2014 66934 TROPONIN, QUANT 08/11/2014 38653 ROUTINE VENIPUNCTURE 10/20/20145449030 GFR CALC (RESULT ONLY) 10/20/2014 72000 CMP 10/20/2014 53640 LIPID PANEL 10/20/2014 Results Test Result Range Automated blood complete blood count (hemogram) panel - 10/11/16 07:42 Blood leukocytes automated count (number/volume) 8.9 10*3/uL 4.3-11.0 Blood erythrocytes automated count (number/volume) 4.72 10*6/uL 4.35-5.85 Venous blood hemoglobin measurement (mass/volume) 12.6 g/dL 11.5-16.0 Blood hematocrit (volume fraction) 38 % 35-52 Automated erythrocyte mean corpuscular volume 80 [foz_us] 80-99 Automated erythrocyte mean corpuscular hemoglobin (mass per erythrocyte) 27 pg 25-34 Automated erythrocyte mean corpuscular hemoglobin concentration measurement ( mass/volume) 33 g/dL 32-36 Automated erythrocyte distribution width ratio 14.5 % 10.0-14.5 Automated blood platelet count (count/volume) 179 10*3/uL 130-400 Automated blood platelet mean volume measurement 10.7 [foz_us] 7.4-10.4 PT panel in platelet poor plasma by coagulation assay - 10/11/16 07:42 Prothrombin time (PT) in platelet poor plasma by coagulation assay 13.3 s 12.2-14.7 INR in platelet poor plasma or blood by coagulation assay 1.0 0.8-1.4 Activated partial thromboplastin time (aPTT) in platelet poor plasma bycoagulation assay - 10/11/16 07:42 Activated partial thromboplastin time (aPTT) in platelet poor plasma bycoagulation assay 31 s 24-35 Comprehensive metabolic panel - 10/11/16 07:42 Serum or plasma sodium measurement (moles/volume) 139 mmol/L 135-145 Serum or plasma potassium measurement (moles/volume) 4.2 mmol/L 3.6-5.0 Serum or plasma chloride measurement (moles/volume) 107 mmol/L 98-107 Carbon dioxide 22 mmol/L 21-32 Serum or plasma anion gap determination (moles/volume) 10 mmol/L 5-14 Serum or plasma urea nitrogen measurement (mass/volume) 14 mg/dL 7-18 Serum or plasma creatinine measurement (mass/volume) 0.78 mg/dL 0.60-1.30 Serum or plasma urea nitrogen/creatinine mass ratio 18 NRG Serum or plasma creatinine measurement with calculation of estimated glomerular filtration rate > NRG Serum or plasma glucose measurement (mass/volume) 105 mg/dL 70-105 Serum or plasma calcium measurement (mass/volume) 8.9 mg/dL 8.5-10.1 Serum or plasma total bilirubin measurement (mass/volume) 0.4 mg/dL 0.1-1.0 Serum or plasma alkaline phosphatase measurement (enzymatic activity/volume) 88 U/L 40-136 Serum or plasma aspartate aminotransferase measurement (enzymatic activity/ volume) 14 U/L 5-34 Serum or plasma alanine aminotransferase measurement (enzymatic activity/volume ) 16 U/L 0-55 Serum or plasma protein measurement (mass/volume) 7.4 g/dL 6.4-8.2 Serum or plasma albumin measurement (mass/volume) 4.0 g/dL 3.2-4.5 Lipid 1996 panel - 10/11/16 07:42 Serum or plasma triglyceride measurement (mass/volume) 185 mg/dL <150 Serum or plasma cholesterol measurement (mass/volume) 210 mg/dL < 200 Serum or plasma cholesterol in HDL measurement (mass/volume) 37 mg/ dL 40-60 Cholesterol in LDL [mass/volume] in serum or plasma by direct assay 152 mg/dL 1-129 Serum or plasma cholesterol in VLDL measurement (mass/volume) 37 mg/ dL 5-40 Methicillin resistant Staphylococcus aureus (MRSA) screening culture - 07:42 Methicillin resistant Staphylococcus aureus (MRSA) screening culture NEG NR LIPID PANEL - 05/24/17 08:13 CHOLESTEROL, TOTAL 208 mg/dL <200 HDL CHOLESTEROL 37 mg/dL >50 TRIGLYCERIDES 237 mg/dL <150 LDL-CHOLESTEROL 133 mg/dL (calc) NRG CHOL/HDLC RATIO 5.6 (calc) <5.0 NON HDL CHOLESTEROL 171 mg/dL (calc) <130 CMP - 05/24/17 08:13 GLUCOSE 100 mg/dL 65-99 UREA NITROGEN (BUN) 15 mg/dL 7-25 CREATININE 0.84 mg/dL 0.50-1.10 eGFR NON-AFR. [place] 87 mL/min/1.73m2 > OR=60 eGFR 101 mL/min/1.73m2 > OR=60 BUN/CREATININE RATIO NOT APPLICABLE (calc) 6-22 SODIUM 140 mmol/L 135-146 POTASSIUM 4.0 mmol/L 3.5-5.3 CHLORIDE 108 mmol/L 98-110 CARBON DIOXIDE 29 mmol/L 20-31 CALCIUM 9.2 mg/dL 8.6-10.2 PROTEIN, TOTAL 7.2 g/dL 6.1-8.1 ALBUMIN 4.2 g/dL 3.6-5.1 GLOBULIN 3.0 g/dL (calc) 1.9-3.7 ALBUMIN/GLOBULIN RATIO 1.4 (calc) 1.0-2.5 BILIRUBIN, TOTAL 0.3 mg/dL 0.2-1.2 ALKALINE PHOSPHATASE 73 U/L 33-115 AST 12 U/L 10-30 ALT 12 U/L 6-29 CBC - 05/24/17 08:13 MESSAGE: NRG CONTAINER TYPE: EDTA lavender NRG QUESTION/PROBLEM Presumptive CBC test run NRG MICROALBUMIN/CREATININE RATIO, URINE - 05/24/17 12:19 CREATININE, RANDOM URINE 74 mg/dL 20-320 MICROALBUMIN 3.1 mg/dL See Note: MICROALBUMIN/CREATININE RATIO, RANDOM URINE 42 mcg/mg creat <30 UA W/ MICROSCOPY - 08/08/17 13:15 COLOR YELLOW YELLOW APPEARANCE TURBID CLEAR SPECIFIC GRAVITY 1.026 1.001-1.035 PH 5.5 5.0-8.0 GLUCOSE NEGATIVE NEGATIVE BILIRUBIN NEGATIVE NEGATIVE KETONES NEGATIVE NEGATIVE OCCULT BLOOD TRACE NEGATIVE PROTEIN TRACE NEGATIVE NITRITE NEGATIVE NEGATIVE LEUKOCYTE ESTERASE NEGATIVE NEGATIVE WBC NONE SEEN /HPF < OR=5 RBC NONE SEEN /HPF < OR=2 SQUAMOUS EPITHELIAL CELLS 0-5 /HPF < OR=5 BACTERIA NONE SEEN /HPF NONE SEEN HYALINE CAST NONE SEEN /LPF NONE SEEN THYROID ANALYZER - 12/15/17 13:21 TSH 0.87 mIU/L NRG DIFFERENTIAL, MANUAL - 12/15/17 13:21 ABSOLUTE NEUTROPHILS 3638 cells/uL 4462-7298 ABSOLUTE MONOCYTES 279 cells/uL 200-950 ABSOLUTE EOSINOPHILS 0 cells/uL 15-500 ABSOLUTE BASOPHILS 0 cells/uL 0-200 NEUTROPHILS 53.5 % NRG LYMPHOCYTES 42.4 % NRG MONOCYTES 4.1 % NRG EOSINOPHILS 0 % NRG BASOPHILS 0 % NRG ABSOLUTE LYMPHOCYTES 2883 cells/uL 850-3900 PLATELET ESTIMATION ADEQUATE ADEQUATE Encounters ACCT No. Visit Date/Time Discharge Status Pt. Type Provider Facility Loc./Unit Complaint [id number] 10/20/2014 08:13:00 10/20/2014 23:59:59 CLS Outpatient ELVA MC APRN [id number] 08/11/2014 10:34:00 08/11/2014 23:59:59 CLS Outpatient REGGIE LANDEROS DO [id number] 08/01/2014 08:20:00 08/01/2014 23:59:59 CLS Outpatient REGGIE LANDEROS DO [id number] 07/04/2014 08:48:00 07/04/2014 23:59:59 CLS Outpatient REGGIE LANDEROS DO [id number] 04/08/2014 09:28:00 04/08/2014 23:59:59 CLS Outpatient ILYA ALCALA APRN [id number] 02/26/2014 09:56:00 02/26/2014 23:59:59 CLS Outpatient REGGIE LANDEROS DO [id number] 11/13/2013 08:11:00 11/13/2013 23:59:59 CLS Outpatient REGGIE LANDEROS DO [id number] 09/09/2013 08:28:00 09/09/2013 23:59:59 CLS Outpatient VERONA THOMASON APRN [id number] 08/26/2013 13:39:00 08/26/2013 23:59:59 CLS Outpatient FRANK CUADRA MD [id number] 08/21/2013 08:09:00 08/21/2013 23:59:59 CLS Outpatient REGGIE LANDEROS DO [id number] 06/10/2013 08:08:00 06/10/2013 23:59:59 CLS Outpatient REGGIE LANDEROS DO [id number] 04/18/2013 08:06:00 04/18/2013 23:59:59 CLS Outpatient REGGIE LANDEROS DO [id number] 08/31/2012 15:35:00 08/31/2012 23:59:59 CLS Outpatient [id number] 05/29/2012 15:02:00 05/29/2012 23:59:59 CLS Outpatient VERONA THOMASON APRN [id number] 04/17/2013 11:32:00 Document Registration [id number] 03/21/2013 11:29:00 Document Registration [id number] 05/28/2018 11:56:00 05/28/2018 23:59:59 CLS Outpatient MATT DERAS MD, FACC, FACP CCDS [facility] CARD PALPITATIONS [id number] 08/23/2017 14:44:00 08/23/2017 23:59:59 CLS Outpatient DEGRAFFENREID-WESTLEY LORENA L [facility] RAD ADNEXAL CYST [id number] 08/14/2017 10:57:00 08/14/2017 23:59:59 CLS Outpatient DEGRAFFENREID-WESTLEY LORENA L [facility] RAD R31.29 MICROSCOPIC HEMATURIA [id number] 08/09/2017 10:24:00 08/09/2017 23:59:59 CLS Outpatient DEGRAFFENREID-WESTLEY LORENA L [facility] RAD MICROSCOPIC HEMATURIA [id number] 10/11/2016 07:12:00 10/11/2016 13:15:00 DIS Outpatient MATT DERAS MD, FACC, FACP CCDS [facility] CATH CAD,HTN, HYPERLIPIDEMIA,ANGINA,SOB [id number] 10/04/2016 11:26:00 10/04/2016 23:59:59 CLS Outpatient DEBBIE SANDOVAL LABORER MARINE TERMINAL [facility] CARD CHEST PAIN,CAD,HLP, OLIVAREZ [id number] 06/25/2015 14:35:00 06/25/2015 23:59:59 CLS Outpatient DEBBIE SANDOVAL L LABORER MARINE TERMINAL [facility] RAD CAD, LT GROIN PAIN HLP, CARDIOMYOTHAY [id number] 06/09/2015 06:39:00 06/09/2015 15:10:00 DIS Outpatient AUGUSTA KAHLIL FACC, MATT FACP CCDS [facility] CATH ANGINA CAD [id number] 08/21/2013 10:39:00 08/21/2013 23:59:59 CLS Outpatient ELVA MC APRN [facility] RAD RT ARM PAIN,SWELLING , S/P TRIPLE BY-PASS [id number] 07/29/2013 01:04:00 07/29/2013 10:04:00 DIS Outpatient CAPO ANGEL MD [facility] CATH CHEST PAIN [id number] 05/03/2013 10:13:00 05/03/2013 19:35:00 DIS Outpatient AUGUSTA KHALIL FACC, MATT FACP CCDS [facility] CATH ABNORMAL STRESS,CAD,ANGINA, SOB [id number] 04/29/2013 09:29:00 04/29/2013 23:59:59 CLS Outpatient AUGUSTA HKALIL FACC, MATT FACP CCDS [facility] CARD CAD,HX OF CHRONIC OCCLUSION OF RCA,CHEST DISCOMFOR [id number] 03/13/2013 12:27:00 03/14/2013 10:15:00 DIS Outpatient JOSUE KHALIL, TORREY Servin [facility] CATH ANGINA [id number] 06/08/2018 20:13:00 ACT Emergency BERNA PATEL MD [facility] ER CHEST PAIN;SOB [id number] 12/15/2017 12:00:00 12/15/2017 23:59:59 CLS Outpatient LORENA MCCORMICK [facility] [id number] 12/15/2017 12:00:00 Document Registration [id number] 08/08/2017 13:00:00 Document Registration [id number] 05/24/2017 11:20:00 Document Registration [id number] 05/24/2017 08:00:00 Document Registration
[2018-06-08] MEDS ORDERED: NITROGLYCERIN 0.4 MG SL TABS BTL 25'S SL PRN (20:30)
[2018-06-08] MEDS ORDERED: ASPIRIN 81 MG CHEW (CHILDREN'S ASA) PO ONE (20:30)
[2018-06-08 20:33] LABS: BASOPHILS # (AUTO) 0.1 10^3/uL (0.0-0.1); BASOPHILS % (AUTO) 1 % (0-10); EOSINOPHILS % (AUTO) 0 % (0-10); HEMATOCRIT 38 % (35-52); HEMOGLOBIN 11.8 G/DL (11.5-16.0); LYMPHOCYTES # (AUTO) 3.7 X 10^3 (1.0-4.0); LYMPHOCYTES % (AUTO) 33 % (12-44); MEAN CORPUSCULAR HEMOGLOBIN 23 PG (25-34); MEAN CORPUSCULAR HGB CONC 31 G/DL (32-36); MEAN CORPUSCULAR VOLUME 75 FL (80-99); MONOCYTES # (AUTO) 0.7 X 10^3 (0.0-1.0); MONOCYTES % (AUTO) 6 % (0-12); NEUTROPHILS % (AUTO) 61 % (42-75); PLATELET COUNT 241 10^3/uL (130-400); RED CELL DISTRIBUTION WIDTH 16.4 % (10.0-14.5); WHITE BLOOD COUNT 11.4 10^3/uL (4.3-11.0)
[2018-06-08] MEDS ORDERED: ONDANSETRON 4 MG/2 ML (SDV) Z0FRAN ONE (20:37)
[2018-06-08 20:47] LABS: INR 1.1 (0.8-1.4); PROTHROMBIN TIME PATIENT 13.9 SEC (12.2-14.7)
[2018-06-08] MEDS ORDERED: LORazepam INJ 2 MG/ML (ATIVAN) VIAL IVP ONE (21:00)
[2018-06-08] MEDS ORDERED: ONDANSETRON 4 MG/2 ML (SDV) Z0FRAN IVP ONE (21:00)
[2018-06-08 21:01] LABS: ALANINE AMINOTRANSFERASE 21 U/L (0-55); ALBUMIN 4.3 GM/DL (3.2-4.5); ALKALINE PHOSPHATASE 78 U/L (40-136); AMYLASE 56 U/L (25-125); BILIRUBIN,TOTAL 0.4 MG/DL (0.1-1.0); BUN/CREATININE RATIO 17; CALCIUM 9.7 MG/DL (8.5-10.1); CARBON DIOXIDE 19 MMOL/L (21-32); CHLORIDE 107 MMOL/L (98-107); CREATININE SERUM 1.24 MG/DL (0.60-1.30); GFR ESTIMATED 48; GLUCOSE 88 MG/DL (70-105); LIPASE 8 U/L (8-78); MAGNESIUM 1.9 MG/DL (1.8-2.4); SODIUM 139 MMOL/L (135-145); TOTAL PROTEIN 7.7 GM/DL (6.4-8.2)
[2018-06-08 21:08] LABS: MYOGLOBIN SERUM 44.4 NG/ML (10.0-92.0)
--- NOTE | 2018-06-08 21:13 | Diagnostic Imaging Report ---
INDICATION: Chest pain. EXAMINATION: Portable erect AP chest at 8:51 p.m. FINDINGS: The heart is enlarged and the heart has increased in size since the prior exam of 07/28/2013. Also, in the interval since the prior exam, the patient has undergone a cardiac surgical procedure and there are now sternotomy wires and surgical clips evident. The lungs are generally clear. There is no sign of failure, pneumonia or a pleural effusion. The mediastinum is not widened. The osseous structures are intact. IMPRESSION: 1. There is cardiomegaly and there has been an interval cardiac surgical procedure. However, there is no sign of an acute cardiopulmonary abnormality. 2. Reportedly, CTA of the chest is pending for further evaluation. Dictated by: Dictated on workstation # [id number]
--- NOTE | 2018-06-08 21:16 | ED Chest Pain ---
General Chief Complaint: Chest Pain Stated Complaint: CHEST PAIN;SOB Nursing Triage Note: Pt c/o chest pain that began at approximately 1900. 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 Pt c/o L sided chest pain, SOB, and nausea. Pt has hx of heart attack and bipass surgery. Pt brought to ED by cousin. Pt's cousin states pt was "out of it" on the way to ER. Nursing Sepsis Screen: No Definite Risk Source: patient, other (friend) Exam Limitations: no limitations History of Present Illness Date Seen by Provider: Jun 08, 2018 Time Seen by Provider: 20:17 Initial Comments Patient is a 42-year-old female who presents to the emergency room by private conveyance with reports of chest pain that began around 1900 tonight. 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 She reports left-sided substernal chest pain, shortness of breath, and nausea. She' s got a significant cardiac history including bypass, [place], and stents. Dr. 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 She sees [facility] for primary care. Timing/Duration: 1 hour Severity/Quality: severe Location: substernal Radiation: no radiation Prior CP/Workup: cardiac cath, heart attack, other (triple bypass) ASA po BRANCH SERVICE SPECIALIST: No NTG SL BRANCH SERVICE SPECIALIST: No Associated Symptoms: nausea/vomiting, shortness of breath Allergies and Home Medications Allergies Coded Allergies: No Known Drug Allergies (Unverified , 03/13/13) Home Medications Aspirin 81 Mg Tablet., 81 MG PO DAILY, (Reported) Atorvastatin Calcium 80 Mg Tablet, 80 MG PO HS, (Reported) Clopidogrel Bisulfate 75 Mg Tablet, 75 MG PO DAILY, (Reported) Isosorbide Mononitrate 30 Mg Tab.er.24h, 30 MG PO DAILY, (Reported) Metoprolol Succinate 25 Mg Tab.er.24h, 25 MG PO BID, (Reported) Nitroglycerin 0.4 Mg Subl, 0.4 MG SL UD PRN for CHEST PAIN, (Reported) Pantoprazole Sodium 40 Mg Tablet.dr, 40 MG PO DAILY, (Reported) Sertraline HCl 100 Mg Tablet, 100 MG PO DAILY, (Reported) Patient Home Medication List Home Medication List Reviewed: Yes Review of Systems Review of Systems Constitutional: see HPI; No chills, No fever Cardiovascular: See HPI, Chest Pain Gastrointestinal: See HPI, Nausea All Other Systems Reviewed Negative Unless Noted: Yes Past Updglsh-Dyzpze-Wsiyfd Hx Past Med/Social Hx: Reviewed Nursing Past Med/Soc Hx Patient Social History Alcohol Use: Denies Use Recreational Drug Use: No Type Used: Cigarettes Former Smoker, Quit: Oct 11, 2014 2nd Hand Smoke Exposure: No Recent Foreign Travel: No Contact w/Someone Who Travel: No Recent Infectious Disease Expo: No Recent Hopitalizations: No Immunizations Up To Date Tetanus Booster (TDap): Unknown PED Vaccines UTD: No Date of Influenza Vaccine: Jun 29, 2016 Past Medical History Surgeries: Yes Cardiac Respiratory: No Cardiac: Yes ([place] X2, STENT X3) Neurological: No Reproductive Disorders: No Gastrointestinal: Yes (gerd) Gastroesophageal Reflux, Gall Bladder Disease Musculoskeletal: No Endocrine: No Cancer: No Psychosocial: No Integumentary: No Blood Disorders: No Family Medical History Reviewed Nursing Family Hx Family history: Cardiovascular disease 03 FATHER, Onset:Unknown 03 MOTHER, Onset:Unknown Heart disease No Family History of: Abdominal aortic aneurysm Heart Disease, Hypertension Physical Exam Vital Signs Vital Signs - First Documented Capillary Refill : Less Than 3 Seconds Height, Weight, BMI Height: 5'9.00" Weight: 250lbs. 0.0oz. [id number]; 38.3 BMI Method:Stated General Appearance: No Apparent Distress, WD/WN Neck: Full Range of Motion, Normal Inspection, Non Tender Respiratory: Chest Non Tender, Lungs Clear, Normal Breath Sounds, No Accessory Muscle Use, No Respiratory Distress Cardiovascular: Regular Rate, Rhythm, No Edema, No Gallop, No JVD, No Murmur, Normal Peripheral Pulses Gastrointestinal: Normal Bowel Sounds, No Organomegaly, No Pulsatile Mass, Non Tender Neurologic/Psychiatric: Alert, Oriented x3, Normal Mood/Affect Skin: Normal Color, Warm/Dry Progress/Results/Core Measures Results/Orders Lab Results Laboratory Tests Test 06/08/18 20:23 Range/Units White Blood Count 11.4 H 4.3-11.0 10^3/uL Red Blood Count 5.10 4.35-5.85 10^6/uL Hemoglobin 11.8 11.5-16.0 G/DL Hematocrit 38 35-52 % Mean Corpuscular Volume 75 L 80-99 FL Mean Corpuscular Hemoglobin 23 L 25-34 PG Mean Corpuscular Hemoglobin Concent 31 L 32-36 G/DL Red Cell Distribution Width 16.4 H 10.0-14.5 % Platelet Count 241 130-400 10^3/uL Mean Platelet Volume 11.0 H 7.4-10.4 FL Neutrophils (%) (Auto) 61 42-75 % Lymphocytes (%) (Auto) 33 12-44 % Monocytes (%) (Auto) 6 0-12 % Eosinophils (%) (Auto) 0 0-10 % Basophils (%) (Auto) 1 0-10 % Neutrophils # (Auto) 7.0 1.8-7.8 X 10^3 Lymphocytes # (Auto) 3.7 1.0-4.0 X 10^3 Monocytes # (Auto) 0.7 0.0-1.0 X 10^3 Eosinophils # (Auto) 0.0 0.0-0.3 10^3/uL Basophils # (Auto) 0.1 0.0-0.1 10^3/uL Prothrombin Time 13.9 12.2-14.7 SEC INR Comment 1.1 0.8-1.4 Activated Partial Thromboplast Time 28 24-35 SEC D-Dimer 0.66 H 0.00-0.49 UG/ML Sodium Level 139 135-145 MMOL/L Potassium Level 4.0 3.6-5.0 MMOL/L Chloride Level 107 98-107 MMOL/L Carbon Dioxide Level 19 L 21-32 MMOL/L Anion Gap 13 5-14 MMOL/L Blood Urea Nitrogen 21 H 7-18 MG/DL Creatinine 1.24 0.60-1.30 MG/DL Estimat Glomerular Filtration Rate 48 BUN/Creatinine Ratio 17 Glucose Level 88 70-105 MG/DL Calcium Level 9.7 8.5-10.1 MG/DL Corrected Calcium 9.5 8.5-10.1 MG/DL Magnesium Level 1.9 1.8-2.4 MG/DL Total Bilirubin 0.4 0.1-1.0 MG/DL Aspartate Amino Transf (AST/SGOT) 21 5-34 U/L Alanine Aminotransferase (ALT/SGPT) 21 0-55 U/L Alkaline Phosphatase 78 40-136 U/L Myoglobin 44.4 10.0-92.0 NG/ML Troponin I < 0.30 <0.30 NG/ML B-Type Natriuretic Peptide 653.5 H <100.0 PG/ML Total Protein 7.7 6.4-8.2 GM/DL Albumin 4.3 3.2-4.5 GM/DL Amylase Level 56 25-125 U/L Lipase 8 8-78 U/L My Orders Orders - EANFABIOLA Cbc With Automated Diff (06/08/18 20:) Magnesium (06/08/18:) Chest 1 View, Ap/Pa Only (06/08/18) Ekg Tracing (06/08/18) Cardiac Profile 1 (06/08/18) Comprehensive Metabolic Panel (06/08/18) Myoglobin Serum (06/08/18) Protime With Inr (06/08/18:) Partial Thromboplastin Time (06/08/18:) O2 (06/08/18:) Monitor-Rhythm Ecg Trace Only (06/08/18) Lipid Panel (06/09/18 06:00) Aspirin Chewable Tablet (Baby Aspirin Ch (06/08/18 20:30) Nitroglycerin 0.4 Mg Btl 25's (Nitrostat (06/08/18 20:30) Saline Lock/Iv-Start (06/08/18 20:25) Lipase (06/08/18 20:25) Amylase (06/08/18 20:25) BNP (06/08/18:) Fibrin Degradation Products (06/08/18:25) Ondansetron Injection (Zofran Injectio (06/08/18 20:37) Lorazepam Injection (Ativan Injection) (06/08/18 21:00) Ondansetron Injection (Zofran Injectio (06/08/18 21:00) Ct Angio Chest W (06/08/18 21:25) Furosemide Injection (Lasix Injection) (06/08/18 22:30) Potassium Chloride (Tablet) (Klor Con Ta (06/08/18 22:30) Medications Given in ED Current Medications Medications Dose Ordered Sig/Shannan Route Start Time Stop Time Status Last Admin Dose Admin Aspirin 324 mg ONCE ONCE PO 06/08/18 20:30 06/08/18 20:31 DC 06/08/18 20:27 324 MG Furosemide 80 mg ONCE ONCE IVP 06/08/18 22:30 06/08/18 22:31 DC 06/08/18 23:01 80 MG Lorazepam 0.5 mg ONCE ONCE IVP 06/08/18 21:00 06/08/18 21:01 DC 06/08/18 20:59 0.5 MG Nitroglycerin 0.4 mg UD PRN SL 06/08/18 20:30 06/08/18 20:27 0.4 MG Ondansetron HCl 4 mg STK-MED ONCE .ROUTE 06/08/18 20:37 06/08/18 20:38 DC 06/08/18 20:40 4 MG Potassium Chloride 20 meq ONCE ONCE PO 06/08/18 22:30 06/08/18 22:31 DC 06/08/18 23:02 20 MEQ Vital Signs/I&O 06/08/18 06/08/18 20:17 20:17 Temp 98.9 Pulse 63 Resp 18 B/P (MAP) 149/102 (118) Pulse Ox 100 O2 Delivery Room Air Room Air Blood Pressure Mean: 118 Progress Progress Note : Time: 22:15 Progress Note I have seen and evaluated the patient. I've informed her of her laboratory findings and will be ordering a CT angios of her chest to rule out pulmonary embolism. I spoke to Dr. Pedro at this time and he agrees to accept the patient as consult services and recommends continuing her aspirin, Plavix, metoprolol giving 80 of Lasix IV one time and 20 mEq of potassium by mouth once and echocardiogram in the morning. 2215: I informed the patient of normal CT scan of her chest. I spoke to Dr. Monroy at this time and she agrees to accept the patient to her services. Initial ECG Impression Date: Jun 08, 2018 Initial ECG Impression Time: 20:18 Initial ECG Rate: 75 Initial ECG Rhythm: Normal Sinus Initial ECG Comparisson: Unchanged Comment Multiple ventricular premature complexes Diagnostic Imaging Diagonstic Imaging: Xray, CT Plain Films/CT/US/NM/MRI: chest Comments NAME: SHAGUFTA DUENAS [facility] REC#: [id number] PT STATUS: REG ER : 1975 PHYSICIAN: FABIOLA MCKOY ADMIT DATE: 06/08/18/ER Signed Date of Exam: 06/08/18 CT ANGIO CHEST W PROCEDURE: CT angiography of the chest with contrast. TECHNIQUE: Multiple contiguous axial images were obtained through the chest after uneventful bolus administration of intravenous contrast. 2D reconstructed CTA MIP acquisitions were also performed. INDICATION: Chest pain. COMPARISON: There are no previous CTA chest examinations available for comparison. FINDINGS: The plain film examination of the chest performed earlier today at 8:51 p.m. did note cardiomegaly and evidence of prior cardiac surgery but failed to show any sign of an acute cardiopulmonary abnormality. On this study, there is no defect within the pulmonary arteries to indicate a pulmonary embolus. The aorta is not abnormally dilated and there is no sign of a dissection. There is cardiomegaly and coronary artery disease and there has been a prior cardiac surgical procedure. There are mild chronic pulmonary changes evident but there is no sign of failure, pneumonia or a pleural effusion to indicate an acute abnormality. There is no mediastinal or hilar adenopathy. The thyroid gland, where visualized, is unremarkable. There is no obvious breast mass. The sections through the upper abdomen fail to show any sign of an acute abnormality. The gallbladder is surgically absent. The bone windows are unremarkable for a fracture or for a destructive lesion. IMPRESSION: 1. There is cardiomegaly and evidence of prior cardiac surgery but there is no sign of an acute cardiopulmonary abnormality. In particular, there is no evidence for a pulmonary embolus or for a dissection. 2. There has been a prior cholecystectomy. Dictated by: Dictated on workstation # [id number] Dict: 06/08/182152 Trans: 06/08/182220 Interpreted by: HARPAL NEGRON MD Electronically signed by: HARPAL NEGRON MD 06/08/182220 NAME: SHAGUFTA DUENAS [facility] REC#: [id number] PT STATUS: REG ER : 1975 PHYSICIAN: FABIOLA MCKOY ADMIT DATE: 06/08/18/ER Signed Date of Exam: 06/08/18 CHEST 1 VIEW, AP/PA ONLY INDICATION: Chest pain. EXAMINATION: Portable erect AP chest at 8:51 p.m. FINDINGS: The heart is enlarged and the heart has increased in size since the prior exam of 07/28/2013. Also, in the interval since the prior exam, the patient has undergone a cardiac surgical procedure and there are now sternotomy wires and surgical clips evident. The lungs are generally clear. There is no sign of failure, pneumonia or a pleural effusion. The mediastinum is not widened. The osseous structures are intact. IMPRESSION: 1. There is cardiomegaly and there has been an interval cardiac surgical procedure. However, there is no sign of an acute cardiopulmonary abnormality. 2. Reportedly, CTA of the chest is pending for further evaluation. Dictated by: Dictated on workstation # [id number] Dict: 06/08/182101 Trans: 06/08/182209 Interpreted by: HARPAL NEGRON MD Electronically signed by: HARPAL NEGRON MD 06/08/182209 Reviewed: Reviewed by Me Departure Communication (Admissions) Time/Spoke to Admitting Phy: 21:15 Dr. Del Toro 2215: Dr. Monroy Impression Primary Impression: Chest pain Disposition: ADMITTED INPATIENT Condition: Stable/Unchanged Admissions Decision to Admit Reason: Admit from ER (General) Decision to Admit/Date: Jun 08, 2018 Time/Decision to Admit Time: 22:15 Transfer Time Spoke to Accepting Phy: 22:15 Departure-Patient Inst. Referrals: [facility] (PCP) Primary Care Physician MAYI KRISHNAN APRN (Family) Primary Care Physician FABIOLA MCKOY Jun 08, 2018 21:16
--- NOTE | 2018-06-08 22:07 | Diagnostic Imaging Report ---
PROCEDURE: CT angiography of the chest with contrast. TECHNIQUE: Multiple contiguous axial images were obtained through the chest after uneventful bolus administration of intravenous contrast. 2D reconstructed CTA MIP acquisitions were also performed. INDICATION: Chest pain. COMPARISON: There are no previous CTA chest examinations available for comparison. FINDINGS: The plain film examination of the chest performed earlier today at 8:51 p.m. did note cardiomegaly and evidence of prior cardiac surgery but failed to show any sign of an acute cardiopulmonary abnormality. On this study, there is no defect within the pulmonary arteries to indicate a pulmonary embolus. The aorta is not abnormally dilated and there is no sign of a dissection. There is cardiomegaly and coronary artery disease and there has been a prior cardiac surgical procedure. There are mild chronic pulmonary changes evident but there is no sign of failure, pneumonia or a pleural effusion to indicate an acute abnormality. There is no mediastinal or hilar adenopathy. The thyroid gland, where visualized, is unremarkable. There is no obvious breast mass. The sections through the upper abdomen fail to show any sign of an acute abnormality. The gallbladder is surgically absent. The bone windows are unremarkable for a fracture or for a destructive lesion. IMPRESSION: 1. There is cardiomegaly and evidence of prior cardiac surgery but there is no sign of an acute cardiopulmonary abnormality. In particular, there is no evidence for a pulmonary embolus or for a dissection. 2. There has been a prior cholecystectomy. Dictated by: Dictated on workstation # [id number]
[2018-06-08] MEDS ORDERED: FUROSEMIDE 40 MG/4 ML INJ (LASIX) IVP ONE (22:30)
[2018-06-08] MEDS ORDERED: KCL 10 MEQ TAB (MICRO K) PO ONE (22:30)
[2018-06-08 23:20] VITALS: BP 188/74
[2018-06-09] VITALS (7 sets, daily range): BP systolic 137–198; BP diastolic 59–82
[2018-06-09] MEDS ORDERED: NITROGLYCERIN 0.4 MG SL TABS BTL 25'S SL PRN (00:30)
[2018-06-09] MEDS ORDERED: BACLOFEN 10 MG (LIORESAL) TAB PO SCH (04:15)
[2018-06-09 04:51] LABS: BASOPHILS % (AUTO) 1 % (0-10); EOSINOPHILS % (AUTO) 1 % (0-10); HEMATOCRIT 36 % (35-52); LYMPHOCYTES # (AUTO) 2.7 X 10^3 (1.0-4.0); LYMPHOCYTES % (AUTO) 32 % (12-44); MEAN CORPUSCULAR HEMOGLOBIN 23 PG (25-34); MEAN CORPUSCULAR HGB CONC 31 G/DL (32-36); MEAN CORPUSCULAR VOLUME 75 FL (80-99); MONOCYTES # (AUTO) 0.5 X 10^3 (0.0-1.0); MONOCYTES % (AUTO) 6 % (0-12); NEUTROPHILS # (AUTO) 5.1 X 10^3 (1.8-7.8); NEUTROPHILS % (AUTO) 61 % (42-75); PLATELET COUNT 224 10^3/uL (130-400); RED BLOOD COUNT 4.74 10^6/uL (4.35-5.85); RED CELL DISTRIBUTION WIDTH 16.6 % (10.0-14.5); WHITE BLOOD COUNT 8.4 10^3/uL (4.3-11.0)
[2018-06-09 05:13] LABS: ALANINE AMINOTRANSFERASE 20 U/L (0-55); ALKALINE PHOSPHATASE 75 U/L (40-136); BILIRUBIN,TOTAL 0.4 MG/DL (0.1-1.0); BUN/CREATININE RATIO 18; CALCIUM 9.6 MG/DL (8.5-10.1); CARBON DIOXIDE 24 MMOL/L (21-32); CHLORIDE 104 MMOL/L (98-107); CREATINE KINASE 49 U/L (29-168); CREATININE SERUM 1.16 MG/DL (0.60-1.30); GFR ESTIMATED 51; GLUCOSE 115 MG/DL (70-105); POTASSIUM 3.6 MMOL/L (3.6-5.0); SODIUM 140 MMOL/L (135-145); TOTAL PROTEIN 7.3 GM/DL (6.4-8.2)
[2018-06-09 05:14] LABS: CHOLESTEROL 273 MG/DL (< 200); HDL CHOLESTEROL 30 MG/DL (40-60); TRIGLYCERIDES 271 MG/DL (<150); VLDL CHOLESTEROL 54 MG/DL (5-40)
[2018-06-09] MEDS ORDERED: FLU QUADRIvalent (5+ YOA) 2018-2019 (AFLURIA) 0.5 ML IM ONE (07:15)
[2018-06-09] MEDS ORDERED: METO-333 PO ×2 (08:39→15:28)
[2018-06-09] MEDS ORDERED: ROSU40TA PO (08:39)
[2018-06-09] MEDS ORDERED: meTOprolol TARTRATE 25 MG (LOPRESSOR) TABLET PO SCH ×2 (09:00→21:00)
[2018-06-09] MEDS ORDERED: ASPIRIN 81 MG CHEW (CHILDREN'S ASA) PO SCH (09:00)
[2018-06-09] MEDS ORDERED: CLOPIDOGREL 75 MG (PLAVIX) TABLET PO SCH (09:00)
--- NOTE | 2018-06-09 11:21 | Consultation-Cardiology ---
HPI-Cardiology Cardiology Consultation: Date of Consultation 06/09/18 Time Seen by a Provider: 11:15 Date of Admission Attending Physician Anabela Monroy DO Admitting Physician Aditya Bashir - Ch[facility] Of Consulting Physician MATT DERAS MD, MA, FACP, FACC, FSCAI, CCDS HPI: Chief Complaint: CC: Chest pain HPI: 42 yo who presented to ER last night with chest pain: first such episode, started at rest, lasted a couple of hours, mod to severe in intensity, gradually resolved, no aggravating or relieving factors, not associated with other symptoms, no radiation, no recurrence since admitted Has had slowly progressive exertional of dyspnea for many months, considerably worse the last several days Has chronic dizziness that is present nearly all of the time Denies syncope Notes intermittent palp consisting of a feeling of rapid heart rate: slow onset and gradual termination Chronic mild intermittent leg swelling Chronic gen malaise and tiredness and lack of adequate stamina, somewhat worse lately Review of Systems-Cardiology Review of Systems Constitutional: As described under HPI Eyes: No vision change Ears/Nose/Throat: No ear discharge, No nasal drainage, No recent hearing loss Respiratory: As described under HPI Cardiovascular: As described under HPI Gastrointestinal: No constipation, No diarrhea, No vomiting Genitourinary: No dysuria, No hematuria, No urine frequency changes Musculoskeletal: No back pain, No joint pain, No muscle pain Skin: No rash, No ulcerations Psychiatric/Neurological: No seizure, No focal weakness, No syncope Hematologic: No bleeding abnormalities All Other Systems Reviewed Negative Unless Noted: Yes BYX-Xuvdoh-Ttiadc Hx Patient Social History Alcohol Use: Denies Use Recreational Drug Use: No Smoking Status: Former Smoker Former smoker/When Quit: Aug 01, 2013 Type Used: Cigarettes 2nd Hand Smoke Exposure: No Recent Foreign Travel: No Recent Infectious Disease Expo: No Hospitalization with Isolation: Denies Physical Abuse Screen: No Sexual Abuse: No Immunizations Up To Date Tetanus Booster (TDap): Unknown Date of Influenza Vaccine: Jun 29, 2016 Past Medical History PMH As described under Assessment. Family Medical History Family History: Family history: Cardiovascular disease 03 FATHER, Onset:Unknown 03 MOTHER, Onset:Unknown Heart disease No Family History of: Abdominal aortic aneurysm Allergies and Home Medications Allergies Coded Allergies: No Known Drug Allergies (Unverified , 03/13/13) Home Medications Aspirin 81 Mg Tablet.dr, 81 MG PO DAILY, (Reported) Clopidogrel Bisulfate 75 Mg Tablet, 75 MG PO DAILY, (Reported) Isosorbide Mononitrate 30 Mg Tab.er.24h, 30 MG PO DAILY, (Reported) Metoprolol Tartrate 25 Mg Tablet, 25 MG PO BID, (Reported) Nitroglycerin 0.4 Mg Subl, 0.4 MG SL UD PRN for CHEST PAIN, (Reported) Pantoprazole Sodium 40 Mg Tablet.dr, 40 MG PO DAILY, (Reported) Rosuvastatin Calcium 40 Mg Tablet, 40 MG PO HS, (Reported) Sertraline HCl 100 Mg Tablet, 100 MG PO DAILY, (Reported) Patient Home Medication List Home Medication List Reviewed: Yes Physical Exam-Cardiology Physical Exam Vital Signs/I&O 06/09/18 06/09/18 06/09/18 06/09/18 00:00 00:00 01:00 04:00 Temp 96.5 Pulse 51 54 Resp 16 B/P (MAP) 164/82 (109) Pulse Ox 97 99 99 O2 Delivery Room Air Room Air Room Air 06/09/18 06/09/18 06/09/18 06/09/18 04:00 07:00 08:00 08:00 Temp 96.9 96.4 Pulse 51 48 55 Resp 14 16 B/P (MAP) 138/71 (93) 163/80 (107) Pulse Ox 97 97 O2 Delivery Room Air Room Air Room Air 06/09/18 06/09/18 06/09/18 08:00 08:12 11:34 Temp 96.4 97.0 Pulse 55 Resp 20 B/P (MAP) 198/75 (116) Pulse Ox 97 98 O2 Delivery Room Air Room Air Capillary Refill : Less Than 3 Seconds Constitutional: AAO x 3, well-developed, well-nourished HEENT: EOMI, hearing is well preserved; No xanthelasmas are seen Neck: carotid pulses are 2 + bilaterally, with good upstrokes Respiratory: No accessory muscle use; other (good bilat air entry) Cardiovascular: regular rate-rhythm, S1 and S2; No gallop/S4; systolic murmur ( faint ADELA at card base) Gastrointestinal: No tender; soft; No guarding, No rebound; audible bowel sounds Extremities: No clubbing, No cyanosis, No significant edema Neurologic/Psychiatric: oriented x 3, grossly intact, power is 5/5 both on sides Skin: No rash on exposed areas, No ulcerations on exposed areas Data Review Labs Laboratory Tests 06/08/18 20:23: White Blood Count 11.4H, Red Blood Count 5.10, Hemoglobin 11.8, Hematocrit 38, Mean Corpuscular Volume 75L, Mean Corpuscular Hemoglobin 23L, Mean Corpuscular Hemoglobin Concent 31L, Red Cell Distribution Width 16.4H, Platelet Count 241, Mean Platelet Volume 11.0H, Neutrophils (%) (Auto) 61, Lymphocytes (%) (Auto) 33 , Monocytes (%) (Auto) 6, Eosinophils (%) (Auto) 0, Basophils (%) (Auto) 1, Neutrophils # (Auto) 7.0, Lymphocytes # (Auto) 3.7, Monocytes # (Auto) 0.7, Eosinophils # (Auto) 0.0, Basophils # (Auto) 0.1, Prothrombin Time 13.9, INR Comment 1.1, Activated Partial Thromboplast Time 28, D-Dimer 0.66H, Sodium Level 139, Potassium Level 4.0, Chloride Level 107, Carbon Dioxide Level 19L, Anion Gap 13, Blood Urea Nitrogen 21H, Creatinine 1.24, Estimat Glomerular Filtration Rate 48, BUN/Creatinine Ratio 17, Glucose Level 88, Calcium Level 9.7 , Corrected Calcium 9.5, Magnesium Level 1.9, Total Bilirubin 0.4, Aspartate Amino Transf (AST/SGOT) 21, Alanine Aminotransferase (ALT/SGPT) 21, Alkaline Phosphatase 78, Myoglobin 44.4, Troponin I < 0.30, B-Type Natriuretic Peptide 653.5H, Total Protein 7.7, Albumin 4.3, Amylase Level 56, Lipase 8 06/09/18 04:37: White Blood Count 8.4, Red Blood Count 4.74, Hemoglobin 11.0L, Hematocrit 36, Mean Corpuscular Volume 75L, Mean Corpuscular Hemoglobin 23L, Mean Corpuscular Hemoglobin Concent 31L, Red Cell Distribution Width 16.6H, Platelet Count 224, Mean Platelet Volume 11.0H, Neutrophils (%) (Auto) 61, Lymphocytes (%) (Auto) 32 , Monocytes (%) (Auto) 6, Eosinophils (%) (Auto) 1, Basophils (%) (Auto) 1, Neutrophils # (Auto) 5.1, Lymphocytes # (Auto) 2.7, Monocytes # (Auto) 0.5, Eosinophils # (Auto) 0.0, Basophils # (Auto) 0.0, Sodium Level 140, Potassium Level 3.6, Chloride Level 104, Carbon Dioxide Level 24, Anion Gap 12, Blood Urea Nitrogen 21H, Creatinine 1.16, Estimat Glomerular Filtration Rate 51, BUN/ Creatinine Ratio 18, Glucose Level 115H, Calcium Level 9.6, Corrected Calcium 9.6, Total Bilirubin 0.4, Aspartate Amino Transf (AST/SGOT) 18, Alanine Aminotransferase (ALT/SGPT) 20, Alkaline Phosphatase 75, Troponin I < 0.30, Total Protein 7.3, Albumin 4.0, Total Creatine Kinase 49, Triglycerides Level 271H, Cholesterol Level 273H, LDL Cholesterol Direct 216H, VLDL Cholesterol 54H , HDL Cholesterol 30L Laboratory Tests 06/08/18 20:23 06/09/18 04:37 A/P-Cardiology Assessment/Admission Diagnosis Chest pain of undetermined etiology: no evidence of ac WA or PE or aortic dissection on w/u during this admission Ac diastolic CHF Echo of 06/09/18: LVEF 60-65%, grade 3 auguste dysfunction, mod dil of LA, PASP 30 mmHg Hypertension, not well controlled Hyperlipidemia treated with statins, but not well controlled Considerable sinus bradycardia, albeit w/o symptoms Palpitations (exertional) and exertional shortness of breath of undetermined etiology Dizziness of undetermined etiology CAD with h/o CABG in January [address] Edwards at [facility]. Following abnormal MPI of 10/04/16, She underwent another card cath on 10/11/16 that showed chronic mid-vessel occlusion of the LAD, ostial occlusion of the RCA, and mod prox disease of the LCX; patent SVG to OM1 and to the distal RCA with mod-sev disease in a small caliber distal RCA; patent DAVILA to LAD; patent sent in D1, patent PTCA site (carried out in 2016) in an OM of LCX; elev LVEDP, LVEF approx 55%; no MR Large retroperiotoneal bleed following cardiac cath on 06-09-15 for which she was transferred to [facility] in [place], [place], on active source of bleed was found. She was treated conservatively, did well, and was discharged by Dr Martinez at [facility]. Had post-hosp groin and L leg discomfort that has now resolved. U/s of L leg of 06/25/15 did no show any pseudoaneurysm or AV fistula H/o tobacco use quit since Jul 28, 2013 GERD H/o depression, controlled Obesity with BMI of approximately 38 Mild bilat carotid arterial disease per u/s of May 2017 Suspected SIDDHARTHA Discussion and Recomendations * I spoke with her in detail regarding her cardiopulm w/u during this hosp and answered questions. Several issues addressed during this hosp (see below) * Decrease beta-javed because of bradycardia * Add diuretics to control symptoms of heart failure * Educated in etiology and treatment of heart failure * Add CHERELLE-inhib to control hypertension * Consider adding PCSK-9 inhibitors for treatment of uncontrolled hyperlipidemia (despite statin therapy). Outpt f/u advised for this * Sleep studies as outpt * F/u with pcp for eval for noncard causes of cp * Outpt card f/u soon * Return to ER in case of recurrence of symptoms or new symptoms Clinical Quality Measures AMI/AHF: ASA po Prior to arrival: No DVT/VTE Risk/Contraindication: Risk Factor Score Per Nursin RFS Level Per Nursing on Admit: 4+=Very High MATT DERAS MD FACP FAC CCDS Jun 09, 2018 11:21
[2018-06-09] MEDS ORDERED: lisINopril 20 MG (PRINIVIL) TABLET PO ONE (12:15)
[2018-06-09] MEDS ORDERED: FUROSEMIDE 40 MG (LASIX) TAB PO ONE (12:15)
[2018-06-09] MEDS ORDERED: KCL 10 MEQ TAB (MICRO K) PO ONE (12:15)
[2018-06-09] MEDS ORDERED: POTA10TA6 PO (15:28)
[2018-06-09] MEDS ORDERED: LISI-552 PO (15:28)
[2018-06-09] MEDS ORDERED: FURO40TA4 PO (15:28)
--- NOTE | 2018-06-09 15:31 | Discharge Instructions ---
Discharge Inst[facility] Discharge Medications New, Converted or Re-Newed RX: Transmitted to Pharmacy ([facility]) New Medications: Furosemide (Furosemide) 40 Mg Tablet 40 MG PO DAILY, #30 TAB 0 Refills Lisinopril (Lisinopril) 20 Mg Tablet 40 MG PO DAILY, #30 TAB 3 Refills Metoprolol Tartrate (Metoprolol Tartrate) 25 Mg Tablet 12.5 MG PO BID, #60 TAB 3 Refills Potassium Chloride (Klor-Con 10) 10 Meq Tablet.er 10 MEQ PO DAILY@0700, #30 TAB 0 Refills Continued Medications: Aspirin ([place] Aspirin) 81 Mg Tablet.dr 81 MG PO DAILY, TAB Clopidogrel Bisulfate (Plavix 75 Mg) 75 Mg Tablet 75 MG PO DAILY, TAB Isosorbide Mononitrate (Isosorbide Mononitrate ER) 30 Mg Tab.er.24h 30 MG PO DAILY, TAB Nitroglycerin (Nitrostat) 0.4 Mg Subl 0.4 MG SL UD PRN for CHEST PAIN, TAB Pantoprazole Sodium (Pantoprazole Sodium) 40 Mg Tablet.dr 40 MG PO DAILY, TAB Rosuvastatin Calcium (Crestor) 40 Mg Tablet 40 MG PO HS, TAB Sertraline HCl (Zoloft) 100 Mg Tablet 100 MG PO DAILY, TAB Discontinued Medications: Metoprolol Tartrate (Metoprolol Tartrate) 25 Mg Tablet 25 MG PO BID, TAB Patient Instructions Patient Instructions New prescription for furosemide 40mg daily and potassium choloride 10 mEq daily. New prescription for Linsinopril 20mg daily. Metoprolol decreased from 25mg to 12.5mg daily - new prescription sent for the lower dose but may take 1/2 of the metoprolol 25mg twice daily. Goal/Follow Up Appt: Follow-up with Dieudonne Thorpe APRN at [facility] on 06/13/18 at 1pm. Activity & Diet Discharge Diet: Cardiac Diet Orders-Post D/C & Referrals Pneu Vac Indicated: Yes REGGIE LANDEROS DO Jun 09, 2018 15:31
[2018-06-10] MEDS ORDERED: KCL 10 MEQ TAB (MICRO K) PO SCH (07:00)
[2018-06-10] MEDS ORDERED: FUROSEMIDE 40 MG (LASIX) TAB PO SCH (09:00)
[2018-06-10] MEDS ORDERED: lisINopril 20 MG (PRINIVIL) TABLET PO SCH (09:00)
== END 2018-06-09 15:28 | disposition home or self-care (01) ==
LOC: EDUNIT# 20:11 → ER 20:13 → UNDOADMOB 22:35 → ICU 22:35 → UNDODISOB 06-09 16:15
PROVIDERS: ADMIT Family Medicine; ATTEND Family Medicine
DX: R07.9 Chest pain, unspecified (principal); I25.10 Atherosclerotic heart disease of native coronary artery without angina pectoris; Z95.1 Presence of aortocoronary bypass graft; E78.5 Hyperlipidemia, unspecified; I11.0 Hypertensive heart disease with heart failure; I50.31 Acute diastolic (congestive) heart failure; R00.1 Bradycardia, unspecified; R00.2 Palpitations; R42 Dizziness and giddiness; K21.9 Gastro-esophageal reflux disease without esophagitis; F32.9 Major depressive disorder, single episode, unspecified; E66.9 Obesity, unspecified; I77.89 Other specified disorders of arteries and arterioles; I25.2 Old myocardial infarction; Z87.891 Personal history of nicotine dependence; Z68.38 Body mass index [BMI] 38.0-38.9, adult; Z95.5 Presence of coronary angioplasty implant and graft
CPT/HCPCS: 36415; 71045; 71275; 80053; 80061; 82150; 82550; 83690; 83735; 83874; 83880; 84484; 85025; 85379; 85610; 85730; 90471; 90686; 93005; 93041; 93306; 96374; 96375

== ENCOUNTER 2018-06-12 08:06 | Day surgery (SDC) | payer OTHER ==
[~2018-06-12] VITALS: Ht 175.3 cm; Wt 115.7 kg
[2018-06-12] VITALS (10 sets, daily range): BP systolic 128–169; BP diastolic 69–95
[~2018-06-12 08:06] MED LIST changes: +FURO40TA4 PO; +LISI-552 PO; +METO-333 PO; +POTA10TA6 PO; +ROSU40TA PO
[2018-06-12] MEDS ORDERED: HEParin (CATH LAB) 2,000 ML IV ONE (08:19)
[2018-06-12] MEDS ORDERED: NS IV 1000 ML 1,000 ML ONE (08:19)
[2018-06-12] MEDS ORDERED: LIDOCAINE 1% INJ 20 ML 20 ML VIAL ONE (08:19)
[2018-06-12 08:49] LABS: HEMOGLOBIN 12.7 G/DL (11.5-16.0); RED BLOOD COUNT 5.51 10^6/uL (4.35-5.85); RED CELL DISTRIBUTION WIDTH 16.5 % (10.0-14.5); WHITE BLOOD COUNT 10.1 10^3/uL (4.3-11.0)
[2018-06-12] MEDS ORDERED: METO50TA15 PO ×2 (08:58→13:16)
[2018-06-12] MEDS ORDERED: LISI40TA PO (08:58)
[2018-06-12 08:59] LABS: INR 1.1 (0.8-1.4); PROTHROMBIN TIME PATIENT 13.8 SEC (12.2-14.7)
[2018-06-12 09:09] LABS: ALANINE AMINOTRANSFERASE 18 U/L (0-55); ALBUMIN 4.3 GM/DL (3.2-4.5); ALKALINE PHOSPHATASE 90 U/L (40-136); BILIRUBIN,TOTAL 0.4 MG/DL (0.1-1.0); BUN/CREATININE RATIO 21; CALCIUM 9.6 MG/DL (8.5-10.1); CARBON DIOXIDE 20 MMOL/L (21-32); CHLORIDE 108 MMOL/L (98-107); CHOLESTEROL 302 MG/DL (< 200); CREATININE SERUM 0.89 MG/DL (0.60-1.30); GFR ESTIMATED > 60; GLUCOSE 106 MG/DL (70-105); HDL CHOLESTEROL 34 MG/DL (40-60); POTASSIUM 4.1 MMOL/L (3.6-5.0); SODIUM 141 MMOL/L (135-145); TOTAL PROTEIN 7.8 GM/DL (6.4-8.2); TRIGLYCERIDES 319 MG/DL (<150); VLDL CHOLESTEROL 64 MG/DL (5-40)
[2018-06-12] MEDS ORDERED: NS IV 1000 ML 1,000 ML IV SCH ×2 (10:45→13:13)
[2018-06-12] MEDS ORDERED: diphenhydrAMINE 25 MG TAB (BENADRYL) PO ONE (11:39)
[2018-06-12] MEDS ORDERED: fentaNYL INJECTION 100 MCG/2 ML AMP ONE (11:39)
[2018-06-12] MEDS ORDERED: MIDAZOLAM 5 MG/5 ML (VERSED) VIAL ONE (11:39)
--- NOTE | 2018-06-12 12:09 | Cardiac Procedure Note-CS/ASA ---
Pre-Procedure Note Pre-Op Procedure Note H&P Reviewed The H&P was reviewed, patient examined and no changes noted. Date H&P Reviewed: Jun 12, 2018 Time H&P Reviewed: 12:08 Conscious Sedation Pre-Proced Time 12:09 ASA Score 3 For ASA 3 and 4: Consider anesthesia and medical clearance. Also, for patients with a history of failed moderate sedation consider anesthesia. Airway Lungs Heart ASA score ASA 1: a normal healthy patient ASA 2: a patient with a mild systemic disease (mid diabetes, controlled hypertension, obesity ASA 3: a patient with a severe systemic disease that limits activity (angina , COPD, prior Myocardial infarction) ASA 4: a patient with an incapacitating disease that is a constant threat to life (CHF, renal failure) ASA 5: a moribund patient not expected to survive 24 hrs. (ruptured aneurysm) ASA 6: a declared brain patient whose organs are being harvested. For emergent operations, add the letter E after the classification Mallampati Classification Grade 2 Sedation Plan Analgesia, Amnesia, Plan communicated to team members, Discussed options with patient/fam, Discussed risks with patient/fam The patient is an appropriate candidate to undergo the planned procedure, sedation, and anesthesia. The patient immediately re-assessed prior to indication. MATT DERAS MD FACP FAC CCDS Jun 12, 2018 12:09
[2018-06-12] MEDS ORDERED: PATIENT MAY USE OWN MEDS, ALL PO SCH (13:15)
--- NOTE | 2018-06-12 13:17 | Discharge Inst-Post CATH ---
Discharge Inst-CATH Post Cardiac Cath D/C Inst Follow Up/Plan F/u with Dr Del Toro next week CARDIAC CATH DISCHARGE INSTRUCTIONS *Hold Metformin for 48 hours post heart cath. ACTIVITY * Go Home directly and rest. * Limit activity of the leg (or wrist if it was used) for 7 days including aerobics, swimming, jogging, bicycling, etc. * Restrict stair-climbing for 7 days if possible, if not, climb up with your non -cath leg, then bring together on the same step. * Avoid lifting, pushing, pulling or excessive movement of the affected extremity for 7 days. * Customary sexual activity may be resumed after 2 days-use caution not to use a position that strains or causes pain to the affected extremity. * No driving for 24 hours. * NO SMOKING. * Avoid straining for bowel movements for 7 days. * Gentle walking on level ground is allowed. * Returning to work will depend on the type of procedure and the results. Your doctor will discuss this with you. CALL YOUR DOCTOR FOR ANY OF THE FOLLOWING: *If bleeding from the puncture site occurs- Apply gentle pressure to site with clean cloth and call your doctor or EMS. * If a knot or lump forms under the skin, increases in size, or causes pain. * If bruising appears to be worsening or moving further down your leg instead of disappearing. * Temperature above 101 F. CARE OF YOUR GROIN INCISION; * Bruising or purple discoloration of the skin near the puncture site is common. * You may shower only, no bathtub bathing for 5 days. Be careful to avoid slipping as your leg may feel stiff. * If a closure device was used on your femoral artery, please see the attached guide regarding care of the device and your leg. * Leave the dressing on, until removed by office staff. CARE OF YOUR WRIST INCISION; * Bruising or purple discoloration of the skin near the puncture site is common. * You may shower. * DO NOT submerge wrist. * Leave dressing on, until removed by office staff.. MATT DEL [facility]ORO MD [facility] Jun 12, 2018 13:17
--- NOTE | 2018-06-12 13:17 | Discharge Inst-Cardiology ---
Discharge Inst-Cardiac Discharge Medications New Medications: Metoprolol Tartrate (Metoprolol Tartrate) 50 Mg Tablet 50 MG PO BID for 30 Days, #60 TAB 5 Refills Continued Medications: Aspirin ([place] Aspirin) 81 Mg Tablet.dr 81 MG PO DAILY, TAB Clopidogrel Bisulfate (Plavix 75 Mg) 75 Mg Tablet 75 MG PO DAILY, TAB Furosemide (Furosemide) 40 Mg Tablet 40 MG PO DAILY, #30 TAB 0 Refills Lisinopril (Lisinopril) 40 Mg Tablet 40 MG PO DAILY, TAB Nitroglycerin (Nitrostat) 0.4 Mg Subl 0.4 MG SL UD PRN for CHEST PAIN, TAB Pantoprazole Sodium (Pantoprazole Sodium) 40 Mg Tablet.dr 40 MG PO DAILY, TAB Potassium Chloride (Klor-Con 10) 10 Meq Tablet.er 10 MEQ PO DAILY@0700, #30 TAB 0 Refills Rosuvastatin Calcium (Crestor) 40 Mg Tablet 40 MG PO HS, TAB Sertraline HCl (Zoloft) 100 Mg Tablet 100 MG PO DAILY, TAB Discontinued Medications: Metoprolol Tartrate (Metoprolol Tartrate) 50 Mg Tablet 25 MG PO BID, TAB take 1/2 tablet twice a day MATT DERAS MD FACP FAC CCDS Jun 12, 2018 13:17
--- NOTE | 2018-06-12 16:31 | OPERATIVE REPORT ---
DATE OF SERVICE: 06/12/2018 CARDIAC CATHETERIZATION INDICATIONS: The patient is a 42-year-old lady who has coronary artery disease and has had coronary artery bypass surgery few years ago. Lately, she has been having complications. A Holter monitor study has shown runs of wide complex tachycardia of up to 9 beats in length and up to 150 beats per minute. Beta blockers were increased. Her symptoms improved. To further evaluate nonsustained wide complex tachycardia in the setting of coronary artery disease, cardiac catheterization was recommended and carried out today after having obtained informed consent. DESCRIPTION OF PROCEDURE: She was brought to the cardiac catheterization laboratory in a fasting state. Right groin was prepared and draped in the usual sterile fashion. Lidocaine 1% used for local anesthesia. Modified Seldinger technique was used to advance a 5-Cymro sheath in the right femoral artery, 5-Cymro JL4 catheter for left coronary angiography, 5-Cymro JR4 catheter for right coronary angiography. A 5-Cymro pigtail catheter was used for left heart catheterization, left ventricular angiography. A 5-Cymro pigtail catheter was used for angiography of the aortic arch. We used a 5-Cymro JR4 catheter for angiography of the saphenous vein grafts to the coronaries and for angiography of the left internal mammary artery graft to the left anterior descending artery. Angiography of the right femoral artery had been carried out through the sheath at the beginning of the procedure. At the end of the procedure, Mynx was used to achieve hemostasis. The patient tolerated the procedure well. HEMODYNAMICS: Left ventricular end-diastolic pressure following coronary angiography was 21 mmHg. There is no significant pressure gradient on pullback across the aortic valve. Ascending aortic pressure is 125/70 with a mean of 87 mmHg. LEFT VENTRICULAR CORONARY ANGIOGRAPHY: Left ventricular coronary angiography was carried out in the right anterior oblique projection. Global left ventricular systolic function is well preserved. Left ventricular ejection fraction is 50-55%. There appears to be mild anterolateral hypokinesis. There does not appear to be significant mitral regurgitation. AORTIC ARCH ANGIOGRAPHY: Aortic arch angiography did not indicate any significant thoracic aortic aneurysm or dissection. Neck arteries are identified and do not exhibit significant disease in the proximal portions. The primary purpose of the ascending aortic and aortic arch angiography was to delineate the origin of the aortocoronary grafts which were seen and appeared patent. CORONARY ANGIOGRAPHY: Left main coronary artery is free of significant disease. Left anterior descending artery has a patent stent in its proximal and mid portions. There is a severe mid to distal vessel disease in the left anterior descending. The left circumflex artery has approximately 50-60% proximal stenosis. The right coronary artery is occluded at its ostium. Saphenous vein graft angiography, aortocoronary graft to an obtuse marginal system is widely patent and does not exhibit significant disease. The site of previous balloon angioplasty just distal to the insertion of the graft into the obtuse marginal is patent and does not exhibit significant disease. An aortocoronary graft to the distal right coronary artery is patent and does not exhibit significant disease. The distal right coronary artery itself, however, exhibits moderate to moderately severe diffuse disease. LEFT INTERNAL MAMMARY ARTERY GRAFT ANGIOGRAPHY: Left internal mammary artery graft to distal left anterior descending artery is patent. There is moderate diffuse disease of the left anterior descending distal to the insertion of the graft. There is some retrograde filling of the left anterior descending also seen. CONCLUSIONS: 1. Coronary artery disease primarily consisting of moderately severe mid vessel disease of the left anterior descending and moderate disease of the proximal left circumflex and ostial occlusion of the right coronary. 2. Patent left internal mammary artery graft to distal left anterior descending with diffuse moderate to moderately severe disease of the distal left anterior descending artery, which is of a small caliber. 3. Patent aortocoronary graft to an obtuse marginal system. 4. Patent aortocoronary graft to distal right coronary artery with diffuse moderate to moderately severe disease of the distal right coronary (small caliber vessels). 5. Elevated left ventricular end-diastolic pressure. 6. Well preserved global left ventricular systolic function with an ejection fraction of 50-55%. 7. Mild anterolateral hypokinesis. DISCUSSION AND RECOMMENDATIONS: Her symptoms of palpitations have improved following beta javed therapy. Her coronary graft status appears stable. Ejection fraction is greater than 50%. Given nonsustained wide complex tachycardia, Electrophysiology evaluation is recommended and we will contact the Electrophysiology Service. I explained all of the above to the patient and her family and answered questions. Job ID: [id number] DocumentID: [id number] Dictated Date: 06/12/2018 13:10:53 [employer] Date: 06/12/2018 16:30:25 Dictated By: MATT DERAS MD, MA, FACP, FACC, MTDD
== END 2018-06-12 16:25 | disposition home or self-care (01) ==
LOC: CATH 08:06 → SDC 13:03 → CATH 16:25
PROVIDERS: ATTEND Internal Medicine Cardiovascular Disease
DX: I25.10 Atherosclerotic heart disease of native coronary artery without angina pectoris (principal); R00.0 Tachycardia, unspecified; I42.9 Cardiomyopathy, unspecified; E78.5 Hyperlipidemia, unspecified; K21.9 Gastro-esophageal reflux disease without esophagitis; I65.23 Occlusion and stenosis of bilateral carotid arteries; E66.9 Obesity, unspecified; Z68.37 Body mass index [BMI] 37.0-37.9, adult; Z79.02 Long term (current) use of antithrombotics/antiplatelets; Z79.82 Long term (current) use of aspirin; Z79.899 Other long term (current) drug therapy; Z87.891 Personal history of nicotine dependence; Z95.1 Presence of aortocoronary bypass graft
CPT/HCPCS: 36415; 80053; 80061; 85027; 85610; 85730; 87081; 93459

== ENCOUNTER → 2018-06-27 | Outpatient (CLI) | payer OTHER ==
[~2018-06-27] VITALS: Ht 175.3 cm; Wt 115.7 kg
[~2018-06-27] MED LIST changes: +ASPI-999 PO; +CLOP75TA69 PO; +LISI40TA PO; +NITR0.4T39 SL; +PANT20TA3 PO; +ROSU20TA31 PO
== END | disposition home or self-care (01) ==
LOC: PREOP 05:35
PROVIDERS: ATTEND Internal Medicine Interventional Cardiology
DX: Z01.818 Encounter for other preprocedural examination (principal)

== ENCOUNTER 2018-07-02 06:05 | Day surgery (SDC) | payer OTHER ==
[~2018-07-02] VITALS: Ht 175.3 cm; Wt 113.4 kg
[2018-07-02] VITALS (8 sets, daily range): BP systolic 132–186; BP diastolic 63–78
[2018-07-02] MEDS ORDERED: HEParin (CATH LAB) 1,000 ML IV ONE (06:52)
[2018-07-02] MEDS ORDERED: ceFAZolin 1,000 MG/10 ML (ANCEF) VIAL ONE (06:52)
[2018-07-02] MEDS ORDERED: LIDOCAINE 1% INJ 20 ML 20 ML VIAL ONE (06:52)
[2018-07-02] MEDS ORDERED: NS IV 1000 ML 1,000 ML ONE ×2 (06:52→08:44)
[2018-07-02] MEDS ORDERED: BACITRACIN INJECTION 50,000 UNIT, SODIUM CHLORIDE 0.9% IRRIGATIO 500 ML IR ONE ×6 (07:00→07:30)
[2018-07-02] MEDS ORDERED: ISOPROTERENOL 0.2 MG/100 ML D5W IV ONE ×3 (07:00→07:30)
[2018-07-02] MEDS ORDERED: NS IV 1000 ML 1,000 ML IV SCH ×2 (07:00→10:20)
[2018-07-02] MEDS ORDERED: ceFAZolin 1,000 MG/10 ML (ANCEF) VIAL IV ONE ×3 (07:00→07:30)
[2018-07-02 07:12] LABS: HEMOGLOBIN 11.8 G/DL (11.5-16.0); MEAN PLATELET VOLUME 10.9 FL (7.4-10.4); RED BLOOD COUNT 5.04 10^6/uL (4.35-5.85); RED CELL DISTRIBUTION WIDTH 17.1 % (10.0-14.5); WHITE BLOOD COUNT 10.3 10^3/uL (4.3-11.0)
[2018-07-02] MEDS ORDERED: proPOfol 200 MG/20 ML (DIPRIVAN) VIAL IV ONE (07:20)
[2018-07-02] MEDS ORDERED: fentaNYL INJECTION 100 MCG/2 ML AMP ONE (07:20)
[2018-07-02] MEDS ORDERED: ONDANSETRON 4 MG/2 ML (SDV) Z0FRAN ONE (07:20)
[2018-07-02] MEDS ORDERED: LIDOCAINE 2% 20 ML (XYLOCAINE) VIAL ONE (07:20)
[2018-07-02] MEDS ORDERED: MIDAZOLAM 2 MG/2 ML (VERSED) VIAL ONE (07:20)
[2018-07-02] MEDS ORDERED: SEVOFLURANE (ULTANE) 15 ML INHAL SOLN ONE ×2 (07:21→10:49)
[2018-07-02] MEDS ORDERED: FURO40TA4 PO (07:21)
[2018-07-02] MEDS ORDERED: POTA10TA6 PO (07:21)
[2018-07-02] MEDS ORDERED: NS IV 1000 ML 1,000 ML IV ONE ×2 (07:25→07:28)
[2018-07-02 07:29] LABS: INR 1.1 (0.8-1.4); PROTHROMBIN TIME PATIENT 13.9 SEC (12.2-14.7)
[2018-07-02 07:35] LABS: ALANINE AMINOTRANSFERASE 18 U/L (0-55); ALBUMIN 4.2 GM/DL (3.2-4.5); ALKALINE PHOSPHATASE 81 U/L (40-136); BILIRUBIN,TOTAL 0.6 MG/DL (0.1-1.0); BUN/CREATININE RATIO 19; CALCIUM 9.8 MG/DL (8.5-10.1); CARBON DIOXIDE 21 MMOL/L (21-32); CHLORIDE 105 MMOL/L (98-107); CREATININE SERUM 0.84 MG/DL (0.60-1.30); GFR ESTIMATED > 60; GLUCOSE 109 MG/DL (70-105); POTASSIUM 3.7 MMOL/L (3.6-5.0); SODIUM 139 MMOL/L (135-145); TOTAL PROTEIN 7.8 GM/DL (6.4-8.2)
--- NOTE | 2018-07-02 10:28 | Cardiology Post Procedure Note ---
Post-Procedure Note Physician (s)/Warehouse Logistics Manager (s) Physician Pati MCKEON MD Pre-Procedure Diagnosis Pre-Procedure Diagnosis: nonsustained VT, CAD status post CABG, ischemic cardiomyopathy Post-Procedure Note Procedure Start Date: Jul 02, 2018 Procedure Start Time: 08:00 Name of Procedure: EP study with induction, drug infusion Findings/Procedure Note EP study showed normal AV node conduction. Aggressive protocol for induction of sustained VT was performed, however, noninducible sustained VT with or without Isuprel. Estimated blood loss (mL): 10 Contrast Amount: 0 Post-Procedure Diagnosis Post-operative diagnosis: Noninducible VT. Negative EP study. Pati MCKEON MD Jul 02, 2018 10:28 am
[2018-07-02] MEDS ORDERED: PATIENT MAY USE OWN MEDS, ALL PO SCH (10:30)
--- NOTE | 2018-07-02 10:33 | Discharge Inst-Post CATH ---
Discharge Inst-CATH Post Cardiac Cath D/C Inst Follow Up/Plan Dr Klein and Dr Del Toro in four weeks CARDIAC CATH DISCHARGE INSTRUCTIONS *Hold Metformin for 48 hours post heart cath. ACTIVITY * Go Home directly and rest. * Limit activity of the leg (or wrist if it was used) for 7 days including aerobics, swimming, jogging, bicycling, etc. * Restrict stair-climbing for 7 days if possible, if not, climb up with your non -cath leg, then bring together on the same step. * Avoid lifting, pushing, pulling or excessive movement of the affected extremity for 7 days. * Customary sexual activity may be resumed after 2 days-use caution not to use a position that strains or causes pain to the affected extremity. * No driving for 24 hours. * NO SMOKING. * Avoid straining for bowel movements for 7 days. * Gentle walking on level ground is allowed. * Returning to work will depend on the type of procedure and the results. Your doctor will discuss this with you. CALL YOUR DOCTOR FOR ANY OF THE FOLLOWING: *If bleeding from the puncture site occurs- Apply gentle pressure to site with clean cloth and call your doctor or EMS. * If a knot or lump forms under the skin, increases in size, or causes pain. * If bruising appears to be worsening or moving further down your leg instead of disappearing. * Temperature above 101 F. CARE OF YOUR GROIN INCISION; * Bruising or purple discoloration of the skin near the puncture site is common. * You may shower only, no bathtub bathing for 5 days. Be careful to avoid slipping as your leg may feel stiff. * If a closure device was used on your femoral artery, please see the attached guide regarding care of the device and your leg. * Leave the dressing on, until removed by office staff. CARE OF YOUR WRIST INCISION; * Bruising or purple discoloration of the skin near the puncture site is common. * You may shower. * DO NOT submerge wrist. * Leave dressing on, until removed by office staff.. Pati KLEIN MD Jul 02, 2018 10:33 am
[2018-07-02] MEDS ORDERED: morphine INJ 10 MG/ML 1ML (SYR OR VIAL) IVP ONE (10:45)
[2018-07-02] MEDS ORDERED: MEPERIDINE (DEMEROL) INJ 50 MG/ML IVP ONE (10:45)
[2018-07-02] MEDS ORDERED: ONDANSETRON 4 MG/2 ML (SDV) Z0FRAN IVP PRN (10:45)
--- NOTE | 2018-07-02 10:57 | Anesthesia-General Post-Op ---
General Patient Condition Mental Status/LOC: Same as Preop Cardiovascular: Satisfactory Nausea/Vomiting: Absent Respiratory: Satisfactory Pain: Controlled Complications: Absent Post Op Complications Complications None Follow Up Care/Instructions Patient Instructions None needed. Anesthesia/Patient Condition Patient Condition Patient is doing well, no complaints, stable vital signs, no apparent adverse anesthesia problems. No complications reported per nursing. LELAND DENNIS CRNA Jul 02, 2018 10:57
--- NOTE | 2018-07-06 02:26 | OPERATIVE REPORT ---
DATE OF SERVICE: 07/02/2018 COMPREHENSIVE EP STUDY REFERRING MEDICAID BILLING SPECIALIST: Trae Del Toro MD CARDIAC VIDEO PRODUCER: Miriam Klein MD INDICATION: Nonsustained VT, mild to moderate LV dysfunction, history of CAD. PREOPERATIVE DIAGNOSES: Nonsustained ventricular tachycardia, ischemic cardiomyopathy with mild to moderate left ventricular dysfunction, coronary artery disease. POSTOPERATIVE DIAGNOSIS: Sustained ventricular tachycardia was not induced. HISTORY: This is a 42-year-old lady with history of diabetes and significant coronary artery disease requiring CABG. The patient has a history of ischemic cardiomyopathy with [id number] LV dysfunction. However, LVEF is above 35%. She had complaints of palpitations and a Holter monitor showed a brief run of nonsustained ventricular tachycardia for 11 beats. The patient was scheduled for a comprehensive EP study with possible induction of ventricular tachycardia and possible ICD. PROCEDURE PERFORMED: 1. Comprehensive EP study with induction. 2. Fluoroscopy. 3. Drug infusion. COMPLICATION: None. ESTIMATED BLOOD LOSS: 10 mL. CONTRAST USED: None. FLUOROSCOPY TIME: 4 minutes. FLUOROSCOPY DOSE: 512 milligrays. SPECIMENS: None. ANESTHESIA: Done by our anesthesia colleagues. ANTICOAGULATION: None. PROCEDURE IN DETAIL: After informed consent was taken, the patient was brought to the EP lab. Anesthesia was provided by our anesthesia colleagues. The patient was draped and prepped in the usual sterile fashion. The patient presented to the EP lab in sinus rhythm. Access was gained in the right femoral vein with a 6-Kosovan sheath, and two 5-Kosovan sheaths. A high atrial catheter, His catheter and RV catheter was placed. A comprehensive EP study was done. We tried to induce ventricular tachycardia by programmed electrical stimulation from the RV apex and RVOT with an aggressive protocol at both cycle length of 600 milliseconds and 400 milliseconds. This was done with and without Isuprel infusion. However, we were not able to induce sustained ventricular tachycardia. Nonsustained ventricular tachycardia for a few beats was induced with spontaneous conversion to sinus rhythm. The patient left the lab in sinus rhythm. The patient tolerated the procedure well and did not have any complication. Since ventricular tachycardia was not induced, ICD was not implanted. MEASUREMENTS: AH 76 milliseconds. HV 47 milliseconds. NH interval 172 milliseconds. QRS duration 63 milliseconds. QT interval 546 milliseconds. RR interval 1203 milliseconds. AV Wenckebach 380 milliseconds. Retrograde Wenckebach 460 milliseconds. Atrial ERP was 600/300 milliseconds. Ventricular ERP was 600/320 milliseconds. PLAN: The patient will be observed for 4 hours and will be discharged home later today with precise followup instructions. Job ID: [id number] DocumentID: [id number] Dictated Date: 07/05/2018 18:28:03 [employer] Date: 07/06/2018 02:25:03 Dictated By: JAKUB KLEIN MD MTDD
== END 2018-07-02 13:20 | disposition home or self-care (01) ==
LOC: CATH 06:05 → SDC 11:34 → CATH 13:20
PROVIDERS: ATTEND Internal Medicine Interventional Cardiology
DX: I47.2 Ventricular tachycardia (principal); I25.10 Atherosclerotic heart disease of native coronary artery without angina pectoris; I25.5 Ischemic cardiomyopathy; Z95.1 Presence of aortocoronary bypass graft; Z79.899 Other long term (current) drug therapy; Z79.82 Long term (current) use of aspirin; K21.9 Gastro-esophageal reflux disease without esophagitis; E78.5 Hyperlipidemia, unspecified; Z87.891 Personal history of nicotine dependence; Z11.2 Encounter for screening for other bacterial diseases
CPT/HCPCS: 36415; 80053; 85027; 85610; 85730; 87081; 93005; 93620; 93623

== ENCOUNTER 2020-12-07 09:45 | Emergency (ER) | payer SELFPAY ==
[~2020-12-07] VITALS: Ht 179.8 cm; Wt 144.7 kg
[~2020-12-07 09:45] MED LIST changes: -ISOS30TA3 PO; +ISOS30TA82 PO; -LISI-552 PO; +LISI20TA26 PO; -LISI40TA PO; +LISI40TA9 PO; -METO-387 PO; +MTP25TSR PO; +PANT20TA18 PO; -PANT20TA3 PO; -PANT40TA3 PO; +PANT40TA52 PO; -ROSU20TA31 PO; +ROSU20TA32 PO
--- NOTE | 2020-12-07 10:38 | ED General ---
General Chief Complaint: Cardiac/General Problems Stated Complaint: POSSIBLE BLOOD CLOT R LEG Nursing Triage Note: ARRIVED VIA AMB FROM [facility]. STATES A BLOOD CLOT WAS FOUND IN HER RIGHT LEG. COMPLAINS OF PAIN IN HER LEG AND KNOT IN HER RIGHT UPPER LEG Nursing Sepsis Screen: No Definite Risk Source of Information: Patient, Other (bf) Exam Limitations: No Limitations History of Present Illness Date Seen by Provider: December 07, 2020 Time Seen by Provider: 09:57 Initial Comments MedialPatient to the ER by private conveyance from the clinic where she was seen [facility] for an ultrasound. She is had swelling and pain and redness radiating up her right leg thigh and calf for about a month. She had an ultrasound done today and was told by the ultrasound techs to come to the ER to get it treated. She is not having any chest pain shortness of air. Does not have a history of blood clots or cancer. She does have a significant history of coronary disease with triple CABG and lots of family history of coronary disease. She is on Plavix but no blood thinners. No recent trauma to her right leg other than the bug bite. Allergies and Home Medications Allergies Coded Allergies: No Known Drug Allergies (Unverified , 06/27/18) Home Medications Aspirin 81 Mg Tab.chew, 81 MG PO DAILY, (Reported) Clopidogrel Bisulfate 75 Mg Tablet, 75 MG PO DAILY, (Reported) Furosemide 40 Mg Tablet, 40 MG PO DAILY, (Reported) Lisinopril 20 Mg Tablet, 20 MG PO DAILY, (Reported) Metoprolol Tartrate 25 Mg Tablet, 25 MG PO BID, (Reported) Nitroglycerin 0.4 Mg Tab.subl, 0.4 MG SL UD PRN for CHEST PAIN, (Reported) Pantoprazole Sodium 20 Mg Tablet.dr, 20 MG PO DAILY, (Reported) Potassium Chloride 10 Meq Tablet.er, 10 MEQ PO DAILY, (Reported) Rosuvastatin Calcium 20 Mg Tablet, 20 MG PO HS, (Reported) Sertraline HCl 100 Mg Tablet, 150 MG PO DAILY, (Reported) Patient Home Medication List Home Medication List Reviewed: Yes Review of Systems Review of Systems Constitutional: No chills, No diaphoresis EENTM: No ear discharge, No ear pain Respiratory: No cough, No short of breath Cardiovascular: No chest pain, No edema; Hx of Intervention; No palpitations, No syncope; vascular heart diseas Gastrointestinal: No abdominal pain, No nausea, No vomiting Past Aixyrgh-Cdjodw-Vylzpl Hx Patient Social History Alcohol Use: Denies Use Smoking Status: Never a Smoker Type Used: Cigarettes Former Smoker, Quit: Jul 02, 2015 2nd Hand Smoke Exposure: No Recent Infectious Disease Expo: No Recent Hopitalizations: Yes (CP JUN 2018) Immunizations Up To Date Tetanus Booster (TDap): Unknown PED Vaccines UTD: No Date of Influenza Vaccine: May 21, 2018 Seasonal Allergies Seasonal Allergies: No Past Medical History Surgeries: Yes CABG, Coronary Stent, Gallbladder Respiratory: No Cardiac: Yes (NC X2, STENT X3,heart failure, SVT) Coronary Artery Disease, High Cholesterol, Hypertension, Irregular Heartbeat Neurological: No Reproductive Disorders: No Female Reproductive Disorders: Denies Sexually Transmitted Disease: No HIV/AIDS: No Genitourinary: No Gastrointestinal: Yes (gerd) Gastroesophageal Reflux, Gall Bladder Disease Musculoskeletal: No Endocrine: No HEENT: No Loss of Vision: Denies Hearing Impairment: Denies Cancer: No Psychosocial: Yes Depression Integumentary: No Blood Disorders: No Adverse Reaction/Blood Tranf: No (N/A) Family Medical History Family history: Cardiovascular disease 03 FATHER, Onset:Unknown 03 MOTHER, Onset:Unknown Heart disease No Family History of: Abdominal aortic aneurysm Heart Disease, Hypertension Physical Exam Vital Signs Vital Signs - First Documented 12/07/20 09:50 Temp 36.3 Pulse 69 Resp 16 B/P (MAP) 206/108 (140) Pulse Ox 66 O2 Delivery Room Air Capillary Refill : Less Than 3 Seconds Height, Weight, BMI Height: 5'9.00" Weight: 250lbs. 0.0oz. 113.394857ab; 39.00 BMI Method:Stated General Appearance: No Apparent Distress, WD/WN HEENT: PERRL/EOMI, Pharynx Normal Respiratory: No Accessory Muscle Use, No Respiratory Distress Cardiovascular: No Edema, Normal Peripheral Pulses Extremity: Normal Capillary Refill, Other (Mild erythema and tender nodules over the superficial veins of her right thigh medially) Neurologic/Psychiatric: Alert, Oriented x3 Progress/Results/Core Measures Suspected Sepsis Recent Fever Within 48 Hours: No Infection Criteria Present: None New/Unexplained Altered Menta: No Sepsis Screen: No Definite Risk SIRS Temperature: Pulse: 65 Respiratory Rate: 20 Blood Pressure 206 /108 Mean: 140 Results/Orders Vital Signs/I&O 12/07/20 12/07/20 09:50 09:55 Temp 36.3 35.8 Pulse 69 65 Resp 16 20 B/P (MAP) 206/108 (140) Pulse Ox 66 96 O2 Delivery Room Air Capillary Refill : Less Than 3 Seconds Blood Pressure Mean: 140 Progress Note : Time: 10:29 Progress Note Spoke to Dr. Monroy at [facility] and US shows no DVT. She has a greater saphenous superficial phlebitis/emboli up the right thigh. We discussed the case and since the patient is already on Plavix we do not feel strongly about starting her on a blood thinner as the risks do not likely outweigh the benefits. Discussed this with the patient and using a clinically supported decision-making process the patient agrees with the plan to continue Plavix and follow-up o utpatient. Diagnostic Imaging Diagonstic Imaging: Ultrasound Plain Films/CT/US/NM/MRI: leg (Right) Comments No DVT. Superficial thrombophlebitis right greater saphenous. Reviewed: Reviewed by Me Departure Impression Primary Impression: Acute superficial venous thrombosis of right lower extremity Disposition: HOME, SELF-CARE Condition: Stable Departure-Patient Inst. Decision time for Depature: 10:39 Referrals: [facility] (PCP/Family) Primary Care Physician Patient Instructions: Superficial Phlebitis Add. Discharge Instructions: Continue taking your medications as prescribed. Heat and topical creams such as icy hot or Biofreeze may be helpful for relief of pain. Symptoms should resolve over the next several weeks to month. Follow-up with primary care as necessary. Return to the nearest ER promptly if you experience chest pain, shortness of air or other worrisome symptoms All discharge instructions reviewed with patient and/or family. Voiced understanding. Work/School Note: Work Release Form Date Seen in the Emergency Department: December 07, 2020 Return to Work: December 08, 2020 Restrictions: No Restrictions BERNA PATEL December 07, 2020 10:38
[2020-12-07 10:43] VITALS: BP 152/64
== END 2020-12-07 10:43 | disposition home or self-care (01) ==
LOC: EDUNIT# 09:45 → ER 09:47
DX: I82.811 Embolism and thrombosis of superficial veins of right lower extremity (principal); E78.00 Pure hypercholesterolemia, unspecified; I10 Essential (primary) hypertension; K21.9 Gastro-esophageal reflux disease without esophagitis; F32.9 Major depressive disorder, single episode, unspecified; Z87.891 Personal history of nicotine dependence; Z95.1 Presence of aortocoronary bypass graft; Z79.899 Other long term (current) drug therapy; Z79.82 Long term (current) use of aspirin